=== PATIENT | male | born 1960 | race Caucasian/White ===

== ENCOUNTER 2019-11-07 07:50 | Outpatient (RCR) | payer OTHER, MEDICARE, SELFPAY ==
--- NOTE | 2019-10-17 09:56 | P.PNWOUND_ITS ---
Wound Care Note Date/Time: 10/17/19 09:56 2 weeks, 5 days POST OP Assessment and Plan Assessment and plan (1) Diabetic ulcer of foot associated with diabetes mellitus due to underlying condition, with necrosis of bone: Code(s): E08.621 - Diabetes mellitus due to underlying condition with foot ulcer; L97.504 - Non-pressure chronic ulcer of other part of unspecified foot with necrosis of bone Status: Acute Assessment and Plan: 2 weeks, 5 days POST OP. Sutures removed. Incision well-approximated. No signs of infection. No open ulcers. Transition to custom orthotics/depth shoes. Monitor feet daily. Report new ulcers immediately. Follow up in 2 weeks. Review of Systems Const Reports no additional constitutional complaints Eyes Reports no additional eye complaints ENT Reports system reviewed and no additional complaints, except as documented Card Reports no additional cardiovascular complaints Resp Reports no additional respiratory complaints GI Reports no additional gastrointestinal complaints Reports no additional male genitourinary complaints Musc Reports no additional musculoskeletal complaints Skin/Breast Reports system reviewed and no additional complaints, except as docu Neuro Reports system reviewed and no additional complaints, except as documented Psych Reports no additional psychiatric complaints Endo Reports no additional endocrine complaints Moreno/Lymph Reports no additional hematologic/lymphatic complaints Aller/Immun Reports no additional allergic/immunologic complaints Exam Extrem Left lower extremity: foot Details: Negative for vascular exam Details: dorsalis pedis pulse present (diminshed ) and normal capillary refill (sluggish at baseline ) and motor-sensory exam two-point discrimination abnormal and light- touch abnormal (chronic neuropathy ) Other: Incision on the hallux well-approximated. Sutures removed from hallux and plantar 2-4th toes. No signs of infection. No open wounds.
--- NOTE | 2019-11-07 08:43 | WPDWOUNDNOTE ---
Wound Care Note Date/Time: 11/07/19 08:43 5 weeks, 5 days s/p hammertoe correction/ I&D by Dr. Mccord Assessment and Plan Assessment and plan (1) Diabetic ulcer of foot associated with diabetes mellitus due to underlying condition, with necrosis of bone: Code(s): E08.621 - Diabetes mellitus due to underlying condition with foot ulcer; L97.504 - Non-pressure chronic ulcer of other part of unspecified foot with necrosis of bone Status: Acute Assessment and Plan: 5 weeks, 5 days POST OP. Incision remains well-approximated, well-healed. No signs of infection. No open ulcers. Continue use of custom orthotics/depth shoes. Discussed importance of daily foot checks and routine follow up with PCP. Follow up as needed. Exam Extrem Left lower extremity: foot Other: Incision on the hallux well-approximated. No signs of infection. No open wounds. Review of Systems Const Reports no additional constitutional complaints Eyes Reports no additional eye complaints ENT Reports system reviewed and no additional complaints, except as documented Card Reports no additional cardiovascular complaints Resp Reports no additional respiratory complaints GI Reports no additional gastrointestinal complaints Reports no additional male genitourinary complaints Musc Reports no additional musculoskeletal complaints Skin/Breast Reports system reviewed and no additional complaints, except as docu Neuro Reports system reviewed and no additional complaints, except as documented Psych Reports no additional psychiatric complaints Endo Reports no additional endocrine complaints Moreno/Lymph Reports no additional hematologic/lymphatic complaints Aller/Immun Reports no additional allergic/immunologic complaints
== END 2019-12-29 12:29 | disposition home or self-care (01) ==
LOC: ANHWOC 07:50
PROVIDERS: Referring Provider Nurse Practitioner Family; Visit Provider Nurse Practitioner Family
DX: E11.622 Type 2 diabetes mellitus with other skin ulcer (principal); L97.529 Non-pressure chronic ulcer of other part of left foot with unspecified severity
CPT/HCPCS: 92593; 99211; 99212; G0463

== ENCOUNTER 2020-05-21 08:34 | Outpatient (CLI) | payer OTHER, MEDICARE, SELFPAY ==
[2020-05-21 09:21] LABS: Hemoglobin A1C 7.5 % (<5.7)
[2020-05-21 09:23] LABS: Alanine Aminotransferase 13 U/L (4-50); Albumin Level 3.9 g/dL (3.5-5.1); Alkaline Phosphatase 73 U/L (38-126); Aspartate Amino Transferase 18 U/L (17-59); Bilirubin,Total 0.2 mg/dL (0.2-1.3); Blood Urea Nitrogen 26 mg/dL (9-20); Calcium 9.2 mg/dL (8.4-10.2); Carbon Dioxide 25 mmol/L (22-30); Chloride 105 mmol/L (98-107); Cholesterol 130 mg/dL (0-200); Estimated Glomerular Filt Rate > 60; Glucose 117 mg/dL (75-110); HDL Direct 39 mg/dL; Potassium 4.9 mmol/L (3.4-5.0); Sodium 139 mmol/L (137-145); Triglycerides 151 mg/dL (<150)
[2020-05-21 09:34] LABS: LDL Cholesterol Direct 55 mg/dL
[2020-05-21 09:53] LABS: Prostate Specific Antigen 0.3 ng/mL (< OR = 4.0)
== END 2020-05-21 08:35 | disposition home or self-care (01) ==
DX: Z12.5 Encounter for screening for malignant neoplasm of prostate (principal); E11.40 Type 2 diabetes mellitus with diabetic neuropathy, unspecified; E78.5 Hyperlipidemia, unspecified
CPT/HCPCS: 36415; 80053; 80061; 83036; 84153; G0103

== ENCOUNTER 2020-10-09 09:29 | Outpatient (CLI) | payer OTHER, MEDICARE, SELFPAY ==
[2020-10-09 10:42] LABS: Basophils Percent Auto 0.5 % (0.2-1.2); Eosinophils Absolute Auto 0.2 K/mm3 (0-0.3); Eosinophils Percent Auto 2.9 % (0-4.4); Hematocrit 36.3 % (42.0-52.0); Hemoglobin 10.8 g/dL (14.0-18.0); Immature Granulocyte Absolute 0.02 K/mm3 (0.00-0.031); Immature Granulocyte Percent A 0.3 % (0-0.5); Lymphocytes Absolute Auto 2.17 K/mm3 (0.9-3.2); Lymphocytes Percent Auto 28.7 % (18.3-44.2); Mean Corpuscular HGB Conc 29.8 g/dl (32-36); Mean Corpuscular Hemoglobin 27.3 pg (26-34); Mean Corpuscular Volume 91.9 fl (80-100); Mean Platelet Volume 9.8 fl (7.4-10.4); Monocytes Absolute Auto 0.6 K/mm3 (0.1-0.6); Monocytes Percent Auto 8.1 % (2.6-8.5); Neutrophils Absolute Auto 4.5 K/mm3 (1.3-6.7); Neutrophils Percent Auto 59.5 % (45.5-73.1); Platelet Count Result 232 k/mm3 (150-375); Red Blood Count 3.95 M/mm3 (4.6-6.20); Red Cell Distribution Width 14.7 % (11.5-14.5); White Blood Count 7.6 K/mm3 (4.5-10.0)
[2020-10-09 11:00] LABS: Anion Gap 9 mmol/L (8-16); Blood Urea Nitrogen 31 mg/dL (9-20); Calcium 9.3 mg/dL (8.4-10.2); Carbon Dioxide 26 mmol/L (22-30); Chloride 106 mmol/L (98-107); Estimated Glomerular Filt Rate 44; Glucose 111 mg/dL (75-110); Potassium 4.8 mmol/L (3.4-5.0); Sodium 141 mmol/L (137-145)
[2020-10-09 11:07] LABS: NT Pro B Type Natriuretic Pept 2260 PG/ML (5-100)
== END 2020-10-09 09:30 | disposition home or self-care (01) ==
PROVIDERS: PCP Family Medicine
DX: R06.00 Dyspnea, unspecified (principal); K92.1 Melena; I10 Essential (primary) hypertension
CPT/HCPCS: 36415; 80048; 83880; 85025

== ENCOUNTER 2020-10-23 08:27 | Outpatient (CLI) | payer OTHER, MEDICARE, SELFPAY ==
--- NOTE | 2020-10-23 | ECHO_ITS ---
Patient Info Name: Emilio Sultana Age: 59 years : 1960 Gender: Male Ht: 71 in Wt: 325 lbs BSA: 2.79 m2 HR: 66 bpm BP: 139 / 77 mmHg Heart Rhythm: Sinus Rhythm Technical Quality: Fair Exam Date: 10/23/2020 8:56 AM Exam Location: [facility] Patient Status: Outpatient Admit Date: 10/23/2020 Staff Ordering Physician: PHYSICIAN NOT ON STAFF, NONSTAFF Email Marketing Manager: Laurita Murphy RDCS Attending Provider: PHYSICIAN NOT ON STAFF, NONSTAFF Exam Type: CA echo doppler color flow Study Info Indications - chf afib Complete two-dimensional, color flow and Doppler transthoracic echocardiogram is performed. Summary 1. Complete two-dimensional, color flow and Doppler transthoracic echocardiogram is performed. 2. Left ventricular chamber dimension is normal. 3. Left ventricular systolic function is normal, estimated at 65-70%. 4. There is mildly increased left ventricular wall thickness. 5. The left ventricular diastolic function is grade II diastolic dysfunction. 6. Left atrial chamber dimension is moderately enlarged. 7. Right atrial chamber dimension is mildly enlarged. 8. There is mild mitral valve regurgitation. 9. There is mild tricuspid valve regurgitation. 10. Severe pulmonary hypertension, estimated pulmonary arterial systolic pressure is 77 mmHg. 11. There is mild pulmonic regurgitation. Left Ventricle Left ventricular chamber dimension is normal. Left ventricular systolic function is normal, estimated at 65-70%. There is mildly increased left ventricular wall thickness. The left ventricular diastolic function is grade II diastolic dysfunction. Right Ventricle Right ventricular chamber dimension is normal. Right ventricular systolic function is normal. Left Atria Left atrial chamber dimension is moderately enlarged. Right Atria Right atrial chamber dimension is mildly enlarged. Atrial Septum Intact interatrial septum visualized by color flow imaging. Aortic Valve The aortic valve is trileaflet. There is mild aortic valve sclerosis. There is no aortic valve stenosis. There is trace aortic valve regurgitation. Pulmonic Valve The pulmonic valve is normal. There is no pulmonic valve stenosis. There is mild pulmonic regurgitation. Mitral Valve The mitral valve has normal leaflets. There is no mitral valve stenosis. There is mild mitral valve regurgitation. Tricuspid Valve The tricuspid valve leaflets are normal. There is no significant tricuspid valve stenosis. There is mild tricuspid valve regurgitation. Severe pulmonary hypertension, estimated pulmonary arterial systolic pressure is 77 mmHg. Pericardium/Pleural The pericardium appears normal. There is no pericardial effusion. Inferior Vena Cava Dilated inferior vena cava with >50% collapse upon inspiration consistent with elevated right atrial pressure, 10 mmHg. Aorta The aortic root size at the sinus of Valsalva is normal. The prox ascending aorta size is normal. Left Ventricular Outflow Tract Name Value Normal LVOT 2D LVOT Diameter 2.1 cm LVOT Doppler LVOT Peak Gradient
== END 2020-10-23 08:28 | disposition home or self-care (01) ==
PROVIDERS: PCP Family Medicine
DX: I48.91 Unspecified atrial fibrillation (principal); I50.9 Heart failure, unspecified; I34.0 Nonrheumatic mitral (valve) insufficiency; I36.1 Nonrheumatic tricuspid (valve) insufficiency; I27.20 Pulmonary hypertension, unspecified; I37.1 Nonrheumatic pulmonary valve insufficiency
CPT/HCPCS: 93306

== ENCOUNTER 2020-12-10 10:22 | Outpatient (CLI) | payer OTHER, MEDICARE, SELFPAY ==
[2020-12-10 11:16] LABS: Anion Gap 6 mmol/L (8-16); Blood Urea Nitrogen 26 mg/dL (9-20); Calcium 8.5 mg/dL (8.4-10.2); Carbon Dioxide 25 mmol/L (22-30); Chloride 108 mmol/L (98-107); Estimated Glomerular Filt Rate > 60; Glucose 101 mg/dL (75-110); Potassium 4.6 mmol/L (3.4-5.0); Sodium 139 mmol/L (137-145)
== END 2020-12-10 10:23 | disposition home or self-care (01) ==
PROVIDERS: PCP Family Medicine
DX: I48.0 Paroxysmal atrial fibrillation (principal)
CPT/HCPCS: 36415; 80048

== ENCOUNTER 2021-09-09 09:28 | Outpatient (CLI) | payer OTHER, MEDICARE, SELFPAY ==
[2021-09-09 10:31] LABS: Hemoglobin A1C 7.3 % (<5.7)
[2021-09-09 10:35] LABS: Alanine Aminotransferase 18 U/L (4-50); Albumin Level 4.1 g/dL (3.5-5.1); Alkaline Phosphatase 58 U/L (38-126); Anion Gap 10 mmol/L (8-16); Aspartate Amino Transferase 21 U/L (17-59); Bilirubin,Total 0.3 mg/dL (0.2-1.3); Blood Urea Nitrogen 24 mg/dL (9-20); Calcium 9.4 mg/dL (8.4-10.2); Carbon Dioxide 25 mmol/L (22-30); Chloride 107 mmol/L (98-107); Cholesterol 137 mg/dL (0-200); Estimated Glomerular Filt Rate > 60; Glucose 110 mg/dL (65-110); HDL Direct 41 mg/dL; Potassium 4.6 mmol/L (3.4-5.0); Sodium 142 mmol/L (137-145); Triglycerides 151 mg/dL (<150)
[2021-09-09 10:46] LABS: LDL Cholesterol Direct 68 mg/dL
[2021-09-09 11:46] LABS: Prostate Specific Antigen 0.3 ng/mL (< OR = 4.0)
== END 2021-09-09 09:29 | disposition home or self-care (01) ==
PROVIDERS: PCP Family Medicine; Visit Provider Family Medicine
DX: Z12.5 Encounter for screening for malignant neoplasm of prostate (principal); E78.5 Hyperlipidemia, unspecified; E11.40 Type 2 diabetes mellitus with diabetic neuropathy, unspecified; I10 Essential (primary) hypertension
CPT/HCPCS: 36415; 80053; 80061; 83036; 84153; G0103

== ENCOUNTER 2022-06-05 08:53 | Outpatient (CLI) | payer OTHER, MEDICARE, SELFPAY ==
[2022-06-05 10:04] LABS: Basophils Percent Auto 0.5 % (0.2-1.2); Eosinophils Absolute Auto 0.3 K/mm3 (0-0.3); Eosinophils Percent Auto 4.5 % (0-4.4); Hematocrit 40.1 % (42.0-52.0); Hemoglobin 11.7 g/dL (14.0-18.0); Immature Granulocyte Absolute 0.02 K/mm3 (0.00-0.031); Immature Granulocyte Percent A 0.3 % (0-0.5); Lymphocytes Absolute Auto 1.74 K/mm3 (0.9-3.2); Lymphocytes Percent Auto 22.8 % (18.3-44.2); Mean Corpuscular HGB Conc 29.2 g/dl (32-36); Mean Corpuscular Hemoglobin 27.5 pg (26-34); Mean Corpuscular Volume 94.1 fl (80-100); Mean Platelet Volume 9.8 fl (7.4-10.4); Monocytes Absolute Auto 0.8 K/mm3 (0.1-0.6); Monocytes Percent Auto 10.9 % (2.6-8.5); Neutrophils Absolute Auto 4.7 K/mm3 (1.3-6.7); Platelet Count Result 196 k/mm3 (150-375); Red Blood Count 4.26 M/mm3 (4.6-6.20); Red Cell Distribution Width 15.2 % (11.5-14.5); White Blood Count 7.6 K/mm3 (4.5-10.0)
[2022-06-05 10:16] LABS: Anion Gap 7 mmol/L (8-16); Blood Urea Nitrogen 22 mg/dL (9-20); Carbon Dioxide 27 mmol/L (22-30); Chloride 105 mmol/L (98-107); Estimated Glomerular Filt Rate 56; Glucose 86 mg/dL (65-110); Potassium 4.7 mmol/L (3.4-5.0); Sodium 139 mmol/L (137-145)
== END 2022-06-05 08:54 | disposition home or self-care (01) ==
PROVIDERS: PCP Family Medicine
DX: I27.21 Secondary pulmonary arterial hypertension (principal); I10 Essential (primary) hypertension
CPT/HCPCS: 36415; 80048; 85025

== ENCOUNTER 2022-08-07 10:43 | Outpatient (CLI) | payer OTHER, MEDICARE, SELFPAY ==
[2022-08-07 12:42] LABS: HIV 1/2 Ab P24 Ag Result Negative (Negative)
[2022-08-07 12:57] LABS: Hepatitis B Surface Anti Res Negative; Hepatitis C Virus Antibody Negative (Negative)
[2022-08-07 13:01] LABS: Hepatitis B Core IgM Result Negative (Negative); Hepatitis B Surface Antigen Negative (Negative)
[2022-08-12 12:45] LABS: Scleroderma 70 Antibody <1.0
[2022-08-14 05:26] LABS: Anti Nuclear Antibody Pattern Nuclear, Speckled
== END 2022-08-07 10:44 | disposition home or self-care (01) ==
PROVIDERS: PCP Family Medicine
DX: I27.21 Secondary pulmonary arterial hypertension (principal)
CPT/HCPCS: 36415; 86038; 86039; 86235; 86703; 86705; 86706; 86803; 87340; G0432

== ENCOUNTER 2022-09-09 09:43 | Outpatient (CLI) | payer OTHER, MEDICARE, SELFPAY ==
[2022-09-09 10:16] LABS: Anion Gap 17 mmol/L (8-16); Blood Urea Nitrogen 53 mg/dL (9-20); Calcium 8.8 mg/dL (8.4-10.2); Carbon Dioxide 27 mmol/L (22-30); Chloride 102 mmol/L (98-107); Estimated Glomerular Filt Rate 34; Glucose 146 mg/dL (65-110); Potassium 4.2 mmol/L (3.4-5.0); Sodium 146 mmol/L (137-145)
[2022-09-09 10:26] LABS: NT Pro B Type Natriuretic Pept 208 pg/mL (5-100)
== END 2022-09-09 09:44 | disposition home or self-care (01) ==
PROVIDERS: PCP Family Medicine
DX: I50.32 Chronic diastolic (congestive) heart failure (principal); I27.21 Secondary pulmonary arterial hypertension; R06.09 Other forms of dyspnea; I25.10 Atherosclerotic heart disease of native coronary artery without angina pectoris
CPT/HCPCS: 36415; 80048; 83880

== ENCOUNTER 2022-12-09 12:36 | Inpatient (IN) | payer OTHER, MEDICARE, SELFPAY ==
[2022-12-09] VITALS (7 sets, daily range): BP systolic 117–130; BP diastolic 54–66; PULSE 83–110; RESP 13–19; TEMP 36.3–37.2; O2SAT 93–99
--- NOTE | ~2022-12-09 | XR_ITS ---
EXAMINATION: XR abdomen/kub 1V DATE: 12/12/2022 15:23 INDICATION: Abdominal pain. Prior testicular removal. TECHNIQUE: A supine view of the abdomen on 4 radiographs was obtained. COMPARISON: CT dated 01/21/2018 FINDINGS: Moderate amount of gas and stool scattered throughout the colon. Additional gas within a few nondilat ed loops of small bowel in a nonspecific nonobstructive bowel gas pattern. Multiple surgical clips at the right groin which could be related to either prior hernia repair or reported orchiectomy. Visual ized lung bases are clear. IMPRESSION: 1. Nonspecific bowel gas pattern with moderate amount of scattered colonic gas and stool but no dilat ed loops of bowel to suggest obstruction. Reviewed, dictated and finalized at location A. CCO SHAKER IMPRESSION: 1. Nonspecific bowel gas pattern with moderate amount of scattered colonic gas and stool but no dilated loops of bowel to suggest obstruction.
--- NOTE | ~2022-12-09 | US_ITS ---
EXAMINATION: US venous doppler LE RT DATE: 12/09/2022 14:20 INDICATION: Right lower limb redness TECHNIQUE: Sneed scale images without and with compression and Doppler images of the right lower extre mity veins were obtained. COMPARISON: None FINDINGS: The right common femoral vein, profunda femoral vein, femoral vein, popliteal vein, peronea l trunk, posterior tibial veins, and greater saphenous vein are patent. IMPRESSION: 1. Patent right lower extremity veins. No evidence of deep venous thrombosis. Reviewed, dictated and finalized at location B. L FOLDER
--- NOTE | ~2022-12-09 | XR_ITS ---
EXAMINATION: XR tibia fibula RT 2V DATE: 12/09/2022 13:48 INDICATION: Erythema, swelling and wounds at the mid right calf TECHNIQUE: AP and lateral views of the right tibia and fibula were obtained on overlapping proximal a nd distal images COMPARISON: None. FINDINGS: Bone alignment is normal. No fracture. Chondrocalcinosis and mild tricompartmental osteoarthritis at the right knee. Mild osteoarthritis at the naviculocuneiform articulation. No periosteal reaction or cortical erosions. Small Achilles and plantar calcaneal spurs. No right knee or ankle joint effusions . Mild subcutaneous edema throughout the right calf. IMPRESSION: 1. No acute osseous abnormality. 2. Chondrocalcinosis and mild tricompartmental osteoarthritis at the right knee. 3. Mild osteoarthritis at the naviculocuneiform articulation. Reviewed, dictated and finalized at location A. O TIME BUYER IMPRESSION: 1. No acute osseous abnormality. 2. Chondrocalcinosis and mild tricompartmental osteoarthritis at the right knee . 3. Mild osteoarthritis at the naviculocuneiform articulation.
--- NOTE | 2022-12-09 12:53 | ED.GENADULT ---
HPI - General Adult General Chief complaint: Skin/Abscess/Foreign Body Stated complaint: possible leg cellulits Time Seen by Provider: 12/09/22 12:42 Source: RN notes reviewed History of Present Illness HPI narrative: Patient presents emergency department from home for right leg redness. Patient states that he has had some redness in his right leg for approximately 1 week that is progressively worsened. He states he had had a Band-Aid over small and on that side and when needing Band-Aid off he had had 2 larger wounds states that with the redness worsening he was seen by his home health nurse today and recommended come to the ER for further evaluation he denies any fevers or chills states the leg does hurt he denies any itching of the leg states that he was recently in the hospital at [facility] where he had gone for a cardioversion when he arrived they found he is back in sinus rhythm but he was found to be in renal failure at that time he was subsequently admitted and is now on dialysis with a dialysis catheter in his right chest. He states he is on Eliquis he denies any antibiotic Related Data Home Medications Medication Instructions Recorded Confirmed atorvastatin 80 mg tablet 80 mg PO DAILY 09/22/19 09/28/19 lisinopril 10 mg tablet 10 mg PO DAILY 09/22/19 09/28/19 metformin 1,000 mg tablet 1,000 mg PO BID 09/22/19 09/28/19 rivaroxaban 20 mg tablet (Xarelto) 20 mg PO QPM 09/22/19 09/28/19 sotalol 80 mg tablet 80 mg PO BID 09/22/19 09/28/19 tizanidine 4 mg capsule (Zanaflex) 8 mg PO HS 09/22/19 09/28/19 topiramate 200 mg tablet (Topamax) 400 mg PO HS 09/22/19 09/28/19 albuterol sulfate 90 mcg/actuation 2 puff inhalation Q4H PRN 09/28/19 09/28/19 aerosol inhaler (ProAir HFA) Shortness Of Breath glipizide 10 mg tablet, extended 10 mg PO BID 09/28/19 09/28/19 release 24 hr morphine 60 mg tablet,extended 60 mg PO Q12H 09/28/19 09/28/19 release (MS Contin) oxycodone-acetaminophen 10 mg-325 1 tablet PO Q4H PRN Pain 09/28/19 09/28/19 mg tablet torsemide 20 mg tablet 20 mg PO QAM 09/28/19 09/28/19 Allergies Allergy/AdvReac Type Severity Reaction Status Date / Time coconut Allergy Mild Rash Verified 02/14/20 13:34 tamsulosin AdvReac Intermediate NAUSEA, Verified 02/14/20 13:34 DIARRHEA sucralfate AdvReac Mild NAUSEA Verified 02/14/20 13:34 Review of Systems Review of Systems: Gen.: Denies fevers or chills ENT: Denies congestion Respiratory: Denies shortness of breath or cough CV: Denies chest pain or palpitations GI: Denies abdominal pain nausea, emesis or diarrhea reports chronic renal failure dialysis Musculoskeletal: See HPI Neuro: Denies numbness, tingling, weakness or focal weakness Skin: See HPI Except as documented, all other systems reviewed and negative PMFSH Past Medical History Medical History (Updated 12/09/22 @ 15:39 by Minor Valenzuela DO) Chronic atrial fibrillation, unspecified Chronic heart failure with preserved ejection fraction (HFpEF) Chronic narcotic use Chronic pain syndrome COPD (chronic obstructive pulmonary disease) Hyperlipidemia Hypertension, essential DARRYL (obstructive sleep apnea) Osteoarthritis of multiple joints Type 2 diabetes mellitus with hyperglycemia, without long-term current use of insulin Surgical History Surgical History (System 02/14/20 @ 13:34 by Emili Weaver) History of arthroplasty of right knee History of partial colectomy Hx of appendectomy Family History Family History (System 02/14/20 @ 13:34 by Emili Weaver) Father Pancreas cancer Alzheimer disease Hypertension, essential Mother Diabetes mellitus COPD (chronic obstructive pulmonary disease) Hypertension Sibling Acute myocardial infarction COPD (chronic obstructive pulmonary disease) Other Cerebrovascular accident Family history of cardiovascular disease Social History Social History Smoking status: F
[2022-12-09 13:11] LABS: Basophils Percent Auto 0.5 % (0.2-1.2); Eosinophils Absolute Auto 0.2 K/mm3 (0-0.3); Eosinophils Percent Auto 2.7 % (0-4.4); Hematocrit 36.4 % (42.0-52.0); Hemoglobin 10.9 g/dL (14.0-18.0); Immature Granulocyte Absolute 0.04 K/mm3 (0.00-0.031); Immature Granulocyte Percent A 0.5 % (0-0.5); Lymphocytes Absolute Auto 1.94 K/mm3 (0.9-3.2); Lymphocytes Percent Auto 22.2 % (18.3-44.2); Mean Corpuscular HGB Conc 29.9 g/dl (32-36); Mean Corpuscular Hemoglobin 27.5 pg (26-34); Mean Corpuscular Volume 91.9 fl (80-100); Mean Platelet Volume 11.2 fl (7.4-10.4); Monocytes Absolute Auto 0.9 K/mm3 (0.1-0.6); Monocytes Percent Auto 10.4 % (2.6-8.5); Neutrophils Absolute Auto 5.6 K/mm3 (1.3-6.7); Neutrophils Percent Auto 63.7 % (45.5-73.1); Platelet Count Result 251 k/mm3 (150-375); Red Blood Count 3.96 M/mm3 (4.6-6.20); White Blood Count 8.7 K/mm3 (4.5-10.0)
[2022-12-09 13:22] LABS: Lactic Acid Reflex 1.4 mmol/L (0.7-2.0)
--- NOTE | 2022-12-09 14:07 | PC.NURSE ---
Patient has significant redness and swelling to bilateral lower legs. Patient has some open wounds draining clear drainage. Patient states he was recently discharged from another facility and states his legs looked like this upon discharge, but was not given any antibiotic. Patient's home health nurse came in today and advised patient to come to the ED.
[2022-12-09 14:08] LABS: Partial Thromboplastin Time 34.3 SECONDS (22.3-36.8)
[2022-12-09 14:09] LABS: INR 1.7; Prothrombin Time 19.4 Seconds (11.1-14.7)
[2022-12-09 15:15] LABS: Influenza A QL RT-PCR Negative (Negative); Influenza B QL RT-PCR Negative (Negative); SARS-CoV-2 RNA PCR Negative
[2022-12-09 15:25] LABS: Alanine Aminotransferase 16 U/L (6-50); Albumin Level 3.7 g/dL (3.5-5.1); Alkaline Phosphatase 60 U/L (38-126); Anion Gap 7 mmol/L (8-16); Aspartate Amino Transferase 18 U/L (17-59); Bilirubin,Total 0.7 mg/dL (0.2-1.3); Blood Urea Nitrogen 26 mg/dL (9-20); Calcium 8.4 mg/dL (8.4-10.2); Carbon Dioxide 29 mmol/L (22-30); Chloride 97 mmol/L (98-107); Estimated CRCL calculation 34 ml/min; Estimated Glomerular Filt Rate 21; Glucose 204 mg/dL (65-110); Potassium 3.6 mmol/L (3.4-5.0); Sodium 133 mmol/L (137-145)
--- NOTE | 2022-12-09 15:30 | PM.IMHP ---
H&P: HPI History of Present Illness Date/Time: 12/09/22 15:30 Chief Complaint: Redness and swelling to the right leg. Narrative: This is a 61-year-old male with paroxysmal atrial fibrillation on anticoagulation, hypertension, hyperlipidemia, heart failure with preserved ejection fraction, end-stage renal disease on hemodialysis, chronic obstructive pulmonary disease, obstructive sleep apnea intolerant to PAP therapy, type 2 diabetes mellitus, and chronic pain syndrome who presented to the emergency department from home for evaluation of redness and swelling of the right leg. He was discharged from [facility] within the last several days after a nearly month long stay in which he was admitted for acute on chronic renal failure, ultimately having been started on dialysis. Home health came today and they noted that 2 blistered areas on his right leg had opened up and they were concerned for infection. He has noticed increasing swelling and redness in the leg but he does not have any significant pain. He has not noticed any drainage coming from the wound but is concerned as he has a history of MRSA skin and soft tissue infections. He denies fever, chills, sweats, nausea, and vomiting. No history of venous thromboembolism; he states compliance with Eliquis. Review of Systems Review of Systems: Twelve systems are reviewed. No cold or flu symptoms. No chest pain or shortness of breath. Appetite has been okay. No nausea, vomiting, or diarrhea. He still urinates. No urinary symptoms. Except as documented, all other systems were reviewed and are negative. [facility] Past Medical History Medical History (Updated 12/09/22 @ 22:21 by Josefina Santana PA-C) Atrial fibrillation Chronic anticoagulation Chronic heart failure with preserved ejection fraction (HFpEF) Chronic narcotic use Chronic pain syndrome COPD (chronic obstructive pulmonary disease) End-stage renal disease on hemodialysis History of MRSA infection Hyperlipidemia Hypertension, essential Insulin dependent type 2 diabetes mellitus DARRYL (obstructive sleep apnea) Intolerant to CPAP Osteoarthritis of multiple joints Type 2 diabetes mellitus with hyperglycemia, without long-term current use of insulin Surgical History Surgical History History of arthroplasty of right knee History of partial colectomy Hx of appendectomy Family History Family History Father Pancreas cancer Alzheimer disease Hypertension, essential Mother Diabetes mellitus COPD (chronic obstructive pulmonary disease) Hypertension Sibling Acute myocardial infarction COPD (chronic obstructive pulmonary disease) Other Cerebrovascular accident Family history of cardiovascular disease Social History Social History (Updated 12/09/22 @ 22:22 by Josefina Santana PA-C) Social History: Surrogate medical decision maker: Graciela Sultana, spouse. Code status: Full code. Smoking status: Former smoker Additional smoking assessment comments: Smoked as a teenager for couple of years. Alcohol intake: never Substance use: never Substance use type: does not use Lack of Transportation: No Lack of Food: Never True Current Housing: I Have Housing Concerned About Future Housing: No Difficulty Paying Gas/Electric Bills: No Difficulty Paying for Meds: YES Currently Unemployed: No Education: High School Diploma/GED Difficulty w/ Childcare or Family Care: No Additional living arrangements comments: Lives with and cat in [place]. They have 3 grown children. Additional occupation/education comments: Disabled. Spiritual care concerns: No Meds Home Medications and Allergies Home Medications Medication Instructions Recorded Confirmed Type atorvastatin 80 mg tablet 80 mg PO DAILY 09/22/19 12/09/22 History lisinopril 10 mg tablet 10 mg PO DAILY
--- NOTE | 2022-12-09 15:40 | PC.NURSE ---
Unable to obtain blood cultures. Patient was stuck 5 times in the ED and unable to get cultures.
--- NOTE | 2022-12-09 16:04 | PC.NURSE ---
Per verbal order from Dr Valenzuela, he states to start antibiotic even though we have not gotten blood cultures.
--- NOTE | 2022-12-09 17:05 | ADMGEN ---
This patient, Emilio Sultana, was admitted to [facility] Surg Room 303-01. Patient/family oriented to hospital policies and general routines including ID bracelet, bed and alarms, visiting hours, pain management, procedures, bathroom and other care routines, personal items, smoking policy, room service/diet, and visiting hours. Information on how to activate the Rapid Response Team has been discussed. Patient/Family are encouraged to report perceived risks to care and to ask questions if they do not understand what they are told or what they should do.
[2022-12-09] MEDS: metroNIDAZOLE 500 MG/ISO 100ML 500 MG/100 ML BAG 100 MG IVPB (17:43)
[2022-12-09 17:49] LABS: Glucose Point of Care 145 mg/dl (65-105)
[2022-12-09 21:56] LABS: Glucose Point of Care 251 mg/dl (65-105)
[2022-12-09] MEDS: oxyCODONE/ACETAMINOPHEN (*CRX) 10-325 MG TABLET 1 TAB PO (22:46)
[2022-12-09] MEDS: TOPIRAMATE 100 MG TABLET 400 MG PO (23:00)
[2022-12-09] MEDS: TIZANIDINE HCL 4 MG TABLET PO (23:00)
[2022-12-09] MEDS: APIXABAN 5 MG TABLET PO (23:00)
[2022-12-10] VITALS (12 sets, daily range): BP systolic 99–137; BP diastolic 44–82; PULSE 67–123; RESP 16–18; TEMP 36–37.1; O2SAT 97–99
[2022-12-10] MEDS: metroNIDAZOLE 500 MG/ISO 100ML 500 MG/100 ML BAG 100 MG IVPB ×3 (00:40→17:24)
[2022-12-10] MEDS: oxyCODONE/ACETAMINOPHEN (*CRX) 10-325 MG TABLET 1 TAB PO ×3 (05:36→16:52)
[2022-12-10 06:15] LABS: Basophils Percent Auto 0.4 % (0.2-1.2); Eosinophils Absolute Auto 0.3 K/mm3 (0-0.3); Eosinophils Percent Auto 3.6 % (0-4.4); Hemoglobin 10.4 g/dL (14.0-18.0); Immature Granulocyte Absolute 0.02 K/mm3 (0.00-0.031); Immature Granulocyte Percent A 0.3 % (0-0.5); Lymphocytes Percent Auto 28.7 % (18.3-44.2); Mean Corpuscular HGB Conc 29.7 g/dl (32-36); Mean Corpuscular Hemoglobin 27.3 pg (26-34); Mean Corpuscular Volume 91.9 fl (80-100); Mean Platelet Volume 10.2 fl (7.4-10.4); Monocytes Percent Auto 13.3 % (2.6-8.5); Neutrophils Absolute Auto 3.9 K/mm3 (1.3-6.7); Neutrophils Percent Auto 53.7 % (45.5-73.1); Platelet Count Result 192 k/mm3 (150-375); Red Blood Count 3.81 M/mm3 (4.6-6.20); Red Cell Distribution Width 16.2 % (11.5-14.5); White Blood Count 7.3 K/mm3 (4.5-10.0)
[2022-12-10 06:32] LABS: Alanine Aminotransferase 16 U/L (6-50); Albumin Level 3.8 g/dL (3.5-5.1); Alkaline Phosphatase 62 U/L (38-126); Anion Gap 10 mmol/L (8-16); Aspartate Amino Transferase 21 U/L (17-59); Bilirubin,Total 0.6 mg/dL (0.2-1.3); Blood Urea Nitrogen 28 mg/dL (9-20); Calcium 8.2 mg/dL (8.4-10.2); Carbon Dioxide 27 mmol/L (22-30); Chloride 97 mmol/L (98-107); Estimated CRCL calculation 31 ml/min; Estimated Glomerular Filt Rate 19; Glucose 175 mg/dL (65-110); Magnesium 1.5 mg/dL (1.6-2.3); Potassium 3.8 mmol/L (3.4-5.0); Sodium 134 mmol/L (137-145)
[2022-12-10 07:16] LABS: Hepatitis B Surface Antigen Negative (Negative)
[2022-12-10 07:33] LABS: Hepatitis B Surface Anti Res Negative
[2022-12-10 08:27] LABS: Glucose Point of Care 176 mg/dl (65-105)
--- NOTE | 2022-12-10 09:30 | PM.IMPN ---
Progress Note: A&P Assessment and Plan (1) Cellulitis of right leg: Code(s): L03.115 - Cellulitis of right lower limb Status: Acute Assessment and Plan: Presented with 2 shallow ulcers on his right lower leg erythema, edema, and warmth around site of the wound Venous doppler no DVT Continue cefepime, vanco, and Flagyl Wound care consulted Trend symptoms (2) End-stage renal disease on hemodialysis: Code(s): N18.6 - End stage renal disease; Z99.2 - Dependence on renal dialysis Status: Acute Assessment and Plan: Current BUN/Cr stable at 28/3.30 Nephrology consulted Dialysis days are , , sat Nephrology to manage dialysis Trend labs Avoid nephrotoxic medication Adjust therapy as indicated (3) Insulin dependent type 2 diabetes mellitus: Code(s): E11.9 - Type 2 diabetes mellitus without complications; Z79.4 - senior living (current) use of insulin Status: Acute Assessment and Plan: Current glucose is 175 A1c Continue basal insulin Initiate sliding scale insulin Accu-Cheks AC/HD hypoglycemic protocol Trend glucose Adjust therapy as indicated (4) Atrial fibrillation: Code(s): I48.91 - Unspecified atrial fibrillation Status: Acute Assessment and Plan: Rate controlled, and currently Sinus dane continue amiodarone and sotalol Continue apixaban for stroke prophylaxis. 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.01 - long term care phlebotomist (current) use of anticoagulants Status: Acute Assessment and Plan: Continue Xarelto as above (6) Hypertension, essential: Code(s): I10 - Essential (primary) hypertension Status: Acute Assessment and Plan: Current BP is 104/51 Continue home lisinopril Trend BP Adjust therapy as indicated (7) Chronic heart failure with preserved ejection fraction (HFpEF): Code(s): I50.32 - Chronic diastolic (congestive) heart failure Status: Acute Assessment and Plan: Last echo on file indicated EF of 65-70% with grade 2 diastolic dysfunction Chronic diastolic heart failure not in acute exacerbation Trend fluid status On dialysis Daily weights Strict I/Os Plan Mg 1.5 today-replace with 2gm once Time Spent With Patient Time with patient: Greater than 35 minutes Subjective Date/time seen: 12/10/22929 Interval history: 12/10/22929 Patient seems to be doing well. He denies any chest pain, shortness a breath, weakness or fatigue. Patient stated he is a little nauseous however he did state that he feels okay. Right leg is still swollen he rates his pain a 2-3/10. redness is still present. He does have some ulcers that are weeping at this time. Magnesium was 1.5 and replaced. Patient should be having dialysis today. 12/09/22? 15:30 This is a 61-year-old male with paroxysmal atrial fibrillation on anticoagulation, hypertension, hyperlipidemia, heart failure with preserved ejection fraction, end-stage renal disease on hemodialysis, chronic obstructive pulmonary disease, obstructive sleep apnea intolerant to PAP therapy, type 2 diabetes mellitus, and chronic pain syndrome who presented to the emergency department from home for evaluation of redness and swelling of the right leg. He was discharged from [facility] within the last several days after a nearly month long stay in which he was admitted for acute on chronic renal failure, ultimately having been started on dialysis. Home health came today and they noted that 2 blistered areas on his right leg had opened up and they were concerned for infection. He has noticed increasing swelling and redness in the leg but he does not have any significant pain. He has not noticed any drainage coming from the wound but is concerned as he has a history of MRSA skin and soft tissue
--- NOTE | 2022-12-10 09:30 | P.PNIM_ITS ---
Progress Note: A&P Assessment and Plan (1) Cellulitis of right leg: Code(s): L03.115 - Cellulitis of right lower limb Status: Acute Assessment and Plan: * Presented with 2 shallow ulcers on his right lower leg * erythema, edema, and warmth around site of the wound * Venous doppler no DVT * Continue cefepime, vanco, and Flagyl * Wound care consulted * Trend symptoms (2) End-stage renal disease on hemodialysis: Code(s): N18.6 - End stage renal disease; Z99.2 - Dependence on renal dialysis Status: Acute Assessment and Plan: * Current BUN/Cr stable at 28/3.30 * Nephrology consulted * Dialysis days are , , wed * Nephrology to manage dialysis * Trend labs * Avoid nephrotoxic medication * Adjust therapy as indicated (3) Insulin dependent type 2 diabetes mellitus: Code(s): E11.9 - Type 2 diabetes mellitus without complications; Z79.4 - detention (current) use of insulin Status: Acute Assessment and Plan: * Current glucose is 175 * A1c * Continue basal insulin * Initiate sliding scale insulin * Accu-Cheks AC/HD * hypoglycemic protocol * Trend glucose * Adjust therapy as indicated (4) Atrial fibrillation: Code(s): I48.91 - Unspecified atrial fibrillation Status: Acute Assessment and Plan: * Rate controlled, and currently Sinus dane * continue amiodarone and sotalol * Continue apixaban for stroke prophylaxis. 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 - detention (current) use of anticoagulants Status: Acute Assessment and Plan: * Continue Xarelto as above (6) Hypertension, essential: Code(s): I10 - Essential (primary) hypertension Status: Acute Assessment and Plan: * Current BP is 104/51 * Continue home lisinopril * Trend BP * Adjust therapy as indicated (7) Chronic heart failure with preserved ejection fraction (HFpEF): Code(s): I50.32 - Chronic diastolic (congestive) heart failure Status: Acute Assessment and Plan: * Last echo on file indicated EF of 65-70% with grade 2 diastolic dysfunction * Chronic diastolic heart failure not in acute exacerbation * Trend fluid status * On dialysis * Daily weights * Strict I/Os Plan Mg 1.5 today-replace with 2gm once Time Spent With Patient Time with patient: Greater than 35 minutes Subjective Date/time seen: 12/10/22929 Interval history: 12/10/22929 Patient seems to be doing well. He denies any chest pain, shortness a breath, weakness or fatigue. Patient stated he is a little nauseous however he did state that he feels okay. Right leg is still swollen he rates his pain a 2- 3/10. redness is still present. He does have some ulcers that are weeping at this time. Magnesium was 1.5 and replaced. Patient should be having dialysis today. 12/09/22? 15:30 This is a 61-year-old male with paroxysmal atrial fibrillation on anticoagulation, hypertension, hyperlipidemia, heart failure with preserved ejection fraction, end-stage renal disease on hemodialysis, chronic obstructive pulmonary disease, obstructive sleep apnea intolerant to PAP therapy, type 2 diabetes mellitus, and chronic pain syndrome who presented t
[2022-12-10] MEDS: SPIRONOLACTONE 12.5 MG TABLET PO (09:52)
[2022-12-10] MEDS: ATORVASTATIN 40 MG TABLET 80 MG PO (09:52)
[2022-12-10] MEDS: INSULIN GLARGINE (*BKC) 100 UNITS/ML 15 UNITS SUB-Q (09:52)
[2022-12-10] MEDS: guaiFENesin 12 HR 600 MG TABCR PO ×2 (09:53→21:27)
[2022-12-10] MEDS: APIXABAN 5 MG TABLET PO ×2 (09:53→21:27)
[2022-12-10] MEDS: lisinopriL 10 MG TABLET PO (09:53)
[2022-12-10 12:05] LABS: Glucose Point of Care 284 mg/dl (65-105)
[2022-12-10] MEDS: AMIODARONE HCL 200 MG TABLET PO ×2 (12:45→18:31)
[2022-12-10] MEDS: MAGNESIUM SULF 2 GM/WATER 50ML 2 GM/50 ML BAG IVPB (12:46)
--- NOTE | 2022-12-10 15:51 | PM.CNNEP ---
Assessment and Plan Assessment and plan (1) Dependence on renal dialysis: Code(s): Z99.2 - Dependence on renal dialysis Status: Acute Assessment and Plan: unclear if this is acute or chronic reports being initiated on dialysis about 3 weeks ago at [facility] he is unclear on the specifics of his kidney disease he appears somewhat frustrated by the lack of communication he received regarding his renal dysfunction and dialysis by nephrologists at [facility] HD today and contiue T/T/S schedule for now attempt to review records at [facility] follow electrolytes, volume status, and clearance (2) Cellulitis of right leg: Code(s): L03.115 - Cellulitis of right lower limb Status: Acute Assessment and Plan: suspected based on clinical exam wound care following follow culture data on antibiotics (3) Atrial fibrillation: Code(s): I48.91 - Unspecified atrial fibrillation Status: Chronic Assessment and Plan: rate control strategy on anticoagulation (4) Insulin dependent type 2 diabetes mellitus: Code(s): E11.9 - Type 2 diabetes mellitus without complications; Z79.4 - correction (current) use of insulin Status: Chronic Assessment and Plan: follow accuchecks glycemic control Long extensive discussion (greater than 20 minutes) with the patient regarding his renal failure and apparent dialysis dependence. As mentioned above, he has not entirely clear if he is end-stage renal disease or if this is acute insult and just requires temporary dialysis. Unfortunately, from what he tells me, nephrology at [facility] did not really explain things to him very well in terms of his renal dysfunction. I will attempt to review records from [facility] the hopefully get a better picture/clear understanding of the nature of his renal dysfunction and need for dialysis. Will continue to follow. History of Present Illness Reason for Consult Consult date: 12/10/22 Reason for consult: Other (Dialysis dependent renal failure) Chief Complaint Chief complaint: right leg cellulitis,chronic renal failure History of Present Illness Narrative: The patient is a 61-year-old male with a past medical history as outlined below who presented to [facility] Emergency room for further evaluation of redness/swelling of his right leg. The patient was just recently discharged from [facility] after a long stay for apparently renal failure that required initiation of renal replacement therapy/dialysis. Apparently, his home health nurse came out on the day of admission and noted to ulcerations/ blistered areas on his right leg that were concerning for possible infection. The patient self had noted the aforementioned erythema but did not have any acute pain so did not think much of it. He had no other acute symptoms but at the behest of his home health nurse, he came to the ER for further assessment. Workup and evaluation in the emergency room demonstrated the patient to be hemodynamically stable (his BP was a little bit soft but he states is a chronic issue for him). Routine blood test demonstrated labs consistent with a patient who is on dialysis but his exam was significant for what appeared to be a right lower extremity cellulitis. Given this finding, appropriate cultures were obtained and he was started on broad-spectrum IV antibiotic therapy with subsequent admission to hospital for further therapy. Renal consultation was requested due to his dialysis dependent renal failure. Both the patient and myself for not entirely clear on the specifics of his renal dysfunction but suffice to say that his renal failure was quite severe during his hospitalization at [facility] that required initiation of renal replacement therapy. He tells me that he has been on dialysis since about [place] of last year and is supposed to start outpatient dialysis at [facility]
[2022-12-10] MEDS: EPOETIN ALFA-EPBX 10,000 UNITS/ML VIAL 10000 UNITS IV PUSH (16:06)
[2022-12-10] MEDS: SODIUM CHLORIDE 0.9% IV 1,000 ML 999 ML IV CONT (16:06)
[2022-12-10] MEDS: FUROSEMIDE 80 MG TABLET PO (16:47)
[2022-12-10 17:18] LABS: Glucose Point of Care 193 mg/dl (65-105)
[2022-12-10] MEDS: TOPIRAMATE 100 MG TABLET 400 MG PO (21:27)
[2022-12-10] MEDS: TIZANIDINE HCL 4 MG TABLET PO (21:27)
[2022-12-10 21:33] LABS: Glucose Point of Care 287 mg/dl (65-105)
[2022-12-11] MEDS: metroNIDAZOLE 500 MG/ISO 100ML 500 MG/100 ML BAG 100 MG IVPB ×4 (01:09→23:49)
[2022-12-11] MEDS: INSULIN ASPART (*BKC) 100 UNITS/ML SUB-Q ×2 (01:15→17:06)
[2022-12-11 01:30] LABS: Glucose Point of Care 245 mg/dl (65-105)
[2022-12-11 05:24] VITALS: BP 108/67; PULSE 72; RESP 14; TEMP 36.8; O2SAT 99
[2022-12-11 05:55] LABS: Basophils Percent Auto 0.6 % (0.2-1.2); Eosinophils Absolute Auto 0.3 K/mm3 (0-0.3); Eosinophils Percent Auto 4.2 % (0-4.4); Hematocrit 33.8 % (42.0-52.0); Hemoglobin 9.6 g/dL (14.0-18.0); Immature Granulocyte Absolute 0.02 K/mm3 (0.00-0.031); Immature Granulocyte Percent A 0.3 % (0-0.5); Lymphocytes Absolute Auto 1.42 K/mm3 (0.9-3.2); Lymphocytes Percent Auto 22.9 % (18.3-44.2); Mean Corpuscular HGB Conc 28.4 g/dl (32-36); Mean Corpuscular Volume 95.2 fl (80-100); Mean Platelet Volume 10.2 fl (7.4-10.4); Monocytes Percent Auto 15.5 % (2.6-8.5); Neutrophils Absolute Auto 3.5 K/mm3 (1.3-6.7); Neutrophils Percent Auto 56.5 % (45.5-73.1); Platelet Count Result 136 k/mm3 (150-375); Red Blood Count 3.55 M/mm3 (4.6-6.20); White Blood Count 6.2 K/mm3 (4.5-10.0)
[2022-12-11] MEDS: oxyCODONE/ACETAMINOPHEN (*CRX) 10-325 MG TABLET 1 TAB PO ×2 (06:01→15:19)
[2022-12-11 06:13] LABS: Alanine Aminotransferase 13 U/L (6-50); Albumin Level 3.4 g/dL (3.5-5.1); Alkaline Phosphatase 51 U/L (38-126); Anion Gap 7 mmol/L (8-16); Aspartate Amino Transferase 18 U/L (17-59); Bilirubin,Total 0.7 mg/dL (0.2-1.3); Blood Urea Nitrogen 19 mg/dL (9-20); Calcium 7.4 mg/dL (8.4-10.2); Carbon Dioxide 27 mmol/L (22-30); Chloride 100 mmol/L (98-107); Estimated CRCL calculation 38 ml/min; Estimated Glomerular Filt Rate 24; Glucose 148 mg/dL (65-110); Magnesium 1.6 mg/dL (1.6-2.3); Potassium 3.7 mmol/L (3.4-5.0); Sodium 134 mmol/L (137-145)
[2022-12-11 06:36] LABS: Anisocytosis 1+ (NORMAL); Ovalocytes 1+ (NORMAL)
--- NOTE | 2022-12-11 06:36 | PC.NURSE ---
Pt has been resting off and on all evening. Pt has only reported pain once during shift. Pt has participated and contributed in plan of care. Pt expresses no other needs at this time. Will continue to monitor pt.
[2022-12-11 07:39] LABS: Glucose Point of Care 150 mg/dl (65-105)
[2022-12-11 08:26] VITALS: PULSE 80
[2022-12-11] MEDS: AMIODARONE HCL 200 MG TABLET PO ×2 (08:26→17:07)
[2022-12-11] MEDS: FUROSEMIDE 80 MG TABLET PO (08:27)
[2022-12-11] MEDS: lisinopriL 10 MG TABLET PO (08:27)
[2022-12-11] MEDS: ATORVASTATIN 40 MG TABLET 80 MG PO (08:27)
[2022-12-11] MEDS: SPIRONOLACTONE 12.5 MG TABLET PO (08:27)
[2022-12-11] MEDS: APIXABAN 5 MG TABLET PO ×2 (08:27→20:58)
[2022-12-11] MEDS: guaiFENesin 12 HR 600 MG TABCR PO ×2 (08:28→20:58)
[2022-12-11] MEDS: INSULIN GLARGINE (*BKC) 100 UNITS/ML 15 UNITS SUB-Q (08:31)
[2022-12-11 08:45] LABS: Schistocytes None Seen (NORMAL)
[2022-12-11] MEDS: MAGNESIUM SULF 2 GM/WATER 50ML 2 GM/50 ML BAG IVPB (10:03)
[2022-12-11] MEDS: SILVERGEL (ELTA) 45 ML 1 APPLIC TOPICAL (11:07)
--- NOTE | 2022-12-11 11:15 | PM.IMPN ---
Progress Note: A&P Assessment and Plan (1) Cellulitis of right leg: Code(s): L03.115 - Cellulitis of right lower limb Status: Acute Assessment and Plan: Presented with 2 shallow ulcers on his right lower leg erythema, edema, and warmth around site of the wound Redness is getting better, pain is still present along with swelling, and weeping. 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 Status: Acute Assessment and Plan: Continue Xarelto as above (6) Hypertension, essential: Code(s): I10 - Essential (primary) hypertension Status: Acute Assessment and Plan: Current BP is 108/67 Continue home lisinopril Trend BP Adjust therapy as indicated (7) Chronic heart failure with preserved ejection fraction (HFpEF): Code(s): I50.32 - Chronic diastolic (congestive) heart failure Status: Acute Assessment and Plan: Last echo on file indicated EF of 65-70% with grade 2 diastolic dysfunction Chronic diastolic heart failure not in acute exacerbation Trend fluid status On dialysis Daily weights Strict I/Os Plan Mg 1.5 today-replace with 2gm once Time Spent With Patient Time with patient: Greater than 35 minutes Subjective Date/time seen: 12/11/22 1115 Interval history: 12/11/22 111 Patient stated that he is doing ok. He stated that he was having a lot of pain and nausea this morning. He denied any chest pain, shortness of breath, vomiting, constipation, weakness or fatigue. Wounds seem to be doing ok. Redness is better. He did state that the pain medications are working, and currently his pain is a 1-2/10. He is also stating that he is feeling really tired, it was explained that he was getting magnesium which he also had questions about. Current plan of care was updated, and patient agreed with plan. 12/10/22 0930 Patient seems to be doing well. He denies any chest pain, shortness a breath, weakness or fatigue. Patient stated he is a little nauseous however he did state that he feels okay. Right leg is still swollen he rates his pain a 2-3/10. redness is still present. He does have some ulcers that are weeping at this time. Magnesium was 1.5 and replaced. Patient should be having dialysis today. 12/09/22? 15:30 This is a 61-year-old male with paroxysmal atrial fibrillation on anticoagulation, hypertension, hyperlipidemia, heart failure with preserved ejection fraction, end-stage renal disease on hemodialysis, chronic obstructive pulmonary disease, obstructive sleep apnea intolerant to PAP therapy, type 2 diabetes mellitus, and chronic pain syndrome who presented to
--- NOTE | 2022-12-11 11:15 | P.PNIM_ITS ---
Progress Note: A&P Assessment and Plan (1) Cellulitis of right leg: Code(s): L03.115 - Cellulitis of right lower limb Status: Acute Assessment and Plan: * Presented with 2 shallow ulcers on his right lower leg * erythema, edema, and warmth around site of the wound * Redness is getting better, pain is still present along with swelling, and weeping. * Venous doppler no DVT * Continue cefepime, vanco, and Flagyl * Wound care consulted * Trend symptoms (2) End-stage renal disease on hemodialysis: Code(s): N18.6 - End stage renal disease; Z99.2 - Dependence on renal dialysis Status: Acute Assessment and Plan: * Current BUN/Cr stable at 19/2.70 * Nephrology consulted * Dialysis days are , , wed * Nephrology to manage dialysis * Trend labs * Avoid nephrotoxic medication * Adjust therapy as indicated (3) Insulin dependent type 2 diabetes mellitus: Code(s): E11.9 - Type 2 diabetes mellitus without complications; Z79.4 - longterm (current) use of insulin Status: Acute Assessment and Plan: * Current glucose is 148 * A1c 8.0 * Continue basal insulin * Initiate sliding scale insulin * Accu-Cheks AC/HD * hypoglycemic protocol * Trend glucose * Adjust therapy as indicated (4) Atrial fibrillation: Code(s): I48.91 - Unspecified atrial fibrillation Status: Acute Assessment and Plan: * Rate controlled, and currently Sinus dane * continue amiodarone and sotalol * Continue apixaban for stroke prophylaxis. 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 - longterm (current) use of anticoagulants Status: Acute Assessment and Plan: * Continue Xarelto as above (6) Hypertension, essential: Code(s): I10 - Essential (primary) hypertension Status: Acute Assessment and Plan: * Current BP is 108/67 * Continue home lisinopril * Trend BP * Adjust therapy as indicated (7) Chronic heart failure with preserved ejection fraction (HFpEF): Code(s): I50.32 - Chronic diastolic (congestive) heart failure Status: Acute Assessment and Plan: * Last echo on file indicated EF of 65-70% with grade 2 diastolic dysfunction * Chronic diastolic heart failure not in acute exacerbation * Trend fluid status * On dialysis * Daily weights * Strict I/Os Plan Mg 1.5 today-replace with 2gm once Time Spent With Patient Time with patient: Greater than 35 minutes Subjective Date/time seen: 12/11/22 111 Interval history: 12/11/221114 Patient stated that he is doing ok. He stated that he was having a lot of pain and nausea this morning. He denied any chest pain, shortness of breath, vomiting, constipation, weakness or fatigue. Wounds seem to be doing ok. Redness is better. He did state that the pain medications are working, and currently his pain is a 1-2/10. He is also stating that he is feeling really tired, it was explained that he was getting magnesium which he also had questions about. Current plan of care was updated, and patient agreed with plan. 12/10/22 0930 Patient seems to be doing well. He denies any chest pain, shortness a breath, weakness or fatigue. Patient stated he is a
[2022-12-11 11:40] LABS: Glucose Point of Care 288 mg/dl (65-105)
[2022-12-11] MEDS: ONDANSETRON INJ 4 MG/2 ML VIAL IV PUSH (11:57)
[2022-12-11 14:00] VITALS: BP 91/49; PULSE 121; RESP 20; TEMP 36.4; O2SAT 95
--- NOTE | 2022-12-11 14:03 | P.PNNP_ITS ---
Progress Note: A&P Assessment and Plan (1) Dependence on renal dialysis: Code(s): Z99.2 - Dependence on renal dialysis Status: Acute Assessment and Plan: * records reviewed from [facility] * presented with a creatinine of 5.37mg/dl * complicated by hypotension * creatinine raz to as high as 7.45mg/dl * initiated on TEST DEVELOPER/hemodialysis on 11/21/22 * has remained dialysis dependent since * baseline creatinine ~ 1.5 - 2.0mg/dl * history would suggest acute on chronic renal failure * possibility of renal recovery(?) * [facility] HD tomorrow and continue T/T/S schedule for now * follow electrolytes, volume status, and clearance (2) Cellulitis of right leg: Code(s): L03.115 - Cellulitis of right lower limb Status: Acute Assessment and Plan: * suspected based on clinical exam * wound care following * follow culture data * on antibiotics (3) Atrial fibrillation: Code(s): I48.91 - Unspecified atrial fibrillation Status: Chronic Assessment and Plan: * rate control strategy * on anticoagulation (4) Insulin dependent type 2 diabetes mellitus: Code(s): E11.9 - Type 2 diabetes mellitus without complications; 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 It is difficult to say with certainty what caused his renal dysfunction but given his significant decline in kidney function from August of 2022 (creatinine at that time was 2.0 mg/dL) to an admission creatinine of 5.37 mg/dL in late October 2022, it would seem that a significant acute decline had occurred. This may have been due to his relative hypotension or perhaps maybe some other issue but I suppose the possibility of recovery does exist. Depending on his length of stay, we consider a 24 hr urine collection for better assessment of his renal function and perhaps outpatient discussion with his cotton tier about pursuing a kidney biopsy depending on how long he remains dialysis dependent. Will continue to follow. Subjective Date/time seen: 12/11/22 14:03 Tolerated hemodialysis treatment yesterday without any issues or problems; no other acute issues/complaints voiced at the time of my visit; no issues/events overnight; at bedside and we discussed the situation. Exam Narrative: General: WD/WN male/female in NAD Heart: normal S1 and S2; no rub Lungs: clear to auscultation Abdomen: soft, nontender, nondistended, positive bowel sounds Extremities: no cyanosis or clubbing; bilateral edema Skin: RLE with 2 ulcers and erythema Objective Data Vital Signs Vital Signs: Vital Signs Temp Pulse Resp BP Pulse Ox O2 Del Method 12/11/22 14:00 97.5 F L 121 H 20 91/49 L 95 12/11/22 08:25 Room Air 12/11/22 08:26 80 12/11/22 05:24 98.3 F 72 14 108/67 99 12/10/22 21:27 Room Air 12/10/22 21:23 98.6 F 81 16 110/72 99 Intake/Output Intake/Output: Intake & Output 12/08/22 12/09/22 12/10/22 12/11/22 23:59 23:59 23:59 23:59 Intake Total 133 605 7852 Output Total 3200 1200 Balance 770 -2583 584
--- NOTE | 2022-12-11 14:03 | PM.PNNEP ---
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 on 11/21/22 has remained dialysis dependent since baseline creatinine ~ 1.5 - 2.0mg/dl history would suggest acute on chronic renal failure possibility of renal recovery(?) [facility] HD tomorrow and continue T/T/S schedule for now follow electrolytes, volume status, and clearance (2) Cellulitis of right leg: Code(s): L03.115 - Cellulitis of right lower limb Status: Acute Assessment and Plan: suspected based on clinical exam wound care following follow culture data on antibiotics (3) Atrial fibrillation: Code(s): I48.91 - Unspecified atrial fibrillation Status: Chronic Assessment and Plan: rate control strategy on anticoagulation (4) Insulin dependent type 2 diabetes mellitus: Code(s): E11.9 - Type 2 diabetes mellitus without complications; Z79.4 - prison (current) use of insulin Status: Chronic Assessment and Plan: follow accuchecks glycemic control Long and extensive discussion (greater than 20 minutes) with the patient and his regarding his renal failure and apparent dialysis dependence. It is difficult to say with certainty what caused his renal dysfunction but given his significant decline in kidney function from August of 2022 (creatinine at that time was 2.0 mg/dL) to an admission creatinine of 5.37 mg/dL in late October 2022, it would seem that a significant acute decline had occurred. This may have been due to his relative hypotension or perhaps maybe some other issue but I suppose the possibility of recovery does exist. Depending on his length of stay, we consider a 24 hr urine collection for better assessment of his renal function and perhaps outpatient discussion with his insecticide expert about pursuing a kidney biopsy depending on how long he remains dialysis dependent. Will continue to follow. Subjective Date/time seen: 12/11/22 14:03 Tolerated hemodialysis treatment yesterday without any issues or problems; no other acute issues/complaints voiced at the time of my visit; no issues/events overnight; at bedside and we discussed the situation. Exam Narrative: General: WD/WN male/female in NAD Heart: normal S1 and S2; no rub Lungs: clear to auscultation Abdomen: soft, nontender, nondistended, positive bowel sounds Extremities: no cyanosis or clubbing; bilateral edema Skin: RLE with 2 ulcers and erythema Objective Data Vital Signs Vital Signs: Vital Signs Temp Pulse Resp BP Pulse Ox O2 Del Method 12/11/22 14:00 97.5 F L 121 H 20 91/49 L 95 12/11/22 08:25 Room Air 12/11/22 08:26 80 12/11/22 05:24 98.3 F 72 14 108/67 99 12/10/22 21:27 Room Air 12/10/22 21:23 98.6 F 81 16 110/72 99 Intake/Output Intake/Output: Intake & Output 12/08/22 12/09/22 12/10/22 12/11/22 23:59 23:59 23:59 23:59 Intake Total 423 698 4151 Output Total 3200 1200 Balance 770 -2440 660 Meds/Results Medications: Active Medications Generic Name Dose Route Start Last Admin Trade Name Freq PRN Reason Stop Dose Admin Acetaminophen 650 mg 12/09/22 22:28 Acetaminophen 325 Mg Tablet PO Q6H PRN Mild Pain (1-3) or Fever Albuterol 2 puff 12/09/22 22:28 Albuterol Sulfate (*Sp) Aerosol 1 Puff INHALATION Q4H PRN Shortness Of Breath Amiodarone HCl 200 mg 12/10/22 08:00 12/11/22 08:26 Amiodarone Hcl 200 Mg Tablet PO 200 mg BIDWM LETTY Administration Apixaban 5 mg 12/09/22 22:40 12/11/22 08:27 Apixaban 5 Mg Tablet PO 5 mg Q12HR LETTY Administration Atorvastatin Calcium 80 mg 12/10/22 09
[2022-12-11 16:48] LABS: Glucose Point of Care 253 mg/dl (65-105)
[2022-12-11 17:07] VITALS: PULSE 80
[2022-12-11 20:00] VITALS: PULSE 72; RESP 16; O2SAT 99
[2022-12-11] MEDS: TOPIRAMATE 100 MG TABLET 400 MG PO (20:58)
[2022-12-11] MEDS: TIZANIDINE HCL 4 MG TABLET PO (20:58)
[2022-12-11 21:54] VITALS: BP 102/46; PULSE 72; RESP 16; TEMP 36.7; O2SAT 99
[2022-12-12] VITALS (15 sets, daily range): BP systolic 65–125; BP diastolic 37–78; PULSE 64–84; RESP 14–19; TEMP 36–36.8; O2SAT 97–99
[2022-12-12] MEDS: MIDODRINE HCL 2.5 MG TABLET 5 MG PO (04:16)
[2022-12-12] MEDS: MIDODRINE HCL 10 MG TABLET PO (04:16)
[2022-12-12] MEDS: oxyCODONE/ACETAMINOPHEN (*CRX) 10-325 MG TABLET 1 TAB PO ×4 (04:29→23:55)
[2022-12-12 07:09] LABS: Basophils Absolute Auto 0.1 K/mm3 (0.0-0.1); Basophils Percent Auto 0.7 % (0.2-1.2); Eosinophils Absolute Auto 0.2 K/mm3 (0-0.3); Eosinophils Percent Auto 3.1 % (0-4.4); Hematocrit 29.8 % (42.0-52.0); Hemoglobin 8.6 g/dL (14.0-18.0); Immature Granulocyte Absolute 0.02 K/mm3 (0.00-0.031); Immature Granulocyte Percent A 0.3 % (0-0.5); Lymphocytes Absolute Auto 2.08 K/mm3 (0.9-3.2); Lymphocytes Percent Auto 27.2 % (18.3-44.2); Mean Corpuscular HGB Conc 28.9 g/dl (32-36); Mean Corpuscular Hemoglobin 27.6 pg (26-34); Mean Corpuscular Volume 95.5 fl (80-100); Mean Platelet Volume 10.1 fl (7.4-10.4); Monocytes Percent Auto 13.6 % (2.6-8.5); Neutrophils Absolute Auto 4.2 K/mm3 (1.3-6.7); Neutrophils Percent Auto 55.1 % (45.5-73.1); Platelet Count Result 147 k/mm3 (150-375); Red Blood Count 3.12 M/mm3 (4.6-6.20); White Blood Count 7.6 K/mm3 (4.5-10.0)
[2022-12-12 07:23] LABS: Alanine Aminotransferase 12 U/L (6-50); Alkaline Phosphatase 45 U/L (38-126); Anion Gap 6 mmol/L (8-16); Aspartate Amino Transferase 14 U/L (17-59); Bilirubin,Total 0.4 mg/dL (0.2-1.3); Blood Urea Nitrogen 23 mg/dL (9-20); Calcium 7.4 mg/dL (8.4-10.2); Carbon Dioxide 24 mmol/L (22-30); Chloride 97 mmol/L (98-107); Estimated CRCL calculation 28 ml/min; Estimated Glomerular Filt Rate 17; Glucose 179 mg/dL (65-110); Potassium 3.5 mmol/L (3.4-5.0); Sodium 127 mmol/L (137-145)
[2022-12-12 08:19] LABS: Hypochromasia 1+ (NORMAL); Ovalocytes 1+ (NORMAL); Schistocytes None Seen (NORMAL)
[2022-12-12 08:23] LABS: Glucose Point of Care 161 mg/dl (65-105)
[2022-12-12] MEDS: ONDANSETRON INJ 4 MG/2 ML VIAL IV PUSH (09:16)
[2022-12-12] MEDS: AMIODARONE HCL 200 MG TABLET PO ×2 (09:19→17:53)
[2022-12-12] MEDS: ATORVASTATIN 40 MG TABLET 80 MG PO (09:19)
[2022-12-12] MEDS: guaiFENesin 12 HR 600 MG TABCR PO ×2 (09:19→20:46)
[2022-12-12] MEDS: metroNIDAZOLE 500 MG/ISO 100ML 500 MG/100 ML BAG 100 MG IVPB ×3 (09:21→23:56)
[2022-12-12] MEDS: APIXABAN 5 MG TABLET PO ×2 (09:23→20:46)
--- NOTE | 2022-12-12 11:15 | P.PNIM_ITS ---
Progress Note: A&P Assessment and Plan (1) Cellulitis of right leg: Code(s): L03.115 - Cellulitis of right lower limb Status: Acute Assessment and Plan: * Presented with 2 shallow ulcers on his right lower leg * erythema, edema, and warmth around site of the wound * Redness is getting better, pain is still present along with swelling, and weeping. * Venous doppler no DVT * Continue cefepime, vanco, and Flagyl * Wound care consulted * Trend symptoms (2) End-stage renal disease on hemodialysis: Code(s): N18.6 - End stage renal disease; Z99.2 - Dependence on renal dialysis Status: Acute Assessment and Plan: * Current BUN/Cr stable at 23/3.70 * Nephrology consulted * Dialysis days are , , wed * Nephrology to manage dialysis * Trend labs * Avoid nephrotoxic medication * Adjust therapy as indicated (3) Insulin dependent type 2 diabetes mellitus: Code(s): E11.9 - Type 2 diabetes mellitus without complications; Z79.4 - intermediate (current) use of insulin Status: Chronic Assessment and Plan: * Current glucose is 179 * A1c 8.0 * Continue basal insulin * Initiate sliding scale insulin * Accu-Cheks AC/HD * hypoglycemic protocol * Trend glucose * Adjust therapy as indicated (4) Atrial fibrillation: Code(s): I48.91 - Unspecified atrial fibrillation Status: Chronic Assessment and Plan: * Rate controlled, and currently Sinus dane * continue amiodarone and sotalol * Continue apixaban for stroke prophylaxis. 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 - intermediate (current) use of anticoagulants Status: Acute Assessment and Plan: * Continue Xarelto as above (6) Hypertension, essential: Code(s): I10 - Essential (primary) hypertension Status: Acute Assessment and Plan: * Current BP is 90/50 * Albumin given in dialysis * Lisinopril and tadalafil on hold for now * Continue home lisinopril * Trend BP * Adjust therapy as indicated (7) Chronic heart failure with preserved ejection fraction (HFpEF): Code(s): I50.32 - Chronic diastolic (congestive) heart failure Status: Acute Assessment and Plan: * Last echo on file indicated EF of 65-70% with grade 2 diastolic dysfunction * Chronic diastolic heart failure not in acute exacerbation * Trend fluid status * On dialysis * Daily weights * Strict I/Os (8) Nausea: Code(s): R11.0 - Nausea Status: Acute Assessment and Plan: * One dose of Reglan given * KUB ordered Time Spent With Patient Time with patient: Greater than 35 minutes Subjective Date/time seen: 12/12/221114 Interval history: 12/12/221114 Patient was in dialysis when I saw him. Patient's blood pressure has been running a little bit low. He is complaining of some nausea today. He denies any chest pain, shortness a breath, weakness or fatigue. He is able to eat. BP medications are on hold at this time. 12/11/221114 Patient stated that he is doing ok. He stated that he was having a lot of pain and nausea this morning. He denied any chest pain, shortness of breath, vomiting, co
--- NOTE | 2022-12-12 11:15 | PM.IMPN ---
Progress Note: A&P Assessment and Plan (1) Cellulitis of right leg: Code(s): L03.115 - Cellulitis of right lower limb Status: Acute Assessment and Plan: Presented with 2 shallow ulcers on his right lower leg erythema, edema, and warmth around site of the wound Redness is getting better, pain is still present along with swelling, and weeping. 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.01 - [facility] (current) use of anticoagulants Status: Acute Assessment and Plan: Continue Xarelto as above (6) Hypertension, essential: Code(s): I10 - Essential (primary) hypertension Status: Acute Assessment and Plan: Current BP is 90/50 Albumin given in dialysis Lisinopril and tadalafil on hold for now Continue home lisinopril Trend BP Adjust therapy as indicated (7) Chronic heart failure with preserved ejection fraction (HFpEF): Code(s): I50.32 - Chronic diastolic (congestive) heart failure Status: Acute Assessment and Plan: Last echo on file indicated EF of 65-70% with grade 2 diastolic dysfunction Chronic diastolic heart failure not in acute exacerbation Trend fluid status On dialysis Daily weights Strict I/Os (8) Nausea: Code(s): R11.0 - Nausea Status: Acute Assessment and Plan: One dose of Reglan given KUB ordered Time Spent With Patient Time with patient: Greater than 35 minutes Subjective Date/time seen: 12/12/221114 Interval history: 12/12/221114 Patient was in dialysis when I saw him. Patient's blood pressure has been running a little bit low. He is complaining of some nausea today. He denies any chest pain, shortness a breath, weakness or fatigue. He is able to eat. BP medications are on hold at this time. 12/11/221114 Patient stated that he is doing ok. He stated that he was having a lot of pain and nausea this morning. He denied any chest pain, shortness of breath, vomiting, constipation, weakness or fatigue. Wounds seem to be doing ok. Redness is better. He did state that the pain medications are working, and currently his pain is a 1-2/10. He is also stating that he is feeling really tired, it was explained that he was getting magnesium which he also had questions about. Current plan of care was updated, and patient agreed with plan. 12/10/22 0930 Patient seems to be doing well. He denies any chest pain, shortness a breath, weakness or fatigue. Patient stated he is a little nauseous however he did state that he feels okay. Right leg is still swollen he rates his pain a 2-3/10. redness is still present. He does have some ulcers that are we
[2022-12-12] MEDS: METOCLOPRAMIDE HCL INJ 10 MG/2 ML VIAL IV PUSH (11:18)
--- NOTE | 2022-12-12 11:58 | PM.PNNEP ---
Progress Note: A&P Assessment and Plan (1) Dependence on renal dialysis: Code(s): Z99.2 - Dependence on renal dialysis Status: Acute Assessment and Plan: records reviewed from [facility] presented with a creatinine of 5.37mg/dl complicated by hypotension creatinine raz to as high as 7.45mg/dl initiated on [facility]/hemodialysis on 11/21/22 has remained dialysis dependent since baseline creatinine ~ 1.5 - 2.0mg/dl history would suggest acute on chronic renal failure possibility of renal recovery(?) He still makes some urine he says. on dialysis now. Difficult to get fluid off with his blood pressure. (2) Cellulitis of right leg: Code(s): L03.115 - Cellulitis of right lower limb Status: Acute Assessment and Plan: suspected based on clinical exam wound care following Blood cultures no growth to date so far on Flagyl, cefepime, vancomycin. (3) Atrial fibrillation: Code(s): I48.91 - Unspecified atrial fibrillation Status: Chronic Assessment and Plan: rate control strategy on anticoagulation (4) Insulin dependent type 2 diabetes mellitus: Code(s): E11.9 - Type 2 diabetes mellitus without complications; Z79.4 - half-way (current) use of insulin Status: Chronic Assessment and Plan: On Accu-Cheks and sliding-scale insulin. (5) Hypertension, essential: Code(s): I10 - Essential (primary) hypertension Status: Acute Assessment and Plan: this was formerly a problem. Now his blood pressure is low off all blood pressure meds (6) Obstructive sleep apnea: Code(s): G47.33 - Obstructive sleep apnea (adult) (pediatric) Status: Acute Assessment and Plan: the patient has sleep apnea. He does not use the CPAP machine because he could not tolerate it. We discussed that the sleep apnea can cause right-sided heart failure which can lead to low blood pressure and swelling. The swelling of course contributes to the risk of him having recurrent cellulitis. Subjective Date/time seen: 12/12/22 11:58 Interval history: 12/12/2022 Emilio had low blood pressure overnight. It was 60/40 and the repeat was in the 80s. He is not having any chest pain or shortness of breath. He is on dialysis now. His blood pressure is in the 90s. He has dialed in for 1L of fluid. He received midodrine this morning. I asked them to give him some albumin to see if we can get any more fluid off. Exam Narrative: General: WD/WN male/female in NAD Heart: normal S1 and S2; no rub Lungs: clear to auscultation Abdomen: soft, nontender, nondistended, positive bowel sounds Extremities: no cyanosis or clubbing; 1+ bilateral edema Skin: RLE with 2 ulcers and erythema Objective Data Vital Signs Vital Signs: Vital Signs - 24 hr 12/11/22 14:00 12/11/22 17:07 12/11/22 21:54 Temperature 97.5 F L 98.1 F Pulse Rate 121 H 80 72 Respiratory Rate 20 16 Blood Pressure 91/49 L 102/46 L Pulse Oximetry 95 99 Oxygen Delivery 12/11/22 20:00 12/12/22 06:00 12/12/22 06:55 Temperature 97.4 F L Pulse Rate 72 70 Respiratory Rate 16 14 Blood Pressure 65/37 L 90/50 L Pulse Oximetry 99 99 Oxygen Delivery Room Air 12/12/22 09:19 12/12/22 10:35 12/12/22 10:38 Temperature 98.2 F Pulse Rate 70 79 64 Respiratory Rate 18 Blood Pressure 97/57 L 101/61 Pulse Oximetry Oxygen Delivery 12/12/22 11:00 12/12/22 11:30 Temperature Pulse Rate 66 69 Respiratory Rate Blood Pressure 95/46 L 100/59 L Pulse Oximetry Oxygen Delivery Intake/Output Intake/Output: Intake & Output 12/09/22 12/10/22 12/11/22 12/12/22 23:59 23:59 23:59 23:59 Intake Total 770 1260 2940 1070 Output Total 3200 1600 200 Balance 770 -1940 1340 870 Meds/Results Medications: Active Medications Generic Name Dose Route Start Last Admin Trade Name Freq PRN Reason Stop Dose Admin Acetami
[2022-12-12 12:00] LABS: Glucose Point of Care 198 mg/dl (65-105)
--- NOTE | 2022-12-12 12:16 | P.PNCROSS_ITS ---
Event Note Event Note Event Note: patient is on dialysis and tolerating it well. He was seen at 11:00 a.m. benja smith to use midodrine and albumin to keep the blood pressure up..
[2022-12-12] MEDS: EPOETIN ALFA-EPBX 10,000 UNITS/ML VIAL 10000 UNITS IV PUSH (15:52)
[2022-12-12 16:28] LABS: Vancomycin Trough 29.6 ug/mL (10.0-20.0)
[2022-12-12 17:14] LABS: Glucose Point of Care 205 mg/dl (65-105)
[2022-12-12] MEDS: SILVERGEL (ELTA) 45 ML 1 APPLIC TOPICAL (17:54)
[2022-12-12] MEDS: INSULIN ASPART (*BKC) 100 UNITS/ML SUB-Q (17:55)
[2022-12-12] MEDS: DOCUSATE SODIUM 100 MG CAPSULE PO (18:59)
[2022-12-12] MEDS: polyethylene glycoL 3350 17 GM POWD.PACK PO (19:00)
[2022-12-12] MEDS: TOPIRAMATE 100 MG TABLET 400 MG PO (20:46)
[2022-12-12] MEDS: TIZANIDINE HCL 4 MG TABLET PO (20:46)
[2022-12-12 21:39] LABS: Glucose Point of Care 221 mg/dl (65-105)
[2022-12-13] MEDS: ONDANSETRON INJ 4 MG/2 ML VIAL IV PUSH ×2 (01:11→06:04)
[2022-12-13] MEDS: oxyCODONE/ACETAMINOPHEN (*CRX) 10-325 MG TABLET 1 TAB PO ×2 (05:06→12:23)
[2022-12-13 06:00] VITALS: BP 92/48; PULSE 83; RESP 18; TEMP 36.3; O2SAT 98
[2022-12-13 06:57] LABS: Estimated CRCL calculation 29 ml/min; Estimated Glomerular Filt Rate 18
[2022-12-13 08:20] VITALS: PULSE 62; RESP 18; O2SAT 98
[2022-12-13] MEDS: metroNIDAZOLE 500 MG/ISO 100ML 500 MG/100 ML BAG 100 MG IVPB ×3 (08:20→23:21)
[2022-12-13 08:21] VITALS: PULSE 62
[2022-12-13] MEDS: AMIODARONE HCL 200 MG TABLET PO ×2 (08:21→16:50)
[2022-12-13] MEDS: SPIRONOLACTONE 12.5 MG TABLET PO (08:21)
[2022-12-13] MEDS: APIXABAN 5 MG TABLET PO ×2 (08:22→21:40)
[2022-12-13] MEDS: FUROSEMIDE 80 MG TABLET PO (08:22)
[2022-12-13] MEDS: DOCUSATE SODIUM 100 MG CAPSULE PO ×2 (08:22→21:40)
[2022-12-13] MEDS: ATORVASTATIN 40 MG TABLET 80 MG PO (08:23)
[2022-12-13] MEDS: guaiFENesin 12 HR 600 MG TABCR PO ×2 (08:24→21:40)
[2022-12-13 08:28] LABS: Glucose Point of Care 195 mg/dl (65-105)
[2022-12-13] MEDS: polyethylene glycoL 3350 17 GM POWD.PACK PO (08:35)
[2022-12-13] MEDS: SILVERGEL (ELTA) 45 ML 1 APPLIC TOPICAL (08:37)
[2022-12-13] MEDS: INSULIN GLARGINE (*BKC) 100 UNITS/ML 15 UNITS SUB-Q (08:42)
[2022-12-13 09:15] LABS: Alanine Aminotransferase 13 U/L (6-50); Albumin Level 3.2 g/dL (3.5-5.1); Alkaline Phosphatase 49 U/L (38-126); Anion Gap 8 mmol/L (8-16); Aspartate Amino Transferase 17 U/L (17-59); Bilirubin,Total 0.5 mg/dL (0.2-1.3); Blood Urea Nitrogen 20 mg/dL (9-20); Calcium 7.6 mg/dL (8.4-10.2); Carbon Dioxide 24 mmol/L (22-30); Chloride 95 mmol/L (98-107); Estimated CRCL calculation 30 ml/min; Estimated Glomerular Filt Rate 18; Glucose 209 mg/dL (65-110); Magnesium 1.9 mg/dL (1.6-2.3); Potassium 3.8 mmol/L (3.4-5.0); Sodium 127 mmol/L (137-145)
--- NOTE | 2022-12-13 09:45 | PM.IMPN ---
Progress Note: A&P Assessment and Plan (1) Cellulitis of right leg: Code(s): L03.115 - Cellulitis of right lower limb Status: Acute Assessment and Plan: Presented with 2 shallow ulcers on his right lower leg erythema, edema, and warmth around site of the wound Leg is wrapped, however, he stated that he felt it is getting better. 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.01 - [facility] (current) use of anticoagulants Status: Acute Assessment and Plan: Continue Xarelto as above (6) Hypertension, essential: Code(s): I10 - Essential (primary) hypertension Status: Acute Assessment and Plan: Current BP is 92/48 Albumin given in dialysis Lisinopril and tadalafil on hold for now Continue home lisinopril Trend BP Adjust therapy as indicated (7) Chronic heart failure with preserved ejection fraction (HFpEF): Code(s): I50.32 - Chronic diastolic (congestive) heart failure Status: Acute Assessment and Plan: Last echo on file indicated EF of 65-70% with grade 2 diastolic dysfunction Chronic diastolic heart failure not in acute exacerbation Trend fluid status On dialysis Daily weights Strict I/Os (8) Nausea: Code(s): R11.0 - Nausea Status: Acute Assessment and Plan: One dose of Reglan given KUB shows moderate amounts of gas and stool Colace and miralax and a suppository Time Spent With Patient Time with patient: Greater than 35 minutes Subjective Date/time seen: 12/13/22944 Interval history: 12/13/22944 patient seems to be doing okay. Patient stated that he does still has the nausea. blood pressure still remains soft. KUB did not show any obstruction however did show some moderate amount of gas and stool. Patient denies any chest pain, shortness a breath, weakness or fatigue. Patient is just really anxious about wanting to be discharged. 12/12/221114 Patient was in dialysis when I saw him. Patient's blood pressure has been running a little bit low. He is complaining of some nausea today. He denies any chest pain, shortness a breath, weakness or fatigue. He is able to eat. BP medications are on hold at this time. 12/11/221114 Patient stated that he is doing ok. He stated that he was having a lot of pain and nausea this morning. He denied any chest pain, shortness of breath, vomiting, constipation, weakness or fatigue. Wounds seem to be doing ok. Redness is better. He did state that the pain medications are working, and currently his pain is a 1-2/10. He is also stating that he is feeling really tired, it was explained that he was getting magnesium
--- NOTE | 2022-12-13 09:45 | P.PNIM_ITS ---
Progress Note: A&P Assessment and Plan (1) Cellulitis of right leg: Code(s): L03.115 - Cellulitis of right lower limb Status: Acute Assessment and Plan: * Presented with 2 shallow ulcers on his right lower leg * erythema, edema, and warmth around site of the wound * Leg is wrapped, however, he stated that he felt it is getting better. 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 - nursing home (current) use of anticoagulants Status: Acute Assessment and Plan: * Continue Xarelto as above (6) Hypertension, essential: Code(s): I10 - Essential (primary) hypertension Status: Acute Assessment and Plan: * Current BP is 92/48 * Albumin given in dialysis * Lisinopril and tadalafil on hold for now * Continue home lisinopril * Trend BP * Adjust therapy as indicated (7) Chronic heart failure with preserved ejection fraction (HFpEF): Code(s): I50.32 - Chronic diastolic (congestive) heart failure Status: Acute Assessment and Plan: * Last echo on file indicated EF of 65-70% with grade 2 diastolic dysfunction * Chronic diastolic heart failure not in acute exacerbation * Trend fluid status * On dialysis * Daily weights * Strict I/Os (8) Nausea: Code(s): R11.0 - Nausea Status: Acute Assessment and Plan: * One dose of Reglan given * KUB shows moderate amounts of gas and stool * Colace and miralax and a suppository Time Spent With Patient Time with patient: Greater than 35 minutes Subjective Date/time seen: 12/13/22944 Interval history: 12/13/22944 patient seems to be doing okay. Patient stated that he does still has the nausea. blood pressure still remains soft. KUB did not show any obstruction however did show some moderate amount of gas and stool. Patient denies any chest pain, shortness a breath, weakness or fatigue. Patient is just really anxious about wanting to be discharged. 12/12/22 1115 Patient was in dialysis when I saw him
[2022-12-13] MEDS: BISACODYL 10 MG SUPPOSITORY RECTAL (09:52)
[2022-12-13] MEDS: BISACODYL 5 MG TABLET EC PO (09:52)
--- NOTE | 2022-12-13 10:04 | P.PNNP_ITS ---
Progress Note: A&P Assessment and Plan (1) Dependence on renal dialysis: Code(s): Z99.2 - Dependence on renal dialysis Status: Acute Assessment and Plan: * records reviewed from [facility] * presented with a creatinine of 5.37mg/dl * complicated by hypotension * creatinine raz to as high as 7.45mg/dl * initiated on [facility]/hemodialysis on 11/21/22 * has remained dialysis dependent since * baseline creatinine ~ 1.5 - 2.0mg/dl * history would suggest acute on chronic renal failure * possibility of renal recovery(?) * He still makes some urine he says. * finished his dialysis yesterday without incident. * Due for dialysis on Wednesday (2) Cellulitis of right leg: Code(s): L03.115 - Cellulitis of right lower limb Status: Acute Assessment and Plan: * suspected based on clinical exam * wound care following * Blood cultures no growth to date so far * on Flagyl, cefepime, vancomycin. (3) Atrial fibrillation: Code(s): I48.91 - Unspecified atrial fibrillation Status: Chronic Assessment and Plan: * pulse is 62 * on anticoagulation (4) Insulin dependent type 2 diabetes mellitus: Code(s): E11.9 - Type 2 diabetes mellitus without complications; Z79.4 - [facility] (current) use of insulin Status: Chronic Assessment and Plan: * On Accu-Cheks and sliding-scale insulin. (5) Hypertension, essential: Code(s): I10 - Essential (primary) hypertension Status: Acute Assessment and Plan: this was formerly a problem. Now his blood pressure is low off all blood pressure meds. Night before last his blood pressure dropped as he started his Viagra. Now Viagra and lisinopril are on hold (6) Obstructive sleep apnea: Code(s): G47.33 - Obstructive sleep apnea (adult) (pediatric) Status: Acute Assessment and Plan: the patient has sleep apnea. He does not use the CPAP machine. Subjective Date/time seen: 12/13/22 10:04 Interval history: 12/12/2022 Emilio had low blood pressure overnight. It was 60/40 and the repeat was in the 80s. He is not having any chest pain or shortness of breath. He is on dialysis now. His blood pressure is in the 90s. He has dialed in for 1L of fluid. He received midodrine this morning. I asked them to give him some albumin to see if we can get any more fluid off. 12/13/2022 patient feels about the same today. Eager for discharge. Eating okay. No chest pain or shortness of breath. Still makes a little urine. Exam Narrative: General: WD/WN male/female in NAD Heart: normal S1 and S2; no rub or gallop Lungs: clear Abdomen: soft, nontender, nondistended, positive bowel sounds Extremities: no cyanosis or clubbing; 1+ bilateral edema Skin: RLE with 2 ulcers and erythema Objective Data Vital Signs Vital Signs: Vital Signs - 24 hr 12/12/22 10:35 12/12/22 10:38 12/12/22 11:00 Temperature 98.2 F Pulse Rate 79 64 66 Respiratory Rate 18 Blood Pressure 97/57 L 101/61 95/46 L Pulse Oximetry 12/12/22 11:30 12/12/22 12:00 12/12/22 12:30 Temperature Pulse Rate 69 68 73 Respiratory Rate Blood Pressure 100/59 L 110/66 125/71 Pulse Oximetry 12/12/22 13:00 12/12/22 13:30 12/12/22 13:38
--- NOTE | 2022-12-13 10:04 | PM.PNNEP ---
Progress Note: A&P Assessment and Plan (1) Dependence on renal dialysis: Code(s): Z99.2 - Dependence on renal dialysis Status: Acute Assessment and Plan: records reviewed [facility] presented with a creatinine of 5.37mg/dl complicated by hypotension creatinine raz to as high as 7.45mg/dl initiated on [facility]/hemodialysis on 11/21/22 has remained dialysis dependent since baseline creatinine ~ 1.5 - 2.0mg/dl history would suggest acute on chronic renal failure possibility of renal recovery(?) He still makes some urine he says. finished his dialysis yesterday without incident. Due for dialysis on Wednesday (2) Cellulitis of right leg: Code(s): L03.115 - Cellulitis of right lower limb Status: Acute Assessment and Plan: suspected based on clinical exam wound care following Blood cultures no growth to date so far on Flagyl, cefepime, vancomycin. (3) Atrial fibrillation: Code(s): I48.91 - Unspecified atrial fibrillation Status: Chronic Assessment and Plan: pulse is 62 on anticoagulation (4) Insulin dependent type 2 diabetes mellitus: Code(s): E11.9 - Type 2 diabetes mellitus without complications; Z79.4 - [facility] (current) use of insulin Status: Chronic Assessment and Plan: On Accu-Cheks and sliding-scale insulin. (5) Hypertension, essential: Code(s): I10 - Essential (primary) hypertension Status: Acute Assessment and Plan: this was formerly a problem. Now his blood pressure is low off all blood pressure meds. Night before last his blood pressure dropped as he started his Viagra. Now Viagra and lisinopril are on hold (6) Obstructive sleep apnea: Code(s): G47.33 - Obstructive sleep apnea (adult) (pediatric) Status: Acute Assessment and Plan: the patient has sleep apnea. He does not use the CPAP machine. Subjective Date/time seen: 12/13/22 10:04 Interval history: 12/12/2022 Emilio had low blood pressure overnight. It was 60/40 and the repeat was in the 80s. He is not having any chest pain or shortness of breath. He is on dialysis now. His blood pressure is in the 90s. He has dialed in for 1L of fluid. He received midodrine this morning. I asked them to give him some albumin to see if we can get any more fluid off. 12/13/2022 patient feels about the same today. Eager for discharge. Eating okay. No chest pain or shortness of breath. Still makes a little urine. Exam Narrative: General: WD/WN male/female in NAD Heart: normal S1 and S2; no rub or gallop Lungs: clear Abdomen: soft, nontender, nondistended, positive bowel sounds Extremities: no cyanosis or clubbing; 1+ bilateral edema Skin: RLE with 2 ulcers and erythema Objective Data Vital Signs Vital Signs: Vital Signs - 24 hr 12/12/22 10:35 12/12/22 10:38 12/12/22 11:00 Temperature 98.2 F Pulse Rate 79 64 66 Respiratory Rate 18 Blood Pressure 97/57 L 101/61 95/46 L Pulse Oximetry 12/12/22 11:30 12/12/22 12:00 12/12/22 12:30 Temperature Pulse Rate 69 68 73 Respiratory Rate Blood Pressure 100/59 L 110/66 125/71 Pulse Oximetry 12/12/22 13:00 12/12/22 13:30 12/12/22 13:38 Temperature 98.2 F Pulse Rate 69 69 72 Respiratory Rate 18 Blood Pressure 92/62 L 92/69 L 92/78 L Pulse Oximetry 12/12/22 14:00 12/12/22 17:53 12/12/22 22:00 Temperature 96.8 F L 97.6 F Pulse Rate 82 84 70 Respiratory Rate 18 19 Blood Pressure 92/58 L 105/50 L Pulse Oximetry 99 97 12/13/22 06:00 12/13/22 08:21 Temperature 97.4 F L Pulse Rate 83 62 Respiratory Rate 18 Blood Pressure 92/48 L Pulse Oximetry 98 Intake/Output Intake/Output: Intake & Output 12/10/22 12/11/22 12/12/22 12/13/22 23:59 23:59 23:59 23:59 Intake Total 1260 2940 2110 340 Output Total 3200 1600 1700 Balance -1940 1340 410 340 Meds/Results Medications
[2022-12-13 10:35] LABS: Basophils Absolute Auto 0.1 K/mm3 (0.0-0.1); Basophils Percent Auto 1.3 % (0.2-1.2); Eosinophils Absolute Auto 0.2 K/mm3 (0-0.3); Eosinophils Percent Auto 3.4 % (0-4.4); Hematocrit 29.9 % (42.0-52.0); Hemoglobin 8.6 g/dL (14.0-18.0); Immature Granulocyte Absolute 0.01 K/mm3 (0.00-0.031); Immature Granulocyte Percent A 0.2 % (0-0.5); Lymphocytes Absolute Auto 1.58 K/mm3 (0.9-3.2); Lymphocytes Percent Auto 28.6 % (18.3-44.2); Mean Corpuscular HGB Conc 28.8 g/dl (32-36); Mean Corpuscular Hemoglobin 27.7 pg (26-34); Mean Corpuscular Volume 96.1 fl (80-100); Mean Platelet Volume 11.1 fl (7.4-10.4); Monocytes Absolute Auto 0.8 K/mm3 (0.1-0.6); Monocytes Percent Auto 14.5 % (2.6-8.5); Neutrophils Absolute Auto 2.9 K/mm3 (1.3-6.7); Platelet Count Result 123 k/mm3 (150-375); Red Blood Count 3.11 M/mm3 (4.6-6.20); Red Cell Distribution Width 15.9 % (11.5-14.5); White Blood Count 5.5 K/mm3 (4.5-10.0)
[2022-12-13 10:58] LABS: Platelet Estimate Decreased (Adequate)
[2022-12-13 10:59] LABS: Burr Cells 1+ (NORMAL); Hypochromasia 1+ (NORMAL); Ovalocytes 1+ (NORMAL); Schistocytes None Seen (NORMAL)
[2022-12-13 11:37] LABS: Glucose Point of Care 262 mg/dl (65-105)
[2022-12-13] MEDS: INSULIN ASPART (*BKC) 100 UNITS/ML SUB-Q (12:20)
[2022-12-13 13:58] VITALS: BP 100/54; PULSE 81; RESP 16; TEMP 36.4; O2SAT 98
[2022-12-13 16:15] LABS: Glucose Point of Care 193 mg/dl (65-105)
[2022-12-13 16:50] VITALS: PULSE 81
[2022-12-13] MEDS: TOPIRAMATE 100 MG TABLET 400 MG PO (21:41)
[2022-12-13] MEDS: TIZANIDINE HCL 4 MG TABLET PO (21:41)
[2022-12-13 22:00] VITALS: BP 102/50; PULSE 83; RESP 16; TEMP 36.2; O2SAT 99
[2022-12-13 22:13] LABS: Glucose Point of Care 241 mg/dl (65-105)
[2022-12-14 02:48] LABS: Hepatitis B Core Ab Total Nonreactive (Nonreactive)
[2022-12-14] MEDS: oxyCODONE/ACETAMINOPHEN (*CRX) 10-325 MG TABLET 1 TAB PO ×3 (02:48→21:48)
[2022-12-14 06:00] VITALS: BP 98/52; PULSE 67; RESP 16; TEMP 36.3; O2SAT 99
[2022-12-14 06:55] LABS: Basophils Percent Auto 0.6 % (0.2-1.2); Eosinophils Absolute Auto 0.2 K/mm3 (0-0.3); Eosinophils Percent Auto 2.9 % (0-4.4); Hematocrit 29.3 % (42.0-52.0); Hemoglobin 8.5 g/dL (14.0-18.0); Immature Granulocyte Absolute 0.01 K/mm3 (0.00-0.031); Immature Granulocyte Percent A 0.2 % (0-0.5); Lymphocytes Absolute Auto 1.86 K/mm3 (0.9-3.2); Mean Corpuscular Hemoglobin 27.6 pg (26-34); Mean Corpuscular Volume 95.1 fl (80-100); Mean Platelet Volume 10.8 fl (7.4-10.4); Monocytes Absolute Auto 0.7 K/mm3 (0.1-0.6); Monocytes Percent Auto 13.3 % (2.6-8.5); Neutrophils Absolute Auto 2.4 K/mm3 (1.3-6.7); Platelet Count Result 115 k/mm3 (150-375); Red Blood Count 3.08 M/mm3 (4.6-6.20); Red Cell Distribution Width 15.8 % (11.5-14.5); White Blood Count 5.2 K/mm3 (4.5-10.0)
[2022-12-14 07:05] LABS: Alanine Aminotransferase 13 U/L (6-50); Albumin Level 3.3 g/dL (3.5-5.1); Alkaline Phosphatase 50 U/L (38-126); Anion Gap 9 mmol/L (8-16); Aspartate Amino Transferase 18 U/L (17-59); Bilirubin,Total 0.4 mg/dL (0.2-1.3); Blood Urea Nitrogen 24 mg/dL (9-20); Calcium 7.5 mg/dL (8.4-10.2); Carbon Dioxide 24 mmol/L (22-30); Chloride 97 mmol/L (98-107); Estimated CRCL calculation 28 ml/min; Estimated Glomerular Filt Rate 17; Glucose 208 mg/dL (65-110); Magnesium 1.9 mg/dL (1.6-2.3); Phosphorus 4.3 mg/dL (2.5-4.5); Potassium 3.9 mmol/L (3.4-5.0); Sodium 130 mmol/L (137-145)
[2022-12-14] MEDS: ONDANSETRON INJ 4 MG/2 ML VIAL IV PUSH ×2 (07:45→18:20)
[2022-12-14 08:11] LABS: Glucose Point of Care 111 mg/dl (65-105)
[2022-12-14] MEDS: SILVERGEL (ELTA) 45 ML 1 APPLIC TOPICAL (09:00)
--- NOTE | 2022-12-14 09:30 | PM.IMPN ---
Progress Note: A&P Assessment and Plan (1) Cellulitis of right leg: Code(s): L03.115 - Cellulitis of right lower limb Status: Acute Assessment and Plan: Presented with 2 shallow ulcers on his right lower leg erythema, edema, and warmth around site of the wound Redness is a lot less and better, no warmth noted, wounds are closed without drainage, swelling is minimal Venous doppler no DVT Change cefepime, vanco, and Flagyl to PO doxycycline Wound care consulted Trend symptoms (2) End-stage renal disease on hemodialysis: Code(s): N18.6 - End stage renal disease; Z99.2 - Dependence on renal dialysis Status: Acute Assessment and Plan: Current BUN/Cr stable at 24/3.70 Nephrology consulted Dialysis days are , , wed Nephrology to manage dialysis Trend labs Avoid nephrotoxic medication Adjust therapy as indicated (3) Insulin dependent type 2 diabetes mellitus: Code(s): E11.9 - Type 2 diabetes mellitus without complications; Z79.4 - USP (current) use of insulin Status: Chronic Assessment and Plan: Current glucose is 208 A1c 8.0 Continue basal insulin Initiate sliding scale insulin Accu-Cheks AC/HD hypoglycemic protocol Trend glucose Adjust therapy as indicated (4) Atrial fibrillation: Code(s): I48.91 - Unspecified atrial fibrillation Status: Chronic Assessment and Plan: Rate controlled, and currently Sinus dane continue amiodarone and sotalol Continue apixaban for stroke prophylaxis. 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.01 - intermission coordinator (current) use of anticoagulants Status: Acute Assessment and Plan: Continue Xarelto as above (6) Hypertension, essential: Code(s): I10 - Essential (primary) hypertension Status: Acute Assessment and Plan: Current BP is 98/52 Albumin given in dialysis Lisinopril and tadalafil on hold for now Continue home lisinopril Trend BP Adjust therapy as indicated (7) Chronic heart failure with preserved ejection fraction (HFpEF): Code(s): I50.32 - Chronic diastolic (congestive) heart failure Status: Acute Assessment and Plan: Last echo on file indicated EF of 65-70% with grade 2 diastolic dysfunction Chronic diastolic heart failure not in acute exacerbation Trend fluid status On dialysis Daily weights Strict I/Os (8) Nausea: Code(s): R11.0 - Nausea Status: Acute Assessment and Plan: One dose of Reglan given KUB shows moderate amounts of gas and stool Colace and miralax and a suppository Seems to have resolved Time Spent With Patient Time with patient: Greater than 35 minutes Subjective Date/time seen: 12/14/22929 Interval history: 12/14/22929 Patient was lying in bed comfortable. His was present. Patient was denying any chest pain, shortness a breath however he did state that he felt constipated and that he has had bowel movements however he feels like they are not good enough. Did unwrap his leg which does look a whole lot better and is not weeping. was also present stated that she feels and looks better as well. Patient is anxious about going home however blood pressure seems to be a little bit lower. Patient is able to get up to move around and does well in his feet. Switched antibiotics over to oral antibiotics at this time. Hopeful the patient can discharge tomorrow if labs and vital signs remain stable, and ok with nephrology. 12/13/22944 patient seems to be doing okay. Patient stated that he does still has the nausea. blood pressure still remains soft. KUB did not show any obstruction however did show some moderate amount of gas and stool. Patient denies any chest pain, shortness a breath, weakness or fati
--- NOTE | 2022-12-14 09:30 | P.PNIM_ITS ---
Progress Note: A&P Assessment and Plan (1) Cellulitis of right leg: Code(s): L03.115 - Cellulitis of right lower limb Status: Acute Assessment and Plan: * Presented with 2 shallow ulcers on his right lower leg * erythema, edema, and warmth around site of the wound * Redness is a lot less and better, no warmth noted, wounds are closed without drainage, swelling is minimal * Venous doppler no DVT * Change cefepime, vanco, and Flagyl to PO doxycycline * Wound care consulted * Trend symptoms (2) End-stage renal disease on hemodialysis: Code(s): N18.6 - End stage renal disease; Z99.2 - Dependence on renal dialysis Status: Acute Assessment and Plan: * Current BUN/Cr stable at 24/3.70 * Nephrology consulted * Dialysis days are , , wed * Nephrology to manage dialysis * Trend labs * Avoid nephrotoxic medication * Adjust therapy as indicated (3) Insulin dependent type 2 diabetes mellitus: Code(s): E11.9 - Type 2 diabetes mellitus without complications; Z79.4 - shelter (current) use of insulin Status: Chronic Assessment and Plan: * Current glucose is 208 * A1c 8.0 * Continue basal insulin * Initiate sliding scale insulin * Accu-Cheks AC/HD * hypoglycemic protocol * Trend glucose * Adjust therapy as indicated (4) Atrial fibrillation: Code(s): I48.91 - Unspecified atrial fibrillation Status: Chronic Assessment and Plan: * Rate controlled, and currently Sinus dane * continue amiodarone and sotalol * Continue apixaban for stroke prophylaxis. 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 Status: Acute Assessment and Plan: * Continue Xarelto as above (6) Hypertension, essential: Code(s): I10 - Essential (primary) hypertension Status: Acute Assessment and Plan: * Current BP is 98/52 * Albumin given in dialysis * Lisinopril and tadalafil on hold for now * Continue home lisinopril * Trend BP * Adjust therapy as indicated (7) Chronic heart failure with preserved ejection fraction (HFpEF): Code(s): I50.32 - Chronic diastolic (congestive) heart failure Status: Acute Assessment and Plan: * Last echo on file indicated EF of 65-70% with grade 2 diastolic dysfunction * Chronic diastolic heart failure not in acute exacerbation * Trend fluid status * On dialysis * Daily weights * Strict I/Os (8) Nausea: Code(s): R11.0 - Nausea Status: Acute Assessment and Plan: * One dose of Reglan given * KUB shows moderate amounts of gas and stool * Colace and miralax and a suppository * Seems to have resolved Time Spent With Patient Time with patient: Greater than 35 minutes Subjective Date/time seen: 12/14/22929 Interval history: 12/14/22929 Patient was lying in bed comfortable. His was present. Patient was denying any chest pain, shortness a breath however he did state that he felt constipated and that he has had bowel movements however he feels like they are not good enough. Did unwrap his leg which does look a whole lot better and is not weeping. was
[2022-12-14] MEDS: APIXABAN 5 MG TABLET PO ×2 (09:37→21:43)
[2022-12-14] MEDS: polyethylene glycoL 3350 17 GM POWD.PACK PO (09:37)
[2022-12-14] MEDS: ATORVASTATIN 40 MG TABLET 80 MG PO (09:37)
[2022-12-14 09:38] VITALS: PULSE 80
[2022-12-14] MEDS: AMIODARONE HCL 200 MG TABLET PO ×2 (09:38→18:15)
[2022-12-14] MEDS: DOCUSATE SODIUM 100 MG CAPSULE PO (09:38)
[2022-12-14] MEDS: guaiFENesin 12 HR 600 MG TABCR PO ×2 (09:38→21:44)
[2022-12-14] MEDS: INSULIN GLARGINE (*BKC) 100 UNITS/ML 15 UNITS SUB-Q (10:41)
[2022-12-14 11:44] VITALS: O2SAT 95
--- NOTE | 2022-12-14 11:59 | P.PNNP_ITS ---
Progress Note: A&P Assessment and Plan (1) Dependence on renal dialysis: Code(s): Z99.2 - Dependence on renal dialysis Status: Acute Assessment and Plan: * records reviewed from [facility] * presented with a creatinine of 5.37mg/dl * complicated by significant hypotension * creatinine raz to as high as 7.45mg/dl * initiated on CORPORATE DIRECTOR OF HUMAN RESOURCES/hemodialysis on 11/21/22 * has remained dialysis dependent since * baseline creatinine ~ 1.5 - 2.0mg/dl * history would suggest acute on chronic renal failure * possibility of renal recovery(?) * still makes some urine he says. * follow trend of labs and UOP * outpatient telecommunications analyst will hopefully follow trend of labs/UOP for potential renal recovery... * plan HD tomorrow (2) Cellulitis of right leg: Code(s): L03.115 - Cellulitis of right lower limb Status: Acute Assessment and Plan: * suspected based on clinical exam * wound care following * blood cultures no growth to date so far * on antibiotics (3) Atrial fibrillation: Code(s): I48.91 - Unspecified atrial fibrillation Status: Chronic Assessment and Plan: * rate controlled * on anticoagulation (4) Hypertension, essential: Code(s): I10 - Essential (primary) hypertension Status: Acute Assessment and Plan: * has this by history * however, has been relatively hypotensive since admission * all BP medications are on old * follow trend of hemodynanmics (5) Anemia: Code(s): D64.9 - Anemia, unspecified Status: Chronic Assessment and Plan: * likely secondary to dialysis dependence * Epogen with HD * follow trend of H/H (6) Insulin dependent type 2 diabetes mellitus: Code(s): E11.9 - Type 2 diabetes mellitus without complications; Z79.4 - 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 Subjective Date/time seen: 12/14/22 11:59 Chart reviewed -- assuming care from Dr. Zepeda; appears to be doing reasonably well; still with issues related to relative hypotension; no other acute issues or complaints voiced at this time; no events overnight or earlier this morning. Exam Narrative: General: WD/WN male/female in NAD Heart: normal S1 and S2; no rub or gallop Lungs: clear anteriorly Abdomen: soft, nontender, nondistended, positive bowel sounds Extremities: no cyanosis or clubbing; 1+ bilateral edema Skin: RLE with 2 ulcers and erythema Objective Data Vital Signs Vital Signs: Vital Signs Temp Pulse Resp BP Pulse Ox O2 Del Method 12/14/22 11:44 95 Room Air 12/14/22 09:38 80 12/14/22 06:00 97.4 F L 67 16 98/52 L 99 12/13/22 22:00 97.1 F L 83 16 102/50 L 99 12/13/22 16:50 81 12/13/22 13:58 97.6 F 81 16 100/54 L 98 Intake/Output Intake/Output: Intake & Output 12/11/22 12/12/22 12/13/22 12/14/22 23:59 23:59 23:59 23:59 Intake Total 2940 2160 1225 550 Output Total 1600 1700 500 Balance 9746 271 3222 50 Meds/Results Medications: Active Medications Generic Name Dose Route Start L
--- NOTE | 2022-12-14 11:59 | PM.PNNEP ---
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 follow trend of labs and UOP outpatient plumbing mechanic will hopefully follow trend of labs/UOP for potential renal recovery... plan HD tomorrow (2) Cellulitis of right leg: Code(s): L03.115 - Cellulitis of right lower limb Status: Acute Assessment and Plan: suspected based on clinical exam wound care following blood cultures no growth to date so far on antibiotics (3) Atrial fibrillation: Code(s): I48.91 - Unspecified atrial fibrillation Status: Chronic Assessment and Plan: rate controlled on anticoagulation (4) Hypertension, essential: Code(s): I10 - Essential (primary) hypertension Status: Acute Assessment and Plan: has this by history however, has been relatively hypotensive since admission all BP medications are on old follow trend of hemodynanmics (5) Anemia: Code(s): D64.9 - Anemia, unspecified Status: Chronic Assessment and Plan: likely secondary to dialysis dependence Epogen with HD follow trend of H/H (6) Insulin dependent type 2 diabetes mellitus: Code(s): E11.9 - Type 2 diabetes mellitus without complications; Z79.4 - 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 Subjective Date/time seen: 12/14/22 11:59 Chart reviewed -- assuming care from Dr. Zepeda; appears to be doing reasonably well; still with issues related to relative hypotension; no other acute issues or complaints voiced at this time; no events overnight or earlier this morning. Exam Narrative: General: WD/WN male/female in NAD Heart: normal S1 and S2; no rub or gallop Lungs: clear anteriorly Abdomen: soft, nontender, nondistended, positive bowel sounds Extremities: no cyanosis or clubbing; 1+ bilateral edema Skin: RLE with 2 ulcers and erythema Objective Data Vital Signs Vital Signs: Vital Signs Temp Pulse Resp BP Pulse Ox O2 Del Method 12/14/22 11:44 95 Room Air 12/14/22 09:38 80 12/14/22 06:00 97.4 F L 67 16 98/52 L 99 12/13/22 22:00 97.1 F L 83 16 102/50 L 99 12/13/22 16:50 81 12/13/22 13:58 97.6 F 81 16 100/54 L 98 Intake/Output Intake/Output: Intake & Output 12/11/22 12/12/22 12/13/22 12/14/22 23:59 23:59 23:59 23:59 Intake Total 2940 2160 1225 550 Output Total 1600 1700 500 Balance 0568 688 5427 50 Meds/Results Medications: Active Medications Generic Name Dose Route Start Last Admin Trade Name Freq PRN Reason Stop Dose Admin Acetaminophen 650 mg 12/09/22 22:28 Acetaminophen 325 Mg Tablet PO Q6H PRN Mild Pain (1-3) or Fever Albuterol 2 puff 12/09/22 22:28 Albuterol Sulfate (*Sp) Aerosol 1 Puff INHALATION Q4H PRN Shortness Of Breath Amiodarone HCl 200 mg 12/10/22 08:00 12/14/22 09:38 Amiodarone Hcl 200 Mg Tablet PO 200 mg BIDWM LETTY Administration Apixaban 5 mg 12/09/22 22:40 12/14/22 09:37 Apixaban 5 Mg Tablet PO 5 mg Q12HR LETTY Administration Atorvastatin Calcium 80 mg 12/10/22 09:00 12/14/22 09:37 Atorvastatin 40 Mg Tablet PO 80 mg DAILY LETTY Administration Dextrose 12.5 gm 12/11/22 12:55 Dextrose 50% 25 Gm/50 Ml Syringe IV PUSH PRN PRN Hypoglycemia
[2022-12-14 12:07] LABS: Glucose Point of Care 282 mg/dl (65-105)
[2022-12-14] MEDS: LACTULOSE 20 GM/30 ML UDC PO (12:27)
[2022-12-14] MEDS: INSULIN ASPART (*BKC) 100 UNITS/ML SUB-Q ×2 (12:28→18:16)
[2022-12-14 14:00] VITALS: BP 102/68; PULSE 66; RESP 16; TEMP 35.9; O2SAT 98
[2022-12-14 16:57] LABS: Glucose Point of Care 203 mg/dl (65-105)
[2022-12-14 18:15] VITALS: PULSE 66
[2022-12-14] MEDS: TOPIRAMATE 100 MG TABLET 400 MG PO (21:43)
[2022-12-14] MEDS: TIZANIDINE HCL 4 MG TABLET PO (21:44)
[2022-12-14] MEDS: DOXYCYCLINE HYCLATE 100 MG TABLET PO (21:44)
[2022-12-14 22:00] VITALS: BP 127/74; PULSE 71; RESP 16; TEMP 36.2; O2SAT 99
[2022-12-14 22:27] LABS: Glucose Point of Care 195 mg/dl (65-105)
[2022-12-15] VITALS (17 sets, daily range): BP systolic 103–157; BP diastolic 53–96; PULSE 65–89; RESP 16–18; TEMP 35.9–36.7; O2SAT 100
[2022-12-15] MEDS: oxyCODONE/ACETAMINOPHEN (*CRX) 10-325 MG TABLET 1 TAB PO (06:11)
[2022-12-15 06:30] LABS: Basophils Absolute Auto 0.1 K/mm3 (0.0-0.1); Eosinophils Absolute Auto 0.2 K/mm3 (0-0.3); Eosinophils Percent Auto 3.1 % (0-4.4); Hemoglobin 9.1 g/dL (14.0-18.0); Immature Granulocyte Absolute 0.02 K/mm3 (0.00-0.031); Immature Granulocyte Percent A 0.3 % (0-0.5); Lymphocytes Absolute Auto 2.03 K/mm3 (0.9-3.2); Lymphocytes Percent Auto 33.2 % (18.3-44.2); Mean Corpuscular HGB Conc 28.4 g/dl (32-36); Mean Corpuscular Hemoglobin 27.4 pg (26-34); Mean Corpuscular Volume 96.4 fl (80-100); Mean Platelet Volume 10.7 fl (7.4-10.4); Monocytes Absolute Auto 0.8 K/mm3 (0.1-0.6); Monocytes Percent Auto 13.2 % (2.6-8.5); Neutrophils Percent Auto 49.2 % (45.5-73.1); Platelet Count Result 133 k/mm3 (150-375); Red Blood Count 3.32 M/mm3 (4.6-6.20); Red Cell Distribution Width 15.6 % (11.5-14.5); White Blood Count 6.1 K/mm3 (4.5-10.0)
[2022-12-15 06:41] LABS: Alanine Aminotransferase 16 U/L (6-50); Albumin Level 3.6 g/dL (3.5-5.1); Alkaline Phosphatase 53 U/L (38-126); Anion Gap 10 mmol/L (8-16); Aspartate Amino Transferase 22 U/L (17-59); Bilirubin,Total 0.5 mg/dL (0.2-1.3); Blood Urea Nitrogen 27 mg/dL (9-20); Carbon Dioxide 21 mmol/L (22-30); Chloride 94 mmol/L (98-107); Estimated CRCL calculation 29 ml/min; Estimated Glomerular Filt Rate 18; Glucose 181 mg/dL (65-110); Magnesium 1.9 mg/dL (1.6-2.3); Potassium 3.9 mmol/L (3.4-5.0); Sodium 125 mmol/L (137-145)
--- NOTE | 2022-12-15 06:50 | P.PNIM_ITS ---
Progress Note: A&P Assessment and Plan (1) Cellulitis of right leg: Code(s): L03.115 - Cellulitis of right lower limb Status: Acute Assessment and Plan: * Presented with 2 shallow ulcers on his right lower leg * erythema, edema, and warmth around site of the wound * Redness is a lot less and better, no warmth noted, wounds are closed without drainage, swelling is minimal * Venous doppler no DVT * Change cefepime, vanco, and Flagyl to PO doxycycline, continue * Wound care consulted * Trend symptoms (2) End-stage renal disease on hemodialysis: Code(s): N18.6 - End stage renal disease; Z99.2 - Dependence on renal dialysis Status: Acute Assessment and Plan: * Current BUN/Cr stable at 27/3.50 * Nephrology consulted * Dialysis days are , , wed * Nephrology to manage dialysis * Trend labs * Avoid nephrotoxic medication * Adjust therapy as indicated (3) Insulin dependent type 2 diabetes mellitus: Code(s): E11.9 - Type 2 diabetes mellitus without complications; Z79.4 - retirement (cu rrent) use of insulin Status: Chronic Assessment and Plan: * Current glucose is 181 * A1c 8.0 * Continue basal insulin * Initiate sliding scale insulin * Accu-Cheks AC/HD * hypoglycemic protocol * Trend glucose * Adjust therapy as indicated (4) Atrial fibrillation: Code(s): I48.91 - Unspecified atrial fibrillation Status: Chronic Assessment and Plan: * Rate controlled, and currently Sinus dane * continue amiodarone and sotalol * Continue apixaban for stroke prophylaxis. 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 Status: Acute Assessment and Plan: * Continue Xarelto as above (6) Hypertension, essential: Code(s): I10 - Essential (primary) hypertension Status: Acute Assessment and Plan: * Current BP is 124/74 * Albumin given in dialysis * Lisinopril and tadalafil on hold for now * Continue home lisinopril * Trend BP * Adjust therapy as indicated (7) Chronic heart failure with preserved ejection fraction (HFpEF): Code(s): I50.32 - Chronic diastolic (congestive) heart failure Status: Acute Assessment and Plan: * Last echo on file indicated EF of 65-70% with grade 2 diastolic dysfunction * Chronic diastolic heart failure not in acute exacerbation * Trend fluid status * On dialysis * Daily weights * Strict I/Os (8) Nausea: Code(s): R11.0 - Nausea Status: Acute Assessment and Plan: * One dose of Reglan given * KUB shows moderate amounts of gas and stool * Colace and miralax and a suppository * Seems to have resolved (9) Hypotension: Code(s): I95.9 - Hypotension, unspecified Status: Acute Assessment and Plan: * Noted hypotension * Anti-hypertensives on hold * Will most likely need to be held at discharge * Nephrology consulted * Continue to trend (10) Hyponatremia: Code(s): E87.1 - Hypo-osmolality and hyponatremia Status: Acute Assessment and Plan: * Na is 125 * Most likely r
--- NOTE | 2022-12-15 06:50 | PM.IMPN ---
Progress Note: A&P Assessment and Plan (1) Cellulitis of right leg: Code(s): L03.115 - Cellulitis of right lower limb Status: Acute Assessment and Plan: Presented with 2 shallow ulcers on his right lower leg erythema, edema, and warmth around site of the wound Redness is a lot less and better, no warmth noted, wounds are closed without drainage, swelling is minimal Venous doppler no DVT Change cefepime, vanco, and Flagyl to PO doxycycline, continue Wound care consulted Trend symptoms (2) End-stage renal disease on hemodialysis: Code(s): N18.6 - End stage renal disease; Z99.2 - Dependence on renal dialysis Status: Acute Assessment and Plan: Current BUN/Cr stable at 27/3.50 Nephrology consulted Dialysis days are , , sat Nephrology to manage dialysis Trend labs Avoid nephrotoxic medication Adjust therapy as indicated (3) Insulin dependent type 2 diabetes mellitus: Code(s): E11.9 - Type 2 diabetes mellitus without complications; Z79.4 - 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.01 - half-way (current) use of anticoagulants Status: Acute Assessment and Plan: Continue Xarelto as above (6) Hypertension, essential: Code(s): I10 - Essential (primary) hypertension Status: Acute Assessment and Plan: Current BP is 124/74 Albumin given in dialysis Lisinopril and tadalafil on hold for now Continue home lisinopril Trend BP Adjust therapy as indicated (7) Chronic heart failure with preserved ejection fraction (HFpEF): Code(s): I50.32 - Chronic diastolic (congestive) heart failure Status: Acute Assessment and Plan: Last echo on file indicated EF of 65-70% with grade 2 diastolic dysfunction Chronic diastolic heart failure not in acute exacerbation Trend fluid status On dialysis Daily weights Strict I/Os (8) Nausea: Code(s): R11.0 - Nausea Status: Acute Assessment and Plan: One dose of Reglan given KUB shows moderate amounts of gas and stool Colace and miralax and a suppository Seems to have resolved (9) Hypotension: Code(s): I95.9 - Hypotension, unspecified Status: Acute Assessment and Plan: Noted hypotension Anti-hypertensives on hold Will most likely need to be held at discharge Nephrology consulted Continue to trend (10) Hyponatremia: Code(s): E87.1 - Hypo-osmolality and hyponatremia Status: Acute Assessment and Plan: Na is 125 Most likely related to fluid overload Dialysis today Continue to trend Recheck labs post dialysis Adjust therapy as indicated Time Spent With Patient Time with patient: Greater than 35 minutes Subjective Date/time seen: 12/15/22 1200 Interval history: 12/15/22 1200 Patient is doing ok. He had a large BM and stated that his abdomen is feeling better. He is also ready to go home. Sodium is low,thinking could be related to fluid overload. Continue to trend labs. Denies any chest pain, nausea, vomiting, diarrhea, or constipation. 12/14/22 0930 Patient was lying in bed comfortable. His was present. Patient was denying any chest pain, shortness a breath however he did state that he felt c
[2022-12-15 07:25] LABS: Burr Cells 1+ (NORMAL); Ovalocytes 1+ (NORMAL); Schistocytes None Seen (NORMAL)
[2022-12-15 08:09] LABS: Glucose Point of Care 177 mg/dl (65-105)
[2022-12-15] MEDS: INSULIN GLARGINE (*BKC) 100 UNITS/ML 15 UNITS SUB-Q (08:32)
[2022-12-15] MEDS: SILVERGEL (ELTA) 45 ML 1 APPLIC TOPICAL (08:33)
[2022-12-15] MEDS: ATORVASTATIN 40 MG TABLET 80 MG PO (08:34)
[2022-12-15] MEDS: SPIRONOLACTONE 12.5 MG TABLET PO (08:34)
[2022-12-15] MEDS: guaiFENesin 12 HR 600 MG TABCR PO (08:34)
[2022-12-15] MEDS: APIXABAN 5 MG TABLET PO (08:34)
[2022-12-15] MEDS: DOCUSATE SODIUM 100 MG CAPSULE PO (08:34)
[2022-12-15] MEDS: FUROSEMIDE 80 MG TABLET PO (08:34)
[2022-12-15] MEDS: AMIODARONE HCL 200 MG TABLET PO (08:35)
[2022-12-15] MEDS: DOXYCYCLINE HYCLATE 100 MG TABLET PO (08:35)
[2022-12-15 11:51] LABS: Glucose Point of Care 349 mg/dl (65-105)
--- NOTE | 2022-12-15 12:00 | P.DS_ITS ---
DS: Admitting Diagnosis Discharge Date 12/15/2022 1200 Admitting Diagnosis Cellulitis of the right lower limb DS: Discharge Diagnosis Discharge Diagnosis (1) Cellulitis of right leg: Code(s): L03.115 - Cellulitis of right lower limb Status: Acute Assessment and Plan: * Presented with 2 shallow ulcers on his right lower leg * erythema, edema, and warmth around site of the wound * Redness is a lot less and better, no warmth noted, wounds are closed without drainage, swelling is minimal * Venous doppler no DVT * Change cefepime, vanco, and Flagyl to PO doxycycline, continue * Wound care consulted * Trend symptoms (2) End-stage renal disease on hemodialysis: Code(s): N18.6 - End stage renal disease; Z99.2 - Dependence on renal dialysis Status: Acute Assessment and Plan: * Current BUN/Cr stable at 27/3.50 * Nephrology consulted * Dialysis days are , , wed * Nephrology to manage dialysis * Trend labs * Avoid nephrotoxic medication * Adjust therapy as indicated (3) Insulin dependent type 2 diabetes mellitus: Code(s): E11.9 - Type 2 diabetes mellitus without complications; Z79.4 - group home (current) use of insulin Status: Chronic Assessment and Plan: * Current glucose is 181 * A1c 8.0 * Continue basal insulin * Initiate sliding scale insulin * Accu-Cheks AC/HD * hypoglycemic protocol * Trend glucose * Adjust therapy as indicated (4) Atrial fibrillation: Code(s): I48.91 - Unspecified atrial fibrillation Status: Chronic Assessment and Plan: * Rate controlled, and currently Sinus dane * continue amiodarone and sotalol * Continue apixaban for stroke prophylaxis. 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 Status: Acute Assessment and Plan: * Continue Xarelto as above (6) Hypertension, essential: Code(s): I10 - Essential (primary) hypertension Status: Acute Assessment and Plan: * Current BP is 124/74 * Albumin given in dialysis * Lisinopril and tadalafil on hold for now * Continue home lisinopril * Trend BP * Adjust therapy as indicated (7) Chronic heart failure with preserved ejection fraction (HFpEF): Code(s): I50.32 - Chronic diastolic (congestive) heart failure Status: Acute Assessment and Plan: * Last echo on file indicated EF of 65-70% with grade 2 diastolic dysfunction * Chronic diastolic heart failure not in acute exacerbation * Trend fluid status * On dialysis * Daily weights * Strict I/Os (8) Nausea: Code(s): R11.0 - Nausea Status: Acute Assessment and Plan: * One dose of Reglan given * KUB shows moderate amounts of gas and stool * Colace and miralax and a suppository * Seems to have resolved (9) Hypotension: Code(s): I95.9 - Hypotension, unspecified Status: Acute Assessment and Plan: * Noted hypotension * Anti-hypertensives on hold * Will most likely need to be held at discharge * Nephrology consulted * Continue to trend (10) Hyponatremia: Code
--- NOTE | 2022-12-15 12:00 | PM.DS ---
DS: Admitting Diagnosis Discharge Date 12/15/2022 1200 Admitting Diagnosis Cellulitis of the right lower limb DS: Discharge Diagnosis Discharge Diagnosis (1) Cellulitis of right leg: Code(s): L03.115 - Cellulitis of right lower limb Status: Acute Assessment and Plan: Presented with 2 shallow ulcers on his right lower leg erythema, edema, and warmth around site of the wound Redness is a lot less and better, no warmth noted, wounds are closed without drainage, swelling is minimal Venous doppler no DVT Change cefepime, vanco, and Flagyl to PO doxycycline, continue Wound care consulted Trend symptoms (2) End-stage renal disease on hemodialysis: Code(s): N18.6 - End stage renal disease; Z99.2 - Dependence on renal dialysis Status: Acute Assessment and Plan: Current BUN/Cr stable at 27/3.50 Nephrology consulted Dialysis days are , , sat Nephrology to manage dialysis Trend labs Avoid nephrotoxic medication Adjust therapy as indicated (3) Insulin dependent type 2 diabetes mellitus: Code(s): E11.9 - Type 2 diabetes mellitus without complications; Z79.4 - search specialist (current) use of insulin Status: Chronic Assessment and Plan: Current glucose is 181 A1c 8.0 Continue basal insulin Initiate sliding scale insulin Accu-Cheks AC/HD hypoglycemic protocol Trend glucose Adjust therapy as indicated (4) Atrial fibrillation: Code(s): I48.91 - Unspecified atrial fibrillation Status: Chronic Assessment and Plan: Rate controlled, and currently Sinus dane continue amiodarone and sotalol Continue apixaban for stroke prophylaxis. 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.01 - nursing home (current) use of anticoagulants Status: Acute Assessment and Plan: Continue Xarelto as above (6) Hypertension, essential: Code(s): I10 - Essential (primary) hypertension Status: Acute Assessment and Plan: Current BP is 124/74 Albumin given in dialysis Lisinopril and tadalafil on hold for now Continue home lisinopril Trend BP Adjust therapy as indicated (7) Chronic heart failure with preserved ejection fraction (HFpEF): Code(s): I50.32 - Chronic diastolic (congestive) heart failure Status: Acute Assessment and Plan: Last echo on file indicated EF of 65-70% with grade 2 diastolic dysfunction Chronic diastolic heart failure not in acute exacerbation Trend fluid status On dialysis Daily weights Strict I/Os (8) Nausea: Code(s): R11.0 - Nausea Status: Acute Assessment and Plan: One dose of Reglan given KUB shows moderate amounts of gas and stool Colace and miralax and a suppository Seems to have resolved (9) Hypotension: Code(s): I95.9 - Hypotension, unspecified Status: Acute Assessment and Plan: Noted hypotension Anti-hypertensives on hold Will most likely need to be held at discharge Nephrology consulted Continue to trend (10) Hyponatremia: Code(s): E87.1 - Hypo-osmolality and hyponatremia Status: Acute Assessment and Plan: Na is 125 Most likely related to fluid overload Dialysis today Continue to trend Recheck labs post dialysis Adjust therapy as indicated DS: Summary Hospital Course Hospital Course: patient is 59-year-old male with a past medical history of AFib, hypertension, hyperlipidemia, heart failure, end-stage renal disease on dialysis, COPD who presented to the ED with complaints of redness and swelling of the right leg. Patient did have notable skin wounds upon admission. And leg legs were weeping. Patient was started on cefepime, Flagyl, vancomycin per antibiotic stewardship. Patient did have significant
--- NOTE | 2022-12-15 13:41 | P.PNNP_ITS ---
Progress Note: A&P Assessment and Plan (1) Dependence on renal dialysis: Code(s): Z99.2 - Dependence on renal dialysis Status: Acute Assessment and Plan: * records reviewed from [facility] * presented with a creatinine of 5.37mg/dl * complicated by significant hypotension * creatinine raz to as high as 7.45mg/dl * initiated on THINNER SPRAYER/hemodialysis on 11/21/22 * has remained dialysis dependent since * baseline creatinine ~ 1.5 - 2.0mg/dl * history would suggest acute on chronic renal failure * possibility of renal recovery(?) * still makes some urine he says. * follow trend of labs and UOP * outpatient electronic assembler group leader will hopefully follow trend of labs/UOP for potential renal recovery... * HD today (2) Cellulitis of right leg: Code(s): L03.115 - Cellulitis of right lower limb Status: Acute Assessment and Plan: * suspected based on clinical exam - improvement noted * wound care following * blood cultures no growth to date so far * on antibiotics (3) Atrial fibrillation: Code(s): I48.91 - Unspecified atrial fibrillation Status: Chronic Assessment and Plan: * rate controlled * on anticoagulation (4) Hypertension, essential: Code(s): I10 - Essential (primary) hypertension Status: Acute Assessment and Plan: * has this by history * however, has been relatively hypotensive since admission * all BP medications are on old * follow trend of hemodynanmics (5) Anemia: Code(s): D64.9 - Anemia, unspecified Status: Chronic Assessment and Plan: * likely secondary to dialysis dependence * Epogen with HD * follow trend of H/H (6) Insulin dependent type 2 diabetes mellitus: Code(s): E11.9 - Type 2 diabetes mellitus without complications; Z79.4 - jail (current) use of insulin Status: Chronic Assessment and Plan: * on Accu-Cheks and sliding-scale insulin * continue glycemic control Will continue to follow. Subjective Date/time seen: 12/15/22 13:41 Tolerating dialysis treatment at the time of my visit (seen on HD at ~ 1:20PM); no apparent distress voiced at the time of my visit; no issues overnight; right leg appears to be doing better; no events overnight or earlier this morning. Exam Narrative: General: WD/WN male/female in NAD Heart: normal S1 and S2; no rub or gallop Lungs: clear anteriorly Abdomen: soft, nontender, nondistended, positive bowel sounds Extremities: no cyanosis or clubbing; 1+ bilateral edema Skin: RLE with reduced erythema Objective Data Vital Signs Vital Signs: Vital Signs Temp Pulse Resp BP Pulse Ox 12/15/22 13:20 70 124/58 L 12/15/22 13:00 75 112/96 H 12/15/22 12:44 75 128/65 12/15/22 12:38 97.8 F 76 16 137/63 12/15/22 08:35 72 12/15/22 06:00 96.6 F L 65 16 103/53 L 100 12/14/22 22:00 97.2 F L 71 16 127/74 99 Intake/Output Intake/Output: Intake & Output 12/12/22 12/13/22 12/14/22 12/15/22 23:59 23:59 23:59 23:59 Intake Total 2160 1225 1390 1100 Output Total 1700 850 300 Balance 460 1225 540 800 Meds/Results Medications: Active Medications
--- NOTE | 2022-12-15 13:41 | PM.PNNEP ---
Progress Note: A&P Assessment and Plan (1) Dependence on renal dialysis: Code(s): Z99.2 - Dependence on renal dialysis Status: Acute Assessment and Plan: records reviewed from [facility] presented with a creatinine of 5.37mg/dl complicated by significant hypotension creatinine raz to as high as 7.45mg/dl initiated on SURGICAL SERVICES MANAGER/hemodialysis on 11/21/22 has remained dialysis dependent since baseline creatinine ~ 1.5 - 2.0mg/dl history would suggest acute on chronic renal failure possibility of renal recovery(?) still makes some urine he says. follow trend of labs and UOP outpatient lining cleaner will hopefully follow trend of labs/UOP for potential renal recovery... HD today (2) Cellulitis of right leg: Code(s): L03.115 - Cellulitis of right lower limb Status: Acute Assessment and Plan: suspected based on clinical exam - improvement noted wound care following blood cultures no growth to date so far on antibiotics (3) Atrial fibrillation: Code(s): I48.91 - Unspecified atrial fibrillation Status: Chronic Assessment and Plan: rate controlled on anticoagulation (4) Hypertension, essential: Code(s): I10 - Essential (primary) hypertension Status: Acute Assessment and Plan: has this by history however, has been relatively hypotensive since admission all BP medications are on old follow trend of hemodynanmics (5) Anemia: Code(s): D64.9 - Anemia, unspecified Status: Chronic Assessment and Plan: likely secondary to dialysis dependence Epogen with HD follow trend of H/H (6) Insulin dependent type 2 diabetes mellitus: Code(s): E11.9 - Type 2 diabetes mellitus without complications; Z79.4 - longterm (current) use of insulin Status: Chronic Assessment and Plan: on Accu-Cheks and sliding-scale insulin continue glycemic control Will continue to follow. Subjective Date/time seen: 12/15/22 13:41 Tolerating dialysis treatment at the time of my visit (seen on HD at ~ 1:20PM); no apparent distress voiced at the time of my visit; no issues overnight; right leg appears to be doing better; no events overnight or earlier this morning. Exam Narrative: General: WD/WN male/female in NAD Heart: normal S1 and S2; no rub or gallop Lungs: clear anteriorly Abdomen: soft, nontender, nondistended, positive bowel sounds Extremities: no cyanosis or clubbing; 1+ bilateral edema Skin: RLE with reduced erythema Objective Data Vital Signs Vital Signs: Vital Signs Temp Pulse Resp BP Pulse Ox 12/15/22 13:20 70 124/58 L 12/15/22 13:00 75 112/96 H 12/15/22 12:44 75 128/65 12/15/22 12:38 97.8 F 76 16 137/63 12/15/22 08:35 72 12/15/22 06:00 96.6 F L 65 16 103/53 L 100 12/14/22 22:00 97.2 F L 71 16 127/74 99 Intake/Output Intake/Output: Intake & Output 12/12/22 12/13/22 12/14/22 12/15/22 23:59 23:59 23:59 23:59 Intake Total 2160 1225 1390 1100 Output Total 1700 850 300 Balance 460 1225 540 800 Meds/Results Medications: Active Medications Generic Name Dose Route Start Last Admin Trade Name Freq PRN Reason Stop Dose Admin Acetaminophen 650 mg 12/09/22 22:28 Acetaminophen 325 Mg Tablet PO Q6H PRN Mild Pain (1-3) or Fever Albuterol 2 puff 12/09/22 22:28 Albuterol Sulfate (*Sp) Aerosol 1 Puff INHALATION Q4H PRN Shortness Of Breath Amiodarone HCl 200 mg 12/10/22 08:00 12/15/22 08:35 Amiodarone Hcl 200 Mg Tablet PO 200 mg BIDWM LETTY Administration Apixaban 5 mg 12/09/22 22:40 12/15/22 08:34 Apixaban 5 Mg Tablet PO 5 mg Q12HR LETTY Administration Atorvastatin Calcium 80 mg 12/10/22 09:00 12/15/22 08:34 Atorvastatin 40 Mg Tablet PO 80 mg DAILY LETTY Administration Dextrose 12.5 gm 12/11/22 12:55 Dextrose 50% 25 Gm/50 Ml Syringe IV PUSH PRN PRN
[2022-12-15 16:41] LABS: Glucose Point of Care 239 mg/dl (65-105)
[2022-12-15 16:43] LABS: Alanine Aminotransferase 15 U/L (6-50); Albumin Level 3.5 g/dL (3.5-5.1); Alkaline Phosphatase 62 U/L (38-126); Anion Gap 4 mmol/L (8-16); Aspartate Amino Transferase 22 U/L (17-59); Bilirubin,Total 0.4 mg/dL (0.2-1.3); Blood Urea Nitrogen 14 mg/dL (9-20); Carbon Dioxide 31 mmol/L (22-30); Chloride 100 mmol/L (98-107); Estimated CRCL calculation 51 ml/min; Estimated Glomerular Filt Rate 34; Glucose 235 mg/dL (65-110); Potassium 3.6 mmol/L (3.4-5.0); Sodium 135 mmol/L (137-145)
== END 2022-12-15 18:05 | disposition home health service (06) | DRG 602 ==
LOC: ANHED 15:39 → ANH3MEDSUR 16:21
PROVIDERS: Internal Medicine Nephrology; Physician Assistant; Admitting Provider Student in an Organized Health Care Education/Training Program; Emergency Provider Emergency Medicine; PCP Family Medicine; Visit Provider Nurse Practitioner
DX: L03.115 Cellulitis of right lower limb (principal); N18.6 End stage renal disease; I48.20 Chronic atrial fibrillation, unspecified; I13.2 Hypertensive heart and chronic kidney disease with heart failure and with stage 5 chronic kidney disease, or end stage renal disease; I50.32 Chronic diastolic (congestive) heart failure; E11.22 Type 2 diabetes mellitus with diabetic chronic kidney disease; G47.33 Obstructive sleep apnea (adult) (pediatric); J44.9 Chronic obstructive pulmonary disease, unspecified; G89.4 Chronic pain syndrome; Z20.822 Contact with and (suspected) exposure to COVID-19; Z87.891 Personal history of nicotine dependence; Z99.2 Dependence on renal dialysis; Z79.4 Long term (current) use of insulin; Z79.01 Long term (current) use of anticoagulants; Z79.899 Other long term (current) drug therapy; Z91.018 Allergy to other foods; Z83.3 Family history of diabetes mellitus; Z82.49 Family history of ischemic heart disease and other diseases of the circulatory system
CPT/HCPCS: 36415; 73590; 74018; 80053; 80202; 82565; 82948; 83036; 83605; 83735; 84100; 85025; 85610; 85730; 86704; 86706; 87040; 87340; 87636; 93971; 96365; 96366; 96367; 96375; 99285; A9270; G0257; G0378; J0692; J1644; J1815; J2405; J2765; J3370; J3475; J7030; P9047; Q5105

== ENCOUNTER 2023-02-10 10:01 | Outpatient (CLI) | payer OTHER, MEDICARE, SELFPAY ==
[2023-02-10 11:05] LABS: Alanine Aminotransferase 17 U/L (6-50); Albumin Level 4.3 g/dL (3.5-5.1); Alkaline Phosphatase 72 U/L (38-126); Anion Gap 8 mmol/L (8-16); Aspartate Amino Transferase 21 U/L (17-59); Bilirubin,Total 0.6 mg/dL (0.2-1.3); Blood Urea Nitrogen 36 mg/dL (9-20); Calcium 9.1 mg/dL (8.4-10.2); Carbon Dioxide 29 mmol/L (22-30); Chloride 97 mmol/L (98-107); Estimated Glomerular Filt Rate 29; Glucose 128 mg/dL (65-110); Potassium 3.5 mmol/L (3.4-5.0); Sodium 134 mmol/L (137-145)
[2023-02-10 11:42] LABS: Basophils Percent Auto 0.5 % (0.2-1.2); Eosinophils Absolute Auto 0.1 K/mm3 (0-0.3); Eosinophils Percent Auto 1.3 % (0-4.4); Hematocrit 34.6 % (42.0-52.0); Hemoglobin 10.7 g/dL (14.0-18.0); Immature Granulocyte Absolute 0.04 K/mm3 (0.00-0.031); Immature Granulocyte Percent A 0.5 % (0-0.5); Lymphocytes Absolute Auto 1.54 K/mm3 (0.9-3.2); Lymphocytes Percent Auto 19.5 % (18.3-44.2); Mean Corpuscular HGB Conc 30.9 g/dl (32-36); Mean Corpuscular Hemoglobin 29.2 pg (26-34); Mean Corpuscular Volume 94.5 fl (80-100); Monocytes Absolute Auto 0.8 K/mm3 (0.1-0.6); Monocytes Percent Auto 9.8 % (2.6-8.5); Neutrophils Absolute Auto 5.4 K/mm3 (1.3-6.7); Neutrophils Percent Auto 68.4 % (45.5-73.1); Platelet Count Result 211 k/mm3 (150-375); Red Blood Count 3.66 M/mm3 (4.6-6.20); Red Cell Distribution Width 15.6 % (11.5-14.5); White Blood Count 7.9 K/mm3 (4.5-10.0)
== END 2023-02-10 10:02 | disposition home or self-care (01) ==
PROVIDERS: PCP Family Medicine; Visit Provider Internal Medicine Nephrology
DX: N18.9 Chronic kidney disease, unspecified (principal); N17.9 Acute kidney failure, unspecified
CPT/HCPCS: 36415; 80053; 85025

== ENCOUNTER 2023-02-16 13:22 | Outpatient (CLI) | payer OTHER, MEDICARE, SELFPAY ==
[2023-02-16 14:01] LABS: Hematocrit 33.1 % (42.0-52.0); Hemoglobin 10.4 g/dL (14.0-18.0); Mean Corpuscular HGB Conc 31.4 g/dl (32-36); Mean Corpuscular Hemoglobin 28.6 pg (26-34); Mean Corpuscular Volume 90.9 fl (80-100); Mean Platelet Volume 9.4 fl (7.4-10.4); Platelet Count Result 199 k/mm3 (150-375); Red Blood Count 3.64 M/mm3 (4.6-6.20); White Blood Count 6.4 K/mm3 (4.5-10.0)
[2023-02-16 14:29] LABS: Iron 45 ug/dL (49-181)
== END 2023-02-16 13:23 | disposition home or self-care (01) ==
PROVIDERS: PCP Family Medicine; Visit Provider Family Medicine
DX: D50.9 Iron deficiency anemia, unspecified (principal)
CPT/HCPCS: 36415; 83540; 85027

== ENCOUNTER 2023-04-01 09:17 | Outpatient (CLI) | payer OTHER, MEDICARE, SELFPAY ==
[2023-04-01 10:05] LABS: Hematocrit 34.3 % (42.0-52.0); Hemoglobin 10.4 g/dL (14.0-18.0); Mean Corpuscular HGB Conc 30.3 g/dl (32-36); Mean Corpuscular Hemoglobin 29.1 pg (26-34); Mean Corpuscular Volume 95.8 fl (80-100); Mean Platelet Volume 9.5 fl (7.4-10.4); Platelet Count Result 184 k/mm3 (150-375); Red Blood Count 3.58 M/mm3 (4.6-6.20); Red Cell Distribution Width 14.7 % (11.5-14.5)
[2023-04-01 10:20] LABS: Appearance Urine Clear (Clear); Bacteria Urine None Seen /hpf; Bilirubin Urine Negative (Negative); Blood Urine Negative (Negative); Color Urine Yellow (Yellow); Glucose Urine UA Negative (Negative); Ketones Urine Negative (Negative); Leukocyte Esterase Ur 1+ LEU/UL (Negative); Need Manual Microscopic Reviewed; Nitrate Urine Negative (Negative); Non Pathogenic Casts 0-2; Protein Urine Negative (Negative); RBC Urine 0-2 /hpf (0-2); Specific Grav Ur 1.006 (1.001-1.035); Squamous Epithelial Cell Urine None seen /hpf (Few); Urobilinogen Urine 0.2 mg/dL (<2.0); WBC Urine 0-5 /hpf
[2023-04-01 10:24] LABS: Albumin Level 4.4 g/dL (3.5-5.1); Anion Gap 10 mmol/L (8-16); Blood Urea Nitrogen 29 mg/dL (9-20); Carbon Dioxide 33 mmol/L (22-30); Chloride 97 mmol/L (98-107); Estimated Glomerular Filt Rate 32; Glucose 151 mg/dL (65-110); Phosphorus 3.6 mg/dL (2.5-4.5); Potassium 3.2 mmol/L (3.4-5.0); Sodium 140 mmol/L (137-145); Uric Acid 7.1 mg/dL (3.5-8.5)
[2023-04-01 10:31] LABS: Creatinine Urine 15.2 mg/dL
[2023-04-01 10:35] LABS: Parathyroid Intact 142.3 pg/mL (7.5-53.5)
[2023-04-01 10:47] LABS: Add Urine Microscopic? YES
[2023-04-01 11:00] LABS: MALB Creatinine Ratio < 39.5 mg/g (0-30); Microalbumin Urine Random < 6.0 mg/L (0-16.7)
== END 2023-04-01 09:18 | disposition home or self-care (01) ==
PROVIDERS: PCP Family Medicine; Visit Provider Internal Medicine Nephrology
DX: N18.4 Chronic kidney disease, stage 4 (severe) (principal)
CPT/HCPCS: 36415; 80069; 81001; 82043; 83970; 84550; 85027

== ENCOUNTER 2023-05-14 08:45 | Outpatient (CLI) | payer OTHER, MEDICARE, SELFPAY ==
[2023-05-14 09:56] LABS: Hemoglobin 10.2 g/dL (14.0-18.0); Mean Corpuscular Hemoglobin 28.5 pg (26-34); Mean Platelet Volume 10.2 fl (7.4-10.4); Platelet Count Result 188 k/mm3 (150-375); Red Blood Count 3.58 M/mm3 (4.6-6.20); Red Cell Distribution Width 14.7 % (11.5-14.5); White Blood Count 6.9 K/mm3 (4.5-10.0)
[2023-05-14 10:22] LABS: Iron 44 ug/dL (49-181)
[2023-05-14 10:27] LABS: Alanine Aminotransferase 16 U/L (6-50); Albumin Level 4.2 g/dL (3.5-5.1); Alkaline Phosphatase 72 U/L (38-126); Anion Gap 8 mmol/L (8-16); Aspartate Amino Transferase 18 U/L (17-59); Bilirubin,Total 0.4 mg/dL (0.2-1.3); Blood Urea Nitrogen 34 mg/dL (9-20); Calcium 8.8 mg/dL (8.4-10.2); Carbon Dioxide 29 mmol/L (22-30); Chloride 102 mmol/L (98-107); Cholesterol 129 mg/dL (0-200); Estimated Glomerular Filt Rate 34; Glucose 148 mg/dL (65-110); HDL Direct 49 mg/dL; Potassium 3.5 mmol/L (3.4-5.0); Sodium 139 mmol/L (137-145); Triglycerides 113 mg/dL (<150)
[2023-05-14 10:38] LABS: LDL Cholesterol Direct 59 mg/dL
[2023-05-14 11:22] LABS: Hemoglobin A1C 8.6 % (<5.7)
== END 2023-05-14 08:46 | disposition home or self-care (01) ==
PROVIDERS: PCP Family Medicine; Visit Provider Family Medicine
DX: E78.5 Hyperlipidemia, unspecified (principal); E11.22 Type 2 diabetes mellitus with diabetic chronic kidney disease; N18.6 End stage renal disease; Z79.4 Long term (current) use of insulin; Z99.2 Dependence on renal dialysis
CPT/HCPCS: 36415; 80053; 80061; 83036; 83540; 85027

== ENCOUNTER 2023-05-24 11:21 | Outpatient (CLI) | payer OTHER, MEDICARE, SELFPAY ==
[2023-05-24 12:11] LABS: Alanine Aminotransferase 17 U/L (6-50); Aspartate Amino Transferase 27 U/L (17-59)
[2023-05-24 12:42] LABS: Thyroid Stimulating Hormone 0.992 uIU/mL (0.465-4.680)
[2023-05-24 13:01] LABS: Free T4 Free Thyroxine 1.66 ng/mL (0.78-2.19)
== END 2023-05-24 11:22 | disposition home or self-care (01) ==
PROVIDERS: PCP Family Medicine
DX: I48.0 Paroxysmal atrial fibrillation (principal); Z79.899 Other long term (current) drug therapy
CPT/HCPCS: 36415; 84439; 84443; 84450; 84460

== ENCOUNTER 2023-08-05 07:44 | Outpatient (CLI) | payer OTHER, MEDICARE, SELFPAY ==
[2023-08-05 08:42] LABS: Basophils Percent Auto 0.2 % (0.2-1.2); Eosinophils Percent Auto 0.2 % (0-4.4); Hematocrit 34.9 % (42.0-52.0); Hemoglobin 10.2 g/dL (14.0-18.0); Immature Granulocyte Absolute 0.02 K/mm3 (0.00-0.031); Immature Granulocyte Percent A 0.3 % (0-0.5); Lymphocytes Absolute Auto 1.28 K/mm3 (0.9-3.2); Lymphocytes Percent Auto 19.5 % (18.3-44.2); Mean Corpuscular HGB Conc 29.2 g/dl (32-36); Mean Corpuscular Hemoglobin 26.9 pg (26-34); Mean Corpuscular Volume 92.1 fl (80-100); Mean Platelet Volume 10.3 fl (7.4-10.4); Monocytes Absolute Auto 0.7 K/mm3 (0.1-0.6); Neutrophils Absolute Auto 4.6 K/mm3 (1.3-6.7); Neutrophils Percent Auto 69.8 % (45.5-73.1); Platelet Count Result 177 k/mm3 (150-375); Red Blood Count 3.79 M/mm3 (4.6-6.20); Red Cell Distribution Width 15.6 % (11.5-14.5); White Blood Count 6.6 K/mm3 (4.5-10.0)
[2023-08-05 08:51] LABS: Albumin Level 4.3 g/dL (3.5-5.1); Anion Gap 10 mmol/L (8-16); Blood Urea Nitrogen 38 mg/dL (9-20); Calcium 8.9 mg/dL (8.4-10.2); Carbon Dioxide 27 mmol/L (22-30); Chloride 103 mmol/L (98-107); Estimated Glomerular Filt Rate 23; Glucose 235 mg/dL (65-110); Potassium 4.1 mmol/L (3.4-5.0); Sodium 140 mmol/L (137-145)
[2023-08-05 08:55] LABS: Appearance Urine Clear (Clear); Bacteria Urine None Seen /hpf; Bilirubin Urine Negative (Negative); Blood Urine Negative (Negative); Color Urine Yellow (Yellow); Glucose Urine UA Negative (Negative); Ketones Urine Negative (Negative); Leukocyte Esterase Ur Trace LEU/UL (NEGATIVE); Nitrate Urine Negative (Negative); Non Pathogenic Casts 0-2; Protein Urine Negative (Negative); RBC Urine 0-2 /hpf (0-2); Specific Grav Ur 1.012 (1.001-1.035); Squamous Epithelial Cell Urine None seen /hpf (Few); Urobilinogen Urine 0.2 mg/dL (<2.0); WBC Urine 0-5 /hpf (0-3)
[2023-08-05 08:56] LABS: Add Urine Microscopic? YES
[2023-08-05 08:58] LABS: Total Protein Urine Random 7 mg/dL; Ur Ttl Prot Creatinine Ratio 0.12 mg/mg (0-0.20)
[2023-08-05 09:00] LABS: Transferrin 256 mg/dL (206-381)
[2023-08-05 09:10] LABS: Hemoglobin A1C 7.6 % (<5.7); Hypochromasia 1+ (NORMAL); Microcytosis 1+ (NORMAL); Ovalocytes 1+ (NORMAL); Platelet Estimate Adequate (Adequate); Schistocytes None Seen (NORMAL)
[2023-08-05 09:25] LABS: Iron 50 ug/dL (49-181)
[2023-08-05 09:37] LABS: Percent Iron Saturation 13 % (20-50); Vitamin D 25 Hydroxy 29.5 ng/mL
[2023-08-05 10:02] LABS: Ferritin 7.95 ng/mL (11.1-264)
== END 2023-08-05 07:45 | disposition home or self-care (01) ==
PROVIDERS: PCP Family Medicine; Visit Provider Hospitalist
DX: I12.9 Hypertensive chronic kidney disease with stage 1 through stage 4 chronic kidney disease, or unspecified chronic kidney disease (principal); N18.32 Chronic kidney disease, stage 3b; E11.22 Type 2 diabetes mellitus with diabetic chronic kidney disease
CPT/HCPCS: 36415; 80069; 81001; 82306; 82570; 82728; 83036; 83540; 83550; 84156; 84466; 85025

== ENCOUNTER 2023-12-02 08:22 | Outpatient (CLI) | payer OTHER, MEDICARE, SELFPAY ==
[2023-12-02 09:17] LABS: Basophils Percent Auto 0.4 % (0.2-1.2); Eosinophils Absolute Auto 0.1 K/mm3 (0-0.3); Eosinophils Percent Auto 1.8 % (0-4.4); Hemoglobin 10.8 g/dL (14.0-18.0); Immature Granulocyte Absolute 0.01 K/mm3 (0.00-0.031); Immature Granulocyte Percent A 0.2 % (0-0.5); Lymphocytes Percent Auto 31.7 % (18.3-44.2); Mean Corpuscular HGB Conc 29.2 g/dl (32-36); Mean Corpuscular Hemoglobin 27.3 pg (26-34); Mean Corpuscular Volume 93.4 fl (80-100); Mean Platelet Volume 9.3 fl (7.4-10.4); Monocytes Absolute Auto 0.4 K/mm3 (0.1-0.6); Monocytes Percent Auto 8.7 % (2.6-8.5); Neutrophils Absolute Auto 2.9 K/mm3 (1.3-6.7); Neutrophils Percent Auto 57.2 % (45.5-73.1); Platelet Count Result 145 k/mm3 (150-375); Red Blood Count 3.96 M/mm3 (4.6-6.20); Red Cell Distribution Width 16.1 % (11.5-14.5)
[2023-12-02 09:25] LABS: Appearance Urine Clear (Clear); Bacteria Urine None Seen /hpf; Bilirubin Urine Negative (Negative); Blood Urine Negative (Negative); Color Urine Yellow (Yellow); Glucose Urine UA 3+ mg/dL (Negative); Ketones Urine Negative (Negative); Leukocyte Esterase Ur 2+ LEU/UL (NEGATIVE); Nitrate Urine Negative (Negative); Non Pathogenic Casts 0-2; Protein Urine Negative (Negative); RBC Urine 0-2 /hpf (0-2); Specific Grav Ur 1.018 (1.001-1.035); Squamous Epithelial Cell Urine None seen /hpf (Few); Urobilinogen Urine 0.2 mg/dL (<2.0); WBC Urine 21-50 /hpf (0-3); pH Urine 5.5 (5.0-9.0)
[2023-12-02 09:32] LABS: Add Urine Microscopic? YES
[2023-12-02 09:43] LABS: Anisocytosis 1+ (NORMAL); Hypochromasia 1+ (NORMAL); Ovalocytes 1+ (NORMAL); Schistocytes None Seen (NORMAL)
[2023-12-02 10:02] LABS: Hemoglobin A1C 8.1 % (<5.7)
[2023-12-02 10:44] LABS: Vitamin D 25 Hydroxy 22.6 ng/mL
[2023-12-02 13:03] LABS: Albumin Level 4.2 g/dL (3.5-5.1); Anion Gap 11 mmol/L (8-16); Blood Urea Nitrogen 38 mg/dL (9-20); Carbon Dioxide 23 mmol/L (22-30); Chloride 106 mmol/L (98-107); Estimated Glomerular Filt Rate 32; Glucose 174 mg/dL (65-110); Phosphorus 4.1 mg/dL (2.5-4.5); Potassium 3.6 mmol/L (3.4-5.0); Sodium 140 mmol/L (137-145)
[2023-12-02 13:33] LABS: Thyroid Stimulating Hormone 0.989 uIU/mL (0.465-4.680)
[2023-12-02 13:39] LABS: Creatinine Urine 46.5 mg/dL; Total Protein Urine Random 11 mg/dL; Ur Ttl Prot Creatinine Ratio 0.24 mg/mg (0-0.20)
[2023-12-06 08:21] LABS: Reference Lab Test Result <0.10
[2023-12-07 04:08] LABS: Immunoglobulin E 10 kU/L (<=114)
== END 2023-12-02 08:23 | disposition home or self-care (01) ==
PROVIDERS: Hospitalist; PCP Family Medicine
DX: J30.89 Other allergic rhinitis (principal); I12.9 Hypertensive chronic kidney disease with stage 1 through stage 4 chronic kidney disease, or unspecified chronic kidney disease; N18.4 Chronic kidney disease, stage 4 (severe); I48.0 Paroxysmal atrial fibrillation; Z79.899 Other long term (current) drug therapy
CPT/HCPCS: 36415; 80069; 81001; 82306; 82570; 82785; 83036; 84156; 84439; 84443; 85025; 86003

== ENCOUNTER 2024-04-04 07:56 | Outpatient (CLI) | payer OTHER, MEDICARE, SELFPAY ==
[2024-04-04 08:31] LABS: Basophils Percent Auto 0.3 % (0.2-1.2); Eosinophils Absolute Auto 0.1 K/mm3 (0-0.3); Eosinophils Percent Auto 1.1 % (0-4.4); Hematocrit 36.8 % (42.0-52.0); Hemoglobin 11.3 g/dL (14.0-18.0); Immature Granulocyte Absolute 0.02 K/mm3 (0.00-0.031); Immature Granulocyte Percent A 0.3 % (0-0.5); Lymphocytes Absolute Auto 0.96 K/mm3 (0.9-3.2); Mean Corpuscular HGB Conc 30.7 g/dl (32-36); Mean Corpuscular Hemoglobin 28.5 pg (26-34); Mean Corpuscular Volume 92.7 fl (80-100); Mean Platelet Volume 9.5 fl (7.4-10.4); Monocytes Absolute Auto 0.8 K/mm3 (0.1-0.6); Monocytes Percent Auto 12.5 % (2.6-8.5); Neutrophils Absolute Auto 4.5 K/mm3 (1.3-6.7); Neutrophils Percent Auto 70.8 % (45.5-73.1); Platelet Count Result 129 k/mm3 (150-375); Red Blood Count 3.97 M/mm3 (4.6-6.20); Red Cell Distribution Width 14.8 % (11.5-14.5); White Blood Count 6.4 K/mm3 (4.5-10.0)
[2024-04-04 08:41] LABS: Albumin Level 4.4 g/dL (3.5-5.1); Anion Gap 9 mmol/L (4-12); Blood Urea Nitrogen 33 mg/dL (9-20); Calcium 9.3 mg/dL (8.4-10.2); Carbon Dioxide 26 mmol/L (22-30); Chloride 106 mmol/L (98-107); Estimated Glomerular Filt Rate 32; Glucose 119 mg/dL (65-110); Phosphorus 3.5 mg/dL (2.5-4.5); Potassium 3.5 mmol/L (3.4-5.0); Sodium 141 mmol/L (137-145)
[2024-04-04 08:52] LABS: Appearance Urine Clear (Clear); Bacteria Urine None Seen /hpf; Bilirubin Urine Negative (Negative); Blood Urine Negative (Negative); Color Urine Yellow (Yellow); Glucose Urine UA 3+ mg/dL (Negative); Ketones Urine Negative (Negative); Leukocyte Esterase Ur 2+ LEU/UL (Negative); Nitrate Urine Negative (Negative); Non Pathogenic Casts 0-2; Protein Urine Trace mg/dL (Negative); RBC Urine 0-2 /hpf (0-2); Specific Grav Ur 1.024 (1.001-1.035); Squamous Epithelial Cell Urine None Seen /hpf (Few); Urobilinogen Urine 0.2 mg/dL (<2.0); WBC Urine >100 /hpf (0-3)
[2024-04-04 08:56] LABS: Creatinine Urine 79.2 mg/dL; Total Protein Urine Random 25 mg/dL; Ur Ttl Prot Creatinine Ratio 0.32 mg/mg (0-0.20)
[2024-04-04 08:59] LABS: Hemoglobin A1C 7.8 % (<5.7)
[2024-04-04 09:14] LABS: Add Urine Microscopic? YES
[2024-04-04 09:30] LABS: Vitamin D 25 Hydroxy 32.9 ng/mL
== END 2024-04-04 07:57 | disposition home or self-care (01) ==
LOC: ANHLAB 08:00
PROVIDERS: PCP Family Medicine; Visit Provider Hospitalist
DX: I12.9 Hypertensive chronic kidney disease with stage 1 through stage 4 chronic kidney disease, or unspecified chronic kidney disease (principal); N18.32 Chronic kidney disease, stage 3b
CPT/HCPCS: 36415; 80069; 81001; 82306; 82570; 83036; 84156; 85025

== ENCOUNTER 2024-05-13 08:54 | Outpatient (CLI) | payer OTHER, MEDICARE, SELFPAY ==
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
[2024-05-13 09:55] LABS: Alanine Aminotransferase 12 U/L (6-50); Aspartate Amino Transferase 25 U/L (17-59)
== END 2024-05-13 08:55 | disposition home or self-care (01) ==
PROVIDERS: PCP Family Medicine; Visit Provider Family Medicine
DX: G44.309 Post-traumatic headache, unspecified, not intractable (principal); S09.90XA Unspecified injury of head, initial encounter; I67.2 Cerebral atherosclerosis; I48.0 Paroxysmal atrial fibrillation; Z79.899 Other long term (current) drug therapy
CPT/HCPCS: 36415; 70450; 84450; 84460

== ENCOUNTER 2024-06-14 07:25 | Outpatient (CLI) | payer OTHER, MEDICARE, SELFPAY ==
[2024-06-14 08:29] LABS: Thyroid Stimulating Hormone 0.921 uIU/mL (0.465-4.680)
[2024-06-14 08:35] LABS: Free T4 Free Thyroxine 1.63 ng/mL (0.78-2.19)
== END 2024-06-14 07:26 | disposition home or self-care (01) ==
PROVIDERS: PCP Family Medicine
DX: I48.0 Paroxysmal atrial fibrillation (principal); Z79.899 Other long term (current) drug therapy
CPT/HCPCS: 36415; 84439; 84443

== ENCOUNTER 2024-09-04 12:39 | Outpatient (CLI) | payer OTHER, MEDICARE, SELFPAY ==
[2024-09-04 13:21] LABS: Basophils Percent Auto 0.4 % (0.2-1.2); Eosinophils Absolute Auto 0.1 K/mm3 (0-0.3); Eosinophils Percent Auto 1.3 % (0-4.4); Hemoglobin 12.1 g/dL (14.0-18.0); Immature Granulocyte Absolute 0.02 K/mm3 (0.00-0.031); Immature Granulocyte Percent A 0.3 % (0-0.5); Lymphocytes Absolute Auto 1.63 K/mm3 (0.9-3.2); Lymphocytes Percent Auto 24.3 % (18.3-44.2); Mean Corpuscular Hemoglobin 28.4 pg (26-34); Mean Corpuscular Volume 91.5 fl (80-100); Monocytes Absolute Auto 0.5 K/mm3 (0.1-0.6); Neutrophils Absolute Auto 4.5 K/mm3 (1.3-6.7); Neutrophils Percent Auto 66.7 % (45.5-73.1); Platelet Count Result 173 k/mm3 (150-375); Red Blood Count 4.26 M/mm3 (4.6-6.20); Red Cell Distribution Width 15.1 % (11.5-14.5); White Blood Count 6.7 K/mm3 (4.5-10.0)
[2024-09-04 13:27] LABS: Add Urine Microscopic? YES; Appearance Urine Clear (Clear); Bacteria Urine None Seen /hpf; Bilirubin Urine Negative (Negative); Blood Urine Negative (Negative); Color Urine Yellow (Yellow); Glucose Urine UA 3+ mg/dL (Negative); Ketones Urine Negative (Negative); Leukocyte Esterase Ur Trace LEU/UL (Negative); Nitrate Urine Negative (Negative); Non Pathogenic Casts 0-2; Protein Urine Negative (Negative); RBC Urine 0-2 /hpf (0-2); Specific Grav Ur 1.028 (1.001-1.035); Squamous Epithelial Cell Urine None Seen /hpf (Few); WBC Urine 21-50 /hpf (0-3)
[2024-09-04 13:41] LABS: Albumin Level 4.2 g/dL (3.5-5.1); Anion Gap 9 mmol/L (4-12); Blood Urea Nitrogen 34 mg/dL (9-20); Calcium 9.1 mg/dL (8.4-10.2); Carbon Dioxide 29 mmol/L (22-30); Chloride 101 mmol/L (98-107); Estimated Glomerular Filt Rate 36; Glucose 195 mg/dL (65-110); Phosphorus 3.5 mg/dL (2.5-4.5); Potassium 3.8 mmol/L (3.4-5.0); Sodium 139 mmol/L (137-145)
[2024-09-04 13:58] LABS: Iron 62 ug/dL (49-181)
[2024-09-04 14:02] LABS: Transferrin 244 mg/dL (206-381)
[2024-09-04 14:06] LABS: Creatinine Urine 69.6 mg/dL; Total Protein Urine Random 16 mg/dL; Ur Ttl Prot Creatinine Ratio 0.23 mg/mg (0-0.20)
[2024-09-04 14:08] LABS: Percent Iron Saturation 19 % (20-50)
[2024-09-04 14:20] LABS: Hemoglobin A1C 7.8 % (<5.7)
[2024-09-04 16:54] LABS: Vitamin D 25 Hydroxy 32.2 ng/mL
== END 2024-09-04 12:40 | disposition home or self-care (01) ==
PROVIDERS: PCP Family Medicine; Visit Provider Hospitalist
DX: I12.9 Hypertensive chronic kidney disease with stage 1 through stage 4 chronic kidney disease, or unspecified chronic kidney disease (principal); E11.22 Type 2 diabetes mellitus with diabetic chronic kidney disease; N18.32 Chronic kidney disease, stage 3b; D63.1 Anemia in chronic kidney disease; R80.9 Proteinuria, unspecified; E55.9 Vitamin D deficiency, unspecified
CPT/HCPCS: 36415; 80069; 81001; 82306; 82570; 82728; 83036; 83540; 83550; 84156; 84466; 85025

== ENCOUNTER 2024-11-09 10:39 | Outpatient (CLI) | payer OTHER, MEDICARE, SELFPAY ==
--- NOTE | ~2024-11-09 | XR_ITS ---
EXAMINATION: XR chest 2V 11/09/2024 11:13 INDICATION: Atrial fibrillation PROCEDURE: 2 view chest COMPARISON: Comparison to multiple prior studies sequentially, with oldest reviewed study dated 04/25. FINDINGS: The lungs are clear. The cardiomediastinal silhouette is within normal limits. There are no pleural effusions. There is no pneumothorax suspected. IMPRESSION: 1: NO ACUTE CARDIOPULMONARY DISEASE. Reviewed, dictated and finalized at [facility]. 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
[2024-11-09 11:24] LABS: Alanine Aminotransferase 19 U/L (6-50); Aspartate Amino Transferase 32 U/L (17-59)
[2024-11-09 12:16] LABS: Free T4 Free Thyroxine 1.77 ng/dL (0.78-2.19)
== END 2024-11-09 10:40 | disposition home or self-care (01) ==
PROVIDERS: PCP Family Medicine
DX: I48.0 Paroxysmal atrial fibrillation (principal); Z79.899 Other long term (current) drug therapy
CPT/HCPCS: 36415; 71046; 84439; 84443; 84450; 84460

== ENCOUNTER 2025-01-06 07:57 | Outpatient (CLI) | payer OTHER, MEDICARE, SELFPAY ==
--- OUTSIDE RECORDS SUMMARY | 2025-01-06 08:00 | XMS_ITS ---
Author Organization [facility] Address [address] [place] [address] [address] [place] [id number] Care Team Providers Care Crimper Assembler Name Role Phone Emilio Frey DO Primary Care Provider Audi Riley Unavailable [phone] REASON FOR VISIT [id number] auth req Encounters Encounter Location Date Provider Diagnosis [facility] [address] [id number] 11/08/2024 Audi Silverio PLAN OF TREATMENT Next Appt Details Provider Name:Audi barrios, 01/10/2025 08:00:00 AM, [address] [place] [address], [address] [place] [address], [phone], Provider Name:Audi barrios, 02/07/2025 08:00:00 AM, [address] [place] [address], [address], [phone], Provider Name:Audi barrios, 03/14/2025 08:00:00 AM, [address] [place] [address], [address] [place] [address], [phone], Provider Name:Audi barrios, 04/11/2025 08:00:00 AM, [address] [place] [address], [address], [phone], Provider Name:Audi barrios, 05/09/2025 08:00:00 AM, [address] [place] [address], [address], [phone], Provider Name:Audi barrios, 06/06/2025 08:00:00 AM, [address] [place] [address], [address] [place] [address], [phone], Provider Name:Audi barrios, 07/11/2025 08:00:00 AM, [address] [place] [address], Suite [facility], [place], [phone], Provider Name:Audi barrios, 08/08/2025 08:00:00 AM, [address] [place] [address], [address], [address], Provider Name:Audi barrios, 09/05/2025 08:00:00 AM, [address] [place] [address], [address] [place] [address], [phone], Provider Name:Audi barrios, 10/10/2025 08:00:00 AM, [address] [place] [address], [address] [place] [address], [phone], Provider Name:Audi barrios, 11/07/2025 08:00:00 AM, [address] [place] [address], [address] [place] [address], [phone], Progress Notes * Emilio SULTANA EDOB:[birth year] (63 yo M)Acc No.[id number]*DOS:11/08/2024 Patient: Emilio SULTANA * :1960 Age:63 Y Sex:Male Address:[address] [place] [id number] * true * Date:
--- OUTSIDE RECORDS SUMMARY | 2025-01-06 08:00 | XMS_ITS | Clinical Summary ---
Author Organization [facility] Address [facility] [place] [address] Care Team Providers Care Professional Application Designer Name Role Phone Milady Edmond MD Unavailable [phone] Soren Holcomb MD Unavailable Vivian Dawkins REELING MACHINE SETUP OPERATOR-BC Unavailable Emilio Frey DO Primary Care Provider Adui Silverio MD Unavailable Milady Edmond MD Unavailable Allergies Active Allergy Reactions Criticality Noted Date Comments Coconut (Cocos Nucifera) Hives,Itching,Rash High 03/11/2012 ANYTHING coconut! Coconut Fatty Acid Hives High 08/18/2021 Coconut Oil Unknown 08/13/2023 Sucralfate GI Upset,Dizziness,Nause a Only 04/19/2014 Tamsulosin Unknown 02/22/2018 Medications oxyCODONE-aceta minophen (PERCOCET) 10-325 MG tablet Take 1 tablet by mouth 4 (four) times daily as needed. Active topiramate (TOPAMAX) 200 MG tablet Take 2 tablets by mouth daily. Active Glucose Blood (ONE TOUCH ULTRA TEST STRIPS) test stripIndication s:Type 2 diabetes mellitus with foot ulcer, without long-term current use of insulin ([facility]) 1 strip by Other route 2 (two) times daily. 100 strip 03/11/20 20 Active tiZANidine 4 MG tablet TAKE 2 TABLETS BY MOUTH EVERY DAY AT BEDTIME 05/18/20 21 Active albuterol sulfate HFA 108 (90 Base) MCG/ACT inhalerIndicati ons:Mild persistent asthma without complication ([facility]) Inhale 2 puffs into the lungs every 4 (four) hours as needed. 18 g 3 08/21/20 22 Active amiodarone (PACERONE) 200 MG tablet Take 200 mg by mouth daily. 12/07/19 Active ELIQUIS 5 MG tablet Take 5 mg by mouth 2 (two) times daily. 12/07/19 Active furosemide (LASIX) 80 MG tablet Take 80 mg by mouth daily. 12/08/19 Active spironolactone (ALDACTONE) 25 MG tablet Take 12.5 mg by mouth daily. 12/07/19 Active guaiFENesin ER (MUCINEX) 600 MG 12 hr tablet Take 1,200 mg by mouth 2 (two) times daily. Active Glucose Blood (CONTOUR NEXT TEST) test stripIndication s:Type 2 diabetes mellitus with foot ulcer, without long-term current use of insulin ([facility]) Use to check blood sugars 4x daily 400 strip 5 12/28/19 Active Continuous Glucose Monitor Sup KitIndications: Type 2 diabetes mellitus with diabetic neuropathy, with long-term current use of insulin ([facility]) 1 Device by Does not apply route daily. 1 kit 02/12/20 Active Continuous Blood Gluc Sleeve [place] (FREESTYLE RADHA 2 READER) DeviceIndicatio ns:Type 2 diabetes mellitus with chronic kidney disease on chronic dialysis, with long-term current use of insulin ([facility]) 1 Units by Does not apply route every 14 (fourteen) days. 6 each 02/17/20 23 Active Continuous Blood Gluc Sensor (FREESTYLE RADHA 2 SENSOR) MiscIndications :Type 2 diabetes mellitus with chronic kidney disease on chronic dialysis, with long-term current use of insulin ([facility]) 1 Units by Does not apply route every 14 (fourteen) days. 6 each 02/17/20 23 Active Ferrous Sulfate (IRON) 325 (65 Fe) MG tabletIndicatio ns:Iron deficiency anemia, unspecified iron deficiency anemia type Take 325 mg by mouth daily with breakfast. 30 tablet 02/20/20 Active tadalafil (CIALIS) 20 MG tablet Take 40 mg by mouth. Active LANTUS SOLOSTAR 100 UNIT/ML injection (PEN)Indication s:Type 2 diabetes mellitus with chronic kidney disease on chronic dialysis, with long-term current use of insulin ([facility]) Inject 20 Units into the skin daily. 5 pen 5 05/03/20 Active Additional Information Patient taking differently: 23 UnitsSubcutaneous Daily, Reported on 08/13/2023 HUMALOG KWIKPEN 100 UNIT/ML injection (PEN)Indication s:Type 2 diabetes mellitus with chronic kidney disease on chronic dialysis, with long-term current use of insulin ([facility]) INJECT 0-15 UNITS UNDER THE SKIN 3 TIMES DAILY WITH MEALS 5 pen 5 05/03/20 Active FARXIGA 10 MG tablet Take 10 mg by mouth. 0 23 Active potassium chloride (KLOR-CON) 20 MEQ packet Take 20 mEq by mouth. Three times a week 08/13/20 Active atorvastatin (LIPITOR) 80 MG tablet Take 1 tablet by mouth daily. 07/17/20 Active UNIFINE PENTIPS 32G X 4 MM MiscIndications :Type 2 diabetes mellitus with diabetic neuropathy, with long-term current use of insulin ([facility]) USE ONE PEN NEEDLE FOUR TIMES DAILY 400 each 1 09/24/20 Active Active Problems Problem Noted Date Diagnosed Date Cellulitis, unspecified cellulitis site 05/24/20 Skin ulcer, limited to breakdown of skin ([facility]) 05/24/2023 Stage 5 chronic kidney disea se on chronic dialysis ([facility]) 12/21/2022 Type 2 diabetes mellitus wit h stage 4 chronic kidney disease, with long-term current use of insulin ([facility]) 12/21/2022 Pulmonary artery hypertension ([facility]) 06/22/2022 Overview (06/22/2022): Moderate to Severe - Noted on May 2022 Chronic diastolic heart failure ([facility] ) 08/25/2019 Dyslipidemia 08/25/2019 Lymphedema 05/31/2019 Overview (04/12/2020): Last Assessment & Plan: Impression: Patient with chronic bilateral lower extremity edema, which has progressed likely within the past couple months associated with his pain while walking. Denies utilizing compression therapy, however is minimally compliant with his compression pump. Plan: Educated patient on the importance of utilizing compression therapy, leg elevation, compression pump for management of symptoms, prevention of further ulcerations or lesions to bilateral lower extremities. No surgical or procedural intervention indicated this time. Plan for follow-up on as-needed basis. Skin ulcer of left great toe , limited to breakdown of skin ([facility]) 05/31/2019 Overview (04/12/2020): Last Assessment & Plan: Ulceration present since January left 1st toe, currently being managed by the [facility]. Plan: Continue dressing daily dressing changes utilizing silver wound gel. Further management as per wound clinic. Type 2 diabetes mellitus wit h foot ulcer, without long-term current use of insulin ([facility]) 03/29/2019 Hypertensive CHF ([facility]) 03/03/2018 Coronary atherosclerosis 11/18/2017 Candidal intertrigo 06/07/2017 Benign essential hypertension 03/20/2015 Morbid obesity ([facility]) 12/07/2014 Asthma ([facility]) 04/19/2014 Chronic atrial fibrillation ([facility]) Chronic obstructive pulmonary disease [facility]) 04/19/2014 Lumbar degenerative disc disease 04/19/2014 Diabetes mellitus with neuropathy ([facility]) 04/19/2014 Overview (03/28/2019): Description: PN due to DM GERD (gastroesophageal reflux disease) 4 Migraine headache 04/19/2014 Right knee sprain 01/16/2014 Left leg cellulitis 01/16/2014 Hypokalemia 01/16/2014 Acute on chronic renal insufficiency 12/19/2013 Abdominal pain 11/10/2013 Biliary colic 09/08/2013 Dyspnea 05/19/2012 Resolved Problems Problem Noted Date Diagnosed Date Resolved Date Prostate cancer screening 05/26/2021 Encounter for preventive health examination 03/30/2014 08/09/2020 Immunizations Name Administration Dates Next Due Influenza (Generic) 12/14/2016,12/19/2013 Pneumococcal (Pneumovax 23) 12/19/2013 Tdap (Generic) 01/16/2014 Family History Medical History Relation Comments Cancer Father liver and pancre atic Coronary artery disease Mother Diabetes Mother Coronary artery disease Sister Diabetes Sister Relation Status Comments Father Mother Sister Social History Tobacco Use Types Packs/Day Years Used Date Smoking Tobacco: Former Smokeless Tobacco: Never Alcohol Use Standard Drinks/Week Comments Yes 0 (1 standard drink = 0.6 oz pur e alcohol) 2 per year PHQ-2 Answer Date Recorded PHQ-2 Score - If the patient scores above 3, please move on to questions 3-9 0 08/21/2022 Sex and Gender Information Value Date Recorded Sex Assigned at Not on file Legal Sex Male 4:23 PM CDT Gender Identity Not on file Sexual Orientation Not on file Last Filed Vital Signs Vital Sign Reading Time Taken Comments Blood Pressure 138/72 08/13/2023 11:26 AM CDT Pulse 64 08/21/2022 8:43 AM CDT Temperature 36.7 C (98.1 F) 05/24/2023 1:50 PM CDT Respiratory Rate 16 11/03/2019 12:05 PM RN TRAVEL Oxygen Saturation 99% 11/03/2019 12:05 PM RN TRAVEL Inhaled Oxygen Concentration - - Weight 133.4 kg (294 lb) 08/13/2023 11:26 AM CDT Height 180.3 cm (5' 11 ) 08/21/2022 8:43 AM CDT pt stated ht Body Mass Index 41 08/21/2022 8:43 AM CDT Plan of Treatment Health Maintenance Due Date Last Done Comments ASCVD LDL 1959 Lipid Panel 1959 Zoster Vaccines (1 of 2) 2009 Pneumococcal Vaccine: 65+ Years (2 of 2 - PCV) 12/19/2014 12/19/2013 Pneumococcal Vaccine: Pediatrics (0 to 5 Years) and At-Risk Patients (6 to 64 Years) (2 of 2 - PCV) 12/19/2014 12/19/2013 RSV Immunization or 60+ Years (1 - Risk 60-74 years 1-dose series) 2019 Hemoglobin A1C 05/25/2023 11/24/2022 DTaP, Tdap and Td Vaccines ( 2 - Td or Tdap) 01/16/2024 01/16/2014 COVID-19 Vaccine ( - 2023-2 5 season) 2024 Influenza Adult (#1) 2024 12/14/2016, 12/19/2013 Diabetes: Retinopathy Eye Exam 05/19/2025 05/19/2023 Colorectal Cancer Screening Colonoscopy (10 Years) 11/03/2029 11/03/2019, 11/03/2019, Hepatitis C Completed 11/26/2022, 11/26/2022, 11/21/2022 Meningococcal B Vaccine Aged Out No l onger eligible based on patient's age to complete this topic Meningococcal Vaccine Aged Out No kathrine raymond eligible based on patient's age to complete this topic RSV Immunizations Under 20 Months Aged Out No longer eligible b ased on patient's age to complete this topic Procedures Procedure Name Priority Date/Time Associated Diagnosis Comments DIABETIC RETINOPATHY EXAM (NEGATIVE)(SCAN ORDER) Routine 05/19/2023 COLONOSCOPY Routine 11/03/2019 10:06 AM RN TRAVEL from Last 3 Months or Most Recently Relevant to Health Maintenance Results * DIABETIC RETINOPATHY EXAM (NEGATIVE)(SCAN) (05/19/2023) us Emilio Frey DO SCANNING Final Resul t [facility] ON[facility] * Colonoscopy ( RN TRAVEL) Narrative [facility] TO EPIC CONVERSION - RN TRAVEL Documented hx of procedure Procedure Note Vadim Leo MD - 10/02/2018 Documented hx of procedure us Generic Romy Leo MD GI PROCEDURE ORDERABLES Final Result Performing Organization Address City/[facility]/ZIP Co de Phone Number [facility] TO EPIC CONVERSION from Last 3 Months or Most Recently Relevant to Health Maintenance Insurance [employer] MEDICARE Member Subscriber Plan / Payer (Ef fective 2004-Present) Name:Emilio Sultana Relation to Subscriber:Self Name:Emilio Sultana Payer ID:Not on file Group ID:Not on file Type:Indemnity Address: ATTN CLAIMS [address] [facility] MEDICARE Member Subscriber Plan / Payer (Ef fective 2004-Present) Name:Emilio Sultana Relation to Subscriber:Self Name:Emilio Sultana Payer ID:Not on file Group ID:Not on file Type:Indemnity Address: ATTN CLAIMS [address] [place] [phone] Care Teams Professional Application Designer Relationship Specialty [place] [address] [place] [address] PCP - General FAMILY PRACTICE 04/29/23 Milady Edmond MD CARDIOVASCULAR DISEASE 11/30/22 Soren Holcomb MD [address] [facility] , [address] [place] [address] HOSPITALIST 04/13/23 Vivian Dawkins, [facility]- [address] [place] [address] NURSE PRACTITIONER 04/19/23 [place] [address] [place] [address] ANESTHESIOLOGY 04/30/23 Milady Edmond MD CARDIOVASCULAR DISEASE 06/11/23
--- OUTSIDE RECORDS SUMMARY | 2025-01-06 08:01 | XMS_ITS | Encounter Summary ---
Author Organization [facility] Address [address] [place] [phone] Phone Care Team Providers Care Transit Vehicle Inspector Name Role Phone Unavailable Primary Care Provider Unavailabl e Reason for Visit * Reason Comments Med Change Request Encounter Details Date Type Department Care Team (Late st Contact Info) Description 12/30/2023 Refill [facility] [address] [facility] [address] [place], [place] [phone] Soren Holcomb MD [address] [phone] Social History Tobacco Use Types Packs/Day Years Used Date Smoking Tobacco: Former Cigarettes Smokeless Tobacco: Never Sex and Gender Information Value Date Recorded Sex Assigned at Not on file Gender Identity Not on file Sexual Orientation Not on file documented as of this encounter Plan of Treatment Upcoming Encounters Date Type Department Care Team (Late st Contact Info) Description 01/11/2025 2:40 PM POLYSOMNOGRAPHIC TECHNICIAN Office Visit [facility] [address] [facility] [address] [place] [address] Soren Holcomb MD [address] [phone] documented as of this encounter Visit Diagnoses Not on filedocumented in this encounter
--- OUTSIDE RECORDS SUMMARY | 2025-01-06 08:01 | XMS_ITS | Clinical Summary ---
Author Organization [facility] Address [address] [place] [phone] Phone Care Team Providers Care Water Pollution Control Technician Name Role Phone Unavailable Primary Care Provider Unavailabl e Allergies Active Allergy Reactions Criticality Noted Date Comments Coconut Fatty Acid 02/11/2023 Tamsulosin 02/11/2023 Sucralfate 02/11/2023 Medications Medication Sig Dispensed Refills Start Date End Date Status apixaban (ELIQUIS) 5 MG tablet Take 5 mg by mouth in the morning and 5 mg in the evening. Active atorvastatin (LIPITOR) 80 MG tablet Take 80 mg by mouth 1 (one) time each day Active furosemide (LASIX) 80 MG tablet Take 80 mg by mouth 1 (one) time each day Active insulin glargine (LANTUS) 100 UNIT/ML injection Inject 25 Units under the skin 1 (one) time each day Active insulin lispro (HumaLOG) 100 UNIT/ML injection Inject under the skin 3 (three) times a day with meals Active albuterol HFA (PROVENTIL HFA) 108 (90 Base) MCG/ACT inhaler Inhale 2 puffs every 4 (four) hours if needed for wheezing Active spironolactone (ALDACTONE) 12.5 MG tablet 12.5 mg 1 (one) time each day Active topiramate (TOPAMAX) 200 MG tablet Take 400 mg by mouth at bed time Active oxyCODONE-acetami nophen (PERCOCET) 10-325 MG per tablet Take 1 tablet by mouth every 4 (four) hours if needed for moderate pain Active tadalafil (CIALIS) 20 MG tablet Take 40 mg by mouth 1 (one) time each day Active tiZANidine (ZANAFLEX) 4 MG capsule Take 8 mg by mouth at bed time Active Dapagliflozin Propanediol 10 MG tablet Take 1 tablet by mouth 1 (one) time each day Use Farxiga. Brand name 30 tablet 11 03/20/2024 03/20/2025 Active amLODIPine (NORVASC) 10 MG tablet Take 20 mg by mouth 1 (one) time each day Active Tirzepatide (Mounjaro) 5 MG/0.5ML solution pen-injector Inject 5 mg under the skin per week Active potassium chloride (K-TAB) 20 MEQ CR tablet TAKE 1 TABLET BY MOUTH THREE TIMES A WEEK 15 tablet 3 10/09/2024 Active potassium chloride (KLOR-CON M20) 20 MEQ CR tablet Take 1 tab 3 times weekly 12 tablet 2 11/24/2024 Active ergocalciferol (VITAMIN D2) 1.25 MG (10374 UT) capsule Take 1 capsule by mouth once a week 5 capsule 12/18/2024 Active ergocalciferol (VITAMIN D2) 1.25 MG (94730 UT) capsule Take 1 capsule by mouth once a week 5 capsule 2 09/28/2024 12/18/2024 Discontinued Active Problems Problem Noted Date Diagnosed Date Fluid retention 05/08/2024 Anemia in chronic kidney disease 12/07/2023 Proteinuric nephropathy due to diabetes mellitus 12/07/2023 Vitamin D deficiency 12/07/2023 Essential (primary) hypertension 02/11/2023 Type 2 diabetes mellitus 02/11/2023 Stage 3b chronic kidney disease 02/11/2023 Resolved Problems Problem Noted Date Diagnosed Date Resolved Date Paroxysmal atrial fibrillation 12/07/2023 05/08/2024 Obstructive sleep apnea 12/07/202304/29 Anemia 04/07/2023 07/01/2023 Congestive heart failure 04/07/202301/2023 Dependence on hemodialysis 02/11/2023 0 04/07/2023 Acute renal failure syndrome 02/11/2023 07/01/2023 Hyperlipidemia 02/11/2023 04/07/2023 Encounters Date Type Department Care Team Description 12/18/2024 Refill [facility] [address] [facility] [address] [place] [address] Soren Holcomb MD 11/24/2024 Refill [facility] [address] [facility] [address] [place] [address] Soren Holcomb MD 10/09/2024 Refill [facility] [address] [place] [address] Soren Holcomb MD from Last 3 Months Social History Tobacco Use Types Packs/Day Years Used Date Smoking Tobacco: Former Cigarettes Smokeless Tobacco: Never Tobacco Cessation:Counseling Given: Not Answered Sex and Gender Information Value Date Recorded Sex Assigned at Not on file Gender Identity Not on file Sexual Orientation Not on file Last Filed Vital Signs Vital Sign Reading Time Taken Comments Blood Pressure 120/66 09/12/2024 11:56 AM CDT Pulse 65 09/12/2024 11:56 AM CDT Temperature - - Respiratory Rate - - Oxygen Saturation 97% 08/12/2023 3:28 PM CDT Inhaled Oxygen Concentration - - Weight 118 kg (261 lb) 09/12/2024 11:56 AM CDT Height 180.3 cm (5' 11 ) 09/12/2024 11:56 AM CDT Body Mass Index 36.4 09/12/2024 11:56 AM CDT Plan of Treatment Upcoming Encounters Date Type Department Care Team (Late st Contact Info) Description 01/11/2025 2:[address] Office Visit [facility] [address] [facility] [address] [place] [address] Soren Holcomb MD [address] [facility] [address] [place], [place] [phone] Health Maintenance Due Date Last Done Comments Pneumococcal PPSV23/PCV13 65 + Years / High and Highest Risk (1 of 4 - PCV) 1965 Diabetic Foot Exam 1969 Ophthalmology Exam 1969 Influenza Vaccine (#1) 2024 7, 12/14/2016, 12/19/2013, Additional history exists
--- OUTSIDE RECORDS SUMMARY | 2025-01-06 08:01 | XMS_ITS ---
Author Organization [facility] Address [address] [place], [place] [id number] Care Team Providers Care Chief Business Development Officer Name Role Phone Emilio Frey Unavailable Unavailable MICHELLE HODGE Unavailable [phone] REASON FOR VISIT *Wound check Encounters Encounter Location Date Provider Diagnosis [facility] [address] [place], [place] [id number] 11/13/2024 MICHELLE HODGE Onychomycosis B35.1 ; 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 ; Atherosclerosis of holy cross arteries of extremities with intermittent claudication, bilateral legs I70.213 ; Type 2 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 E11.49 and Pain in right foot M79.671 Assessments Encounter Date Diagnosis (ICD Code) Assessment Notes Treatment Notes Treatment Clinical Notes Section Notes 11/13/2024 Onychomycosis (ICD-10 - B35.1) 11/13/2024 Non-pressure chronic ulcer of other part of right foot limited to breakdown of skin (ICD-10 - L97.511) Reeducated the pt on the need to keep pressure off of the wound and recommended that he wear the boot. 11/13/2024 Atherosclerosis of holy cross arteries of extremities with intermittent claudication, bilateral legs (ICD-10 - I70.213) 11/13/2024 Type 2 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 (ICD-10 - E11.49) 11/13/2024 Pain in right foot (ICD-10 - M79.671) 11/13/2024 Other The ulcer was debrided down to bleeding tissue. A dry sterile dressing was applied. The patient was given instruction on home dressing and told to use antibiotic ointment on the wound. The patient was instructed to minimize pressure on the wound and to call the office immediately if the wound should start to worsen. Plan Of Treatment Treatment Notes Assessment Notes Non-pressure chronic ulcer o f other part of right foot limited to breakdown of skin Reeducated the pt on the need to keep pressure off of the wound and recommended that he wear the boot. Other The ulcer was debrid ed down to bleeding tissue. A dry sterile dressing was applied. The patient was given instruction on home dressing and told to use antibiotic ointment on the wound. The patient was instructed to minimize pressure on the wound and to call the office immediately if the wound should start to worsen. Next Appt Details Follow Up: 9 weeks, Reason: Progress Notes * Emilio SULTANADOB:1960 (63 yo M)Acc No.[id number]:11/13/2024 Patient: Jennifer Emilio CHAPA Provider: Carly Hodge DPM :1960 A ge:63 Y S ex:Male Date:11/13/2024 Address:[address] [place], [place] [id number] Subjective: * Chief Complaints: * * Wound check * HPI: H PI: Follow Up Visit P atmorenita presents for follow up visit for a wound on his right foot. He states the boot hurts his foot so he hasn't been wearing it all the time. Patient states their problem is improving. MA: sea. * Medical History: * Surgical History: * Hospitalization/Major Diagno stic Procedure: * Medications: Objective: * Vitals: * Examination: C onstitutional: Constitutional T he patient is awake, alert, well developed, well groomed and well nourished. . D ermatologic: Skin findings: S kin is thin, atrophic and lacking pedal hair. . Nail pathology: N ails 1-5 bilateral are elongated, thick, discolored, and dystrophic with subungual debris. They are painful to palpation . Ulcer: T here is an ulceration present on right sub 3rd MTH. The ulceration measures 8 mm x 10 mm. The ulcer has no signs of infection The wound base is fibrotic The borders are hyperkeratotic The wound has no foul odor. . Hyperkeratotic Skin Lesion T here is no evidence of hyperkeratosis . M usculoskeletal: Muscle Strength M uscle strength is 5/5 in regards to dorsiflexion, plantarflexion, inversion, and eversion in bilateral lower extremities. . Foot Structure T he foot structure is noted to be normal bilaterally . Pain on palpation T here is no pain on palpation . Gait T here is normal gait noted . N eurologic: Muscle power: 5 /5 bilaterally . Gross sensation G ross sensation is absent to light touch and SWMF. V ascular: Dorsalis pedis pulse: 0 /4 bilateral . Posterior tibial pulse: 0 /4 bilaterally . Capillary refill: g reater than 3 seconds bilaterally .? Temperature gradient: w arm to cool bilaterally . ? Assessment: * Assessment: 1. N on-pressure chronic ulcer of other part of right foot limited to breakdown of skin - L97.511 (Primary) 2 . O nychomycosis - B35.1 3 . A therosclerosis of holy cross arteries of extremities with intermittent claudication, bilateral legs - I70.213 & #160; 4 . T ype 2 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 - E11.49? 5. P ain in right foot - M79.671 Plan: * Treatment: 2. O thers Notes: The ulcer was debrided down to bleeding tissue. A dry sterile dressing was applied. The patient was given instruction on home dressing and told to use antibiotic ointment on the wound. The patient was instructed to minimize pressure on the wound and to call the office immediately if the wound should start to worsen. * Procedure Codes: * Follow Up: 9 weeks * Billing Information: * Visit Code: 81381 Office Visit, Est Pt., Level 3. * Procedure Codes: * INTERN Sign off status: Completed true * Provider: Carly Hodge DPM Date: 01/14/2024 Generated for Jack smith/Gianna/Tobin on: 0 01/06/2025 08:01 AM SEO INTERN History and Physical Notes * HPI (History of Present Illness) Category Sub-Category Detail Notes Category Not es HPI Follow Up Visit Patient presents for follow up visit for a wound on his right foot. He states the boot hurts his foot so he hasn't been wearing it all the time. Patient states their problem is improving. MA: sea Examination Category Sub-Category Detail Notes Category Not es Constitutional Constitutional The patient is a wake, alert, well developed, well groomed and well nourished. Dermatologic Skin findings: Skin is thin, at rophic and lacking pedal hair. Nail pathology: Nails 1-5 bilateral are elongated, thick, discolored, and dystrophic with subungual debris. They are painful to palpation Ulcer: There is an ulcerati on present on right sub 3rd MTH. The ulceration measures 8 mm x 10 mm. The ulcer has no signs of infection The wound base is fibrotic The borders are hyperkeratotic The wound has no foul odor. Hyperkeratotic Skin Lesion There is no e vidence of hyperkeratosis Musculoskeletal Muscle Strength Muscle strength is 5/5 in regards to dorsiflexion, plantarflexion, inversion, and eversion in bilateral lower extremities. Pain on palpation There is no pain on palpation Foot Structure The foot structure i s noted to be normal bilaterally Gait There is normal gait noted Neurologic Muscle power: 5/5 bilaterally Gross sensation Gross sensation is a bsent to light touch and SWMF Vascular Dorsalis pedis pulse: 0/4 bilateral Posterior tibial pulse: 0/4 bilaterally Capillary refill: greater than 3 secon ds bilaterally Temperature gradient: warm to cool juan finch
--- OUTSIDE RECORDS SUMMARY | 2025-01-06 08:01 | XMS_ITS ---
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 11/27/2024 Atherosclerosis of [place] arteries of extremities with intermittent claudication, bilateral legs (ICD-10 - I70.213) 11/27/2024 Type 2 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 (ICD-10 - E11.49) 11/27/2024 Pain in right foot (ICD-10 - M79.671) 11/27/2024 Other The ulcer was debrided down to [...] Notes * Emilio SULTANADOB:1960 (63 yo M)Acc No.[id number]:11/27/2024 Patient: Emilio ZURITA Provider: Carly Hogde DPM :1960 A ge:63 Y S ex:Male Date:11/27/2024 Address:[address] [place], [place] [id number] Subjective: * Chief Complaints: * * Wound check * HPI: H PI: Follow Up Visit P atient presents for follow-up visit for wound check on the bottom of his right foot. Patient states he has had no change and has nothing to report to the doctor. MA: FELIPA. * Medical History: * Surgical History: B ack in 1983 appendectomy in 1971 knee 2001 Left shoulder in 2016 several foot surgeries * Hospitalization/Major Diagno stic Procedure: * Family History: F ather: alive, cancer, arthritis. M other: alive, arthritis, Diabetic. S ister: alive, cancer. * Medications: * Allergies: N .K.D.A.no[Allergies Verified] Objective: * Vitals: * Examination: C onstitutional: [...] right sub 3rd MTH. The ulceration measures 5 mm x 10 mm. The ulcer has [...] - B35.1 3 . A therosclerosis of [place]ween[place] arteries of extremities with intermittent claudication, bilateral [...] weeks * Billing Information: * Visit Code: 46011 Office Visit, Est Pt., Level 3. * Procedure Codes: * IALIST PHYSICIANS Sign off status: Completed true * Provider: Carly Hodge DPM Date: Generated for Jack smith/Gianna/Tobin on: 0 01/06/2025 08:01 AM SPECIALIST PHYSICIANS History and Physical Notes * HPI (History of Present Illness) Category Sub-Category Detail Notes Category Not es HPI Follow Up Visit Patient presents for follow-up visit for wound check on the bottom of his right foot. Patient states he has had no change and has nothing to report to the doctor. MA: LB Examination Category Sub-Category Detail Notes Category Not [...] right sub 3rd MTH. The ulceration measures 5 mm x 10 mm. The ulcer has [...]
--- OUTSIDE RECORDS SUMMARY | 2025-01-06 08:01 | XMS_ITS | Encounter Summary ---
Author Organization [facility] Address [address] [place] [address] Care Team Providers Care Co Founder And Director Name Role Phone Emilio Frey Primary Care Provider Encounter Details Date Type Department Care Team (Latest Contact Info) Description 01/24/2001 Outpatient Historical HIS OBSERVATION BED Yadira Schmitt Chest pain, unspecified (Primary Dx) Social History Tobacco Use Types Packs/Day Years Used Date Smoking Tobacco: Never Assessed Sex and Gender Information Value Date Recorded Sex Assigned at Not on file Legal Sex Male 2:39 AM SHOPFITTER Gender Identity Not on file Sexual Orientation Not on file documented as of this encounter Plan of Treatment Upcoming Encounters Date Type Department Care Team (Late st Contact Info) Description 04/10/2025 10:45 AM CDT Office Visit [facility] Heart and Vascular - [address] [facility] [address] [address] [facility] [address] [place] [address] [place] [address] [facility] [address] [place] [address] 05/18/2025 1:15 PM CDT Office Visit [facility] Heart and Vascular - [address] [facility] [address] [address] [facility] [address] [place] [address] [place] [address] [facility] [address] [place] [address] 05/21/2025 10:00 AM CDT Office Visit [facility] Pulmonology - [facility] [address] [facility] [address] [place] [address] [place] [address] [facility] [address] [place] [address] documented as of this encounter Visit Diagnoses Diagnosis Chest pain, unspecified- Primary documented in this encounter Additional Health Concerns Infection Onset Date Last Indicated Resolved Time MRSA Comment:10/2017 nares Lt great toe 12/2013, nares 10/2014, 06/201601/21/2014 01/21/2014 02/29/20 12:00 AM CDT R/O Respiratory 11/27/2022 11/27/2022 11/27/2022 6 :44 PM SHOPFITTER documented as of this encounter Care Teams Co Founder And Director Relationship Specialty Start Date End Date Emilio Frey DO PCP - General Family Practice 10/05/18 documented as of this encounter
--- OUTSIDE RECORDS SUMMARY | 2025-01-06 08:01 | XMS_ITS | Encounter Summary ---
Author Organization [facility] Address [address] [place] [address] Care Team Providers Care Surgical Coordinator Name Role Phone Emilio Frey Primary Care Provider Encounter Details Date Type Department Care Team (Late st Contact Info) Description 08/18/2001 Outpatient [facility] [address] [place] [address] [address]. [place], [place] [phone] Francia Russo MD NO ADDRESS ON FILE Social History Tobacco Use Types Packs/Day Years Used Date Smoking Tobacco: Never Assessed Sex and Gender Information Value Date Recorded Sex Assigned at Not on file Legal Sex Male 2:39 AM SOLUTIONS DEVELOPMENT ANALYST Gender Identity Not on file Sexual Orientation Not on file documented as of this encounter Plan of Treatment Upcoming Encounters Date Type Department Care Team (Late st Contact Info) Description 04/10/2025 10:45 AM CDT Office Visit [facility] Heart and [facility]ascular - [address] [facility] [address] [address] [facility] [address] [place] [address] [place] [address] [facility] [address] [place] [address] 05/18/2025 1:15 PM CDT Office Visit [facility] Heart and Vascular - [address] [facility] [address] [address] [facility] [address] [place] [address] [place] [address] [facility] [address] [place] [address] 05/21/2025 10:00 AM CDT Office Visit [facility] Pulmonology - [facility] [address] [facility] [address] [facility] [address] [place] [phone] [place] [address] [facility] [address] [place] [address] documented as of this encounter Visit Diagnoses Not on filedocumented in this encounter Additional Health Concerns Infection Onset Date Last Indicated Resolved Time MRSA Comment:10/2017 nares Lt great toe 12/2013, nares 10/2014, 06/201601/21/2014 01/21/2014 02/29/20 12:00 AM CDT R/O Respiratory 11/27/2022 11/27/2022 11/27/2022 6 :44 PM SOLUTIONS DEVELOPMENT ANALYST documented as of this encounter Care Teams Surgical Coordinator Relationship Specialty Start Date End Date Emilio Frey DO PCP - General Family Practice 10/05/18 documented as of this encounter
--- OUTSIDE RECORDS SUMMARY | 2025-01-06 08:01 | XMS_ITS | Encounter Summary ---
Author Organization [facility] Address [address] [place] [address] Care Team Providers Care Contract Runner Name Role Phone Emilio Frey Primary Care Provider Encounter Details Date Type Department Care Team (Late st Contact Info) Description 08/31/[address] [facility] [address] [place] [address] [address]. [place], [place] [phone] Francia Russo MD NO ADDRESS ON FILE Social History Tobacco Use Types Packs/Day Years Used Date Smoking Tobacco: Never Assessed Sex and Gender Information Value Date Recorded Sex Assigned at Not on file Legal Sex Male 2:39 AM CENTRIFUGAL SCREEN TENDER Gender Identity Not on file Sexual Orientation Not on file documented as of this encounter Plan of Treatment Upcoming Encounters Date Type Department Care Team (Late st Contact Info) Description 04/10/2025 10:45 AM CDT Office Visit [facility] Heart and Vascular - [address] [facility] [address] [address] [facility] [address] [place] [address] [place] [address] [facility] [address] [place] [address] 05/18/2025 1:15 PM CDT Office Visit [facility] Heart [facility]ascular - [address] [facility] [address] [address] [facility] [address] [place] [address] [place] [address] [facility] [address] [place] [address] 05/21/2025 10:00 AM CDT Office Visit [facility] Pulmonology - [facility] [address] [facility] [address] [facility] [address] [place] [phone] [place] [address] [facility] [address] [place] [address] documented as of this encounter Visit Diagnoses Not on filedocumented in this encounter Additional Health Concerns Infection Onset Date Last Indicated Resolved Time MRSA Comment:10/2017 nares Lt great toe 12/2013, nares 10/2014, 06/201601/21/2014 01/21/2014 02/29/20 12:00 AM CDT R/O Respiratory 11/27/2022 11/27/2022 11/27/2022 6 :44 PM CENTRIFUGAL SCREEN TENDER documented as of this encounter Care Teams Contract Runner Relationship Specialty Start Date End Date Emilio Frey DO PCP - General Family Practice 10/05/18 documented as of this encounter
--- OUTSIDE RECORDS SUMMARY | 2025-01-06 08:01 | XMS_ITS | Encounter Summary ---
Author Organization [facility] Address [address] [place] [address] Care Team Providers Care Supervisor Ski Production Name Role Phone Emilio Frey Primary Care Provider Encounter Details Date Type Department Care Team (Late st Contact Info) Description 06/16/2001 Outpatient [facility] [address] [place] [address] [address]. [place], [place] [phone] Francia Russo MD NO ADDRESS ON FILE Social History Tobacco Use Types Packs/Day Years Used Date Smoking Tobacco: Never Assessed Sex and Gender Information Value Date Recorded Sex Assigned at Not on file Legal Sex Male 2:39 AM PSYCHIC READER Gender Identity Not on file Sexual Orientation Not on file documented as of this encounter Plan of Treatment Upcoming Encounters Date Type Department Care Team (Late st Contact Info) Description 04/10/2025 10:45 AM CDT Office Visit [facility] Heart and Vascular - [address] [facility] [address] [address] [facility] [address] [place] [address] [place] [address] [facility] [address] [place] [address] 05/18/2025 1:15 PM CDT Office Visit [facility] Heart and Vascular - [address] [facility] [address] [address] [facility] [address] [place] [address] [place] [address] [facility] [address] [place] [address] 05/21/2025 10:00 AM CDT Office Visit [facility] Pulmonology - [facility] [address] [facility] [address] [facility] [address] [place] [phone] [place] [address] [facility] [address] [place] [address] documented as of this encounter Visit Diagnoses Not on filedocumented in this encounter Additional Health Concerns Infection Onset Date Last Indicated Resolved Time MRSA Comment:10/2017 nares Lt great toe 12/2013, nares 10/2014, 06/201601/21/2014 01/21/2014 02/29/20 12:00 AM CDT R/O Respiratory 11/27/2022 11/27/2022 11/27/2022 6 :44 PM PSYCHIC READER documented as of this encounter Care Teams Supervisor Ski Production Relationship Specialty Start Date End Date Emilio Frey DO PCP - General Family Practice 10/05/18 documented as of this encounter
--- OUTSIDE RECORDS SUMMARY | 2025-01-06 08:01 | XMS_ITS | Clinical Summary ---
Author Organization [facility] [address] [facility] Address [address] [place] [address] Care Team Providers Care Resource Analyst Name Role Phone ShanteAmy Primary Care Provider Allergies Active Allergy Reactions Criticality Noted Date Comments Coconut Hives High 08/18/2021 Sucralfate Nausea and Vomiting Low Tamsulosin Other (See Comments) 07/22/2022 Tamsulosin Hcl Nausea and Vomiting Low Medications albuterol HFA 90 mcg inhaler Take 2 Puffs by inhalation every 6 hours as needed for Shortness of Breath. Active oxyCODONE-acetam inophen (PERCOCET) 10-325 mg Tablet Take 1 Tablet by mouth every 4 hours as needed for Pain, Severe. Active topiramate (TOPAMAX) 200 mg tablet Take 400 mg by mouth daily at bedtime. Active sennosides-docus ate sodium (SENNA-S) 8.6-50 mg tablet Take 1 Tablet by mouth daily. 3 Active guaiFENesin (MUCINEX) 600 mg Extended Release Biphasic tablet Take 1 Tablet (600 mg) by mouth every 12 hours. 3 Active Additional Information Patient taking differently:600 mg OralDAILY, Reported on 04/20/2024 insulin glargine-yfgn 100 unit/mL pen syringe Inject 15 Units by subcutaneous injection daily with breakfast. 30 mL 2 Active Additional Information Patient taking differently: 23 UnitssubCUT DAILY WITH BREAKFAST, Reported on 08/10/2023 insulin lispro (HumaLOG) 100 unit/mL pen syringe Inject 0-15 Units by subcutaneous injection 4 times daily with meals and at bedtime. 15 mL 2 3 Active tiZANidine (ZANAFLEX) 4 mg Tablet Take 1 Tablet (4 mg) by mouth nightly as needed for Spasm or Pain. 1 Tablet 3 Active Additional Information Patient taking differently: 8 mgOral NIGHTLY PRN, Spasm, Pain, Reported on 02/19/2023 potassium chloride (KLOR-CON) 20 mEq Extended Release tablet Take 20 mEq by mouth every Wednesday, Wednesday, and Wednesday. 3 Active dapagliflozin propanediol (Farxiga) 10 mg Tablet Take 10 mg by mouth daily. Active furosemide (LASIX) 80 mg tablet Take 1 Tablet (80 mg) by mouth daily. 90 Tablet 3 4 Active spironolactone (ALDACTONE) 25 mg tablet Take 0.5 Tablets (12.5 mg) by mouth daily. 45 Tablet 3 4 Active Blood Glucose Test Strip Use 4 times a day as needed 4 025 Active ergocalciferol (VITAMIN D2) 50,000 unit capsule Take 50,000 Units by mouth every 7 days. Active tirzepatide (Mounjaro) 5 mg/0.5 mL Pen Injector Inject by subcutaneous injection. Active apixaban (Eliquis) 5 mg tablet Take 1 Tablet (5 mg) by mouth 2 times daily. 60 Tablet 3 4 Active amiodarone (CORDARONE) 200 mg tabletIndication s:Paroxysmal atrial fibrillation (CMS/HCC) Take 0.5 Tablets (100 mg) by mouth daily. 45 Tablet 1 4 Active tadalafil (ADCIRCA) 20 mg Tablet tablet TAKE 2 TABLETS BY MOUTH DAILY 180 Tablet 1 4 Active atorvastatin (LIPITOR) 80 mg tablet Take 1 tablet by mouth once daily 90 Tablet 4 Active Active Problems Patient Care Coordination No te Formatting of this note migh t be different from the original. Dr Amy Frey [phone] Practice moved this is updated phone number Problem Noted Date Diagnosed Date Perennial allergic rhinitis 11/16/2023 Stage 3b chronic kidney disease 11/16/2023 Acute hypoxemic respiratory failure 12/02/2022 Acute pulmonary edema 12/02/2022 Restrictive lung disease 12/02/2022 COPD with acute exacerbation 11/29/2022 Myoclonic jerking 11/28/2022 ESRD (end stage renal disease) on dialysis 11/23 Hemodialysis patient 11/23/2022 Chronic heart failure with preserved ejection fr action 11/23/2022 Morbid obesity with BMI of 50.0-59.9, adult 10/30 Hypotension 11/21/2022 Severe sepsis with septic shock 11/21/2022 Acute cystitis with hematuria 11/21/2022 Acute cholecystitis 11/21/2022 Hyperkalemia 11/21/2022 Hyponatremia 11/21/2022 Hypochloremia 11/21/2022 Hyperphosphatemia 11/21/2022 Demand ischemia 11/21/2022 Hypoalbuminemia 11/21/2022 Sinus bradycardia 11/21/2022 Tachypnea 11/21/2022 AMMY (acute kidney injury) 11/21/2022 Persistent atrial fibrillation 11/19/2022 Acute kidney injury superimposed on CKD 11/19/20 Anemia 11/19/2022 High anion gap metabolic acidosis 11/19/2022 Elevated brain natriuretic peptide (BNP) level 1 01/20/2022 Asthma 11/19/2022 Depression with anxiety 11/19/2022 Morbid obesity 11/19/2022 Anticoagulated 11/19/2022 Chronic diastolic congestive heart failure 11/19 Atrial fibrillation 11/19/2022 Pulmonary hypertension 05/29/2022 Overview (05/29/2022): Added automatically from request for surgery [id number] Other hyperlipidemia 10/07/2020 Diastolic CHF, chronic 08/25/2019 Dyslipidemia 08/25/2019 T2DM (type 2 diabetes mellitus) 05/05/2019 Overview (05/05/2019): Overview: BS 196 this a.m. Coronary atherosclerosis 11/18/2017 HTN (hypertension) 03/20/2015 DARRYL (obstructive sleep apnea) 09/20/2014 Acute on chronic renal insufficiency 12/19/2013 Paroxysmal atrial fibrillation 12/30/2011 Encounters Date Type Department Care Team Description 12/20/2024 External Device Data [facility] ABSTRACTION Provider, Abstract 12/20/2024 External Device Data [facility] Provider, Abstract 11/23/2024 Refill [facility] Heart and Vascular - [address] [place] [address] Maurice Deluca MD 11/20/2024 9:30 AM ROLLS BAKER Office Visit [facility] Pulmonology - [facility] [address] [place] [address] Jeannie Whelan NP Mild intermittent asthma without complication (Primary Dx); Pulmonary hypertension ([facility]/HCC); DARRYL (obstructive sleep apnea); Chronic heart failure with preserved ejection fraction ([facility]/HCC); Paroxysmal atrial fibrillation ([facility]/HCC); BMI 37.0-37.9, adult 11/16/2024 Abstract [facility] Heart and Vascular - [address] [place] [address] Provider, Abstract 11/10/2024 Orders Only [facility] Heart and Vascular - [address] [place] [address] Provider, Abstract 11/03/2024 Refill [facility] Heart and Vascular - [address] [place] [address] Maurice Deluca MD 10/10/2024 10:00 AM ROLLS BAKER Office Visit [facility] Heart and Vascular - [address] [place] [address] Mary Lou Dang NP Paroxysmal atrial fibrillation ([facility]/HCC) (Primary Dx); Encounter for long-term (current) use of medications; retirement (current) use of anticoagulants 10/10/2024 Refill [facility] Heart and Vascular - [address] [place] [address] Mary Lou Dang NP Paroxysmal atrial fibrillation (CMS/HCC) 10/10/2024 Refill [facility] Heart and Vascular - [address] [facility] [place] [place] [address] Mary Lou Dang NP Paroxysmal atrial fibrillation (CMS/HCC) from Last 3 Months Family History Medical History Relation Name Comments Cardiomyopathy Father Cardiomyopathy Mother Coronary Artery Disease Sister Relation Name Status Comments Father Mother Sister Social History Tobacco Use Types Packs/Day Years Used Date Smoking Tobacco: Former Cigarettes 0.3 1 1 978 - 1978 Passive Smoke Exposure: Never Smokeless Tobacco: Never Tobacco Cessation:Counseling Given: Not Answered Alcohol Use Standard Drinks/Week Comments Yes 0 (1 standard drink = 0.6 oz pur e alcohol) rare Feeling Safe Answer Date Recorded Are you in a relationship wi th someone who hurts you emotionally and/or physically? No 02/18/2023 Food Insecurity Answer Date Recorded Social/Environmental Concerns No concerns Transportation Needs Answer Date Record ed Social/Environmental Concerns No concerns Housing Stability Answer Date Recorded Social/Environmental Concerns No concerns Utility Needs Answer Date Recorded Social/Environmental Concerns No concerns Sex and Gender Information Value Date Recorded Sex Assigned at Not on file Legal Sex Male 2:39 AM ROLLS BAKER Gender Identity Not on file Sexual Orientation Not on file Last Filed Vital Signs Vital Sign Reading Time Taken Comments Blood Pressure 132/80 11/20/2024 9:11 AM ROLLS BAKER Pulse 79 11/20/2024 9:11 AM ROLLS BAKER Temperature 36.1 C (96.9 F) 11/20/2024 9:11 AM ROLLS BAKER Respiratory Rate 16 11/16/2023 9:06 AM ROLLS BAKER Oxygen Saturation 96% 11/20/2024 9:11 AM ROLLS BAKER Inhaled Oxygen Concentration - - Weight 119.7 kg (264 lb) 11/20/2024 9:11 AM ROLLS BAKER Height 177.8 cm (5' 10 ) 11/20/2024 9:11 AM ROLLS BAKER Body Mass Index 37.88 11/20/2024 9:11 AM ROLLS BAKER Plan of Treatment Upcoming Encounters Date Type Department Care Team (Late st Contact Info) Description 04/10/2025 10:45 AM CDT Office Visit [facility] Heart and Vascular - [facility] [address] [facility] [place] [address] [place] [address] [place] [address] 05/18/2025 1:15 PM CDT Office Visit [facility] Heart and Vascular - [address] [facility] [address] [facility] [address] [place] [address] [place] [address] [facility] [address] [place], [place] [id number] 05/21/2025 10:00 AM CDT Office Visit [facility] Pulmonology - [facility] [address] [place] [address] [place] [address] [facility] [address] [place] [address] Health Maintenance Due Date Last Done Comments DIABETES ANNUAL FOOT EXAM 1977 DIABETES ANNUAL RETINAL EXAM 1977 DIABETES MICROALBUMIN ANNUAL SCREEN 1977 FIT-DNA Q 3 years 2004 FIT/FOBT Q 1 year 2004 Flex Sig/CT Colonography Q 5 years 2004 ZOSTER VACCINE (1 of 2) 2009 PNEUMOCOCCAL VACCINE 65+ YEA RS (2 of 2 - PCV) 12/19/2014 12/19/2013 RSV VACCINE (60+ or ) (1 - Risk 60-74 years 1-dose series) 2019 LDL CHOLESTEROL ANNUAL 09/01/2020 09/01/2019 DTAP/TDAP/TD VACCINES (2 - T d or Tdap) 01/16/2024 01/16/2014 INFLUENZA VACCINE (#1) 2024 DIABETES HBA1C Q 6 MONTHS 10/28/20242023, 11/24/2022, 11/24/2022 Preventative Visit- Commercial 11/29/2024 0 08/21/2022, 05/26/2021, 04/12/2020, Additional history exists COLORECTAL SCREENING 09/22/2034 09/22/2024, 09/22/2024, 11/03/2019, Additional history exists Colorectal Cancer Screening 09/22/2034 Abdominal Aortic Aneurysm (A AA) Screening Completed 11/27/2013 Procedures Procedure Name Priority Date/Time Associated Diagnosis Comments T4 FREE Routine 11/09/2024 1:27 PM ROLLS BAKER TX ECG ROUTINE ECG W/LEAST 12 LDS W/I&R Routine 10/10/2024 10:00 AM ROLLS BAKER Paroxysmal atrial fibrillation (CMS/HCC) Encounter for long-term (current) use of medications continuous churn buttermaker (current) use of anticoagulants HEMOGLOBIN A1C Routine 11/24/2022 2:14 AM ROLLS BAKER LIPID PANEL Routine 09/01/2019 Dyslipidemia Type 2 diabetes mellitus without complication, without long-term current use of insulin (CMS/HCC) from Last 3 Months or Most Recently Relevant to Health Maintenance Results * T4 FREE (11/09/2024 1:27 PM ROLLS BAKER) Blood us Abstract Provider CHEMISTRY ORDERABLES Final Res ult * TX ECG ROUTINE ECG W/LEAST 12 LDS W/I&R (10/10/2024 10:00 AM ROLLS BAKER) Narrative Brynn Finch Dominick - 10/10/2024 10:00 AM ROLLS BAKER Mary Lou Dang NP 10/10/2024 10:19 AM EKG Date/Time: 10/10/2024 10:00 AM Performed by: Ronny Wong MD Authorized by: Ronny Wong MD Procedure Note Mary Lou Dang NP - 10/10/2024 10:11 AM CST EKG Date/Time: 10/10/2024 10:00 AM Performed by: Ronny Wong MD Authorized by: Ronny Wong MD Annotated Image us Ronny Wong MD ECG ORDERABLES Final Resu lt * (ABNORMAL) HEMOGLOBIN A1C (11/24/2022 2:14 AM ROLLS BAKER) HEMOGLOBIN A1C 7.2(H) <=5.6 % 11/24/2022 3:34 AM ROLLS BAKER [facility] [employer] [facility] EST. AVG GLUCOSE, A1C 160 mg/dL 11/24/2022 3:34 AM ROLLS BAKER [facility] [employer] [facility] Blood Venipuncture / Unknown 11/24/2022 2:14 AM ROLLS BAKER 11/24/2022 3:02 AM ROLLS BAKER Narrative [facility] - 11/24/2022 3:34 AM ROLLS BAKER HGB A1C INTERPRETATION NORMAL: <5.7% PRE-DIABETES: 5.7 - 6.4% DIABETES: 6.5% OR GREATER [facility] Mikhail Tatum MD CHEMISTRY ORDERABLES Fin al Result [facility] CLIA# [id number] [address] [place] [address] * LIPID PANEL (09/01/2019) Blood Maurice Deluca MD CHEMISTRY ORDERABLES Final Re sult [facility] from Last 3 Months or Most Recently Relevant to Health Maintenance Insurance MEDICARE PART A AND B [facility] CHOICE [id number] RX [employer] RX Member Subscriber Plan / Payer (Ef fective 2022-Present) Name:Amy Sultana Relation to Subscriber:Not on file Name:Amy Sultana Subscriber ID:Not on file Date of :1960 Payer ID:Not on file Type:RX Commercial Address: [address] Advance Directives For more information, please contact: [phone] * Full Code (Latest Code Status on File) Date Activated Date Inactivated Comments 11/19/2022 12:36 PM 12/07/2022 7:23 PM Care Teams Resource Analyst Relationship Specialty Start Date End Date Amy Frey DO PCP - General Family Practice 10/05/18
--- OUTSIDE RECORDS SUMMARY | 2025-01-06 08:01 | XMS_ITS ---
Author Organization [facility] Address [address] [place] [address] Care Team Providers Care Staffing Clerk Name Role Phone Emilio Frey DO Primary Care Provider Audi Riley Unavailable [phone] ALLERGIES Allergen (clinical drug ingredient) Drug/Non Drug Allergy documented on EMR Reaction Allergy Type Onset Date Status sucralfate Carafate Unknown Drug Allergy Active tamsulosin Flomax Unknown Drug Allergy Active Coconut Oil Unknown Drug Allergy Activ e REASON FOR VISIT Back pain MEDICATIONS Medication SIG (Take, Route, Fr equency, Duration) Notes Start Date End Date Status MS Contin 60 MG 1 tablet Orally BID for 30 days Active Flomax Active Topamax 200 MG two pills Orally at bedtime for 30 days Active Zanaflex 4 MG 2 tablets at bedtime Orally for 30 days 08/05/2022 01/16/2025 Active Percocet 10-325 MG 1 tab po q 4-6 hr pr n pain for 30 days 11/08/2024 06/09/2024 Active Lipitor Active Farxiga Active Zanaflex Active Xarelto Active Potassium Active Mounjaro Active VITAL SIGNS Height 72 in 11/08/2024 Weight 255 lbs 11/08/2024 Blood pressure systolic 121 mm Hg 11/08/20 24 Blood pressure diastolic 62 mm Hg 024 Temperature 97.2 degrees Fahrenheit 11/08/20 24 Heart Rate 73 /min 11/08/2024 Respiratory Rate 20 /min 11/08/2024 BMI 34.58 kg/m2 11/08/2024 Encounters Encounter Location Date Provider Diagnosis [facility] [address] [place] [address] 11/08/2024 Audi Silverio Sacroiliitis, not elsewhere classified M46.1 ; Other intervertebral disc degeneration, lumbar region M51.36 and Spondylosis without myelopathy or radiculopathy, cervical region M47.812 ASSESSMENTS Encounter Date Diagnosis Assessment Notes Treatment Notes Treatment Clinical Notes Section Notes 11/08/2024 Sacroiliitis, not elsewhere classified (ICD-10 - M46.1) For above procedure after insurance authorization and medication management. 1. Schedule patient for bilateral two-level cervical facet blocks at the C2-C3 and C3-C4 levels via medial branch nerve blocks.2. Continue medication regimen. Patient is due for his Percocet as needed at this time.3. Return 11/08/2024 Other intervertebral disc degeneration, lumbar region (ICD-10 - M51.36) 11/08/2024 Spondylosis without myelopathy or radiculopathy, cervical region (ICD-10 - M47.812) PLAN OF TREATMENT Medication Medication Name Sig Start Date Stop Date Notes Percocet 10-325 MG 1 tab po q 4-6 hr prn pain for 30 days 11/08/2024 06/09/2024 Treatment Notes Assessment Notes Sacroiliitis, not elsewhere classified F or above procedure after insurance authorization and medication management. 1. Schedule patient for bilateral two-level cervical facet blocks at the C2-C3 and C3-C4 levels via medial branch nerve blocks.2. Continue medication regimen. Patient is due for his Percocet as needed at this time.3. Return Next Appt Details Provider Name:Audi barrios, 01/10/2025 08:00:00 AM, [address] [place] [address], [address], [address], Provider Name:Audi barrios, 02/07/2025 08:00:00 AM, [address] [place] [address], [address], [address], Provider Name:Audi barrios, 03/14/2025 08:00:00 AM, [address] [place] [address], [address], [address], Provider Name:Audi barrios, 04/11/2025 08:00:00 AM, [address] [place] [address], [address] [place] [address], [address], Provider Name:Audi barrios, 05/09/2025 08:00:00 AM, [address] [place] [address], [address] [place] [address], [address], Provider Name:Audi barrios, 06/06/2025 08:00:00 AM, [address] [place] [address], [address] [place] [address], [address], Provider Name:Audi barrios, 07/11/2025 08:00:00 AM, [address] [place] [address], [address] [place] [address], [phone], Provider Name:Audi barrios, 08/08/2025 08:00:00 AM, [address] [place] [address], [address], [address], Provider Name:Audi barrios, 09/05/2025 08:00:00 AM, [address] [place] [address], [address] [place] [address], [address], Provider Name:Audi barrios, 10/10/2025 08:00:00 AM, [address] [place] [address], [address] [place] [address], [address], Provider Name:Audi barrios, 11/07/2025 08:00:00 AM, [address] [place] [address], [address], [address], Progress Notes * Emilio SULTANA EDOB:[birth year] (63 yo M)Acc No.[id number]*DOS:11/08/2024 Patient: Emilio SULTANA * Provider: Audi Silverio MD :1960 Age:63 Y Sex:Male Date:11/08/2024 Address:[address] [place], [place] [address] Pcp:Emilio Frey DO Subjective: * Chief Complaints: * Back pain * HPI: * Pain Evaluation: Patient presents to the office today with complaints of neck pain . They state the pain has been present for several years and began gradually and has gotten worse over time . The pain is more bilateral and radiation of the pain occurs up back of head . Associated symptoms include weakness and headaches . The quality of pain is moderate to severe and constant . The patient rates their pain a 8/10 using the numerical rating scale. The patient describes their pain as shooting, throbbing, aching and stabbing and worsens with sitting, physical activity, standing, bright lights and walking . Improvement in pain occurs with massage, relaxation and medications . They have tried the following conservative treatments with minimal improvements; interventional procedures, after school caregiver, ice, acupuncture and massage therapy . Medications include but not limited to oxycodone and zanaflex (tizanidine) . Imaging studies performed include MRI of the cervical spine . The patient comes in today upon referral from Dr Frey . The patient does take a blood thinner, which is Eliquis / Apixaban (3 day hold) . On 10/13/2023 the patient underwent a B C2, 3, 4 MBNB. They reported 70-80% relief that lasted for 7-12 months . Improvement in ADLs during this time include bathing and showering, getting dressed, getting in and out of bed and daily chores around the house . With recurrence of his axial cervical spine pain not responding conservative measures we discussed this intervention and he wished to proceed. * Medical History: * Surgical History: left knee 07/09/2016left shoulder 10/2017 * Hospitalization/Major Diagno stic Procedure: Kidney Infection 12/2017Infection in left foot 01/2019cardio version/kidneys 11/19/22-12/07/22leg infection/kidneys 11/2022 * Family History: Father: unknown. Mother: unknown. * Medications: TakingMounjaro Farxiga Potassium Zanaflex Xarelto Lipitor Flomax MS Contin 60 MG Tablet Extended Release 1 tablet Orally BID Percocet 10-325 MG tablet 1 tab po q 4-6 hr prn pain , stop date 11/17/2024Topamax 200 MG Tablet two pills Orally at bedtime Zanaflex 4 MG Tablet 2 tablets at bedtime Orally , stop date 01/16/2025Medication List reviewed and reconciled with the patientTaking Mounjaro Taking Farxiga Taking Potassium Taking Zanaflex Taking Xarelto Taking Lipitor Taking Flomax Taking MS Contin 60 MG Tablet Extended Release 1 tablet Orally BID Taking Percocet 10-325 MG tablet 1 tab po q 4-6 hr prn pain , stop date 11/17/2024Taking Topamax 200 MG Tablet two pills Orally at bedtime Taking Zanaflex 4 MG Tablet 2 tablets at bedtime Orally , stop date 01/16/2025Medication List reviewed and reconciled with the patient * Allergies: Coconut OilCoconut OilCarafateCarafateFlomaxFlomaxno[Allergies Verified] Objective: * Vitals: Ht: 72 in, Wt:255lbs, Pain scale:81-10, BP:121/62mm Hg, Temp:97.2F, HR:73/min, RR:20/min, BMI:34.58Index. * Examination: General Examination: He is awake and alert. He does have decreased range of motion cervical spine secondary to pain. Tenderness in bilateral cervical axial spine. Motor and sensory exam grossly intact throughout. Assessment: * Assessment: 1. Sacroiliitis, not elsewhere classified - M46.1 (Primary) 2. Other intervertebral disc degeneration, lumbar region - M51.36 3. Spondylosis without myelopathy or radiculopathy, cervical region - M47.812 Plan: * Treatment: * Procedure Codes: * * TRUCTION ELECTRICIAN Sign off status: Completed true * Provider: Audi Silverio MD Date: 11/08/2024 History and Physical Notes * Examination Category Sub-Category Detail Notes Category Not es General Examination He is aw kathleen and alert. He does have decreased range of motion cervical spine secondary to pain. Tenderness in bilateral cervical axial spine. Motor and sensory exam grossly intact throughout.
--- OUTSIDE RECORDS SUMMARY | 2025-01-06 08:01 | XMS_ITS | Encounter Summary ---
Author Organization [facility] Address [address] [place] [address] Care Team Providers Care Visual Presentation Manager Name Role Phone Emilio Frey Primary Care Provider Encounter Details Date Type Department Care Team (Late st Contact Info) Description 03/18/2001 Outpatient [facility] [address] [place] [address] RD. 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 Gender Identity Not on file Sexual Orientation Not on file documented as of this encounter Plan of Treatment Upcoming Encounters Date Type Department Care Team (Late st Contact Info) Description 04/10/2025 10:45 AM CDT Office Visit [facility] - [address] [facility] [address] [address] [facility] [address] [place] [address] [place] [address] [facility] [address] [place] [address] 05/18/2025 1:15 PM CDT Office Visit [facility] - [address] [facility] [address] [address] [facility] [address] [place] [address] [place] [address] [facility] [address] [place] [address] 05/21/2025 10:00 AM CDT Office Visit [facility] Pulmonology - [facility] [address] 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
--- OUTSIDE RECORDS SUMMARY | 2025-01-06 08:01 | XMS_ITS | Encounter Summary ---
Author Organization [facility] Address [address] [place] [address] Care Team Providers Care Keno Clerk Name Role Phone Emilio Frey Primary Care Provider Encounter Details Date Type Department Care Team (Late st Contact Info) Description 09/29/2001 Outpatient [facility] [address] [place] [address] [address]. 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 Gender Identity Not on file Sexual Orientation Not on file documented as of this encounter Plan of Treatment Upcoming Encounters Date Type Department Care Team (Late st Contact Info) Description 04/10/2025 10:45 AM CDT Office Visit [facility] - [address] [facility] [address] [address] [facility] [address] [place] [address] [place] [address] [facility] [address] [place] [address] 05/18/2025 1:15 PM CDT Office Visit [facility] - [address] [facility] [address] [address] [facility] [address] [place] [address] [place] [address] [facility] [address] [place] [address] 05/21/2025 10:00 AM CDT Office Visit [facility] Pulmonology - [facility] [address] [facility] [address] [address] [facility] [address] [place] [address] [place] [address] [facility] [address] [place] [address] documented as of this encounter Visit Diagnoses Not on filedocumented in this encounter Additional Health Concerns Infection Onset Date Last Indicated Resolved Time MRSA Comment:10/2017 nares Lt great toe 12/2013, nares 10/2014, 06/201601/21/2014 01/21/2014 02/29/20 12:00 AM CDT R/O Respiratory 11/27/2022 11/27/2022 11/27/2022 6 :44 PM TWENTY ONE DEALER documented as of this encounter Care Teams Keno Clerk Relationship Specialty Start Date End Date Emilio Frey DO PCP - General Family Practice 10/05/18 documented as of this encounter
--- OUTSIDE RECORDS SUMMARY | 2025-01-06 08:01 | XMS_ITS | Patient Health Record ---
Author Organization [facility] Address [address] [id number] Care Team Providers Care E Learning Designer Name Role Phone Emilio Frey Unavailable Unavailable MICHELLE STALLINGS Unavailable [phone] Allergies No Known Allergies Reason For Referral No Information Vital Signs Height-cm 177.8 cm 10/03/2024 Weight-kg 117.93 kg 10/03/2024 Height 70 in 10/03/2024 Weight 260 lbs 10/03/2024 BMI 37.3 kg/m2 10/03/2024 Encounters Encounter Location Date Provider Diagnosis [facility] [address] [id number] 08/22/2024 MICHELLE STALLINGS Onychomycosis B35.1 ; 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 ; Atherosclerosis of [place] arteries of extremities with intermittent claudication, bilateral legs I70.213 ; Type 2 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 E11.49 and Pain in right foot M79.671 [facility] [address] [id number] 09/05/2024 MICHELLE STALLINGS Onychomycosis B35.1 ; 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 ; Atherosclerosis of [place] arteries of extremities with intermittent claudication, bilateral legs I70.213 ; Type 2 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 E11.49 and Pain in right foot M79.671 [facility] [place] [address] [place] [id number] 09/19/2024 MICHELLE [place] Onychomycosis B35.1 ; 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 ; Atherosclerosis of [place] arteries of extremities with intermittent claudication, bilateral legs I70.213 ; Type 2 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 E11.49 and Pain in right foot M79.671 [facility] [place] [address] [id number] 10/03/2024 MICHELLE [place] Onychomycosis B35.1 ; 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 ; Atherosclerosis of [place] arteries of extremities with intermittent claudication, bilateral legs I70.213 ; Type 2 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 E11.49 and Pain in right foot M79.671 [facility] [place] [address] [id number] 10/23/2024 MICHELLE [place] Onychomycosis B35.1 ; 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 ; Atherosclerosis of [place] arteries of extremities with intermittent claudication, bilateral legs I70.213 ; Type 2 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 E11.49 and Pain in right foot M79.671 [facility] [place] [address] [id number] 11/13/2024 MICHELLE [place] Onychomycosis B35.1 ; 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 ; Atherosclerosis of [place] arteries of extremities with intermittent claudication, bilateral legs I70.213 ; Type 2 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 E11.49 and Pain in right foot M79.671 [facility] [place] [address] [id number] 11/27/2024 MICHELLE [place] Onychomycosis B35.1 ; 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 ; Atherosclerosis of [place] arteries of extremities with intermittent claudication, bilateral legs I70.213 ; Type 2 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 E11.49 and Pain in right foot M79.671 [facility] [address] [place], [place] [id number] 11/14/2024 MICHELLE STALLINGS Assessments Encounter Date Diagnosis (ICD Code) Assessment Notes Treatment Notes Treatment Clinical Notes Section Notes 08/22/2024 Non-pressure chronic ulcer of other part of right foot limited to breakdown of skin (ICD-10 - L97.511) 08/22/2024 Onychomycosis (ICD-10 - B35.1) Nails 1-5 Bilateral were debrided extensively with nail nippers and emery board, reducing length and girth to pink healthy tissue with any subungual debris and necrotic tissue removed 09/05/2024 Onychomycosis (ICD-10 - B35.1) Nails 1-5 Bilateral were debrided extensively with nail nippers and emery board, reducing length and girth to pink healthy tissue with any subungual debris and necrotic tissue removed 09/19/2024 Onychomycosis (ICD-10 - B35.1) Nails 1-5 Bilateral were debrided extensively with nail nippers and emery board, reducing length and girth to pink healthy tissue with any subungual debris and necrotic tissue removed 10/03/2024 Onychomycosis (ICD-10 - B35.1) 10/23/2024 Onychomycosis (ICD-10 - B35.1) 11/13/2024 Onychomycosis (ICD-10 - B35.1) 11/27/2024 Onychomycosis (ICD-10 - B35.1) 11/27/2024 Non-pressure chronic ulcer of other part of right foot limited to breakdown of skin (ICD-10 - L97.511) Reeducated the pt on the need to keep pressure off of the wound and recommended that he wear the boot. 11/13/2024 Non-pressure chronic ulcer of other part of right foot limited to breakdown of skin (ICD-10 - L97.511) Reeducated the pt on the need to keep pressure off of the wound and recommended that he wear the boot. 10/03/2024 Non-pressure chronic ulcer of other part of right foot limited to breakdown of skin (ICD-10 - L97.511) Reeducated the pt on the need to keep pressure off of the wound 10/23/2024 Non-pressure chronic ulcer of other part of right foot limited to breakdown of skin (ICD-10 - L97.511) Reeducated the pt on the need to keep pressure off of the wound Dispense: A cam walker was fitted and dispensed. The patient was instructed in its use. 09/19/2024 Non-pressure chronic ulcer of other part of right foot limited to breakdown of skin (ICD-10 - L97.511) 09/05/2024 Non-pressure chronic ulcer of other part of right foot limited to breakdown of skin (ICD-10 - L97.511) 08/22/2024 Atherosclerosis of [place] arteries of extremities with intermittent claudication, bilateral legs (ICD-10 - I70.213) 08/22/2024 Type 2 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 (ICD-10 - E11.49) 09/05/2024 Atherosclerosis of [place] arteries of extremities with intermittent claudication, bilateral legs (ICD-10 - I70.213) 09/19/2024 Atherosclerosis of [place] arteries of extremities with intermittent claudication, bilateral legs (ICD-10 - I70.213) 10/03/2024 Atherosclerosis of [place] arteries of extremities with intermittent claudication, bilateral legs (ICD-10 - I70.213) 10/23/2024 Atherosclerosis of [place] arteries of extremities with intermittent claudication, bilateral legs (ICD-10 - I70.213) 11/13/2024 Atherosclerosis of [place] arteries of extremities with intermittent claudication, bilateral legs (ICD-10 - I70.213) 11/27/2024 Atherosclerosis of [place] arteries of extremities with intermittent claudication, bilateral legs (ICD-10 - I70.213) 11/27/2024 Type 2 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 (ICD-10 - E11.49) 11/13/2024 Type 2 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 (ICD-10 - E11.49) 10/23/2024 Type 2 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 (ICD-10 - E11.49) 09/19/2024 Type 2 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 (ICD-10 - E11.49) 10/03/2024 Type 2 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 A dry sterile dressing was applied. The patient was given instruction on home dressing and told to use antibiotic ointment on the wound. The patient was instructed to minimize pressure on the wound and to call the office immediately if the wound should start to worsen. 09/05/2024 Other The ulcer was debrided down to bleeding tissue. A dry sterile dressing was applied. The patient was given instruction on home dressing and told to use antibiotic ointment on the wound. The patient was instructed to minimize pressure on the wound and to call the office immediately if the wound should start to worsen. 09/19/2024 Other The ulcer was debrided down to bleeding tissue. A dry sterile dressing was applied. The patient was given instruction on home dressing and told to use antibiotic ointment on the wound. The patient was instructed to minimize pressure on the wound and to call the office immediately if the wound should start to worsen. 10/03/2024 Other The ulcer was debrided down to bleeding tissue. A dry sterile dressing was applied. The patient was given instruction on home dressing and told to use antibiotic ointment on the wound. The patient was instructed to minimize pressure on the wound and to call the office immediately if the wound should start to worsen. 10/23/2024 Other The ulcer was debrided down to bleeding tissue. A dry sterile dressing was applied. The patient was given instruction on home dressing and told to use antibiotic ointment on the wound. The patient was instructed to minimize pressure on the wound and to call the office immediately if the wound should start to worsen. 11/13/2024 Other The ulcer was debrided down to bleeding tissue. A dry sterile dressing was applied. The patient was given instruction on home dressing and told to use antibiotic ointment on the wound. The patient was instructed to minimize pressure on the wound and to call the office immediately if the wound should start to worsen. 11/27/2024 Other The ulcer was debrided down to bleeding tissue. A dry sterile dressing was applied. The patient was given instruction on home dressing and told to use antibiotic ointment on the wound. The patient was instructed to minimize pressure on the wound and to call the office immediately if the wound should start to worsen. Plan Of Treatment No Information Insurance Providers Payer Name Payer Address Payer Phone Subscriber Number Group Number Insured Name Patient Relationship to Insured Coverage Start Date Coverage End Date [employer] [facility] [address] [address] [place], [place] [id number] Emilio Sultana Self - patient is the insured Medicare Part B [place] [address] [place] [address] [id number] Emilio Sultana Self - patient is the insured Medical (General) History Medical History History ICD Code Asthma/Bronchitis Leg/Feet cramps Respiratory disease Arthritis Sleep apnea Back Trouble Diabetic high blood pressure restless leg syndrome Surgical History Surgery Date(Month/Year) Back in 1983 appendectomy in 1971 knee 2001 Left shoulder in 2016 several foot surgeries
--- OUTSIDE RECORDS SUMMARY | 2025-01-06 08:01 | XMS_ITS | Continuity of Care Document ---
Author Organization [facility] Address [address] [facility] [address] [facility] [address] [place] [address] Phone Care Team Providers Care Dynamiter Name Role Phone Ranjan Rendon MD Unavailable [...] Providers Copied on Encounter [facility], [address], [address], [place] tel:[phone] [facility] No Information [address]. [address] [place], [place], [id number] . tel: [phone] OFFICE/OUTPA TIENT VISIT EST [facility], [address], [address], [place] tel:[phone] [facility] Left wrist painRSD (reflex sympathetic dystrophy) [address]. [address] [facility], [place], [place], [id number] . tel: [phone] Referring Provider: Puma Reynolds, [address], [place], [address]. tel:[phone] OFFICE/OUTPA TIENT VISIT EST [facility], [address], [place], [address], [place] tel:[phone] [facility] Left wrist painBody mass index (BMI) 40.0-44.9, adult Aug-0 201 8 Mao [address]. [address], [place], [place], [address] . tel: [phone] OFFICE/OUTPA TIENT VISIT EST [facility], [address], [place], [address], [place] tel:[phone] [facility] Status post rotator cuff repairLeft wrist pain 8 Daylin Lyn[address]. [address], [place], [place], [address] . tel: [phone] OFFICE/OUTPA TIENT VISIT EST [facility], [address], [place], [address], [place] tel:[phone] [facility] Status post rotator cuff repair 8 Mao [address]. [address], [place], [place], [address] . tel: [phone] OFFICE/OUTPA TIENT VISIT EST [facility], [address], [place], [address], [place] tel:[phone] [facility] Status post rotator cuff repairPain in left shoulder 8 Mao Lyndon. [address], [place], [place], [address] . tel: [phone] [facility], [address], [place], [address], [place] tel:[phone] [facility] Body mass index (BMI) 40.0-44.9, adultStatus post rotator cuff repair 8 Rodolfo Bartholomew. [address], [place], [place], [address] . tel: [phone] [facility], [address], [place], [address], [place] tel:[phone] [facility] Status post rotator cuff repairAdhesive capsulitis of left shoulder 8 Daylin Haney. [address], [place], [place], [address] . tel: [phone] [facility], [address] [facility] [address], [place], [address], [place] tel:[phone] [facility] No Information 7 Rod[address]. [address], [place], [place], [address] . tel: [phone] [facility], [address] [address] [facility] [address], [place], [address], [place] tel:[phone] [facility] Complete tear of left rotator cuff 7 Rod[address]w. [address], [place], [place], [address] . tel: [phone] OFFICE/OUTPA TIENT VISIT EST [facility], [address] [facility] [address], [place], [address], [place] tel:[phone] [facility] Complete tear of left rotator cuff 7 Rod[address]th[address]omew. [address], [place], [place], [id number] . tel: [phone] Referring Provider: Emilio Tan, [address] [place] [address] [address], [place], [address]. tel:[phone] OFFICE/OUTPA TIENT VISIT EST [facility], [address], [place], [address], [place] tel:[phone] [facility] Adhesive capsulitis of left shoulder 7 Ian Reynolds. [address], [place], [place], [address] . tel: [phone] OFFICE/OUTPA TIENT VISIT EST [facility], [address] [facility], [place], [address], [place] tel:[phone] [facility] Pain in left shoulderComplete tear of left rotator cuffAdhesive capsulitis of left shoulderBody mass index (BMI) 40.0-44.9, adultEssential (primary) hypertension 7 L'Hommedi merary [place]. [address] , [place], [place], [address] . tel: [phone] OFFICE/OUTPA TIENT VISIT EST [facility], [address] [address], [place], [address], [place] tel:[phone] [facility] Degenerative tear of posterior horn of lateral meniscus of left knee 6 Bagwe Jose E. [address] , [place], [place], [address] . tel: [phone] [facility], [address] [facility] [address], [address], [place] tel:[phone] [facility] Degenerative tear of posterior horn of lateral meniscus of left knee 6 Bagwe Jose E. [address] , [place], [place], [address] . tel: [phone] [facility], [address] [address], [place], [address], [place] tel:[phone] [facility] knee arthroscopy 6 Bagwe Jose E. [address] , [place], [place], [address] . tel: [phone] [facility], [address], [address], [place] tel:[phone] [facility] Degenerative tear of posterior horn of lateral meniscus of left knee 6 Bagwe Jose E. [address] , [place], [place], [address] . tel: [phone] [facility], [address], [address], [place] tel:[phone] [facility] S/P left knee arthroscopy 6 Christ[address]. [address], [place], [place], [address] . tel: [phone] OFFICE/OUTPA TIENT VISIT NEW [facility], [address], [place], [address], [place] tel:[phone] [facility] Pain in left kneePrimary osteoarthritis of left knee 6 Christoph [address]antes. [address], [place], [place], [address] . tel: [phone] Referring Provider: Emilio Tan, [address] [place] [address] [address], [address]. tel:[phone] Family History Family Member Type Diagnosis Age At Onset Father Problem (finding) Heart disease Mother Problem (finding) diabetes mellitus type 2 Mother Problem (finding) Heart disease Payers Payer name Insurance type Covered alliance party ID Authoriza tion(s) No Information Social [...]
--- OUTSIDE RECORDS SUMMARY | 2025-01-06 08:01 | XMS_ITS | Encounter Summary ---
Author Organization [facility] Address [address] [place] [address] Care Team Providers Care Educational Coordinator Name Role Phone Emilio Frey Primary Care Provider Encounter Details Date Type Department Care Team (Late st Contact Info) Description 03/30/2001 Outpatient [facility] [address] [place] [address] [address]. [place], [place] [id number] Francia Russo MD NO ADDRESS ON FILE Social History Tobacco Use Types Packs/Day Years Used Date Smoking Tobacco: Never Assessed Sex and Gender Information Value Date Recorded Sex Assigned at Not on file Legal Sex Male 2:39 AM MANAGER COMMODITIES Gender Identity Not on file Sexual Orientation Not on file documented as of this encounter Plan of Treatment Upcoming Encounters Date Type Department Care Team (Late st Contact Info) Description 04/10/2025 10:45 AM CDT Office Visit [facility] - [address] [facility] [address] [address] [facility] [address] [place] [address] [place] [address] [facility] [address] [place] [address] 05/18/2025 1:15 PM CDT Office Visit [facility] - [address] [facility] [address] [address] [facility] [address] [place] [address] [place] [address] [facility] [address] [place] [address] 05/21/2025 10:00 AM CDT Office Visit [facility] Pulmon[facility] - [facility] [address] [facility] [address] 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
--- OUTSIDE RECORDS SUMMARY | 2025-01-06 08:02 | XMS_ITS | Encounter Summary ---
Author Organization [facility] Address [address] [place] [address] Care Team Providers Care Building Maintenance Technician Name Role Phone Emilio Frey Primary Care Provider Reason for Visit * Reason Onset Date Comments Irregular Heart Beat 11/19/2022 Spoke w/Nathaly n at office Encounter Details Date Type Department Care Team (Late st Contact Info) Description 11/19/2022 Telephone [facility] [address] [place] [address] Milady Edmond MD [address] [place] [address] Irregular Heart Beat (Spoke w/Angeline at office) Social History Tobacco Use Types Packs/Day Years Used Date Smoking Tobacco: Former Cigarettes Smokeless Tobacco: Former Alcohol Use Standard Drinks/Week Comments Yes 0 (1 standard drink = 0.6 oz pur e alcohol) rare Sex and Gender Information Value Date Recorded Sex Assigned at Not on file Legal Sex Male 2:39 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 No / Unsure 11/19/2022 7:29 AM PHARMACY BILLING ADJUDICATOR documented as of this encounter Plan of Treatment Upcoming Encounters Date Type Department Care Team (Late Contact Info) Description 04/10/2025 10:45 AM CDT Office Visit [facility] - [address] [facility] [address] [facility] [address] [place] [phone] [place] [address] [facility] [place] [phone] 05/18/2025 1:15 PM CDT Office Visit [facility] - [address] [facility] [address] [place] [phone] [place] [address] [facility] [place], [place] [phone] 05/21/2025 10:00 AM CDT Office Visit [facility] Pulmonology - [place] [address] [place] [phone] [place] [address] [place] [address] documented as of this encounter Visit Diagnoses Not on filedocumented in this encounter Additional Health Concerns Infection Onset Date Last Indicated Resolved Time R/O Respiratory 11/27/2022 11/27/2022 11/27/2022 6 :44 PM PHARMACY BILLING ADJUDICATOR documented as of this encounter Care Teams Building Maintenance Technician Relationship Specialty Start Date End Date Emilio Frey DO PCP - General Family Practice 10/05/18 documented as of this encounter
--- OUTSIDE RECORDS SUMMARY | 2025-01-06 08:02 | XMS_ITS | Continuity of Care Document ---
Author Organization [facility] Address [address] [place] [address] Phone Care Team Providers Care Pipe Machine Operator Name Role Phone Patrick King Unavailable Unavailable Procedures Procedure Date Office/outpatient Visit, Est Office/outpatient Visit, New Advance Directives Directive Yes / No Effective Date File Name No Information Encounters Encounter Description Practice Location Reason(s) For Visit Diagnoses Date Provider Providers Copied on Encounter Office/outpat ient Visit, Est [facility], [address] [place] [address] [address], [place], [place], [id number], tel:[phone] [facility] No Information March-1 2-201 0 Osvaldonasgaby Patrick. [facility] [address], [facility], [place]. tel:[phone] Office/outpat ient Visit, [facility], [address] [place] [address] [address], [place], [place], [address], tel:[phone] [facility] No Information March-0 5-201 0 Krishnasamy Patrick. [address] [address], [place], [place], [facility], [place]. tel:[phone] Family History Family Member Type Diagnosis Age At Onset No Information Payers Payer name Insurance type Covered republican ID Authoriza tion(s) [place] [id number] Social History Type Description Quantity Date Captured [...]
--- OUTSIDE RECORDS SUMMARY | 2025-01-06 08:02 | XMS_ITS | Continuity of Care Document ---
Author Organization [facility] Address [address] [place] [address] Phone Care Team Providers Care Rustic Terrazzo Setter Name Role Phone Ruth Evans MD Unavailable Unavailable Advance Directives Directive Yes / No Effective Date File Name No Information Encounters Encounter Description Practice Location Reason(s) For Visit Diagnoses Date Provider Providers Copied on Encounter [facility], [address], [place], [place], [address], tel:[phone] [facility] No Information 8 Nathan Miranda . [address] , [address], [place], [place], [address] , [place]. tel: [phone] [facility], [address], [place], [place], [address], [place] tel:[phone] [facility] OTH ADV EFF MED/BIO SUBCERVICAL DISC DISPLACMNT [address] [place], [place], [id number] , [place]. tel: [phone] Family History Family Member Type Diagnosis Age At Onset No Information Payers Payer name Insurance type Covered alliance [...]
--- OUTSIDE RECORDS SUMMARY | 2025-01-06 08:02 | XMS_ITS | Encounter Summary ---
Author Organization [facility] Address [address] [place] [address] Care Team Providers Care Interactive Media Director Name Role Phone Emilio Frey Drake SUN Primary Care Provider Reason for Visit * Reason Onset Date Comments Loose tooth evaluation, toot h extraction 11/24/2022 Spoke W/ Rhina at Dr. Jacobs' s office Encounter Details Date Type Department Care Team (Late Contact Info) Description 11/24/2022 Telephone [facility] [address] [place] [address] Cm Tatum MD NO ADDRESS ON FILE Loose tooth evaluation, tooth extraction (Spoke W/ Rhina at Dr. 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 No / Unsure 11/19/2022 7:29 AM DRYWALL CONTRACTOR documented as of this encounter Plan of Treatment Upcoming Encounters Date Type Department Care Team (Late Contact Info) Description 04/10/2025 10:45 AM CDT Office Visit [facility] Heart [facility] - [address] [place] [phone] [place] [address] [place] [phone] 05/18/2025 1:15 PM CDT Office Visit [facility] - [address] [facility] [address] [address] [facility] [address] [place] [address] [place] [address] [place] [address] 05/21/2025 10:00 AM CDT Office Visit [facility] - [facility] [address] [place] [address] [place] [address] [place] [address] documented as of this encounter Visit Diagnoses Not on filedocumented in this encounter Additional Health Concerns Infection Onset Date Last Indicated Resolved Time R/O Respiratory 11/27/2022 11/27/2022 11/27/2022 6 :44 PM DRYWALL CONTRACTOR documented as of this encounter Care Teams Interactive Media Director Relationship Specialty Start Date End Date Emilio Frey DO PCP - General Family Practice 10/05/18 documented as of this encounter
--- OUTSIDE RECORDS SUMMARY | 2025-01-06 08:02 | XMS_ITS ---
Author Organization [facility] Address [address] [place] [address] Care Team Providers Care Sexual Abuse Counsellor Name Role Phone Emilio Frey DO Primary Care Provider Audi Riley Unavailable [phone] ALLERGIES Allergen (clinical drug ingredient) Drug/Non Drug Allergy documented on EMR Reaction Allergy Type Onset Date Status sucralfate Carafate Unknown Drug Allergy Active tamsulosin Flomax Unknown Drug Allergy Active Coconut Oil Unknown Drug Allergy Activ e REASON FOR REFERRAL Reason Finding of elevated blood pressure Diagnosis 1 Elevated blood-press ure reading, without diagnosis of hypertension (R03.0) Referral Organization [facility] Referring Provider First Name Audi Referring Provider Last Name Jean Claude Referring Provider Speciality Pain Medic ine Referred Provider Specialty Internal Med icine Referral Priority Routine REASON FOR VISIT Neck Pain MEDICATIONS Medication SIG (Take, Route, Fr equency, Duration) Notes Start Date End Date Status Topamax 200 MG two pills Orally at bedtime for 30 days Active Zanaflex 4 MG 2 tablets at bedtime Orally for 30 days 08/05/2022 01/16/2025 Active MS Contin 60 MG 1 tablet Orally BID for 30 days Active Lipitor Active Flomax Active Zanaflex Active Xarelto Active Mounjaro Active Farxiga Active Potassium Active SOCIAL HISTORY Tobacco Use: Social History Observation Description Date Details (start date - stop date) Never Smoker NA - NA Sex Assigned At : Social History Observation Description Sex Assigned At Unknown Tobacco Use/Smoking Question Answer Notes Are you a nonsmoker Alcohol Screen (Audit-C) Question Answer Notes Did you have a drink containing alcohol in the p ast year? No Points 0 Interpretation Negative Tobacco use other than smoking: Question Answer Notes Are you an other tobacco user? No VITAL SIGNS Height 72 in 12/13/2024 Weight 255 lbs 12/13/2024 Blood pressure systolic 151 mm Hg 12/13/19 25 Blood pressure diastolic 65 mm Hg 025 Temperature 97.5 degrees Fahrenheit 12/13/19 25 Heart Rate 68 /min 12/13/2024 Respiratory Rate 20 /min 12/13/2024 BMI 34.58 kg/m2 12/13/2024 Encounters Encounter Location Date Provider Diagnosis [facility] [address] [address] [place] [address] 12/13/2024 Audi Silverio Spondylosis without myelopathy or radiculopathy, cervical region M47.812 ASSESSMENTS Encounter Date Diagnosis Assessment Notes Treatment Notes Treatment Clinical Notes Section Notes 12/13/2024 Spondylosis without myelopathy or radiculopathy, cervical region (ICD-10 - M47.812) 1. Proceed with bilateral two-level cervical facet joint blocks at the C2-C3 and C3-C4 levels.2. Continue medication regimen.3. Return to clinic in 1 month. 12/13/2024 Other The risk of thi s procedure were discussed with the patient in which they verbalized understanding and wished to proceed. The patient will continue to be part of a comprehensive pain management program. Continuation of these procedures are due to pain being severe enough to cause a significant degree of functional disability or vocational disability. and the procedure providing at least 50% sustained improvement of pain and/or 50% objective improvement in function (using same scale as baseline) . Patients primary care provider has been notified regarding continuation of procedures and prolonged repeat steroid use. PLAN OF TREATMENT Treatment Notes Assessment Notes Spondylosis without myelopat hy or radiculopathy, cervical region 1. Proceed with bilateral two-level cervical facet joint blocks at the C2-C3 and C3-C4 levels.2. Continue medication regimen.3. Return to clinic in 1 month. Other The risk of this pro cedure were discussed with the patient in which they verbalized understanding and wished to proceed. The patient will continue to be part of a comprehensive pain management program. Continuation of these procedures are due to pain being severe enough to cause a significant degree of functional disability or vocational disability. and the procedure providing at least 50% sustained improvement of pain and/or 50% objective improvement in function (using same scale as baseline) . Patients primary care provider has been notified regarding continuation of procedures and prolonged repeat steroid use. Referrals Referral Date Details Finding of elevated blood pressure Next Appt Details Provider Name:Audi barrios, 01/10/2025 08:00:00 AM, [address] [place] [address], [address] [place] [address], [phone], Provider Name:Audi barrios, 02/07/2025 08:00:00 AM, [address] [place] [address], [address], [phone], Provider Name:Audi barrios, 03/14/2025 08:00:00 AM, [address] [place] [address], [address] [place] [address], [phone], Provider Name:Audi barrios, 04/11/2025 08:00:00 AM, [address] [place] [address], [address], [phone], Provider Name:Audi barrios, 05/09/2025 08:00:00 AM, [address] [place] [address], [address] [place] [address], [phone], Provider Name:Audi barrios, 06/06/2025 08:00:00 AM, [address] [place] [address], [address] [place] [address], [phone], Provider Name:Audi barrios, 07/11/2025 08:00:00 AM, [address] [place] [address], [address], [phone], Provider Name:Audi barrios, 08/08/2025 08:00:00 AM, [address] [place] [address], [address], [phone], Provider Name:Audi barrios, 09/05/2025 08:00:00 AM, [address] [place] [address], [address], [phone], Provider Name:Audi barrios, 10/10/2025 08:00:00 AM, [address] [address], [address], [place], [address], Provider Name:Audi barrios, 11/07/2025 08:00:00 AM, [address] [address], [address], [place], [address], Procedure Notes * Category Sub-Category Detail Notes Cervical Median Branch Blocks Bilateral 2 Level Cervical Facet Joint Block The patient was identified in the holding area and the operative permit was explained and signed. I have discussed with the patient the risks, benefits, side effects and complications of a fluoroscopically guided cervical median branch nerve injection. I have answered the patient's questions regarding the procedure and have given the patient the opportunity to refuse the procedure. I also have discussed alternative methods of treatment. The patient stated understanding of the procedure and wished to proceed with a fluoroscopically guided cervical median branch nerve injection. The patient was taken to the fluoroscopic suite and placed on a C-arm table in the prone position. Noninvasive blood pressure, pulse oximetry, and an EKG tracing were used to monitor the patient continuously throughout the procedure. A nurse was in attendance for the duration of the procedure to carefully monitor the patient. Please refer to the nursing record for vital sign documentation and for any doses of sedatives and medications. I was present and gave the order for any medications given to the patient. The procedure was performed on the bilateral C2, C3, and C4 cervical medial branches in order to block the bilateral C2-C3 and C3-C4 facet joints. A sterile Betadine preparation and then a sterile drape were applied to the posterior and lateral areas of the neck. The fluoroscopic unit was manipulated in a caudad/cephalad position until the articular pillars of the joints were in clear focus. Then a 25 gauge, 3.5 inch spinal needle was advanced toward the target midway between the superior and inferior articular processes. Once seated in the tissues, lateral fluoroscopy was utilized in order to advance the needle to the middle of the facet pillar at the chosen level. Once satisfactory placement of the first needle was obtained, the procedure was repeated at the other chosen levels. Appropriate lateral positioning was confirmed with AP fluoroscopy. After negative aspiration for blood or CSF, 0.5 cc of 1% lidocaine and 0.5 cc of dexamethasone (10 mg/cc) was injected at each level. All needles were removed intact. The patient tolerated the procedure without any complications. Meaningful vertebral contact was maintained throughout the procedure. The patient tolerated the procedure well and there were no complications. The patient was taken to the recovery area. The patient remained in stable condition with no apparent complications. Post procedure instructions were given to the patient and a follow up appointment was confirmed. The patient was also discharged with information on how to reach the clinic or rn on site physician at any time for questions or complaints. Conscious Sedation Moderate Sedation Services We discussed the risks / benefits and technical aspects of having the procedure done under local anesthesia versus moderate sedation while remaining responsive. I asked the patient as to whether they can remain calm and relatively still throughout the procedure, to which the patient stated: []. Based on my experience with other patients undergoing this procedure, I am concerned about the ability of the patient to remain sufficiently still during the procedure, either due to pain or anxiety or both, so as not to compromise the safety of the procedure, as well as to avoid unnecessary distress to the patient. Therefore, based on the nature of this specific procedure, and the responses from the patient, I determined that moderate sedation was medically necessary. A registered nurse who is trained to observe and monitor the patient during moderate sedation was with the patient the entire time of the sedation period. Moderate sedation was provided by the nurse via physician orders, who assisted in the monitoring of the patient's level of consciousness and physiological status. This nurse monitored and recorded vital signs including blood pressure, pulse, oxygen saturation and continuous electrocardiogram (ECG) during this period. In addition, estimates of sedation depth as well as the amounts and timing of the intravenous sedative were also recorded and can be found in the nurse documentation. Progress Notes * Emilio SULTANA EDOB:[birth year] (63 yo M)Acc No.[id number]*DOS:12/13/2024 Progress Note Patient: Emilio SULTANA * Provider: Audi Silverio MD :1960 Age:63 Y Sex:Male Date:12/13/2024 Address:[address] [place], [place] [id number] Pcp:Emilio Frey DO Subjective: * Chief Complaints: * Neck Pain * HPI: * Pain Evaluation: Patient presents [...] conservative treatments with minimal improvements; interventional procedures, career portals teacher, ice, acupuncture and massage therapy . Medications [...] this intervention and he wished to proceed. Because of good long-term relief with cervical facet blocks we have avoided radiofrequency denervation. * Medical History: * Surgical History: left knee 07/09/2016left shoulder 10/2017 * Hospitalization/Major Diagno stic Procedure: Kidney Infection 12/2017Infection in left foot 01/2019cardio version/kidneys 11/19/22-12/07/22leg infection/kidneys 11/2022 * Family History: Father: unknown. Mother: unknown. Non-Contributory. * Social History: Tobacco Use: Tobacco Use/Smoking Are you a nonsmoker Tobacco use other than smoking Are you an other tobacco user? No Drugs/Alcohol: Alcohol Screen (Audit-C) Did you have a drink containing alcohol in the past year? No Points 0 Interpretation Negative Caffeine Intake: 3-4 cups per day * Medications: TakingMounjaro Farxiga Potassium Zanaflex Xarelto Lipitor Flomax MS Contin 60 MG Tablet Extended Release 1 tablet Orally BID Topamax 200 MG Tablet two pills Orally at bedtime Zanaflex 4 MG Tablet 2 tablets at bedtime Orally , stop date 01/16/2025Medication List reviewed and reconciled with the patientElliott Pham Taking Farxiga Taking Potassium Taking Zanaflex Taking Xarelto Taking Lipitor Taking Flomax Taking MS Contin 60 MG Tablet Extended Release 1 tablet Orally BID Taking Topamax 200 MG Tablet two pills Orally at bedtime Taking Zanaflex 4 MG Tablet 2 tablets at bedtime Orally , stop date 01/16/2025Medication List reviewed and reconciled with the patient * Allergies: Coconut OilCoconut OilCarafateCarafateFlomaxFlomaxno[Allergies Verified] Objective: * Vitals: Ht: 72 in, Wt:255lbs, Pain scale:81-10, BP:151/65mm Hg, Temp:97.5F, HR:68/min, RR:20/min, BMI:34.58Index. * Examination: General Examination: General: T he patient appears well-groomed and nourished. There are no visible deformities on general examination. The patient has a normal body habitus for their stated age. P sychiatric: T he patient was alert and oriented to person, place, and time. The patient's affect was appropriate. The patient is in no acute distress. Recent and past memory seemed appropriate as tested by the patient's ability to recall past and present particulars of the history. Reasoning and judgment seemed normal. The patient did not express any suicidal ideations or gestures. The patient's mood was appropriate. The patient did not exhibit any signs of undue depression, anxiety, or agitatation. S kin: S kin is of normal color, moistness, and turgor. No abnormal lesions, rashes, or masses were noted. H EENT: H ead is normocephalic and atraumatic. Pupils are equal and react to light and accommodation. Conjunctiva are nonerythematous and sclerae anicteric. The ears appear normal in configuration without lesions or deformities. The nose is free of obvious discharge. The lips, tongue, oropharynx appear moist and pink without obvious lesions. R espiratory: L ungs are clear of rales or rhonchi to auscultation. The patient is breathing easily with no intercostal retractions are any signs of distress. C ardiovascular: A uscultation reveals a regular rate and rhythm without appreciable murmurs. No extra sounds were noted. No peripheral edema was noted. M usculoskeletal/Neurologic: T he patient's gait is antalgic. There are no focal motor or sensory deficits. There is tenderness in bilateral upper cervical paraspinous regions. Facet joint loading reproduces pain. Assessment: * Assessment: 1. Spondylosis without myelopathy or radiculopathy, cervical region - M47.812 (Primary) Plan: * Treatment: 2. Others Notes: The risk of this procedure were discussed with the patient in which they verbalized understanding and wished to proceed. The patient will continue to be part of a comprehensive pain management program. Continuation of these procedures are due to pain being severe enough to cause a significant degree of functional disability or vocational disability. and the procedure providing at least 50% sustained improvement of pain and/or 50% objective improvement in function (using same scale as baseline) . Patients primary care provider has been notified regarding continuation of procedures and prolonged repeat steroid use. Referral To:Internal Medicine Reason:Finding of elevated blood pressure * Procedures: Cervical Median Branch Blocks: Bilateral 2 Level Cervical Facet Joint Block The patient was identified in the holding area and the operative permit was explained and signed. I have discussed with the patient the risks, benefits, side effects and complications of a fluoroscopically guided cervical median branch nerve injection. I have answered the patient's questions regarding the procedure and have given the patient the opportunity to refuse the procedure. I also have discussed alternative methods of treatment. The patient stated understanding of the procedure and wished to proceed with a fluoroscopically guided cervical median branch nerve injection. The patient was taken to the fluoroscopic suite and placed on a C-arm table in the prone position. Noninvasive blood pressure, pulse oximetry, and an EKG tracing were used to monitor the patient continuously throughout the procedure. A nurse was in attendance for the duration of the procedure to carefully monitor the patient. Please refer to the nursing record for vital sign documentation and for any doses of sedatives and medications. I was present and gave the order for any medications given to the patient. The procedure was performed on the bilateral C2, C3, and C4 cervical medial branches in order to block the bilateral C2-C3 and C3-C4 facet joints. A sterile Betadine preparation and then a sterile drape were applied to the posterior and lateral areas of the neck. The fluoroscopic unit was manipulated in a caudad/cephalad position until the articular pillars of the joints were in clear focus. Then a 25 gauge, 3.5 inch spinal needle was advanced toward the target midway between the superior and inferior articular processes. Once seated in the tissues, lateral fluoroscopy was utilized in order to advance the needle to the middle of the facet pillar at the chosen level. Once satisfactory placement of the first needle was obtained, the procedure was repeated at the other chosen levels. Appropriate lateral positioning was confirmed with AP fluoroscopy. After negative aspiration for blood or CSF, 0.5 cc of 1% lidocaine and 0.5 cc of dexamethasone (10 mg/cc) was injected at each level. All needles were removed intact. The patient tolerated the procedure without any complications. Meaningful vertebral contact was maintained throughout the procedure. The patient tolerated the procedure well and there were no complications. The patient was taken to the recovery area. The patient remained in stable condition with no apparent complications. Post procedure instructions were given to the patient and a follow up appointment was confirmed. The patient was also discharged with information on how to reach the clinic or rn on site physician at any time for questions or complaints.. Conscious Sedation: Moderate Sedation Services We discussed the risks / benefits and technical aspects of having the procedure done under local anesthesia versus moderate sedation while remaining responsive. I asked the patient as to whether they can remain calm and relatively still throughout the procedure, to which the patient stated: []. Based on my experience with other patients undergoing this procedure, I am concerned about the ability of the patient to remain sufficiently still during the procedure, either due to pain or anxiety or both, so as not to compromise the safety of the procedure, as well as to avoid unnecessary distress to the patient. Therefore, based on the nature of this specific procedure, and the responses from the patient, I determined that moderate sedation was medically necessary. A registered nurse who is trained to observe and monitor the patient during moderate sedation was with the patient the entire time of the sedation period. Moderate sedation was provided by the nurse via physician orders, who assisted in the monitoring of the patient's level of consciousness and physiological status. This nurse monitored and recorded vital signs including blood pressure, pulse, oxygen saturation and continuous electrocardiogram (ECG) during this period. In addition, estimates of sedation depth as well as the amounts and timing of the intravenous sedative were also recorded and can be found in the nurse documentation. . * Procedure Codes: A4550 TRAY FEESUPPLY [id number] FACET CERV/THOR, Modifiers: 50 [id number] FACET CERVICAL/THORACIC, Modifiers: 50 * Preventive Medicine: Counseling: BP Management: PRE-HYPERTENSIVE FOLLOW-UP PLAN: Follow-up 1 month LIFESTYLE RECOMMENDATION: Lifestyle education REFERRAL TO ALTERNATIVE / PRIMARY CARE PROVIDER: Referral to general practitioner Screenings: FALL RISK SCREENING Fall Risk Assessment: Two or more falls with injury in the past year * * TION CONSULTANT Sign off status: Completed true * Provider: Audi Silverio MD Date: 12/13/2024 History and Physical Notes * Examination Category Sub-Category Detail Notes Category Not es General Examination General: The patient appears well-groomed and nourished. There are no visible deformities on general examination. The patient has a normal body habitus for their stated age. Psychiatric: The patient was alert and oriented to person, place, and time. The patient's affect was appropriate. The patient is in no acute distress. Recent and past memory seemed appropriate as tested by the patient's ability to recall past and present particulars of the history. Reasoning and judgment seemed normal. The patient did not express any suicidal ideations or gestures. The patient's mood was appropriate. The patient did not exhibit any signs of undue depression, anxiety, or agitatation. Skin: Skin is of normal color, moistness, and turgor. No abnormal lesions, rashes, or masses were noted. HEENT: Head is normocephalic and atraumatic. Pupils are equal and react to light and accommodation. Conjunctiva are nonerythematous and sclerae anicteric. The ears appear normal in configuration without lesions or deformities. The nose is free of obvious discharge. The lips, tongue, oropharynx appear moist and pink without obvious lesions. Respiratory: Lungs are clear of rales or rhonchi to auscultation. The patient is breathing easily with no intercostal retractions are any signs of distress. Cardiovascular: Auscultation reveals a regular rate and rhythm without appreciable murmurs. No extra sounds were noted. No peripheral edema was noted. Musculoskeletal/Neurologic: The patient's gait is antalgic. There are no focal motor or sensory deficits. There is tenderness in bilateral upper cervical paraspinous regions. Facet joint loading reproduces pain Consultation Request Notes Referral Date Referring Provider Referred Provider Not es 12/13/2024 Audi Silverio , Finding of elevated blood pressure
--- OUTSIDE RECORDS SUMMARY | 2025-01-06 08:02 | XMS_ITS | Encounter Summary ---
Author Organization [facility] Address [address] [place] [address] Care Team Providers Care Atomizer Assembler Name Role Phone StarrEmilio patricio Primary Care Provider Reason for Visit * Reason Onset Date Comments Pt. Diffused shaking at bedt kanuaaliyah Dr. Doesnt see 11/26/2022 Spoke W/ Charo at Dr. Angela sandra's exchange Encounter Details Date Type Department Care Team (Late Contact Info) Description 11/26/2022 Telephone [facility] Admitting [address] [place] [address] Cm Tatum MD NO ADDRESS ON FILE Pt. Diffused shaking at bedtimeaaliyah Dr. Doesnt see (Spoke W/ Charo at Dr. 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 No / Unsure 11/19/2022 7:29 AM CHIN STRAP CUTTER documented as of this encounter Plan of Treatment Upcoming Encounters Date Type Department Care Team (Late Contact Info) Description 04/10/2025 10:45 AM CDT Office Visit [facility] - [address] [facility] [address] [place] [address] [place] [address] [place] [address] 05/18/2025 1:15 PM CDT Office Visit [facility] - [address] [facility] [address] [place] [address] [place] [address] [place], [place] [phone] 05/21/2025 10:00 AM CDT Office Visit [facility] [place] [address] [place] [address] [place] [address] [place] [address] documented as of this encounter Visit Diagnoses Not on filedocumented in this encounter Additional Health Concerns Infection Onset Date Last Indicated Resolved Time R/O Respiratory 11/27/2022 11/27/2022 11/27/2022 6 :44 PM CHIN STRAP CUTTER documented as of this encounter Care Teams Atomizer Assembler Relationship Specialty Start Date End Date Emilio Frey DO PCP - General Family Practice 10/05/18 documented as of this encounter
--- OUTSIDE RECORDS SUMMARY | 2025-01-06 08:02 | XMS_ITS ---
Author Organization [facility] Address [address] [place], [place] [phone] Care Team Providers Care Manpower Development Manager Name Role Phone Emilio Frey Unavailable Unavailable MICHELLE STALLINGS [phone] REASON FOR VISIT VASCULAR / ARTERIAL DOPPLER / NEELIMA Encounters Encounter Location Date Provider Diagnosis [facility] [address] [place], [place] [phone] 11/14/2024 MICHELLE STALLINGS Plan Of Treatment No Information Progress Notes * Emilio SULTANADOB:1960 (63 yo M)Acc No.[id number]:11/14/2024 Patient: Emilio ZURITA :1960 A ge:63 Y S ex:Male Address:[address] [place] [address] * true * Date: Generated for Printi ng/Faxing/eTransmitting on: 0 01/06/2025 08:02 AM PACKAGE HANDLER
[2025-01-06 09:00] LABS: Creatinine Urine 80.2 mg/dL; Total Protein Urine Random 12 mg/dL; Ur Ttl Prot Creatinine Ratio 0.15 mg/mg (0-0.20)
[2025-01-06 09:03] LABS: Albumin Level 4.1 g/dL (3.5-5.1); Anion Gap 11 mmol/L (4-12); Blood Urea Nitrogen 39 mg/dL (9-20); Calcium 8.9 mg/dL (8.4-10.2); Carbon Dioxide 32 mmol/L (22-30); Chloride 96 mmol/L (98-107); Estimated Glomerular Filt Rate 38; Glucose 139 mg/dL (65-110); Phosphorus 4.5 mg/dL (2.5-4.5); Sodium 139 mmol/L (137-145)
[2025-01-06 09:21] LABS: Basophils Percent Auto 0.4 % (0.2-1.2); Eosinophils Absolute Auto 0.1 K/mm3 (0-0.3); Eosinophils Percent Auto 2.2 % (0-4.4); Hematocrit 38.8 % (42.0-52.0); Hemoglobin 11.7 g/dL (14.0-18.0); Immature Granulocyte Absolute 0.01 K/mm3 (0.00-0.031); Immature Granulocyte Percent A 0.2 % (0-0.5); Lymphocytes Absolute Auto 1.99 K/mm3 (0.9-3.2); Lymphocytes Percent Auto 37.1 % (18.3-44.2); Mean Corpuscular HGB Conc 30.2 g/dl (32-36); Mean Corpuscular Hemoglobin 27.1 pg (26-34); Mean Platelet Volume 9.4 fl (7.4-10.4); Monocytes Absolute Auto 0.6 K/mm3 (0.1-0.6); Monocytes Percent Auto 11.2 % (2.6-8.5); Neutrophils Absolute Auto 2.6 K/mm3 (1.3-6.7); Neutrophils Percent Auto 48.9 % (45.5-73.1); Platelet Count Result 188 k/mm3 (150-375); Red Blood Count 4.31 M/mm3 (4.6-6.20); Red Cell Distribution Width 14.8 % (11.5-14.5); White Blood Count 5.4 K/mm3 (4.5-10.0)
[2025-01-06 09:37] LABS: Add Urine Microscopic? YES; Appearance Urine Clear (Clear); Bacteria Urine None Seen /hpf; Bilirubin Urine Negative (Negative); Blood Urine Negative (Negative); Color Urine Yellow (Yellow); Glucose Urine UA 3+ mg/dL (Negative); Ketones Urine Negative (Negative); Leukocyte Esterase Ur 1+ LEU/UL (Negative); Nitrate Urine Negative (Negative); Non Pathogenic Casts 0-2; Protein Urine Negative (Negative); RBC Urine 0-2 /hpf (0-2); Specific Grav Ur 1.023 (1.001-1.035); Squamous Epithelial Cell Urine None Seen /hpf (Few); Urobilinogen Urine 0.2 mg/dL (<2.0); WBC Urine 21-50 /hpf (0-3)
[2025-01-06 09:48] LABS: Hemoglobin A1C 8.3 % (<5.7)
[2025-01-06 09:56] LABS: Vitamin D 25 Hydroxy 31.5 ng/mL
== END 2025-01-06 07:58 | disposition home or self-care (01) ==
PROVIDERS: PCP Family Medicine; Visit Provider Hospitalist
DX: I12.9 Hypertensive chronic kidney disease with stage 1 through stage 4 chronic kidney disease, or unspecified chronic kidney disease (principal); N18.32 Chronic kidney disease, stage 3b
CPT/HCPCS: 36415; 80069; 81001; 82306; 82570; 83036; 84156; 85025

== ENCOUNTER 2025-06-08 09:08 | Outpatient (CLI) | payer OTHER, MEDICARE, SELFPAY ==
--- OUTSIDE RECORDS SUMMARY | 2025-06-08 09:19 | XMS_ITS | Patient Health Record ---
Author Organization [facility] Address [address] [id number] Care Team Providers Care Padder Cushion Name Role Phone Emilio Frey Unavailable Unavailable MICHELLE STALLINGS Unavailable [phone] Allergies No Known Allergies Reason For Referral No Information Vital Signs Height-cm 177.8 cm 10/03/2024 Weight-kg 117.93 kg 10/03/2024 Height 70 in 10/03/2024 Weight 260 lbs 10/03/2024 BMI 37.3 kg/m2 10/03/2024 Encounters Encounter Location Date Provider Diagnosis [facility] [address] [id number] 08/22/2024 MICHELLE STALLINGS Onychomycosis B35.1 ; 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 ; Atherosclerosis of tanacross arteries of extremities with intermittent claudication, bilateral legs I70.213 ; Type 2 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 E11.49 and Pain in right foot M79.671 [facility] [address] [id number] 09/05/2024 MICHELLE STALLINGS Onychomycosis B35.1 ; 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 ; Atherosclerosis of tanacross arteries of extremities with intermittent claudication, bilateral legs I70.213 ; Type 2 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 E11.49 and Pain in right foot M79.671 [facility] [address] [place] [id number] 09/19/2024 MICHELLE [place] Onychomycosis B35.1 ; 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 ; Atherosclerosis of tanacross arteries of extremities with intermittent claudication, bilateral legs I70.213 ; Type 2 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 E11.49 and Pain in right foot M79.671 [facility] [address] [id number] 10/03/2024 MICHELLE [place] Onychomycosis B35.1 ; 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 ; Atherosclerosis of tan[place]ross arteries of extremities with intermittent claudication, bilateral legs I70.213 ; Type 2 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 E11.49 and Pain in right foot M79.671 [facility] [address] [id number] 10/23/2024 MICHELLE [place] Onychomycosis B35.1 ; 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 ; Atherosclerosis of tanacross arteries of extremities with intermittent claudication, bilateral legs I70.213 ; Type 2 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 E11.49 and Pain in right foot M79.671 [facility] [address] [id number] 11/13/2024 MICHELLE [place] Onychomycosis B35.1 ; 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 ; Atherosclerosis of [place] arteries of extremities with intermittent claudication, bilateral legs I70.213 ; Type 2 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 E11.49 and Pain in right foot M79.671 [facility] [address] [id number] 11/27/2024 MICHELLE [place] Onychomycosis B35.1 ; 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 ; Atherosclerosis of tanacross arteries of extremities with intermittent claudication, bilateral legs I70.213 ; Type 2 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 E11.49 and Pain in right foot M79.671 [facility] [address] [place], [place] [id number] 11/14/2024 MICHELLE STALLINGS Assessments Encounter Date Diagnosis [...] skin (ICD-10 - L97.511) 08/22/2024 Atherosclerosis of tanacross arteries of extremities with intermittent claudication, bilateral legs (ICD-10 - I70.213) 08/22/2024 Type 2 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 (ICD-10 - E11.49) 09/05/2024 Atherosclerosis of tanacross arteries of extremities with intermittent claudication, bilateral legs (ICD-10 - I70.213) 09/19/2024 Atherosclerosis of tanacross arteries of extremities with intermittent claudication, bilateral legs (ICD-10 - I70.213) 10/03/2024 Atherosclerosis of tanacross arteries of extremities with intermittent claudication, bilateral legs (ICD-10 - I70.213) 10/23/2024 Atherosclerosis of tanacross arteries of extremities with intermittent claudication, bilateral legs (ICD-10 - I70.213) 11/13/2024 Atherosclerosis of tanacross arteries of extremities with intermittent claudication, bilateral legs (ICD-10 - I70.213) 11/27/2024 Atherosclerosis of tanacross arteries of extremities with intermittent claudication, bilateral [...] Insured Coverage Start Date Coverage End Date [facility] [address] [address] [place], [place] [id number] Emilio Sultana Self - patient is the insured Medicare Part B [place] [address] [place] [address] [id number] Emilio Sultana Self - patient is the insured Medical (General) History Medical History History ICD Code Asthma/Bronchitis Leg/Feet cramps Respiratory disease Arthritis Sleep apnea Back Trouble Diabetic high blood pressure restless leg syndrome Surgical History Surgery Date(Month/Year) Back in 1983 appendectomy in 1971 knee 2001 Left shoulder in 2016 several foot surgeries
--- OUTSIDE RECORDS SUMMARY | 2025-06-08 09:19 | XMS_ITS | Encounter Summary ---
Author Organization [facility] Address [address] [place] [address] Phone Care Team Providers Care Heavy Coil Winder Name Role Phone Unavailable Primary Care Provider Unavailabl e Reason for Visit * Reason Comments Med Refill Encounter Details Date Type Department Care Team (Late st Contact Info) Description 06/07/2025 Refill [facility] [address] [facility] [address] [place] [address] Soren Holcomb MD [address] [phone] Social History Tobacco Use Types Packs/Day Years Used Date Smoking Tobacco: Former Cigarettes Smokeless Tobacco: Never Sex and Gender Information Value Date Recorded Sex Assigned at Not on file Legal Sex Male 12:00 PM MST Gender Identity Not on file Sexual Orientation Not on file documented as of this encounter Plan of Treatment Upcoming Encounters Date Type Department Care Team (Late st Contact Info) Description 06/19/2025 4:20 PM CDT Office Visit [facility] [address] [facility] 1 [place] [address] Soren Holcomb MD [address] [address] documented as of this encounter Visit Diagnoses Not on filedocumented in this encounter
--- OUTSIDE RECORDS SUMMARY | 2025-06-08 09:19 | XMS_ITS | Encounter Summary ---
Author Organization [facility] Address [address] [place] [address] Care Team Providers Care Linux Programmer Name Role Phone Emilio Frey Primary Care Provider Reason for Visit * Reason Onset Date Comments Acute Hypoxic failure 12/01/2022 Spoke w/ R reid at Dr. Ruffin's Ex Encounter Details Date Type Department Care Team (Late st Contact Info) Description 12/01/2022 Telephone [facility] Admitting [address] [place] [address] [place] [address] [facility] 3 [place] [address] Acute Hypoxic failure (Spoke w/ Simran at Dr. Ruffin's Ex) Social History Tobacco Use Types Packs/Day Years Used Date Smoking Tobacco: Former Cigarettes Smokeless Tobacco: Former Alcohol Use Standard Drinks/Week Comments Yes 0 (1 standard drink = 0.6 oz pur e alcohol) rare Sex and Gender Information Value Date Recorded Sex Assigned at Not on file Legal Sex Male 2:39 AM ENDBAND SIZER Gender Identity Not on file Sexual Orientation Not on file COVID-19 Exposure Response Date Recorded In the last 10 days, have yo u been in contact with someone who was confirmed or suspected to have Coronavirus/COVID-19? No / Unsure 11/19/2022 7:29 AM ENDBAND SIZER documented as of this encounter Plan of Treatment Upcoming Encounters Date Type Department Care Team (Late st Contact Info) Description 06/22/2025 10:15 AM CDT Appointment [facility] Vascular Testing [facility] [address] [place] [address] [place] [address] [place], [place] [phone] 10/16/2025 10:00 AM ENDBAND SIZER Office Visit [facility] - [address] [place] [address] [place] [address] [place] [address] 05/21/2026 10:40 AM CDT Office Visit [facility] - [place] [address] [place] [address] [place] [address] [place] [address] 05/24/2026 10:00 AM CDT Office Visit [facility] - [address] [facility] [address] [place] [address] Vivian Dawkins FNP [address] [facility] [address] [place] [address] documented as of this encounter Visit Diagnoses Not on filedocumented in this encounter Care Teams Linux Programmer Relationship Specialty Start Date End Date Emilio Frey DO PCP - General Family Practice 10/05/18 documented as of this encounter
--- OUTSIDE RECORDS SUMMARY | 2025-06-08 09:20 | XMS_ITS | Encounter Summary ---
Author Organization [facility] Address [address] [place] [address] Care Team Providers Care Scrum Project Manager Name Role Phone Emilio Frey Primary Care Provider Encounter Details Date Type Department Care Team (Late st Contact Info) Description 03/18/2001 Outpatient [facility] [address] [place] [address] RD. [place], [place] [phone] Francia Russo MD NO ADDRESS ON FILE Social History Tobacco Use Types Packs/Day Years Used Date Smoking Tobacco: Never Assessed Sex and Gender Information Value Date Recorded Sex Assigned at Not on file Legal Sex Male 2:39 AM EXTENSION SPECIALIST Gender Identity Not on file Sexual Orientation Not on file documented as of this encounter Plan of Treatment Upcoming Encounters Date Type Department Care Team (Late st Contact Info) Description 06/22/2025 10:15 AM CDT Appointment [facility] Vascular Testing [facility] [address] [facility] [place] [address] [place] [address] [address] [place] [address] 10/16/2025 10:00 AM EXTENSION SPECIALIST Office Visit [facility] Heart and Vascular - [address] [facility] [address] [address] [facility] 202 [place] [address] [place] [address] [facility] [address] [place] [address] 05/21/2026 10:40 AM CDT Office Visit [facility] Pul[facility] - [facility] [address] [place] [phone] Ephraim Ruffin, [address] [place] [address] 05/24/2026 10:00 AM CDT Office Visit [facility]ascular - [address] [facility] [address] [address] [facility] [address] [place] [address] Vivian Dawkins, KNOCKUP WORKER [address] [facility] [address] [place] [address] documented as of this encounter Visit Diagnoses Not on filedocumented in this encounter Additional Health Concerns Infection Onset Date Last Indicated Resolved Time 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
--- OUTSIDE RECORDS SUMMARY | 2025-06-08 09:20 | XMS_ITS | Encounter Summary ---
Author Organization [facility] Address [address] [place] [address] Care Team Providers Care Allergist/Pediatric Pulmonologist Name Role Phone Emilio Frey Primary Care Provider Encounter Details Date Type Department Care Team (Late st Contact Info) Description 08/31/2001 Outpatient [facility] [address] [place] [address] RD. [place], [place] [phone] Francia Russo MD NO ADDRESS ON FILE Social History Tobacco Use Types Packs/Day Years Used Date Smoking Tobacco: Never Assessed Sex and Gender Information Value Date Recorded Sex Assigned at Not on file Legal Sex Male 2:39 AM NEONATAL NURSE PRACTITIONER Gender Identity Not on file Sexual Orientation Not on file documented as of this encounter Plan of Treatment Upcoming Encounters Date Type Department Care Team (Late st Contact Info) Description 06/22/2025 10:[address] [facility] Heart and Vascular Testing [facility] [address] [facility] [address] [place] [address] [place] [address] [facility] [address] [place] [address] 10/16/2025 10:00 AM NEONATAL NURSE PRACTITIONER Office Visit [facility] Heart [facility] Vascular - [address] [facility] [address] [address] [facility] 202 [place] [address] [place] [address] [facility] [address] [place] [address] 05/21/2026 10:40 AM CDT Office Visit [facility] - [facility] [address] [place] [address] Ephraim Ruffin, [address] [place] [address] 05/24/2026 10:00 AM CDT Office Visit [facility] Heart [facility] Vascular - [address] [facility] [address] [facility] [address] [place] [address] Vivian Dawkins, HEAT TREATER HELPER [address] [facility] [address] [place] [address] documented as of this encounter Visit Diagnoses Not on filedocumented in this encounter Additional Health Concerns Infection Onset Date Last Indicated Resolved Time 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
--- OUTSIDE RECORDS SUMMARY | 2025-06-08 09:20 | XMS_ITS ---
Author Organization [facility] Address [address] [place] [address] [address] [place] [address] Care Team Providers Care Enrollment Management Vice President Name Role Phone Emilio Frey DO Primary Care Provider Audi Riley Unavailable [phone] REASON FOR VISIT Back Encounters Encounter Location Date Provider Diagnosis [facility] [address] [place] [address] 06/07/2025 Audi Silverio Plan Of Treatment Next Appt Details Provider Name:Audi barrios, 07/12/2025 08:00:00 AM, [address] [place] [address], [address] [place] [address], [address], Provider Name:Audi barrios, 08/09/2025 08:00:00 AM, [address] [place] [address], [address], [address], Provider Name:Audi barrios, 09/06/2025 08:00:00 AM, [address] [place] [address], [address], [address], Provider Name:Audi barrios, 10/11/2025 08:00:00 AM, [address] [place] [address], [address], [address], Provider Name:Audi barrios, 11/07/2025 08:00:00 AM, [address] [place] [address], [address], [address], Progress Notes * Emilio SULTANA EDOB:[birth year] (64 yo M)Acc No.[id number]*DOS:06/07/2025 Patient: Emilio ZURITA * Provider: Shailesh Silverio MD :1960 A ge:64 Y S ex:Male Date:06/07/2025 Address:[address] [place], [place] [address] Pcp:Emilio Frey DO Subjective: * Chief Complaints: * 1 . Back. * Medical History: Objective: * Vitals: Assessment: Plan: * Treatment: * * Electronic signature of León Silverio MD on 06/08/2025 at 09:19 AM CDT Sign off status: Pending * Provider: Shailesh Silverio MD Date: 06/07/2025 Generated for Jack smith/Gianna/Tobin on: 06/08/2025 09:19 AM CDT
--- OUTSIDE RECORDS SUMMARY | 2025-06-08 09:20 | XMS_ITS | Encounter Summary ---
Author Organization [facility] Address [address] [place] [address] Phone Care Team Providers Care Electric Cell Tender Name Role Phone Unavailable Primary Care Provider Unavailabl e Reason for Visit * Reason Comments Med Change Request Encounter Details Date Type Department Care Team (Late st Contact Info) Description 12/30/2023 Refill [facility] [address] [facility] [address] [place] [address] Soren Holcomb MD [address] [phone] Social History Tobacco Use Types Packs/Day Years [...] Description 06/19/2025 4:20 PM CDT Office Visit [facility] [address] [facility] 1 [place] [address] Soren Holcomb MD [address] [address] documented as of this encounter Visit Diagnoses Not on filedocumented in this encounter
--- OUTSIDE RECORDS SUMMARY | 2025-06-08 09:20 | XMS_ITS | Clinical Summary ---
Author Organization [facility] Address [address] [place] [phone] Phone Care Team Providers Care Primary Special Education Teacher Name Role Phone Unavailable Primary Care Provider Unavailabl e Allergies Active Allergy Reactions Criticality Noted Date Comments Coconut Fatty Acid 02/11/2023 Tamsulosin 02/11/2023 Sucralfate 02/11/2023 Medications apixaban (ELIQUIS) 5 MG tablet Take 5 [...] mg by mouth at bed time Active oxyCODONE-acet aminophen (PERCOCET) 10-325 MG per tablet Take 1 tablet by mouth every 4 (four) hours if needed for moderate pain Active tadalafil (CIALIS) 20 MG tablet Take 40 mg by mouth 1 (one) time each day Active tiZANidine (ZANAFLEX) 4 MG capsule Take 8 mg by mouth at bed time Active Tirzepatide (Mounjaro) 5 MG/0.5ML solution pen-injector Inject 5 mg under the skin per week Active amiodarone (PACERONE) 100 MG tablet Take 100 mg by mouth 1 (one) time each day Active ergocalciferol (VITAMIN D2) 1.25 MG (16800 UT) capsule Take 1 capsule by mouth once a week 5 capsule 3 5 Active Farxiga 10 MG tablet TAKE 1 TABLET BY MOUTH ONCE DAILY USE FARXIGA 30 tablet Active potassium chloride (K-TAB) 20 MEQ CR tablet TAKE 1 TABLET BY MOUTH THREE TIMES A WEEK 15 tablet 5 Active potassium chloride (K-TAB) 20 MEQ CR tablet TAKE 1 TABLET BY MOUTH THREE TIMES A WEEK 15 tablet 5 025 Discontinued Active Problems Problem Noted Date Diagnosed [...] Encounters Date Type Department Care Team Description 06/07/2025 Refill [facility] [address] [place] [address] Soren Holcomb MD 05/07/2025 Refill [facility] [address] [place] [address] Soren Holcomb MD 04/09/2025 Refill [facility] [address] [facility] [place] [address] Soren Holcomb MD from Last 3 Months Social History Tobacco Use Types Packs/Day Years Used Date Smoking Tobacco: Former Cigarettes Smokeless Tobacco: Never Tobacco Cessation:Counseling Given: Not Answered Sex and Gender Information Value Date Recorded Sex Assigned at Not on file Legal Sex Male 12:00 PM [facility] Gender Identity Not on file Sexual Orientation Not on file Last Filed Vital Signs Vital Sign Reading Time Taken Comments Blood Pressure 103/64 01/11/2025 3:14 PM TRIMMER AND REINFORCER Pulse 64 01/11/2025 3:14 PM TRIMMER AND REINFORCER Temperature - - Respiratory Rate - - Oxygen Saturation 97% 08/12/2023 3:28 PM CDT Inhaled Oxygen Concentration - - Weight 117 kg (258 lb) 01/11/2025 3:14 PM TRIMMER AND REINFORCER Height 180.3 cm (5' 11) 01/11/2025 3:14 PM TRIMMER AND REINFORCER Body Mass Index 35.98 01/11/2025 3:14 PM TRIMMER AND REINFORCER Plan of Treatment Upcoming Encounters Date Type Department Care Team ([facility] st Contact Info) Description 06/19/2025 4:20 PM CDT Office Visit [facility] [address] [facility] [address] [place], [place] [id number] Soren Holcomb MD [address] [phone] Health Maintenance Due Date Last Done Comments Diabetic Foot Exam 1969 Ophthalmology Exam 1969 Pneumococcal PPSV23/PCV13 65 + Years / High and Highest Risk (1 of 5 - PCV) 1978 Influenza Vaccine (#1) 2025 7, 12/14/2016, 12/19/2013, Additional history exists Insurance MEDICARE PM INTERFACED INSURANCE PM INTERFACED INSURANCE
--- OUTSIDE RECORDS SUMMARY | 2025-06-08 09:20 | XMS_ITS | Encounter Summary ---
Author Organization [facility] Address [address] [place] [address] Care Team Providers Care Services Tech Name Role Phone Emilio Frey Primary Care Provider Encounter Details Date Type Department Care Team (Latest Contact Info) Description 01/24/2001 Outpatient Historical HIS OBSERVATION BED Yadira Schmitt Chest pain, unspecified (Primary Dx) Social History Tobacco Use Types Packs/Day Years Used Date Smoking Tobacco: Never Assessed Sex and Gender Information Value Date Recorded Sex Assigned at Not on file Legal Sex Male 2:39 AM WEB EDITOR Gender Identity Not on file Sexual Orientation Not on file documented as of this encounter Plan of Treatment Upcoming Encounters Date Type Department Care Team (Late st Contact Info) Description 06/22/2025 10:15 AM CDT Appointment [facility] Heart and Vascular Testing [facility] [address] [facility] [address] [place] [address] [place] [address] [facility] [address] [place], [place] [phone] 10/16/2025 10:00 AM WEB EDITOR Office Visit [facility] - [address] [facility] 202 [address] [facility] 202 [place] [address] [place] [address] [facility] 202 [place] [address] 05/21/2026 10:40 AM CDT Office Visit [facility] - [place] [address] [place] [address] [place] [address] [place] [address] 05/24/2026 10:00 AM CDT Office Visit [facility] - [address] [facility] [address] [facility] [address] [place] [address] Vivian Dawkins, [facility] [address] 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
--- OUTSIDE RECORDS SUMMARY | 2025-06-08 09:20 | XMS_ITS | Encounter Summary ---
Author Organization [facility] Address [address] [place] [address] Care Team Providers Care Online Producer Name Role Phone Emilio Frey Primary Care Provider Encounter Details Date Type Department Care Team (Late st Contact Info) Description 03/30/2001 Outpatient [facility] [address] [place] [address] [address]. [place], [place] [phone] Francia Russo MD NO ADDRESS ON FILE Social History Tobacco Use Types Packs/Day Years Used Date Smoking Tobacco: Never Assessed Sex and Gender Information Value Date Recorded Sex Assigned at Not on file Legal Sex Male 2:39 AM STATISTICS TUTOR Gender Identity Not on file Sexual Orientation Not on file documented as of this encounter Plan of Treatment Upcoming Encounters Date Type Department Care Team (Late st Contact Info) Description 06/22/2025 10:15 AM CDT Appointment [facility] Heart and Vascular Testing [facility] [address] [facility] [address] [place] [address] [place] [address] [facility] [address] [place] [address] 10/16/2025 10:00 AM STATISTICS TUTOR Office Visit [facility] Heart and Vascular - [address] [facility] 202 [address] [facility] 202 [place] [address] [place] [address] [facility] 202 [place] [address] 05/21/2026 10:40 AM CDT Office Visit [facility] Pulmonology - [facility] [address] [place] [phone] Ephraim Ruffin, [address] [place] [address] 05/24/2026 10:00 AM CDT Office Visit [facility] Heart and Vascular - [address] [facility] [address] [address] [facility] [address] [place] [address] Vivian Dawkins, SAMPLE MOUNTER [address] [facility] [address] [place] [address] documented as of this encounter Visit Diagnoses Not on filedocumented in this encounter Additional Health Concerns Infection Onset Date Last Indicated Resolved Time 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
--- OUTSIDE RECORDS SUMMARY | 2025-06-08 09:20 | XMS_ITS | Encounter Summary ---
Author Organization [facility] Healthcare Address [address] [place] [address] Care Team Providers Care Brim Stiffener Name Role Phone Emilio Frey DO Primary Care Provider Encounter Details Date Type Department Care Team (Late st Contact Info) Description 11/09/2024 Orders Only [facility] Health Information Management [address] [place] [address] Emilio Frey DO [facility] [address] Social History Tobacco Use Types Packs/Day Years Used Date Smoking Tobacco: Never Smokeless Tobacco: Never Alcohol Use Standard Drinks/Week Comments Yes 0 (1 standard drink = 0.6 oz pur e alcohol) AUDIT-C Answer Date Recorded Q1: How often do you have a drink containing alc ohol? Monthly or less 09/18/2024 Q2: How many drinks containi ng alcohol do you have on a typical day when you are drinking? 1 or 2 09/18/2024 Q3: How often do you have si x or more drinks on one occasion? Never 09/18/2024 PHQ-2 Answer Date Recorded PHQ-2 Total Score (If total score is 3 or more points, staff should administer the PHQ-9) 1 04/27/2024 Personal Safety Answer Date Recorded Have you ever been in or are you currently in a harmful physical or emotional relationship or is someone making you feel afraid or unsafe? Denies 09/22/2024 Sex and Gender Information Value Date Recorded Sex Assigned at Not on file Legal Sex Male 12:50 AM JIG FITTER Gender Identity Not on file Sexual Orientation Not on file documented as of this encounter Plan of Treatment Not on file documented as of this encounter Procedures Procedure Name Priority Date/Time Associated Diagnosis Comments SCAN - RADIOLOGY/IMAGING 11/09/2024 documented in this encounter Results * SCAN - RADIOLOGY/IMAGING (11/09/2024) Anatomical Region Laterality Modality Other Emilio Frey DO Final Result documented in this encounter Visit Diagnoses Not on filedocumented in this encounter Care Teams Brim Stiffener Relationship Specialty Start Date End Date Emilio Frey DO PCP - General Family Practice 05/25/19 documented as of this encounter
--- OUTSIDE RECORDS SUMMARY | 2025-06-08 09:20 | XMS_ITS | Encounter Summary ---
Author Organization [facility] Address [address] [place] [address] Care Team Providers Care Client Services Specialist Name Role Phone Emilio Frey Drake SUN Primary Care Provider Reason for Visit * Reason Onset Date Comments Irregular Heart Beat 11/19/2022 Spoke w/Nathaly n at office Encounter Details Date Type Department Care Team (Late st Contact Info) Description 11/19/[address] [facility] Emergency [address] [place] [address] Milady Edmond MD [address] [place] [address] Irregular Heart Beat (Spoke w/Angeline at office) Social History Tobacco Use Types Packs/Day Years Used Date Smoking Tobacco: Former Cigarettes Smokeless Tobacco: Former Alcohol Use Standard Drinks/Week Comments Yes 0 (1 standard drink = 0.6 oz pur e alcohol) rare Sex and Gender Information Value Date Recorded Sex Assigned at Not on file Legal Sex Male 2:39 AM DENTURES LAB TECHNICIAN Gender Identity Not on file Sexual Orientation Not on file COVID-19 Exposure Response Date Recorded In the last 10 days, have yo u been in contact with someone who was confirmed or suspected to have Coronavirus/COVID-19? No / Unsure 11/19/2022 7:29 AM DENTURES LAB TECHNICIAN documented as of this encounter Plan of Treatment Upcoming Encounters Date Type Department Care Team (Late Contact Info) Description 06/22/2025 10:15 AM CDT Appointment [facility] [address] [place] [address] [place] [address] [place], [place] [phone] 10/16/2025 10:00 AM DENTURES LAB TECHNICIAN Office Visit [facility] Heart and Vascular - [address] [facility] [address] [place] [phone] Mary Lou Dang, RAISA [address] [facility] [address] [place] [address] 05/21/2026 10:40 AM CDT Office Visit [facility] Pul[facility] - [place] [address] [place] [address] Ephraim Ruffin, [address] [place] [address] 05/24/2026 10:00 AM CDT Office Visit [facility] Heart and Vascular - [address] [facility] [address] [place] [address] Vivian Dawkins FNP [address] [facility] [address] [address] [place] [phone] documented as of this encounter Visit Diagnoses Not on filedocumented in this encounter Additional Health Concerns Infection Onset Date Last Indicated Resolved Time R/O Respiratory 11/27/2022 11/27/2022 11/27/2022 6 :44 PM DENTURES LAB TECHNICIAN documented as of this encounter Care Teams Client Services Specialist Relationship Specialty Start Date End Date Emilio Frey DO PCP - General Family Practice 10/05/18 documented as of this encounter
--- OUTSIDE RECORDS SUMMARY | 2025-06-08 09:20 | XMS_ITS | Referral Summary ---
Author Organization [facility] Address [address] [place] [address] Care Team Providers Care Box Sealing Machine Operator Name Role Phone Emilio Frey DO Primary Care Provider Encounters Date Type Department Care Team Description 06/07/2025 9:30 AM CDT Office Visit [facility] Primary Care [facility] [address] [address] Emilio Frey DO Routine physical examination (Primary Dx); Type 2 diabetes mellitus with diabetic polyneuropathy, with long-term current use of insulin (HCC); Stage 3b chronic kidney disease (HCC); Gastroesophageal reflux disease without esophagitis; Dyslipidemia; Atherosclerosis of [place] coronary artery of [place] heart without angina pectoris; Panlobular emphysema (HCC); Chronic heart failure with preserved ejection fraction (HCC); Benign essential hypertension; Hypertensive heart and kidney disease with chronic diastolic congestive heart failure and stage 3b chronic kidney disease (HCC); Degeneration of intervertebral disc of lumbar region with discogenic back pain; DARRYL (obstructive sleep apnea); Paroxysmal atrial fibrillation (HCC); Pulmonary hypertension (HCC); Restrictive lung disease; Vitamin D deficiency; Diabetic nephropathy with proteinuria (HCC); Chronic diastolic congestive heart failure (HCC); Need for hepatitis C screening test; Need for hepatitis B screening test; Prostate cancer screening; Morbid obesity (HCC); Umbilical hernia without obstruction and without gangrene; Scalp cyst from Last 3 Months Allergies Active Allergy Reactions Criticality Noted Date Comments Coconut Rash Medium 05/29/2019 Tamsulosin Nausea & Vomiting,Nausea only Medium 2017 Sucralfate Stomach upset,Nausea & Vomiting Low 07/11/2018 Medications oxyCODONE-aceta minophen (PERCOCET) 10-325 mg per tablet 10-325 mg every 6 (six) hours Active topiramate (TOPAMAX) 200 mg tablet Take 2 tablets (400 mg total) by mouth nightly Active atorvastatin (LIPITOR) 80 mg tablet 05/13/20 19 Active albuterol HFA (PROVENTIL HFA,VENTOLIN HFA,PROAIR HFA) 90 mcg/actuation inhaler Inhale 2 puffs as needed Active HumaLOG 100 unit/mL pen for injectionIndica tions:Type 2 diabetes mellitus with diabetic chronic kidney disease (HCC) INJECT 0-15 UNITS UNDER THE SKIN 3 TIMES DAILY WITH MEALS 15 mL 5 12/29/19 24 Active senna-docusate (PERICOLACE) 8.6-50 mg Take 3 tablets by mouth daily as needed Active guaiFENesin ER (MUCINEX) 600 mg 12 hr tablet Take 2 tablets (1,200 mg total) by mouth 2 (two) times a day Active furosemide (LASIX) 80 mg tablet Take 1 tablet (80 mg total) by mouth daily Active TiZANidine (ZANAFLEX) 4 mg capsule Take 1 capsule (4 mg total) by mouth 2 (two) times a day Active amiodarone (PACERONE) 200 mg tablet Take 1 tablet (200 mg total) by mouth daily Active apixaban (ELIQUIS) 5 mg tablet Take 1 tablet (5 mg total) by mouth 2 (two) times a day Active potassium chloride ER 20 mEq CR tablet Take 1 tablet (20 mEq total) by mouth Three times a week Active ergocalciferol, vitamin D2, 50 mcg (2,000 unit) tablet Take by mouth once a week Active dapagliflozin propanediol (FARXIGA) 10 mg tablet 1 tablet (10 mg total) daily Active spironolactone (ALDACTONE) 25 mg tablet Take 0.5 tablets (12.5 mg total) by mouth daily Active tadalafiL (CIALIS) 20 mg tablet Take 1 tablet (20 mg total) by mouth 2 (two) times a day as needed for erectile dysfunction Active blood glucose diagnostic (glucose blood) strip Use 4 times a day as needed 200 each 5 04/27/20 24 Active tirzepatide (Mounjaro) 5 mg/0.5 mL pen injector INJECT 5 MG SUBCUTANEOUSLY EVERY 7 DAYS 2 mL 1 11/13/20 24 Active LANTUS 100 unit/mL (3 mL) pen for injectionIndica tions:Type 2 diabetes mellitus with diabetic chronic kidney disease (HCC) Inject 25 Units under the skin daily 15 mL 5 12/18/19 25 Active blood-glucose meter,continuou s (Dexcom G7 Data Management Engineer) miscIndications :Type 2 diabetes mellitus with diabetic polyneuropathy, with long-term current use of insulin (HCC) Dexcom G7 microfilm equipment inspector use daily to monitor blood sugar. 1 each 1 01/23/20 25 Active pen needle, diabetic (BD Johanna 2nd Gen Pen Needle) 32 gauge x 5/32 needle USE TO INJECT INSULIN UP TO FOUR TIMES DAILY 100 each 2 02/13/20 25 Active tirzepatide (Mounjaro) 7.5 mg/0.5 mL pen injector injectionIndica tions:Type 2 diabetes mellitus with diabetic polyneuropathy, with long-term current use of insulin ([facility]) INJECT 7.5 MG SUBCUTANEOUSLY WEEKLY 2 mL 1 04/09/20 25 Active tirzepatide (Mounjaro) 10 mg/0.5 mL pen injector injectionIndica tions:Type 2 diabetes mellitus with diabetic polyneuropathy, with long-term current use of insulin ([facility]) Inject 0.5 mL (10 mg total) under the skin once a week 2 mL 1 06/07/20 25 Active Active Problems Problem Noted Date Diagnosed Date Dyslipidemia 04/27/2024 Overview (04/27/2024): Chronic, stable condition on statin Continue Lipitor Hypertensive heart and kidne y disease with chronic diastolic congestive heart failure and stage 3b chronic kidney disease 04/27/2024 Overview (04/27/2024): All conditions are stable Euvolemic Following with cardiology and nephrology Continue same medications Routine physical examination 04/27/2024 Overview (06/07/2025): August 18, 2022 February 26, 2024 June 07, 2025 Anemia in chronic kidney disease 12/07/2023 Overview (04/27/2024): Anemia and CKD is stable Continue with Nephrology Vitamin D deficiency 12/07/2023 Overview (06/07/2025): Chronic, stable condition on daily replacement Continue same medications Diabetic nephropathy with proteinuria 12/07/2023 Overview (12/07/2024): DM with CKD stable and following with Nephrology Stage 3b chronic kidney disease 12/21/2022 Overview (04/27/2024): CKD is stable Continue with Nephrology GFR 31 in August 2023 GFR 37 in December 2022 Restrictive lung disease 12/02/2022 Overview (12/07/2024): Obstructive and restrictive lung disease is overall stable and following with Pulmonology Chronic heart failure with preserved ejection fr action 11/23/2022 Overview (06/07/2025): Chronic heart failure is stable Euvolemic Continue same medications and routine follow up with Cardiology Hyponatremia 11/21/2022 Hypochloremia 11/21/2022 Hypoalbuminemia 11/21/2022 Hyperphosphatemia 11/21/2022 Depression with anxiety 11/19/2022 Pulmonary hypertension 05/29/2022 Overview (12/07/2024): Moderate to severe pulmonary hypertension noted on catheterization June 17, 2022 Continue same medications and continue routine cardiology follow-up Lymphedema 05/31/2019 Assessment & Plan (05/31/2019 10:43 AM CDT): Impression: Patient with chronic bilateral lower extremity [...] time. Plan for follow-up on as-needed basis. Morbid obesity 05/31/2019 Overview (06/07/2025): BMI 37 with DM, HTN Weight management would help medical conditions Assessment & Plan (05/31/2019 10:45 AM CDT): Obesity with BMI of 44.6 in the presence of diabetes, CHF. Educated the patient on the importance of healthy active diet and lifestyle for prevention and overall improvement in health status. Further management as per primary care provider Type 2 diabetes mellitus wit h diabetic polyneuropathy, with long-term current use of insulin 05/05/2019 Overview (04/27/2024): Diabetes with neuropathy and CKD with prior foot ulcerations requiring insulin He was previously on dialysis but now is doing well without and continues to follow with Nephrology He is on a statin (Lipitor) A1c 8.3 today (March 2024) Assessment & Plan (05/31/2019 10:45 AM CDT): Stable glucose control with use of medication. Plan: Further management as per primary care provider Coronary atherosclerosis 11/18/2017 Overview (04/27/2024): Coronary artery disease without symptoms He is on a statin Continue with routine cardiology follow up Benign essential hypertension 03/20/2015 Overview (04/27/2024): Chronic, stable condition Continue same medications and routine cardiology follow up DARRYL (obstructive sleep apnea) 09/20/2014 Overview (04/27/2024): DARRYL is stable Continue nightly CPAP use Chronic obstructive pulmonary disease 04/19/2014 Overview (04/27/2024): COPD is stable not requiring inhalers Continue with routine pulmonology follow up GERD (gastroesophageal reflux disease) 4 Overview (12/07/2024): Chronic, stable condition requiring medication Continue diet modifications Migraine headache 04/19/2014 Lumbar degenerative disc disease 04/19/2014 Overview (06/07/2025): Chronic low back pain Trying to stay active Weight management discussed CHF (congestive heart failure) 01/16/2014 Overview (04/27/2024): Chronic diastolic heart failure Euvolemic status Continue diuretics and same medications Follow up with Cardiology Paroxysmal atrial fibrillation 12/30/2011 Overview (04/27/2024): Paroxysmal atrial fibrillation currently in sinus rhythm Cardioversion late 2022 He is on amiodarone and Eliquis Continue with Cardiology Resolved Problems Problem Noted Date Diagnosed Date Resolved Date Perennial allergic rhinitis 11/16/2023 12/07/2024 Skin ulcer, limited to breakdown of skin 05/24/2023 04/27/2024 Stage 3b chronic kidney disease 02/11/2023 04/27/2024 Acute hypoxemic respiratory failure 12/02/2022 04/27/2024 Myoclonic jerking 11/28/2022 04/27/2024 ESRD (end stage renal disease) on dialysis 11/23/2022 04/27/2024 Hemodialysis patient 11/23/2022 025 Tachypnea 11/21/2022 04/27/2024 Severe sepsis with septic shock 11/21/2022 04/27/2024 Sinus bradycardia 11/21/2022 04/27/2024 Demand ischemia 11/21/2022 04/27/2024 Acute cystitis with hematuria 11/21/2022 04/27/2024 Acute cholecystitis 11/21/2022 04/27/20 24 Elevated brain natriuretic p eptide (BNP) level 11/19/2022 04/27/2024 High anion gap metabolic acidosis 11/19/2022 04/27/2024 Acute renal failure 11/19/2022 04/27/20 24 Pulmonary artery hypertension 06/22/2022 04/27/2024 Overview (04/27/2024): Moderate to Severe - Noted on cath May 2022 Chronic diastolic heart failure 08/25/2019 12/07/2024 Skin ulcer of left great toe , limited to breakdown of skin 05/31/2019 12/07/2024 Assessment & Plan (05/31/2019 10:44 AM CDT): Ulceration present since January left 1st toe, currently being managed by the [facility]. Plan: Continue dressing daily dressing changes utilizing silver wound gel. Further management as per wound clinic. High cholesterol 05/30/2019 04/27/2024 Hypertension 05/30/2019 04/27/2024 Assessment & Plan (05/31/2019 10:45 AM CDT): Stable blood pressure control with use medication. Plan: Further management as per primary Candidal intertrigo 06/07/2017 04/27/20 24 Encounter for monitoring sotalol therapy 11/15/2014 04/27/2024 Asthma 04/19/2014 04/27/2024 Hypokalemia 01/16/2014 04/27/2024 Left leg cellulitis 01/16/2014 04/27/20 24 Right knee sprain 01/16/2014 04/27/2024 Acute on chronic renal insufficiency 12/19/2013 04/27/2024 Cellulitis 12/19/2013 04/27/2024 Dehydration 12/19/2013 04/27/2024 Abdominal pain 11/10/2013 04/27/2024 Biliary colic 09/08/2013 04/27/2024 Dyspnea 05/19/2012 04/27/2024 Immunizations Immunization Administration Dates Next Due Influenza, Quadrivalent, Spl it, Preservative Free, Intramuscular 12/14/2016 Influenza, Split 12/19/2013 Influenza, Unspecified 12/07/2024(Deferr ed: Patient Refused),02/26/2024(Deferred: Patient Refused),12/19/2013 Pneumococcal Conjugate Pcv20 05/04/2024(Deferred : Patient Refused) Pneumococcal Polysaccharide PPV23 12/19/2013 Tdap 01/16/2014 Social History Tobacco Use Types Packs/Day Years Used Date Smoking Tobacco: Never Smokeless Tobacco: Never Tobacco Cessation:Counseling Given: [...] more points, staff should administer the PHQ-9) 0 06/07/2025 Personal Safety Answer Date Recorded Have you ever been in or are you currently in a harmful physical or emotional relationship or is someone making you feel afraid or unsafe? Denies 09/22/2024 Sex and Gender Information Value Date Recorded Sex Assigned at Not on file Legal Sex Male 12:50 AM COUNSELLING PSYCHOLOGIST Gender Identity Not on file Sexual Orientation Not on file Last Filed Vital Signs Vital Sign Reading Time Taken Comments Blood Pressure 134/70 06/07/2025 8:59 AM CDT Pulse 62 06/07/2025 8:59 AM CDT Temperature 36.2 C (97.2 F) 06/07/2025 8:59 AM CDT Respiratory Rate 16 06/07/2025 8:59 AM CDT Oxygen Saturation 97% 06/07/2025 8:59 AM CDT Inhaled Oxygen Concentration - - Weight 121.6 kg (268 lb) 06/07/2025 8:59 AM CDT Height 180.3 cm (5' 11) 06/07/2025 8:59 AM CDT Body Mass Index 37.38 06/07/2025 8:59 AM CDT Plan of Treatment Not on file Medical Devices Implanted Type Area Community Services Officer Device Identifier Shelf Expiration Date Model / Serial / Lot Lens Implant Bilateral: Eye Procedures Procedure Name Priority Date/Time Associated Diagnosis Comments POCT HEMOGLOBIN A1C Routine 12/07/2024 9 :37 AM COUNSELLING PSYCHOLOGIST Type 2 diabetes mellitus with diabetic polyneuropathy, with long-term current use of insulin (HCC) COLONOSCOPY 09/22/2024 12:25 PM CDT ALBUMIN CREATININE RATIO, URINE Routine 08/12/2023 DIABETIC EYE EXAM Routine 05/19/2023 COMPREHENSIVE METABOLIC PANEL Routine 05/14/2023 LIPID PANEL Routine 05/14/2023 from Last 3 Months or Most Recently Relevant to Health Maintenance Results * POCT hemoglobin A1c (12/07/2024 9:37 AM COUNSELLING PSYCHOLOGIST) Hemoglobin A1C, POC 7.7 4.0 - 5.6 % Blood 12/07/2024 9:37 AM COUNSELLING PSYCHOLOGIST Emilio Drake [place] DO POINT OF CARE TEST ORD ERABLES Final Result * Colonoscopy (09/22/2024 12:25 PM CDT) Anatomical Region Laterality Modality Other Narrative Procedure Note Trinh Galicia MD - 09/22/2024 12:25 PM CDT [facility] ENDOSCOPY Patient Name: Emilio Sultana Procedure Date: 09/22/2024 12:25PM Date of : 1960 Admit Type: Outpatient Age: 63 Gender: Male Attending MD: Trinh Galicia M.D. Room: [facility] ENDOSCOPY ROOM 05 Note Status: Finalized Procedure: Colonoscopy Indications: High risk colon cancer surveillance: Personalhistory of colonic polyps Referring MD: Providers: Trinh Galicia M.D. Medicines: See the Anesthesia note for documentation of the administered medications Complications: No immediate complications. Estimated Blood Loss: Estimated blood loss: none. Procedure: Pre-Anesthesia Assessment: - Prior to the procedure, a History and Physicalwas performed, and patient medications, allergies and sensitivities were reviewed. The patient'stolerance of previous anesthesia was reviewed. - The risks and benefits of the procedure and the sedation options and risks were discussed with the patient. All questions were answered and informed consent was obtained. The benefits, risks and alternatives of theprocedure and sedation were discussed and informed consentwas obtained. All questions were answered. Please referto the signed informed consent document in the medical record. The scope was passed under direct vision.The [id number] colonoscope was introduced through theanus and advanced to the cecum, identified byappendiceal orifice and ileocecal valve. The colonoscopy was performed without difficulty. The patient tolerated the procedure well. The quality of the bowel preparation was inadequate. The ileocecal valve, appendiceal orifice, and rectum werephotographed. Findings: The perianal and digital rectal examinations were normal. Pertinent negatives include normal sphincter tone. Multiple medium-mouthed diverticula were found in the left colon. The retroflexed view of the distal rectum and anal verge was normaland showed no anal or rectal abnormalities. Impression: - Preparation of the colon was inadequate. - Diverticulosis in the left colon. - The distal rectum and anal verge are normal on retroflexion view. - No specimens collected. Recommendation: - Resume previous diet. - Continue present medications. - Repeat colonoscopy in 5 years for surveillance. Trinh Galicia M.D. Trinh Galicia M.D. 09/22/2024 1:32:03 PM . Number of Addenda: 0 Note Initiated On: 09/22/2024 12:25 PM Recognized by the [place] for promoting quality in endoscopy Trinh Galicia MD ENDOSCOPY PROCEDURES Stephania l Result * Albumin Creatinine Ratio, Urine (08/12/2023) Pathologist [facility] SCRIBED Creatinine, Urine 59 0 - 300 EXTERNAL LAB SCRIBED Microalbumin <6.0 0 - 16.7 EXTERNAL LAB SCRIBED Microalb/Creat Ratio 0.12 0 - 0.20 EXTERNAL LAB Urine Result [facility] Provider MD LAB URINE ORDERABLES Stephania l Result EXTERNAL LAB * Diabetic Eye Exam (05/19/2023) Result [facility] Provider MD HEALTH MAINTENANCE Final Result * Lipid panel (05/14/2023) [facility] SCRIBED Cholesterol, Total 129 0 - 200 EXTERNAL LAB SCRIBED HDL 49 40 - 200 EXTERNAL LAB SCRIBED LDL 59 0 - 130 EXTERNAL LAB SCRIBED Triglycerides 113 0 - 150 EXTERNAL LAB Blood Result [facility] Provider MD LAB BLOOD ORDERABLES Stephania l Result EXTERNAL LAB * (ABNORMAL) Comprehensive metabolic panel (05/14/2023) Pathologist [facility] SCRIBED Sodium 139 137 - 145 mmol/L EXTERNAL LAB SCRIBED Potassium 3.5 3.4 - 5.0 mmol/L EXTERNAL LAB SCRIBED Chloride 102 98 - 107 mmol/L EXTERNAL LAB SCRIBED Carbon Dioxide 29 22 - 30 mmol/L EXTERNAL LAB SCRIBED Anion Gap 8 8 - 16 mmol/L EXTERNAL LAB SCRIBED Urea Nitrogen (BUN) 34(A) 9 - 20 mg/dl EXTERNAL LAB SCRIBED Creatinine 2.0(A) 0.7 - 1.3 mg/dl EXTERNAL LAB SCRIBED Glucose 148(A) 65 - 110 mg/dl EXTERNAL LAB SCRIBED Calcium 8.8 8.4 - 10.2 mg/dl EXTERNAL LAB SCRIBED Bilirubin 0.4 0.2 - 1.3 mg/dl EXTERNAL LAB SCRIBED Plasma Protein 7.0 6.3 - 8.2 g/dl EXTERNAL LAB SCRIBED Albumin 4.2 3.5 - 5.1 g/dl EXTERNAL LAB SCRIBED Alkaline Phosphatase 72 38 - 126 Units/L EXTERNAL LAB SCRIBED Alanine Transaminase (ALT) 16 6 - 50 Units/L EXTERNAL LAB SCRIBED Aspartate Transaminase (AST) 18 17 - 59 Units/L EXTERNAL LAB SCRIBED eGFR in 0 0 - 0 EXTERNAL LAB SCRIBED eGFR in NonAfrican [place]ian 34(A) 60 - 100 EXTERNAL LAB Blood us Historical Provider LAB BLOOD ORDERABLES Stephania sarwat Result EXTERNAL LAB from Last 3 Months or Most Recently Relevant to Health Maintenance Insurance [facility] MEDICARE MEDICARE [facility] Care Teams Box Sealing Machine Operator Relationship Specialty Start Date End Date Emilio Frey DO PCP - General Family Practice 05/25/19
--- OUTSIDE RECORDS SUMMARY | 2025-06-08 09:20 | XMS_ITS | Encounter Summary ---
Author Organization [facility] Address [address] [place] [address] Care Team Providers Care Battery Builder Name Role Phone Emilio Frey Drake [facility] Primary Care Provider Reason for Visit * Reason Onset Date Comments Loose tooth evaluation, toot h extraction 11/24/2022 Spoke W/ Rhina at Dr. Jacobs' s office Encounter Details Date Type Department Care Team (Late Contact Info) Description 11/24/2022 Telephone [facility] Admitting [id number] [place] [address] [place] [address] [facility] [address] [place] [address] Loose tooth evaluation, tooth extraction (Spoke W/ Rhina at Dr. Jacobs's office) Social History Tobacco Use Types Packs/Day Years Used Date Smoking Tobacco: Former Cigarettes Smokeless Tobacco: Former Alcohol Use Standard Drinks/Week Comments Yes 0 (1 standard drink = 0.6 oz pur e alcohol) rare Sex and Gender Information Value Date Recorded Sex Assigned at Not on file Legal Sex Male 2:39 AM CUSTOMER CARE CONSULTANT Gender Identity Not on file Sexual Orientation Not on file COVID-19 Exposure Response Date Recorded In the last 10 days, have yo u been in contact with someone who was confirmed or suspected to have Coronavirus/COVID-19? No / Unsure 11/19/2022 7:29 AM CUSTOMER CARE CONSULTANT documented as of this encounter Plan of Treatment Upcoming Encounters Date Type Department Care Team (Late st Contact Info) Description 06/22/2025 10:15 AM CDT Appointment [facility] Heart and Vascular Testing [facility] [address] [place] [address] [place] [address] [facility] [address] [place], [place] [id number] 10/16/2025 10:00 AM CUSTOMER CARE CONSULTANT Office Visit [facility] Heart and Vascular - [address] [facility] [address] [place] [phone] [place] [address] [facility] [address] [facility] [address] [place] [address] 05/21/2026 10:40 AM CDT Office Visit [facility] [address] [place] [phone] [place] [address] [place] [phone] 05/24/2026 10:00 AM CDT Office Visit [facility] Heart and Vascular - [address] [facility] [address] [place] [address] Vivian Dawkins FNP [address] [facility] [address] [place] [address] documented as of this encounter Visit Diagnoses Not on filedocumented in this encounter Additional Health Concerns Infection Onset Date Last Indicated Resolved Time R/O Respiratory 11/27/2022 11/27/2022 11/27/2022 6 :44 PM CUSTOMER CARE CONSULTANT documented as of this encounter Care Teams Battery Builder Relationship Specialty Start Date End Date Emilio Frey DO PCP - General Family Practice 10/05/18 documented as of this encounter
--- OUTSIDE RECORDS SUMMARY | 2025-06-08 09:20 | XMS_ITS | Encounter Summary ---
Author Organization [facility] Healthcare Address [address] [place] [id number] Care Team Providers Care Gas Charger Name Role Phone Emilio Frey DO Primary Care Provider Reason for Visit * Reason Comments Annual Exam Encounter Details Date Type Department Care Team (Latest Contact Info) Description 06/07/2025 9:30 AM CDT Office Visit [facility] Primary Care [address] [place] [address] [phone] Emilio Frey DO [address] [place] [id number] Routine physical examination (Primary Dx); Type 2 diabetes mellitus with diabetic polyneuropathy, with long-term current use of insulin (HCC); Stage 3b chronic kidney disease (HCC); Gastroesophageal reflux disease without esophagitis; Dyslipidemia; Atherosclerosis of [place] coronary artery of [place] heart without angina pectoris; Panlobular emphysema (HCC); [...] without obstruction and without gangrene; Scalp cyst Social History Tobacco Use Types Packs/Day Years [...] on file Legal Sex Male 12:50 AM [employer] Gender Identity Not on file Sexual Orientation Not on file documented as of this encounter Last Filed Vital Signs Vital Sign Reading [...] Mass Index 37.38 06/07/2025 8:59 AM CDT documented in this encounter Ordered Prescriptions Prescription Sig Dispense Quantity Refills Last Filled Start Date End Date tirzepatide (Mounjaro) 10 mg/0.5 mL pen injector injectionIndication s:Type 2 diabetes mellitus with diabetic polyneuropathy, with long-term current use of insulin (HCC) Inject 0.5 mL (10 mg total) under the skin once a week 2 mL 1 06/07/2025 documented in this encounter Progress Notes * Emilio Frey, DO - 06/07/2025 9:30 AM CDT Images from the original note were not included. Emilio Sultana is a 64 y.o. year old White Non- male here an for Annual Wellness Visit. Medicare Health Risk Assessment Basic Information In general, would you say your health is: Fair Do you have an advance directive, such as a living will or durable power of banking attorney?: (!) No Would you like information regarding Advanced Directive (Living Will) and/or Durable Power of Bathroom Tiling Professional?: No Do you have to strain or struggle to hear/understand conversations?: No Over the last 2 weeks, how often have you been bothered by any of the following problems? Little Interest or Pleasure in Doing Things: Not at all Feeling Down, Depressed, or Hopeless: Not at all PHQ-2 Total Score (If total score is 3 or more points, staff should administer the PHQ-9): 0 In the past year, patient experienced: One or more falls in the last year: No Do you feel unsteady when standing or walking?: No Do you worry about falling?: No Safety Do you have a working smoke detector in your home?: Yes Does your home have throw rugs, poor lighting, or a slippery bath tub/shower?: No Do you always fasten your seatbelt when you are in a vehicle?: Yes What is your typical mode of transportation: Car Physical Activity How many days a week do you usually exercise?: 1-3 days per week How intense is your typical exercise?: Light (like stretching or slow walking) Nutrition How would you rate your appetite?: Good How would you describe the condition of your mouth and teeth/dentures?: (!) Poor On a typical day, how many servings of fruits and vegetables do you eat?: 2 On a typical day, how many servings of high fiber/whole-grain foods do you eat?: 0 On a typical day, how many servings of high fat/fried foods do you eat?: 1 Have you experienced any of the following problems currently or recently? Eating: No Grooming: No Bathing: No Walking: No Using the toilet: No Memory problems: No Difficulty speaking: No Dressing: No Balance: No Pain: No Sexual Health: No Fatigue: No Depression: No Life Satisfaction: No Stress: No Anger: No Loneliness or Social Isolation: No Suicide: No Have you experienced any of the following problems currently or recently? Laundry and/or housekeeping: No Handling money: No Shopping: No Using the Phone: No Food preparation: No Transportation: No Taking and/or getting your own medications: No Do you use prescription drugs that are not prescribed for you?: No Based on my observation of the patient, review of Health Risk Assessment (HRA) and other records, this is my assessment and recommendation regarding fall risk, hearing impairment, home safety, ADLs, or any other issues identified in the HRA: no specific concerns Annual exam Chronic conditions reviewed Coronary artery disease reviewed Hypertension reviewed Dyslipidemia reviewed Diabetes reviewed Medications reviewed Medications are current per med list Doing okay Following with Cardiology Following with Pulmonology Following with Nephrology Still with knot on back of his head Umbilical hernia Problem List, Past Medical and Surgical History: Patient Active Problem List Diagnosis ??? Benign essential hypertension ??? Coronary atherosclerosis ??? CHF (congestive heart failure) (HCC) ??? Type 2 diabetes mellitus with diabetic polyneuropathy, with long-term current use of insulin (HCC) ??? Paroxysmal atrial fibrillation (HCC) ??? DARRYL (obstructive sleep apnea) ??? Lymphedema ??? Morbid obesity (HCC) ??? Dyslipidemia ??? Anemia in chronic kidney disease ??? Chronic heart failure with preserved ejection fraction (HCC) ??? Chronic obstructive pulmonary disease (HCC) ??? GERD (gastroesophageal reflux disease) ??? Pulmonary hypertension (HCC) ??? Stage 3b chronic kidney disease (HCC) ??? Hypertensive heart and kidney disease with chronic diastolic congestive heart failure and [id number] chronic kidney disease (HCC) ??? Vitamin D deficiency ??? Restrictive lung disease ??? Migraine headache ??? Lumbar degenerative disc disease ??? Hyponatremia ??? Hypochloremia ??? Hypoalbuminemia ??? Hyperphosphatemia ??? Diabetic nephropathy with proteinuria (HCC) ??? Depression with anxiety ??? Routine physical examination Past Medical History: Diagnosis Date ??? A-fib (HCC) ??? Asthma ??? Cataract ??? Chronic kidney disease ??? Colon polyp ??? COPD (chronic obstructive pulmonary disease) (HCC) ??? Diabetes (HCC) ??? Hypertension ??? Sleep apnea ??? Type 2 diabetes mellitus (HCC) Past Surgical History: Procedure Laterality Date ??? APPENDECTOMY 1972 ??? BACK SURGERY ??? BILATERAL KNEE ARTHROSCOPY Bilateral ??? CATARACT EXTRACTION ??? CATARACT EXTRACTION EXTRACAPSULAR W/ INTRAOCULAR LENS IMPLANTATION Bilateral ??? COLONOSCOPY ??? FOOT SURGERY ??? UPPER GASTROINTESTINAL ENDOSCOPY ??? VEIN LIGATION AND STRIPPING Bilateral 2014 Family History: Family History Problem Relation Age of Onset ??? Stomach cancer Mother ??? Colon cancer Mother ??? Coronary artery disease Mother ??? Diabetes Mother ??? Stomach cancer Father ??? Alzheimer's disease Father Social History: Social History Tobacco Use ??? Smoking status: Never ??? Smokeless tobacco: Never Substance and Sexual Activity ??? Drug use: Never ??? Sexual activity: Defer Alcohol Use: Not At Risk (09/18/2024) AUDIT-C ??? Frequency of Alcohol Consumption: Monthly or less ??? Average Number of Drinks: 1 or 2 ??? Frequency of Binge Drinking: Never Allergies: Allergies Allergen Reactions ??? Coconut Rash Flomax [Tamsulosin] Nausea & Vomiting and Nausea only Sucralfate Stomach upset and Nausea & Vomiting Medications: Current Outpatient Medications: ??? albuterol HFA (PROVENTIL HFA,VENTOLIN HFA,PROAIR HFA) 90 mcg/actuation inhaler, Inhale 2 puffs as needed, Disp: , Rfl: ??? amiodarone (PACERONE) 200 mg tablet, Take 1 tablet (200 mg total) by mouth daily (Patient taking differently: Take 0.5 tablets (100 mg total) by mouth daily), Disp: , Rfl: ??? apixaban (ELIQUIS) 5 mg tablet, Take 1 tablet (5 mg total) by mouth 2 (two) times a day, Disp: , Rfl: ??? atorvastatin (LIPITOR) 80 mg tablet, , Disp: , Rfl: ??? blood glucose diagnostic (glucose blood) strip, Use 4 times a day as needed, Disp: 200 each, Rfl: 5 ??? blood-glucose meter,continuous (Dexcom G7 Medical Administrative) misc, Dexcom G7 welder operator use daily to monitor blood sugar., Disp: 1 each, Rfl: 1 ??? dapagliflozin propanediol (FARXIGA) 10 mg tablet, 1 tablet (10 mg total) daily, Disp: , Rfl: ??? ergocalciferol, vitamin D2, 50 mcg (2,000 unit) tablet, Take by mouth once a week, Disp: , Rfl: ??? furosemide (LASIX) 80 mg tablet, Take 1 tablet (80 mg total) by mouth daily, Disp: , Rfl: ??? guaiFENesin ER (MUCINEX) 600 mg 12 hr tablet, Take 2 tablets (1,200 mg total) by mouth 2 (two) times a day, Disp: , Rfl: ??? HumaLOG 100 unit/mL pen for injection, INJECT 0-15 UNITS UNDER THE SKIN 3 TIMES DAILY WITH MEALS, Disp: 15 mL, Rfl: 5 ??? LANTUS 100 unit/mL (3 mL) pen for injection, Inject 25 Units under the skin daily, Disp: 15 mL,Rfl: 5 ??? oxyCODONE-acetaminophen (PERCOCET) 10-325 mg per tablet, 10-325 mg every 6 (six) hours, Disp: ,Rfl: ??? pen needle, diabetic (BD Johanna 2nd Gen Pen Needle) 32 gauge x 5/32 needle, USE TO INJECT INSULIN UP TO FOUR TIMES DAILY, Disp: 100 each, Rfl: 2 ??? potassium chloride ER 20 mEq CR tablet, Take 1 tablet (20 mEq total) by mouth Three times a week, Disp: , Rfl: ??? senna-docusate (PERICOLACE) 8.6-50 mg, Take 3 tablets by mouth daily as needed, Disp: , Rfl: ??? spironolactone (ALDACTONE) 25 mg tablet, Take 0.5 tablets (12.5 mg total) by mouth daily, Disp:, Rfl: ??? tadalafiL (CIALIS) 20 mg tablet, Take 1 tablet (20 mg total) by mouth 2 (two) times a day as needed for erectile dysfunction, Disp: , Rfl: ??? tirzepatide (Mounjaro) 5 mg/0.5 mL pen injector, INJECT 5 MG SUBCUTANEOUSLY EVERY 7 DAYS, Disp:2 mL, Rfl: 1 ??? tirzepatide (Mounjaro) 7.5 mg/0.5 mL pen injector injection, INJECT 7.5 MG SUBCUTANEOUSLY WEEKLY, Disp: 2 mL, Rfl: 1 ??? TiZANidine (ZANAFLEX) 4 mg capsule, Take 1 capsule (4 mg total) by mouth 2 (two) times a day, Disp: , Rfl: ??? topiramate (TOPAMAX) 200 mg tablet, Take 2 tablets (400 mg total) by mouth nightly, Disp: , Rfl: ??? tirzepatide (Mounjaro) 10 mg/0.5 mL pen injector injection, Inject 0.5 mL (10 mg total) under the skin once a week, Disp: 2 mL, Rfl: 1 Depression Screen: PHQ Screening PHQ-2 Total Score (If total score is 3 or more points, staff should administer the PHQ-9): 0 Vitals: Vitals BP 134/70 (BP Location: Left arm, Patient Position: Sitting) Pulse 62 Temp 36.2 ??C (97.2 ??F) (Temporal) Resp 16 Ht 180.3 cm (5' 11) Wt 121.6 kg (268 lb) SpO2 97% BMI 37.38 kg/m?? Body mass index is 37.38 kg/m??. Exam: Physical Exam Constitutional: General: He is not in acute distress. Appearance: Normal appearance. Cardiovascular: Rate and Rhythm: Normal rate and regular rhythm. Pulmonary: Effort: Pulmonary effort is normal. Breath sounds: Normal breath sounds. Abdominal: Hernia: A hernia (Small umbilical) is present. Musculoskeletal: Right lower leg: No edema. Left lower leg: No edema. Lymphadenopathy: Cervical: No cervical adenopathy. Skin: Comments: Cyst on back of scalp Neurological: General: No focal deficit present. Mental Status: He is alert and oriented to person, place, and time. Care Team Providers: Patient Care Team: Emilio Frey DO as PCP - General (Family Practice) Primary Pharmacy/DME suppliers: [id number] [place], [place] - [address] [facility] [address] [facility] [address] [facility] [place], [place] - [address] [facility] [address] [facility] [id number] Detection of Cognitive Impairment: The patient does not have cognitive impairment based on direct observation, discussion with patientor family, or review of medical records. Health Maintenance: Health Maintenance Topics with due status: Overdue Topic Date Due Prostate Cancer Screening-PSA Never done Hepatitis C Screening Never done Foot Exam Never done Hepatitis B Screening Never done Zoster Vaccine Never done Pneumococcal vaccine 65+ 12/19/2014 DTaP/Tdap/Td Vaccine 01/16/2024 Lipid Panel 05/14/2024 eGFR 05/14/2024 Albumin Creatinine Ratio, Urine 08/12/2024 Dilated Eye Exam 05/19/2025 Health Maintenance Topics with due status: Due On Topic Date Due Hemoglobin A1C 06/06/2025 Health Maintenance Topics with due status: Not Due Topic Last Completion Date Influenza Vaccine 12/14/2016 Colon Cancer Screening-Colonoscopy 09/22/2024 Fall Risk Assessment 06/07/2025 Depression Screening 06/07/2025 Well Visit 65+ 06/07/2025 Health Maintenance Topics with due status: Discontinued Topic Date Due Colon Cancer Screening-DNA Stool Discontinued Colon Cancer Screening-CT Colonography Discontinued Colon Cancer Screening-FIT Discontinued Colon Cancer Screening-Sigmoidoscopy Discontinued Counseling and Referral of Preventative Services: Opioid Use: Yes; Patient currently has an active prescription for opioid medication. I reviewed patient's use of this medication, risk for Opioid Use Disorder, the intensity of pain and review of current treatment plan, and potential benefit of other non-opioid pain therapies. Lifestyle Recommendations Increase Physical Activity, Reduce Weight, and Improve Diet Advanced Directive Durable Power of Bathroom Tiling Professional: Discussed Today: Living Will: Discussed Today: Assessment and Plan: Diagnoses and all orders for this visit: Routine physical examination (Primary) Type 2 diabetes mellitus with diabetic polyneuropathy, with long-term current use of insulin (HCC) - CBC without differential; Future - Comprehensive metabolic panel; Future - Hemoglobin A1c; Future - Lipid panel; Future - Albumin Creatinine Ratio, Urine; Future - tirzepatide (Mounjaro) 10 mg/0.5 mL pen injector injection; Inject 0.5 mL (10 mg total) under theskin once a week Stage 3b chronic kidney disease (HCC) Gastroesophageal reflux disease without esophagitis Dyslipidemia - Comprehensive metabolic panel; Future - Lipid panel; Future Atherosclerosis of [place] coronary artery of [place] heart without angina pectoris Panlobular emphysema (HCC) Chronic heart failure with preserved ejection fraction (HCC) Benign essential hypertension Hypertensive heart and kidney disease with chronic diastolic congestive heart failure and stage 3b chronic kidney disease (HCC) Degeneration of intervertebral disc of lumbar region with discogenic back pain DARRYL (obstructive sleep apnea) Paroxysmal atrial fibrillation (HCC) Pulmonary hypertension (HCC) Restrictive lung disease Vitamin D deficiency - Vitamin D 25 hydroxy; Future Diabetic nephropathy with proteinuria (HCC) Chronic diastolic congestive heart failure (HCC) Need for hepatitis C screening test - Hepatitis C antibody Blood; Future Need for hepatitis B screening test - Hepatitis B core antibody, total Blood; Future - Hepatitis B surface antibody (immune status) Blood; Future - Hepatitis B Surface Antigen Blood; Future Prostate cancer screening - PSA screen; Future Morbid obesity (HCC) Umbilical hernia without obstruction and without gangrene Scalp cyst Problem List Cardiac and Vasculature Pulmonary hypertension (HCC) (Chronic) Overview Moderate to severe pulmonary hypertension noted on catheterization June 17, 2022 Continue same medications and continue routine cardiology follow-up Benign essential hypertension Overview Chronic, stable condition Continue same medications and routine cardiology follow up Coronary atherosclerosis Overview Coronary artery disease without symptoms He is on a statin Continue with routine cardiology follow up CHF (congestive heart failure) (HCC) Overview Chronic diastolic heart failure Euvolemic status Continue diuretics and same medications Follow up with Cardiology Paroxysmal atrial fibrillation (HCC) Overview Paroxysmal atrial fibrillation currently in sinus rhythm Cardioversion late 2022 He is on amiodarone and Eliquis Continue with Cardiology Dyslipidemia Overview Chronic, stable condition on statin Continue Lipitor Relevant Orders Comprehensive metabolic panel Lipid panel Chronic heart failure with preserved ejection fraction (HCC) Overview Chronic heart failure is stable Euvolemic Continue same medications and routine follow up with Cardiology Hypertensive heart and kidney disease with chronic diastolic congestive heart failure and stage 3b chronic kidney disease (HCC) Overview All conditions are stable Euvolemic Following with cardiology and nephrology Continue same medications Endocrine and Metabolic Type 2 diabetes mellitus with diabetic polyneuropathy, with long-term current use of insulin (HCC) Overview Diabetes with neuropathy and CKD with prior foot ulcerations requiring insulin He was previously on dialysis but now is doing well without and continues to follow with Nephrology He is on a statin (Lipitor) A1c 8.3 today (March 2024) Relevant Medications tirzepatide (Mounjaro) 10 mg/0.5 mL pen injector injection Other Relevant Orders CBC without differential Comprehensive metabolic panel Hemoglobin A1c Lipid panel Albumin Creatinine Ratio, Urine Morbid obesity (HCC) Overview BMI 37 with DM, HTN Weight management would help medical conditions Vitamin D deficiency Overview Chronic, stable condition on daily replacement Continue same medications Relevant Orders Vitamin D 25 hydroxy Gastrointestinal and Abdominal GERD (gastroesophageal reflux disease) Overview Chronic, stable condition requiring medication Continue diet modifications Genitourinary and Reproductive Stage 3b chronic kidney disease (HCC) Overview CKD is stable Continue with Nephrology GFR 31 in August 2023 GFR 37 in December 2022 Diabetic nephropathy with proteinuria (HCC) Overview DM with CKD stable and following with Nephrology Neuro Lumbar degenerative disc disease Overview Chronic low back pain Trying to stay active Weight management discussed Pulmonary and Pneumonias Chronic obstructive pulmonary disease (HCC) Overview COPD is stable not requiring inhalers Continue with routine pulmonology follow up Restrictive lung disease Overview Obstructive and restrictive lung disease is overall stable and following with Pulmonology Sleep DARRYL (obstructive sleep apnea) Overview DARRYL is stable Continue nightly CPAP use Health Encounters Routine physical examination - Primary Overview August 18, 2022 February 26, 2024 June 07, 2025 He gets labs with Nephro every 3-4 months - I gave him an order to get routine labs with next draw (Unfortunately I don't have access to any of the labs from his consultants) Continue to monitor the knot on back of head Continue to monitor umbilical hernia Can see Surg at any time if he wants further eval on either above issues Increase Mounjaro to 10mg weekly Cont with consultants: Cardio - Dr. Deluca Pulhilda - Dr. Ruffin Nephro - Dr. Holcomb Patient here for annual Medicare wellness visit and for review of complete medical problem list. All the elements of the plan were completed as outlined by CMS. A copy of the prevention plan was given to the patient. I reviewed Medicare Wellness Questionnaire (other physicians involved in care, depression screen, advanced directives), cognitive/memory, and functional assessment. I reviewed and updated the complete problem list, medication list, family history, and immunization records with the patient. I provided preventive counseling and early detection interventions to the patient through health maintenance update and summary of today's office visit. Overall stable All chronic conditions reviewed and discussed All chronic conditions are stable and compensated Medications reviewed Continue same medications Comply with diet Comply with suggestions for healthy lifestyle Follow-up in 6 months or sooner if needed Previous labs reviewed Immunizations reviewed Colonoscopy:August 2024 - repeat 5 years - Dr. Galicia PSA:? Ophthalmology exam:he will make sure up to date No fall risk Patient is still active Good nutrition Non smoker No alcohol misuse No depression No incontinence Emilio Frey DO documented in this encounter Plan of Treatment Scheduled Orders Name Type Priority Associated Diagnoses Orde r Schedule CBC without differential Lab Routine Type 2 diabetes mellitus with diabetic polyneuropathy, with long-term current use of insulin (HCC) Expected: 06/07/2025, Expires: 06/07/2026 Comprehensive metabolic panel Lab Routine Type 2 diabetes mellitus with diabetic polyneuropathy, with long-term current use of insulin (HCC) Dyslipidemia Expected: 06/07/2025, Expires: 06/07/2026 Hemoglobin A1c Lab Routine Type 2 diabetes mellitus with diabetic polyneuropathy, with long-term current use of insulin (HCC) Expected: 06/07/2025, Expires: 06/07/2026 Hepatitis B core antibody, total Blood Microbiology Routine Need for hepatitis B screening test Expected: 06/10/2025, Expires: 06/07/2026 Hepatitis B surface antibody (immune status) Blood Microbiology Routine Need for hepatitis B screening test Expected: 06/10/2025, Expires: 06/07/2026 Hepatitis B Surface Antigen Blood Microbiology Routine Need for hepatitis B screening test Expected: 06/10/2025, Expires: 06/07/2026 Hepatitis C antibody Blood Microbiology Routine Need for hepatitis C screening test Expected: 06/07/2025, Expires: 06/07/2026 Lipid panel Lab Routine Type 2 diabetes mellitus with diabetic polyneuropathy, with long-term current use of insulin (HCC) Dyslipidemia Expected: 06/07/2025, Expires: 06/07/2026 PSA screen Lab Routine Prostate cancer screening Expected: 06/07/2025, Expires: 06/07/2026 Vitamin D 25 hydroxy Lab Routine Vitamin D deficiency Expected: 06/07/2025, Expires: 06/07/2026 Albumin Creatinine Ratio, Urine Lab Routine Type 2 diabetes mellitus with diabetic polyneuropathy, with long-term current use of insulin (HCC) Expected: 06/07/2025, Expires: 06/07/2026 documented as of this encounter Visit Diagnoses Diagnosis Routine physical examination- Primary Routine general medical examination at a health care facility Type 2 diabetes mellitus with diabetic polyneuropathy, with long-term current use of insulin (HCC) Stage 3b chronic kidney disease (HCC) Gastroesophageal reflux disease without esophagitis Esophageal reflux Dyslipidemia Other and unspecified hyperlipidemia Atherosclerosis of [place] coronary artery of [place] heart without angina pectoris Panlobular emphysema (HCC) Other emphysema Chronic heart failure with preserved ejection fraction (HCC) Benign essential hypertension Essential hypertension, benign Hypertensive heart and kidney disease with chronic diastolic congestive heart failure and stage 3b chronic kidney disease (HCC) Degeneration of intervertebral disc of lumbar region with discogenic back pain DARRYL (obstructive sleep apnea) Obstructive sleep apnea (adult) (pediatric) Paroxysmal atrial fibrillation (HCC) Atrial fibrillation Pulmonary hypertension (HCC) Other chronic pulmonary heart diseases Restrictive lung disease Other diseases of lung, not elsewhere classified Vitamin D deficiency Diabetic nephropathy with proteinuria (HCC) Chronic diastolic congestive heart failure (HCC) Need for hepatitis C screening test Special screening examination for other specified viral diseases Need for hepatitis B screening test Prostate cancer screening Special screening for malignant neoplasm of prostate Morbid obesity (HCC) Morbid obesity Umbilical hernia without obstruction and without gangrene Scalp cyst Sebaceous cyst documented in this encounter Care Teams Gas Charger Relationship Specialty Start Date End Date Emilio Frey DO PCP - General Family Practice 05/25/19 documented as of this encounter
--- OUTSIDE RECORDS SUMMARY | 2025-06-08 09:20 | XMS_ITS | Encounter Summary ---
Author Organization [facility] Address [address] [place] [address] Care Team Providers Care Paralegal Legal Secretary Name Role Phone Emilio Frey Primary Care Provider Encounter Details Date Type Department Care Team (Late st Contact Info) Description 08/18/2001 Outpatient [facility] [address] [place] [address] [address]. 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 Heart and Vascular - [address] [facility] [address] [address] [facility] [address] [place] [address] [place] [address] [facility] [address] [place] [address] 05/21/2026 10:40 AM CDT Office Visit [facility] Pulmonology - [facility] [address] [place] [phone] Ephraim Ruffin, [address] [place] [address] 05/24/2026 10:00 AM CDT Office Visit 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
--- OUTSIDE RECORDS SUMMARY | 2025-06-08 09:20 | XMS_ITS | Encounter Summary ---
Author Organization [facility] Address [address] [place] [address] Care Team Providers Care Sink Maker Name Role Phone Emilio Frey Primary Care Provider Encounter Details Date Type Department Care Team (Late st Contact Info) Description 06/16/2001 Outpatient [facility] [address] [place] [address] RD. 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 Gender Identity Not on file Sexual Orientation Not on file documented as of this encounter Plan of Treatment Upcoming Encounters Date Type Department Care Team (Late st Contact Info) Description 06/22/2025 10:15 AM CDT Appointment [facility] Heart and Vascular Testing [facility] [address] [place] [address] [place] [address] [facility] [address] [place] [address] 10/16/2025 10:00 AM STRATEGIC ACCOUNT EXECUTIVE Office Visit [facility] Heart and Vascular - [address] [facility] [address] [address] [facility] [address] [place] [address] [place] [address] [facility] [address] [place] [address] 05/21/2026 10:40 AM CDT Office Visit [facility] Pulmonology - [facility] [address] [facility] [address] [place] [phone] Ephraim Ruffin, [address] [place] [address] 05/24/2026 10:00 AM CDT Office Visit [facility] Heart and Vascular - [address] [facility] [address] [address] [facility] [address] [place] [address] Vivian Dawkins, WINDOW GLASS INSTALLER [address] [facility] [address] [place] [address] documented as of this encounter Visit Diagnoses Not on filedocumented in this encounter Additional Health Concerns Infection Onset Date Last Indicated Resolved Time 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
--- OUTSIDE RECORDS SUMMARY | 2025-06-08 09:20 | XMS_ITS | Patient Health Record ---
Author Organization [employer] [facility] Address [address] [place] [address] Care Team Providers Care Hardboard Grinder Name Role Phone Shante Emilio SUN Primary Care Provider Audi Riley Unavailable [phone] Allergies Allergen (clinical drug ingredient) Drug/Non Drug Allergy documented on EMR Reaction Allergy Type Onset Date Status sucralfate Carafate Unknown Drug Allergy Active tamsulosin Flomax Unknown Drug Allergy Active Coconut Oil Unknown Drug Allergy Activ e Reason For Referral Reason (B) bursa inj Diagnosis 1 Trochanteric bursiti s, unspecified hip (M70.60) Referred Organization [employer] [facility] Referred Provider Audi Silverio Referred Address [address],[place], [place],[address], Referred Provider Specialty Pain Medicin e Procedure 1 MAJOR JOINT INJ (DAVID ULDER, KNEE HIP) WITH U/S GUIDANCE () General Notes no auth needed per n marilou at um[facility]: ref [id number] Kathy 07/05/2024 09:19:20 AM > Referral Priority Routine Reason (B) L4 SNRB Diagnosis 1 Radiculopathy, lumba r region (M54.16) Referred Organization [employer] [facility] Referred Provider Audi Silverio Referred Address [address],[place], [place],[address],[place] Referred Provider Specialty Pain Medicin e Procedure 1 LUMBAR SNRI (08894) General Notes no auth needed per c all to [phone], call ref: [id number] Kathy 09/06/2024 10:44:42 AM > Referral Priority Routine Reason Finding of elevated blood pressure Diagnosis 1 Elevated blood-press ure reading, without diagnosis of hypertension (R03.0) Referral Organization [facility] Referring Provider First Name Audi Referring Provider Last Name Jean Claude Referring Provider Speciality Pain Medic ine Referred Provider Specialty Internal Med icine Referral Priority Routine Reason Finding of elevated blood pressure Diagnosis 1 Elevated blood-press ure reading, without diagnosis of hypertension (R03.0) Referral Organization [facility] Referring Provider First Name Audi Referring Provider Last Name Jean Claude Referring Provider Speciality Pain Medic ine Referred Provider Specialty Internal Med icine Referral Priority Routine Reason Finding of elevated blood pressure Diagnosis 1 Elevated blood-press ure reading, without diagnosis of hypertension (R03.0) Referral Organization [facility] Referring Provider First Name Audi Referring Provider Last Name Jean Claude Referring Provider Speciality Pain Medic ine Referred Provider Specialty Internal Med icine Referral Priority Routine Reason Finding of elevated blood pressure Diagnosis 1 Elevated blood-press ure reading, without diagnosis of hypertension (R03.0) Referral Organization [facility] Referring Provider First Name Audi Referring Provider Last Name Jean Claude Referring Provider Speciality Pain Medic ine Referred Provider Specialty Internal Med icine Referral Priority Routine Reason Finding of elevated blood pressure Diagnosis 1 Elevated blood-press ure reading, without diagnosis of hypertension (R03.0) Referral Organization [facility] Referring Provider First Name Audi Referring Provider Last Name Jean Claude Referring Provider Speciality Pain Medic ine Referred Provider Specialty Internal Med icine Referral Priority Routine Reason Finding of elevated blood pressure Diagnosis 1 Elevated blood-press ure reading, without diagnosis of hypertension (R03.0) Referral Organization [facility] Referring Provider First Name Audi Referring Provider Last Name Jean Claude Referring Provider Speciality Pain Medic ine Referred Provider Specialty Internal Med icine Referral Priority Routine Reason (B) C2/3 and C3/4 MB B #1 Diagnosis 1 Spondylosis without myelopathy or radiculopathy, cervical region (M47.812) Referred Organization [facility] Referred Provider Audi Silverio Referred Address [address],[place],[address],[place] Referred Provider Specialty Pain Medicin e Procedure 1 FACET CERV/THOR (884 90) Procedure 2 FACET CERV/THOR 2ND LEV (19223) General Notes no auth per call to [phone], call ref: [id number], Kayleen Carlos 11/09/2024 01:05:38 PM > Referral Priority Routine Reason Finding of elevated blood pressure Diagnosis 1 Elevated blood-press ure reading, without diagnosis of hypertension (R03.0) Referral Organization [facility] Referring Provider First Name Audi Referring Provider Last Name Jean Claude Referring Provider Speciality Pain Medic ine Referred Provider Specialty Internal Med icine Referral Priority Routine Reason (B) L4 SNRB Diagnosis 1 Radiculopathy, lumba r region (M54.16) Referred Organization [facility] Referred Provider Audi Silverio Referred Address [address],[place], [place],[address],[place] Referred Provider Specialty Pain Medicin e Procedure 1 LUMBAR SNRI (46820) General Notes no auth per call to [phone], call ref: [id number], Kayleen Carlos 02/08/2025 01:31:30 PM > Referral Priority Routine Reason (B) C2/3 and C3/4 MB B #2 Diagnosis 1 Spondylosis without myelopathy or radiculopathy, cervical region (M47.812) Referred Organization [facility] Referred Provider Audi Silverio Referred Address [address],[place], [place],[address],[place] Referred Provider Specialty Pain Medicin e Procedure 1 FACET CERV/THOR (644 90) Procedure 2 FACET CERV/THOR 2ND LEV (27361) General Notes no auth per umr port al, scanned in chart, Kayleen Carlos 04/12/2025 09:23:32 AM > Referral Priority Routine Reason Finding of elevated blood pressure, ref sent to PCP Diagnosis 1 Elevated blood-press ure reading, without diagnosis of hypertension (R03.0) Referral Organization [facility] Referring Provider First Name Audi Referring Provider Last Name Jean Claude Referring Provider Speciality Pain Medic ine Referred Provider Specialty Internal Med icine Referral Priority Routine Medications Medication SIG (Take, Route, Fr equency, Duration) Notes Start Date End Date Status nAkit Active Flomax Active Lipitor Active Potassium Active Farxiga Active Percocet 10-325 MG 1 tab po q 4-6 hr pr n pain; Duration: 30 days 05/10/2025 06/09/2025 Active Topamax 200 MG two pills Orally at bedtime; Duration: 30 days Active Zanaflex 4 MG 2 tablets at bedtime Orally; Duration: 30 days 08/05/2022 08/06/2025 Active MS Contin 60 MG 1 tablet Orally BID; Duration: 30 days Active Eliquis 5 MG as directed Orally Active Social History Tobacco Use: Social History Observation Description Date Details (start date - stop date) Never Smoker NA - NA Tobacco Use/Smoking Question Answer Notes Are you a nonsmoker Alcohol Screen (Audit-C) Question Answer Notes Did you have a drink containing alcohol in the p ast year? No Points 0 Interpretation Negative Tobacco use other than smoking: Question Answer Notes Are you an other tobacco user? No Problems Problem Type SNOMED Code ICD Code Onset Dates Problem Status W/U Status Risk Notes Problem Fear of medical treatment (806596278) Fear of injections and transfusions (F40.231) Active confirmed Problem Essential hypertension (35928399) Essential (primary) hypertension (I10) Active confirmed Problem Localized, primary osteoarthritis of the pelvic region and thigh (800909821) Bilateral primary osteoarthritis of hip (M16.0) Active confirmed Problem Localized, primary osteoarthritis of the pelvic region and thigh (715264165) Unilateral primary osteoarthritis, left hip (M16.12) Active confirmed Problem Localized, primary osteoarthritis (611258903) Bilateral primary osteoarthritis of knee (M17.0) Active confirmed Problem Localized, primary osteoarthritis (595792559) Unilateral primary osteoarthritis, left knee (M17.12) Active confirmed Problem Localized, primary osteoarthritis of the shoulder region (390675392) Primary osteoarthritis, right shoulder (M19.011) Active confirmed Problem Localized, primary osteoarthritis of the shoulder region (957739369) Primary osteoarthritis, left shoulder (M19.012) Active confirmed Problem Localized, primary osteoarthritis of the wrist (341422037) Primary osteoarthritis, 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) Active confirmed Problem Solitary sacroiliitis (080597625) Sacroiliitis, not elsewhere classified (M46.1) Active confirmed Problem Cervical spondylosis without myelopathy (363440648) Spondylosis without myelopathy or radiculopathy, cervical region (M47.812) Active confirmed Problem Degeneration of lumbar intervertebral disc (35085823) Other intervertebral disc degeneration, lumbar region (M51.36) Active confirmed Problem Degeneration of lumbosacral intervertebral disc (30261723) Other intervertebral disc degeneration, lumbosacral region (M51.37) Active confirmed Problem Cervical radiculopathy (81567610) Radiculopathy, cervical region (M54.12) Active confirmed Problem Lumbar radiculopathy (452682850) Radiculopathy, lumbar region (M54.16) Active confirmed Problem Chronic neck pain (1044473720403) Cervicalgia (M54.2) Active confirmed Problem Low back pain (926168444) Low back pain (M54.5) Active confirmed Problem Muscle pain (71159960) Other myositis, multiple sites (M60.89) Active confirmed Problem Myositis (61065633) Myositis, unspecified (M60.9) Active confirmed Problem Elevated blood pressure reading without diagnosis of hypertension (043925812) Elevated blood-pressure reading, without diagnosis of hypertension (R03.0) Active confirmed Problem Degeneration of cervical intervertebral disc (09475440) Other cervical disc degeneration at C5-C6 level (M50.322) Active confirmed Vital Signs Heart Rate 74 /min 05/10/2025 Temperature 98.2 degrees Fahrenheit 05/10/2025 Respiratory Rate 18 /min 05/10/2025 Blood pressure diastolic 64 mm Hg 05/10/2025 Height 72 in 05/10/2025 Blood pressure systolic 120 mm Hg 05/10/2025 Weight 260 lbs 05/10/2025 BMI 35.26 kg/m2 05/10/2025 Encounters Encounter Location Date Provider Diagnosis [facility] [address] [place] [address] [address] [place] [address] 07/05/2024 Audi Silverio Bilateral primary osteoarthritis of knee M17.0 and Primary osteoarthritis, left shoulder M19.012 [facility] [address] [place] [address] [address] [place] [address] 07/26/2024 Audi Silverio Sacroiliitis, not elsewhere classified M46.1 ; Primary osteoarthritis, right shoulder M19.011 ; Other intervertebral disc degeneration, lumbar region M51.36 and Fear of injections and transfusions F40.231 [facility] [address] [place] [address] [place] [address] 09/06/2024 Audi Silverio Radiculopathy, lumba r region M54.16 and Other intervertebral disc degeneration, lumbar region M51.36 [facility] [address] [place] [phone] 10/18/2024 Audi Silverio Radiculopathy, lumba r region M54.16 ; Elevated blood-pressure reading, without diagnosis of hypertension R03.0 and Bilateral primary osteoarthritis of knee M17.0 [facility] [address] [place] [address] 11/08/2024 Audi Silverio Sacroiliitis, not elsewhere classified M46.1 ; Other intervertebral disc degeneration, lumbar region M51.36 and Spondylosis without myelopathy or radiculopathy, cervical region M47.812 [facility] [address] [place] [address] 12/13/2024 Audi Silverio Spondylosis without myelopathy or radiculopathy, cervical region M47.812 [facility] [address] [place] [address] 02/07/2025 Audi Silverio Radiculopathy, lumba r region M54.16 and Other intervertebral disc degeneration, lumbar region M51.36 [facility] [address] [place] [address] [place] [phone] 03/08/2025 Auid Silverio Radiculopathy, lumba r region M54.16 [facility] [address] [place] [address] 04/12/2025 Audi Silverio Bilateral primary osteoarthritis of knee M17.0 and Spondylosis without myelopathy or radiculopathy, cervical region M47.812 [facility] [address] [place] [address] 05/10/2025 Audiaramis Silverio Spondylosis without myelopathy or radiculopathy, cervical region M47.812 [facility] [address] [facility] [address] [place] [address] 07/05/2024 Audi Silverio [facility] [address] [place] [address] [place] [address] 09/06/2024 Audi Silverio [facility] [address] [facility] [address] [place] [phone] 11/08/2024 Audi Silverio [facility] [address] [place] [address] 02/07/2025 Audi Silverio [facility] [address] [place] [address] [place] [phone] 04/12/2025 Audi Iglesiasalize Assessments Encounter Date Diagnosis (ICD Code) Assessment Notes Treatment Notes Treatment Clinical Notes Section Notes 07/05/2024 Bilateral primary osteoarthritis of knee (ICD-10 - M17.0) 1. Proceed with ultrasound-guided bilateral knee joint injections.2. Continue medication regimen.3. Return to clinic in 1 month. 07/26/2024 Sacroiliitis, not elsewhere classified (ICD-10 - M46.1) 1. Proceed with bilateral sacroiliac joint injections.2. Continue medication regimen.3. Return to clinic in 1 month for follow-up. 09/06/2024 Radiculopathy, lumbar region (ICD-10 - M54.16) 1. Schedule patient for bilateral L4 selective nerve root blocks. Will also perform bilateral knee joint injections at that time.2. Continue medication regimen. Patient does not need refills at this time.3. Return to clinic for above procedure. 10/18/2024 Radiculopathy, lumbar region (ICD-10 - M54.16) 1. Proceed with bilateral L4 selective nerve root blocks.2. Continue medication regimen. Patient is due for all meds at this time.3. Return to clinic in 1 month for medication management. 11/08/2024 Sacroiliitis, not elsewhere classified (ICD-10 - M46.1) For above procedure after insurance authorization and medication management. 1. Schedule patient for bilateral two-level cervical facet blocks at the C2-C3 and C3-C4 levels via medial branch nerve blocks.2. Continue medication regimen. Patient is due for his Percocet as needed at this time.3. Return 02/07/2025 Radiculopathy, lumbar region (ICD-10 - M54.16) 1. Schedule patient for bilateral L4 selective nerve root block.2. Continue medication regimen.3. Return to clinic in 1 month for above procedure. 03/08/2025 Radiculopathy, lumbar region (ICD-10 - M54.16) I will proceed today with a bilateral L4 transforaminal lumbar epidural steroid injection under fluoroscopic guidance. The risk of this procedure were discussed with the patient in which they verbalized understanding and wished to proceed. The patient will continue to be a part of an active comprehensive pain management program as tolerated, while and after the treatment plan is carried out. Continuation of these procedures are due to pain being severe enough to cause a significant degree of functional disability or vocational disability. . Patients primary care provider has been notified regarding continuation of procedures and prolonged repeat steroid use. 04/12/2025 Bilateral primary osteoarthritis of knee (ICD-10 - M17.0) 1. Proceed with ultrasound guided bilateral knee joint injections.2. Continue medication regimen.3. Return to clinic in 1 month. 12/13/2024 Spondylosis without myelopathy or radiculopathy, cervical region (ICD-10 - M47.812) 1. Proceed with bilateral two-level cervical facet joint blocks at the C2-C3 and C3-C4 levels.2. Continue medication regimen.3. Return to clinic in 1 month. 05/10/2025 Spondylosis without myelopathy or radiculopathy, cervical region (ICD-10 - M47.812) 1. Proceed bilateral two-level cervical facet joint injections at the C2-C3 and C3-C4 levels.2. Continue medication regimen.3. Return to clinic in 1 month. 02/07/2025 Other intervertebral disc degeneration, lumbar region (ICD-10 - M51.36) 04/12/2025 Spondylosis without myelopathy or radiculopathy, cervical region (ICD-10 - M47.812) 1. Proceed with bilateral multilevel cervical facet blocks at the C2-C3 and C3-C4 levels. Patient is having recurrence of his axial cervical spine pain associated headaches. He denies significant radicular symptoms. Comprehensive pain manage program is not adequate controlling. He is responded well to cervical facet joint blocks in the past giving him good relief and return to function. This was last performed in November providing him greater than 70% improvement lasting over 90 days. 09/06/2024 Other intervertebral disc degeneration, lumbar region (ICD-10 - M51.36) 11/08/2024 Other intervertebral disc degeneration, lumbar region (ICD-10 - M51.36) 10/18/2024 Elevated blood-pressure reading, without diagnosis of hypertension (ICD-10 - R03.0) 07/26/2024 Primary osteoarthritis, right shoulder (ICD-10 - M19.011) 1. Proceed with a right shoulder joint injection. 07/05/2024 Primary osteoarthritis, left shoulder (ICD-10 - M19.012) 1. Proceed with a left shoulder joint injection. 07/26/2024 Other intervertebral disc degeneration, lumbar region (ICD-10 - M51.36) 10/18/2024 Bilateral primary osteoarthritis of knee (ICD-10 - M17.0) 1. Proceed with bilateral knee joint injections. 11/08/2024 Spondylosis without myelopathy or radiculopathy, cervical region (ICD-10 - M47.812) 07/26/2024 Fear of injections and transfusions (ICD-10 - F40.231) 12/13/2024 Other The risk of thi s [...] of procedures and prolonged repeat steroid use. 02/07/2025 Other The risk of thi s procedure [...] of procedures and prolonged repeat steroid use. 04/12/2025 Other The risk of thi s procedure [...] of procedures and prolonged repeat steroid use. 05/10/2025 Other The risk of thi s procedure were discussed with the patient in which they verbalized understanding and wished to proceed. The patient will continue to be part of a comprehensive pain management program. Continuation of these procedures are due to the procedure providing at least 50% sustained improvement of pain and/or 50% objective improvement in function (using same scale as baseline) . Patients primary care provider has been notified regarding continuation of procedures and prolonged repeat steroid use. Plan Of Treatment Pending Test Test Name Order Date MRI : Shoulder, left 07/06/2017 X ray : Wrist, left 01/26/2018 X ray: Bilateral Knees 08/21/2020 Next Appt Details Provider Name:Audi barrios, 07/12/2025 08:00:00 AM, [address] [place] [address], [address], [phone], Provider Name:Audi barrios, 08/09/2025 08:00:00 AM, [facility], [address] [place] [address], [phone], Provider Name:Audi barrios, 09/06/2025 08:00:00 AM, [address] [place] [address], [address], [address], Provider Name:Audi barrios, 10/11/2025 08:00:00 AM, [facility], [address] [place] [address], [address], Provider Name:Audi Dangelo barrios, 11/07/2025 08:00:00 AM, [address] [facility], [facility] [address], [place], [address], Insurance Providers Payer Name Payer Address Payer Phone Subscriber Number Group Number Insured Name Patient Relationship to Insured Coverage Start Date Coverage End Date [employer] [address] [address] [place] [address] [phone] [id number] [phone] Graciela Sultana Spouse - patient is the spouse of the insured 3 MEDICARE SERVICES [address] [address] [place] [address] [phone] [id number] Emilio Sutlana Self - patient is the insured 4 Medical (General) History Medical History History ICD Code Cervicalgia Unspecified myalgia and myositis Primary localized osteoarthrosis, lower leg Degeneration of cervical intervertebral disc Brachial neuritis or radiculitis nos. Displacement of cervical intervertebral disc without myelopathy Primary localized osteoarthrosis, should er region Surgical History Surgery Date(Month/Year) left knee 07/09/2016 left shoulder 10/2017 Hospitalization History Reason Date(Month/Year) leg infection/kidneys 11/2022 cardio version/kidneys 11/19/22-12/07/22 Infection in left foot 01/2019 Kidney Infection 12/2017
--- OUTSIDE RECORDS SUMMARY | 2025-06-08 09:20 | XMS_ITS | Clinical Summary ---
Author Organization [employer] [id number] [facility] Address [address] [place] [address] Care Team Providers Care Footwear Stitcher Name Role Phone ShanteAmy Primary Care Provider Allergies Active Allergy Reactions Criticality Noted Date Comments Coconut Hives High 08/18/2021 Sucralfate Nausea and Vomiting Low Tamsulosin Other (See Comments) 07/22/2022 Tamsulosin Hcl Nausea and Vomiting Low Medications albuterol HFA 90 mcg inhaler Take 2 Puffs by inhalation every 6 hours as needed for Shortness of Breath. Active oxyCODONE-aceta minophen (PERCOCET) 10-325 mg Tablet Take 1 Tablet by mouth every 4 hours as needed for Pain, Severe. Active topiramate (TOPAMAX) 200 mg tablet Take 400 mg by mouth daily at bedtime. Active sennosides-docu sate sodium (SENNA-S) 8.6-50 mg tablet Take 1 Tablet by mouth daily. 023 Active insulin lispro (HumaLOG) 100 unit/mL pen syringe Inject 0-15 Units by subcutaneous injection 4 times daily with meals and at bedtime. 15 mL 2 023 Active tiZANidine (ZANAFLEX) 4 mg Tablet Take 1 Tablet (4 mg) by mouth nightly as needed for Spasm or Pain. 1 Tablet 023 Active Additional Information Patient taking differently: 8 mgOral NIGHTLY PRN, Spasm, Pain, Reported on 05/21/2025 potassium chloride (KLOR-CON) 20 mEq Extended Release tablet Take 20 mEq by mouth every Wednesday, Wednesday, and Wednesday. 023 Active dapagliflozin propanediol (Farxiga) 10 mg Tablet Take 10 mg by mouth daily. Active ergocalciferol (VITAMIN D2) 50,000 unit capsule Take 50,000 Units by mouth every 7 days. Active tirzepatide (Mounjaro) 5 mg/0.5 mL Pen Injector Inject 7.5 mg by subcutaneous injection every 7 days. Active amiodarone (CORDARONE) 200 mg tabletIndicatio ns:Paroxysmal atrial fibrillation (CMS/HCC) Take 0.5 Tablets (100 mg) by mouth daily. 45 Tablet 1 024 Active apixaban (Eliquis) 5 mg tablet Take 1 tablet by mouth twice daily 180 Tablet 025 Active spironolactone (ALDACTONE) 25 mg tablet Take 0.5 Tablets (12.5 mg) by mouth daily. 45 Tablet 1 025 Active tadalafil (ADCIRCA) 20 mg Tablet tablet TAKE 2 TABLETS BY MOUTH 1 TIME A DAY 180 Tablet 025 Active Blood-Glucose Meter,Continuou s (Dexcom G7 Digital Coordinator) Dexcom G7 service order dispatcher chief use daily to monitor blood sugar. 025 Active Insulin Fortson, Disposable, 32 gauge x 5/32 Needle USE TO INJECT INSULIN UP TO FOUR TIMES DAILY 025 Active insulin glargine (Lantus Solostar U-100 Insulin) 100 unit/mL pen syringe Inject 25 Units by subcutaneous injection daily. 025 Active furosemide (LASIX) 80 mg tablet Take 1 Tablet (80 mg) by mouth daily. 90 Tablet 3 025 Active atorvastatin (LIPITOR) 80 mg tablet Take 1 tablet by mouth once daily 90 Tablet 025 Active insulin glargine-yfgn 100 unit/mL pen syringe Inject 15 Units by subcutaneous injection daily with breakfast. 30 mL 2 023 2024 Discontinued furosemide (LASIX) 80 mg tablet Take 1 Tablet (80 mg) by mouth daily. 90 Tablet 3 024 2024 Discontinued(R eorder) atorvastatin (LIPITOR) 80 mg tablet Take 1 tablet by mouth once daily 90 Tablet 025 2024 Discontinued Active Problems Patient Care Coordination No te Formatting of this note migh t be different from the original. Dr Amy Frey [phone] Practice moved this is updated phone number [...] (05/29/2022): Added automatically from request for surgery [id number] Other hyperlipidemia 10/07/2020 Diastolic CHF, chronic 08/25/2019 Dyslipidemia 08/25/2019 T2DM (type 2 diabetes mellitus) 05/05/2019 Overview (05/05/2019): Overview: BS 196 this a.m. Coronary atherosclerosis 11/18/2017 HTN (hypertension) 03/20/2015 DARRYL (obstructive sleep apnea) 09/20/2014 Acute on chronic renal insufficiency 12/19/2013 Paroxysmal atrial fibrillation 12/30/2011 Encounters Date Type Department Care Team Description 06/04/2025 Refill [facility] Heart and Vascular - [address] [place] [address] Maurice Deluca MD 05/21/2025 10:00 AM CDT Office Visit [facility] [address] [place] [phone] Ephraim Ruffin DO DARRYL (obstructive sleep apnea) (Primary Dx); Pulmonary hypertension (CMS/HCC); Mild intermittent asthma without complication; Paroxysmal atrial fibrillation (CMS/HCC); Stage 3b chronic kidney disease (CMS/HCC); Chronic heart failure with preserved ejection fraction (CMS/HCC) 05/18/2025 1:15 PM CDT Office Visit [facility] Heart and Vascular - [address] [place] [address] Maurice Deluca MD Paroxysmal atrial fibrillation (CMS/HCC) (Primary Dx); Essential (primary) hypertension; Diastolic CHF, chronic (CMS/HCC); Other hyperlipidemia; Secondary pulmonary arterial hypertension (CMS/HCC); Chronic venous htn w inflammation of bilateral low extrm; Pulmonary artery hypertension (CMS/HCC) 05/11/2025 Orders Only [facility] Heart and Vascular - [address] [place] [address] Elmer Parisi MD Paroxysmal atrial fibrillation ([facility]/HCC) (Primary Dx); Encounter for long-term (current) use of medications 05/01/2025 External Device Data STL ABSTRACTION Provider, Abstract 04/10/2025 10:45 AM CDT Office Visit [facility] Heart and Vascular - [address] [place] [phone] Elmer Parisi MD Paroxysmal atrial fibrillation (CMS/HCC) (Primary Dx); Encounter for long-term (current) use of medications; longterm (current) use of anticoagulants; buttermaker current use of antiarrhythmic drug 04/09/2025 Refill [facility] Heart [facility] - [address] [address] [facility] [address] [place] [address] Maurice Deluca MD 04/09/2025 [facility]ill [facility] - [address] [place] [address] Maurice Deluca MD 04/09/2025 Refill [facility] Heart [facility] - [address] [place] [address] Mary Lou Dang NP 04/09/2025 Refill [facility] Heart [facility] - [address] [place] [address] Maurice Deluca MD 03/09/2025 Refill [facility] Heart [facility] - [address] [place] [address] Maurice Deluca MD from Last 3 Months Family History Medical History Relation Name Comments Cardiomyopathy Father Cardiomyopathy Mother Coronary Artery Disease Sister Relation Name Status Comments Father Mother Sister Social History Tobacco Use Types Packs/Day Years Used Date Smoking Tobacco: Former Cigarettes 0.3 1 1 978 - 1978 Passive Smoke Exposure: Never Smokeless Tobacco: Never Alcohol Use Standard [...] on file 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 Gender Identity Not on file Sexual Orientation Not on file Last Filed Vital Signs Vital Sign Reading Time Taken Comments Blood Pressure 128/72 05/21/2025 9:50 AM CDT Pulse 64 05/21/2025 9:50 AM CDT Temperature 36.6 C (97.9 F) 05/21/2025 9:50 AM CDT Respiratory Rate 16 05/21/2025 9:50 AM CDT Oxygen Saturation 96% 05/21/2025 9:50 AM CDT Inhaled Oxygen Concentration - - Weight 123.4 kg (272 lb) 05/21/2025 9:50 AM CDT Height 177.8 cm (5' 10) 05/21/2025 9:50 AM CDT Body Mass Index 39.03 05/21/2025 9:50 AM CDT Plan of Treatment Upcoming Encounters Date Type Department Care Team (Late st Contact Info) Description 06/22/2025 10:15 AM CDT Appointment [facility] Heart and Vascular Testing [facility] [address] [facility] [address] [place] [address] [place] [address] [facility] [address] [place], [place] [phone] 10/16/2025 10:00 AM ROLLER MILL OPERATOR Office Visit [facility] Heart and Vascular - [address] [facility] [address] [address] [facility] [address] [place] [address] [place] [address] [facility] [address] [place] [phone] 05/21/2026 10:40 AM CDT Office Visit [facility] Pulmonology - [facility] [address] [facility] [address] [place] [address] [place] [address] [facility] [address] [place] [address] 05/24/2026 10:00 AM CDT Office Visit [facility] Heart and Vascular - [address] [facility] [address] [place] [address] Vivian Dawkins, FENDER MECHANIC [address] [place] [address] Health Maintenance Due Date Last Done Comments DIABETES ANNUAL FOOT EXAM 1977 DIABETES ANNUAL RETINAL EXAM 1977 DIABETES MICROALBUMIN ANNUAL SCREEN 1977 FIT-DNA Q 3 years 2004 FIT/FOBT Q 1 year 2004 Flex Sig/CT Colonography Q 5 years 2004 ZOSTER VACCINE (1 of 2) 2009 PNEUMOCOCCAL VACCINE 50+ YEA RS (2 of 2 - PCV) 12/19/2014 12/19/2013 RSV VACCINE (60+ or ) (1 - Risk 60-74 years 1-dose series) 2019 LDL CHOLESTEROL ANNUAL 09/01/2020 09/01/2019 DTAP/TDAP/TD VACCINES (2 - T d or Tdap) 01/16/2024 01/16/2014 DIABETES HBA1C Q 6 MONTHS 06/06/20252024, 04/27/2024, 11/24/2022, Additional history exists INFLUENZA VACCINE (#1) 2025 COLORECTAL SCREENING 09/22/2034 09/22/2024, 09/22/2024, 11/03/2019, Additional history exists Colorectal Cancer Screening 09/22/2034 Abdominal Aortic Aneurysm (A AA) Screening Completed 11/27/2013 Procedures Procedure Name Priority Date/Time Associated Diagnosis Comments NC ECG ROUTINE ECG W/LEAST 12 LDS W/I&R Routine 04/10/2025 10:45 AM CDT Paroxysmal atrial fibrillation (CMS/HCC) Encounter for long-term (current) use of medications buttermaker current use of antiarrhythmic drug HEMOGLOBIN A1C Routine 11/24/2022 2:14 AM ROLLER MILL OPERATOR LIPID PANEL Routine 09/01/2019 Dyslipidemia Type 2 diabetes mellitus without complication, without long-term current use of insulin ([facility]) from Last 3 Months or Most Recently Relevant to Health Maintenance Results * NC ECG ROUTINE ECG W/LEAST 12 LDS W/I&R (04/10/2025 10:45 AM CDT) Narrative Aliza Montiel - 04/10/2025 10:45 AM CDT Elmer Parisi MD 04/10/2025 11:57 AM EKG Date/Time: 04/10/2025 10:45 AM Performed by: Elmer Parisi MD Authorized by: Elmer Parisi MD Comments: Sinus rhythm with first-degree AV block, 65 bpm. Procedure Note Elmer Parisi MD - 04/10/2025 10:45 AM CDT Cardiac Electrophysiology Office Progress Note Primary Care Physician Amy Frey DO Subjective: 64 y.o. male presents for follow up. Previously followed by . He has a history of COPD, morbid obesity, sleep apnea, hypertension,diabetes and atrial fibrillation. He was treated with sotalol forparoxsymal atrial fibrillation since 2013. His dose was decreased to 40 mgdue to fatigue but he had recurrent atrial fibrillation and the dose wasincreased back to 80 mg BID. He was cardioverted in January of 2018 andSeptember of 2020. He was found to be in atrial fibrillation at routineoffice visit with Dr. Deluca in early 2021. He underwent cardioversion04/22/22. Echocardiogram 05/21/22 revealed normal LVEF and he has beendiagnosed with moderate to severe pulmonary hypertension. He was back inatrial fibrillation at follow up in October. He was scheduled forcardioversion but was found to be in renal failure so he was admitted [facility] 11/19/22-12/07/22. Sotalol was stopped and he was started onamiodarone. He was readmitted to [facility] 12/09-12/16 withcellulitis. Atrial fibrillation persisted and he underwent cardioversion01/20/23. His kidney function has improved and he is no longer on dialysis.He was found to be in atrial fibrillation at office visit with in July. Amiodarone was increased and he underwentcardioversion 09/01/23. He did well following that. Echocardiogram May2024 showed normal LV systolic function, mild MR, mild LAE. Amiodaronedose was reduced to 100 mg daily in September 2024. Interval Hx 04/10/2025 Maintaining SR on low-dose amiodarone. Denies palpitations. Hasoccasional lightheadedness episodes, but no dewayne syncope. ECG today issinus rhythm with first-degree AV block that is unchanged from priors. Heis compliant with Eliquis denies bleeding issues. He started Mounjaro 6months ago and is lost 30 pounds. CARDIAC DATA REVIEW: EKG Date/Time: 04/10/2025 10:45 AM Performed by: Elmer Parisi MD Authorized by: Elmer Parisi MD Comments: Sinus rhythm withfirst-degree AV block, 65 bpm. Current Outpatient Medications Medication Instructions albuterol HFA 90 mcg inhaler 2 Puffs, EVERY 6 HOURS PRN amiodarone (CORDARONE) 100 mg, Oral, DAILY atorvastatin (LIPITOR) 80 mg, Oral, DAILY Blood Glucose Test Strip Use 4 times a day as needed dapagliflozin propanediol (FARXIGA) 10 mg, DAILY Eliquis 5 mg, Oral, TWO TIMES DAILY ergocalciferol (VITAMIN D2) 50,000 Units, EVERY 7 DAYS furosemide (LASIX) 80 mg, Oral, DAILY insulin glargine-yfgn 15 Units, subCUT, DAILY WITH BREAKFAST insulin lispro (HUMALOG,ADMELOG) 0-15 Units, subCUT, FOUR TIMES DAILYWITH MEALS AND AT BEDTIME oxyCODONE-acetaminophen (PERCOCET) 10-325 mg Tablet 1 Tablet, EVERY 4HOURS PRN potassium chloride (KLOR-CON) 20 mEq Extended Release tablet 20 mEq,WEDNESDAY,WEDNESDAY AND WEDNESDAY sennosides-docusate sodium (SENNA-S) 8.6-50 mg tablet 1 Tablet, Oral,DAILY spironolactone (ALDACTONE) 12.5 mg, Oral, DAILY tadalafil (ADCIRCA) 40 mg, Oral, DAILY tirzepatide (Mounjaro) 5 mg/0.5 mL Pen Injector Inject by subcutaneousinjection. tiZANidine (ZANAFLEX) 4 mg, Oral, NIGHTLY PRN topiramate (TOPAMAX) 400 mg, DAILY AT BEDTIME Review of Systems: A full was obtained. Pertinent positives and negatives are documented inthe HPI. The remainder is negative. Objective: Physical Exam: BP (!) 140/72 Pulse 65 Ht 5' 10 (1.778 m) Wt 120.2 kg (265 lb) BMI 38.02 kg/m General: alert, non distressed HEENT: NCAT, MMM Neck: supple, no JVD CV: Regular rate and rhythm, normal S1-S2, no prominent murmur Pulm: unlabored, CTAB Abdomen: Soft, NTTP Ext: WWP, trace +BLE edema Neuro: grossly non focal Psych: appropriate LABS: Scanned into media. Gets labs drawn at [facility] in [place]. 11/09/2024. TSH as LFTs are WNL. [id number] Moderate-High Risk 4 Total Score 1 Hypertension Hx 1 Heart Failure Hx 1 Diabetes Hx 1 Age Assessment/Plan: ICD-10-CM ICD-9-CM 1. Paroxysmal atrial fibrillation (CMS/HCC) I48.0 427.31 EKG 2. Encounter for long-term (current) use of medications Z79.899 V58.69EKG 3. longterm (current) use of anticoagulants Z79.01 V58.61 4. buttermaker current use of antiarrhythmic drug Z79.899 V58.69 EKG Doing well on very low-dose amiodarone. Continue amiodarone 100 mg daily.Recent TSH/LFTs are WNL. Discussed he needs labs every 6 months formonitoring while on amiodarone. Yearly eye exams. Continue Eliquis. No bleeding issues. RTC in 6 months. Plan discussed with patient; questions answered; patient agrees withcurrent plan. I would like to thank you for allowing me to participate in this patient'scare, if you have any questions regarding their visit today please do nothesitate to contact me at any time. Elmer Parisi MD Cardiac Filer Helper [facility] Heart and Vascular [address] [place] [address], [address] [place] [address] Elmer Parisi MD ECG ORDERABLES Final Result * (ABNORMAL) HEMOGLOBIN A1C (11/24/2022 2:14 AM ROLLER MILL OPERATOR) HEMOGLOBIN A1C 7.2(H) <=5.6 % 11/24/2022 3:34 [address] RO[address] M[address] [facility] Medical Simulation [facility] EST. AVG GLUCOSE, A1C 160 mg/dL 11/24/2022 3:34 AM ROLLER MILL [address] [facility] Medical Simulation [facility] Blood Venipuncture / Unknown 11/24/2022 2:14 AM ROLLER MILL OPERATOR 11/24/2022 3:02 AM ROLLER MILL OPERATOR Narrative [facility] - 11/24/2022 3:34 AM ROLLER MILL OPERATOR HGB A1C INTERPRETATION NORMAL: <5.7% PRE-DIABETES: 5.7 - 6.4% DIABETES: 6.5% OR GREATER Cm Tatum MD CHEMISTRY ORDERABLES Fin al Result [facility] CLIA# [id number] [place] [address] * LIPID PANEL (09/01/2019) Blood Maurice Deluca MD CHEMISTRY ORDERABLES Final Re sult [facility] from Last 3 Months or Most Recently Relevant to Health Maintenance Insurance MEDICARE PART A AND B [facility] CHOICE [id number] RX [employer] RX Member Subscriber Plan / Payer (Ef fective 2022-Present) Name:Amy Sultana Relation to Subscriber:Not on file Name:Amy Sultana Subscriber ID:Not on file Date of :1960 Payer ID:Not on file Type:RX Commercial Address: [address] Advance Directives For more information, please contact: [phone] * Full Code (Latest Code Status on File) Date Activated Date Inactivated Comments 11/19/2022 12:36 PM 12/07/2022 7:23 PM Care Teams Footwear Stitcher Relationship Specialty Start Date End Date Amy Frey DO PCP - General Family Practice 10/05/18
--- OUTSIDE RECORDS SUMMARY | 2025-06-08 09:20 | XMS_ITS | Encounter Summary ---
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
--- OUTSIDE RECORDS SUMMARY | 2025-06-08 09:20 | XMS_ITS | Encounter Summary ---
Author Organization [facility] Address [address] [place] [address] Care Team Providers Care Closing Machine Operator Name Role Phone Shante Emilio Juan DO Primary Care Provider Reason for Visit * Reason Onset Date Comments Pt. Diffused shaking at bedt aaliyah bobby Dr. Doesnt see sh 11/26/2022 Spoke W/ Charo at Dr. Angela sandra's exchange Encounter Details Date Type Department Care Team (Late st Contact Info) Description 11/26/2022 Telephone [facility] Admitting [address] [place] [address] [place] [address] [place] [address] Pt. Diffused shaking at bedunc healthaaliyah Dr. Doesnt see (Spoke W/ Charo at Dr. 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 No / Unsure 11/19/2022 7:29 AM SOYBEAN SPECIALTIES COOK documented as of this encounter Plan of Treatment Upcoming Encounters Date Type Department Care Team (Late st Contact Info) Description 06/22/2025 10:15 AM CDT Appointment [facility] Heart and Vascular [facility] [address] [facility] 300 [place] [address] [place] [address] [facility] 300 [place], [place] [phone] 10/16/2025 10:00 AM SOYBEAN SPECIALTIES COOK Office Visit [facility] Heart and Vascular - [address] [facility] [address] [address] [facility] 202 [place] [phone] Mary Lou Dang, RAISA [address] [facility] 202 [place] [phone] 05/21/2026 10:40 AM CDT Office Visit [facility] Pulmonology - [facility] [address] [facility] [address] [place] [phone] [place] [address] [facility] [address] [place] [phone] 05/24/2026 10:00 AM CDT Office Visit [facility] Heart and Vascular - [address] [facility] [address] [address] [facility] [address] [place] [address] Vivian Dawkins FNP [address] [facility] [address] [place] [phone] documented as of this encounter Visit Diagnoses Not on filedocumented in this encounter Additional Health Concerns Infection Onset Date Last Indicated Resolved Time R/O Respiratory 11/27/2022 11/27/2022 11/27/2022 6 :44 PM SOYBEAN SPECIALTIES COOK documented as of this encounter Care Teams Closing Machine Operator Relationship Specialty Start Date End Date Emilio Frey DO PCP - General Family Practice 10/05/18 documented as of this encounter
--- OUTSIDE RECORDS SUMMARY | 2025-06-08 09:20 | XMS_ITS | Clinical Summary ---
Author Organization [facility] Address [address] [place] [address] Care Team Providers Care Sleeper Cutter Name Role Phone Emilio Frey Primary Care Provider Allergies Active Allergy Reactions [...] 25 Active blood-glucose meter,continuou s (Dexcom G7 Machine Rough Rounder) miscIndications :Type 2 diabetes mellitus with diabetic polyneuropathy, with long-term current use of insulin ([facility]) Dexcom G7 mainspring winder use daily to monitor blood sugar. 1 each 1 01/23/20 25 Active pen needle, diabetic (BD Johanna 2nd Gen Pen Needle) 32 gauge x 5/32 needle USE TO INJECT INSULIN UP TO FOUR TIMES DAILY 100 each 2 02/13/20 25 Active tirzepatide (Mounjaro) 7.5 mg/0.5 mL pen injector injectionIndica tions:Type 2 diabetes mellitus with diabetic polyneuropathy, with long-term current use of insulin ([facility]) INJECT 7.5 MG SUBCUTANEOUSLY WEEKLY 2 mL [...] pulmonology follow up GERD (gastroesophageal reflux disease) Overview (12/07/2024): Chronic, stable condition requiring medication [...] 1st toe, currently being managed by the [facility]. Plan: Continue dressing daily dressing [...] Biliary colic 09/08/2013 04/27/2024 Dyspnea 05/19/2012 04/27/2024 Encounters Date Type Department Care Team Description 06/07/2025 9:30 AM CDT Office Visit [facility] [address] [place] [phone] Emilio Frey DO Routine physical examination (Primary Dx); Type 2 diabetes mellitus with diabetic polyneuropathy, with long-term current use of insulin (HCC); Stage 3b chronic kidney disease (HCC); Gastroesophageal reflux disease without esophagitis; Dyslipidemia; Atherosclerosis of [place] coronary artery of [place] heart without angina pectoris; Panlobular emphysema (HCC); [...] gangrene; Scalp cyst from Last 3 Months Immunizations Immunization Administration Dates Next Due Influenza, Quadrivalent, Spl it, Preservative Free, Intramuscular 12/14/2016 Influenza, Split 12/19/2013 Influenza, Unspecified 12/07/2024(Deferr ed: Patient Refused),02/26/2024(Deferred: Patient Refused),12/19/2013 Pneumococcal Conjugate Pcv20 05/04/2024(Deferred : Patient Refused) Pneumococcal Polysaccharide PPV23 12/19/2013 Tdap 01/16/2014 Surgical History Surgery Date Site/Laterality Comments APPENDECTOMY 11/29/1971 - 11/28/1972 BILATERAL KNEE ARTHROSCOPY Bilateral BACK SURGERY COLONOSCOPY CATARACT EXTRACTION FOOT SURGERY CATARACT EXTRACTION EXTRACAP SULAR W/ INTRAOCULAR LENS IMPLANTATION Bilateral VEIN LIGATION AND STRIPPING Bilateral 2015 UPPER GASTROINTESTINAL ENDOSCOPY Medical History Medical History Date Comments A-fib (HCC) Hypertension Sleep apnea Diabetes (HCC) Asthma Colon polyp Type 2 diabetes mellitus (HCC) Chronic kidney disease Cataract COPD (chronic obstructive pulmonary disease) (HC C) Family History Medical History Relation Name Comments Alzheimer's disease Father Stomach cancer Father Colon cancer Mother Coronary artery disease Mother Diabetes Mother Stomach cancer Mother Relation Name Status Comments Father Mother Social History Tobacco Use Types Packs/Day Years [...] on file Legal Sex Male 12:50 AM HAND SLITTER Gender Identity Not on file Sexual Orientation Not on file Obstetrics History Last Filed Vital Signs Vital Sign Reading [...] 06/07/2025 8:59 AM CDT Plan of Treatment Health Maintenance Due Date Last Done Comments Hepatitis C Screening 1960 Prostate Cancer Screening-PSA 1960 Foot Exam 1960 Hepatitis B Screening 1977 Zoster Vaccine (1 of 2) 2009 Pneumococcal vaccine 65+ (2 of 2 - PCV) 12/19/2014 12/19/2013 DTaP/Tdap/Td Vaccine (2 - Td or Tdap) 01/16/2024 01/16/2014 Lipid Panel 05/14/2024 05/14/2023 eGFR 05/14/2024 05/14/2023 Albumin Creatinine Ratio, Urine 08/12/2024 Dilated Eye Exam 05/19/2025 05/19/2023 Hemoglobin A1C 06/06/2025 12/07/2024, 05, 11/24/2022, Additional history exists Influenza Vaccine (#1) 2025 7, 12/19/2013, 12/19/2013 Depression Screening 06/07/2026 06/07/2025, 04/27/20 Fall Risk Assessment 06/07/2026 06/07/2025 Well Visit 65+ 06/07/2026 06/07/2025, 04/27/2024 Colon Cancer Screening-Colonoscopy 09/22/2034 09/22/2024, 11/03/2019 Colon Cancer Screening-CT Colonography Discontinued 09/22/2024, 11/03/2019 Colon Cancer Screening-DNA Stool Discontinued 09/22/20 24, 11/03/2019 Colon Cancer Screening-FIT Discontinued 09/22/2024, Colon Cancer Screening-Sigmoidoscopy Discontinued 09/22/2024, 11/03/2019 Medical Devices Implanted Type Area [employer] Delivery Driver Device Identifier Shelf Expiration Date Model / Serial / Lot Lens Implant Bilateral: Eye Procedures Procedure Name Priority Date/Time Associated Diagnosis Comments POCT HEMOGLOBIN A1C Routine 12/07/2024 9:37 AM HAND SLITTER Type 2 diabetes mellitus with diabetic polyneuropathy, with long-term current use of insulin (HCC) COLONOSCOPY 09/22/2024 12:25 PM CDT ALBUMIN CREATININE RATIO, URINE Routine 08/12/2023 DIABETIC EYE EXAM Routine 05/19/2023 COMPREHENSIVE METABOLIC PANEL Routine 05/14/2023 LIPID PANEL Routine 05/14/2023 from Last 3 Months or Most Recently Relevant to Health Maintenance Results * POCT hemoglobin A1c (12/07/2024 9:37 AM HAND SLITTER) Hemoglobin A1C, POC 7.7 4.0 - 5.6 % Blood 12/07/2024 9:37 AM HAND SLITTER Emilio Frey DO POINT OF CARE TEST ORD ERABLES Final Result * Colonoscopy (09/22/2024 12:25 PM CDT) Anatomical Region Laterality Modality Other Narrative Procedure Note Trinh Galicia MD - 09/22/2024 12:25 PM CDT [facility] GI ENDOSCOPY Patient Name: Emilio Sultana Procedure Date: 09/22/2024 12:25PM Date of : 1960 Admit Type: Outpatient Age: 63 Gender: Male Attending MD: Trinh Galicia M.D. Room: [facility] ENDOSCOPY ROOM 05 Note Status: Finalized Procedure: [...] The scope was passed under direct vision.The [id number] colonoscope was introduced through theanus and advanced [...] On: 09/22/2024 12:25 PM Recognized by the [employer] for promoting quality in endoscopy Trinh Galicia MD ENDOSCOPY PROCEDURES Stephania l Result * Albumin Creatinine Ratio, Urine (08/12/2023) Pathologist [facility] SCRIBED Creatinine, Urine 59 0 - 300 EXTERNAL LAB SCRIBED Microalbumin <6.0 0 - 16.7 EXTERNAL LAB SCRIBED Microalb/Creat Ratio 0.12 0 - 0.20 EXTERNAL LAB Urine Result [facility] Provider LAB URINE ORDERABLES Stephania l Result EXTERNAL LAB * Diabetic Eye Exam (05/19/2023) Result [facility] Provider HEALTH MAINTENANCE Final Result * Lipid panel (05/14/2023) Pathologist [facility] SCRIBED Cholesterol, Total 129 0 - 200 EXTERNAL LAB SCRIBED HDL 49 40 - 200 EXTERNAL LAB SCRIBED LDL 59 0 - 130 EXTERNAL LAB SCRIBED Triglycerides 113 0 - 150 EXTERNAL LAB Blood Result [facility] Provider LAB BLOOD ORDERABLES Stephania l Result EXTERNAL LAB * (ABNORMAL) Comprehensive metabolic panel (05/14/2023) Pathologist [facility] SCRIBED Sodium 139 137 - 145 mmol/L [...] 0 EXTERNAL LAB SCRIBED eGFR in NonAfrican Croatian 34(A) 60 - 100 EXTERNAL LAB Blood us Historical Provider LAB BLOOD ORDERABLES Stephania l Result EXTERNAL LAB from Last 3 Months or Most Recently Relevant to Health Maintenance Insurance [facility] MEDICARE MEDICARE [facility] Care Teams Sleeper Cutter Relationship Specialty Start Date End Date Emilio Frey DO PCP - General Family Practice 05/25/19
--- OUTSIDE RECORDS SUMMARY | 2025-06-08 09:20 | XMS_ITS | Encounter Summary ---
Author Organization [facility] Address [address] [place] [address] Care Team Providers Care Artist Consultant Name Role Phone Emilio Frey Primary Care Provider Encounter Details Date Type Department Care Team (Late st Contact Info) Description 09/29/2001 Outpatient [facility] [address] [place] [address] [address] [place], [place] [id number] Francia Russo MD NO ADDRESS ON FILE Social History Tobacco Use Types Packs/Day Years Used Date Smoking Tobacco: Never Assessed Sex and Gender Information Value Date Recorded Sex Assigned at Not on file Legal Sex Male 2:39 AM STAFF INTERNIST OFFICE BASED ONLY Gender Identity Not on file Sexual Orientation Not on file documented as of this encounter Plan of Treatment Upcoming Encounters Date Type Department Care Team (Late st Contact Info) Description 06/22/2025 10:15 AM CDT Appointment [facility] Heart and Vascular Testing [facility] [address] [place] [address] [place] [address] [facility] [address] [place] [address] 10/16/2025 10:00 AM STAFF INTERNIST OFFICE BASED ONLY Office Visit [facility] Heart [facility] Vascular - [address] [facility] [phone] [facility] [address] [place] [address] [place] [address] [facility] [address] [place] [address] 05/21/2026 10:40 AM CDT Office Visit [facility] Pulmonology - [facility] [address] [place] [phone] Ephraim Ruffin, [address] [place] [address] 05/24/2026 10:00 AM CDT Office Visit [facility] Heart [facility] Vascular - [address] [facility] [phone] [facility] [address] [place] [address] Vivian Dawkins, HAND TIRE TRIMMER [address] [facility] [address] [place] [address] documented as of this encounter Visit Diagnoses Not on filedocumented in this encounter Additional Health Concerns Infection Onset Date Last Indicated Resolved Time 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
[2025-06-08 09:57] LABS: Hematocrit 39.1 % (42.0-52.0); Hemoglobin 11.8 g/dL (14.0-18.0); Immature Granulocyte Percent A 0.2 % (0-0.5); Lymphocytes Absolute Auto 1.44 K/mm3 (0.9-3.2); Mean Corpuscular HGB Conc 30.2 g/dl (32-36); Mean Corpuscular Hemoglobin 26.6 pg (26-34); Mean Corpuscular Volume 88.1 fl (80-100); Nucleated Red Blood Cells Absolute Auto 0.000 K/mm3 (0.0-0.012); Nucleated Red Blood Cells Perc 0.0 % (0.0-0.2); Platelet Count Result 191 k/mm3 (150-375); Red Blood Count 4.44 M/mm3 (4.6-6.20); White Blood Count 5.5 K/mm3 (4.5-10.0)
[2025-06-08 10:04] LABS: Add Urine Microscopic? YES; Appearance Urine Clear (Clear); Glucose Urine UA 3+ mg/dL (Negative); Leukocyte Esterase Ur Trace LEU/UL (Negative); Nitrate Urine Negative (Negative); Non Pathogenic Casts 0-2; Specific Grav Ur 1.012 (1.001-1.035)
[2025-06-08 10:16] LABS: Total Protein Urine Random 11 mg/dL; Ur Ttl Prot Creatinine Ratio 0.67 mg/mg (0-0.20)
[2025-06-08 10:19] LABS: Alanine Aminotransferase 15 U/L (6-50); Albumin Level 4.3 g/dL (3.5-5.1); Alkaline Phosphatase 83 U/L (38-126); Anion Gap 10 mmol/L (4-12); Aspartate Amino Transferase 25 U/L (17-59); Bilirubin,Total 0.5 mg/dL (0.2-1.3); Blood Urea Nitrogen 42 mg/dL (9-20); Calcium 9.3 mg/dL (8.4-10.2); Carbon Dioxide 33 mmol/L (22-30); Chloride 95 mmol/L (98-107); Cholesterol 129 mg/dL (0-200); Estimated Glomerular Filt Rate 41; Glucose 158 mg/dL (65-110); HDL Direct 51 mg/dL; Potassium 4.0 mmol/L (3.4-5.0); Sodium 138 mmol/L (137-145); Total Protein 7.7 g/dL (6.3-8.2); Triglycerides 95 mg/dL (<150)
[2025-06-08 10:20] LABS: MALB Creatinine Ratio 65.0 mg/g (0-30)
[2025-06-08 10:30] LABS: Hemoglobin A1C 7.7 % (<5.7)
[2025-06-08 10:54] LABS: Prostate Specific Antigen 0.1 ng/mL (< OR = 4.0); Thyroid Stimulating Hormone 0.531 uIU/mL (0.465-4.680)
[2025-06-08 11:02] LABS: Free T4 Free Thyroxine 1.79 ng/dL (0.78-2.19)
[2025-06-08 11:34] LABS: Hepatitis B Surface Anti Res Negative
[2025-06-09 05:08] LABS: Hep B Core Ab, Total Negative (Negative)
== END 2025-06-08 09:09 | disposition home or self-care (01) ==
PROVIDERS: PCP Family Medicine; Referring Provider Hospitalist
DX: I48.0 Paroxysmal atrial fibrillation (principal); Z11.59 Encounter for screening for other viral diseases; Z12.5 Encounter for screening for malignant neoplasm of prostate; I12.9 Hypertensive chronic kidney disease with stage 1 through stage 4 chronic kidney disease, or unspecified chronic kidney disease; E11.42 Type 2 diabetes mellitus with diabetic polyneuropathy; N18.32 Chronic kidney disease, stage 3b; E78.5 Hyperlipidemia, unspecified; E55.9 Vitamin D deficiency, unspecified; Z79.4 Long term (current) use of insulin; Z79.01 Long term (current) use of anticoagulants; Z79.899 Other long term (current) drug therapy
CPT/HCPCS: 36415; 80053; 80061; 81001; 82043; 82306; 82570; 83036; 84100; 84153; 84156; 84439; 84443; 85025; 86704; 86706; 86803; 87350; G0103

== ENCOUNTER 2025-10-05 05:10 | Emergency (ER) | payer OTHER, MEDICARE, SELFPAY ==
--- OUTSIDE RECORDS SUMMARY | 2010-04-09 06:45 | XMS_ITS | Continuity of Care Document ---
Author Organization [facility] Address [address] [facility] [address] [place] [address] Phone Care Team Providers Care Scheme Technician Name Role Phone Patrick King Unavailable Unavailable Procedures Procedure Date Office/outpatient Visit, Est Office/outpatient Visit, New Advance Directives Directive Yes / No Effective Date File Name No Information Encounters Encounter Description Practice Location Reason(s) For Visit Diagnoses Date Provider Providers Copied on Encounter Office/outpat ient Visit, Est [facility], [address] [place] [address] [address], [place], [place], [address], tel:[phone] [facility] No Information March-1 2-201 0 Osvaldonasgaby Patrick. [facility] [address], [facility], [place]. tel:[phone] Office/outpat ient Visit, [facility], [address] [place] [address] [address], [place], [place], [address], tel:[phone] SEC [facility] No Information March-0 5-201 0 Krishnasamy Patrick. [address] [address], [place], [place], [facility], [place]. tel:[phone] Family History Family Member Type Diagnosis Age At Onset No Information Payers Payer name Insurance type Covered republican ID Authoriza tion(s) [place] [id number] Social History Type Description Quantity Date Captured Comments Sex Male Smoking Status No Information Chief Complaint And Reason For Visit No Information Reason For Referral Reason For Referral No Information History Of Present Illness Encounter Date Complaint History Of Prese nt Illness No Information Functional Status Date Functional Assessmen t No Information Instructions Date Instruction Additional Infor mation No Information Assessments Type Assessment Date No Information Patient Care Teams Name Effective Dates (start - stop) Status Members No Information
--- OUTSIDE RECORDS SUMMARY | 2010-04-09 06:45 | XMS_ITS | Continuity of Care Document ---
Author Organization [facility] Address [address] [facility] [address] [place] [address] Phone Care Team Providers Care Pediatric Dental Assistant Name Role Phone Patrick King Unavailable Unavailable Procedures Procedure Date Office/outpatient Visit, Est Office/outpatient Visit, New Advance Directives Directive Yes / No Effective Date File Name No Information Encounters Encounter Description Practice Location Reason(s) For Visit Diagnoses Date Provider Providers Copied on Encounter Office/outpat ient Visit, Est [facility], [address] [place] [address] [address], [place], [place], [address], tel:[phone] [facility] No Information March-1 2-201 0 Osvaldonasgaby Patrick. [facility] [address], [facility], [place]. tel:[phone] Office/outpat ient Visit, [facility], [address] [place] [address] [address], [place], [place], [address], tel:[phone] SEC [facility] No Information March-0 5-201 0 Krishnasamy Patrick. [address] [address], [place], [place], [facility], [place]. tel:[phone] Family History Family Member Type Diagnosis Age At Onset No Information Payers Payer name Insurance type Covered republican ID Authoriza tion(s) [place] [id number] Social History Type Description Quantity Date Captured [...]
--- OUTSIDE RECORDS SUMMARY | 2018-07-28 10:23 | XMS_ITS | Continuity of Care Document ---
Author Organization [facility] Address [address] [facility] [address] [place] [address] Phone Care Team Providers Care Life Science Research Assistant Name Role Phone Ranjan Rendon MD Unavailable Unavailable Allergies, Adverse Reactions, Alerts Substance Reaction Status Criticality sucralfate Active No Information Medications Medication Instructions Dosage Effective Dates (start - stop) Status Comments Medrol (King) 4 mg tablets in a dose pack Take as instructed on package - Active Bactroban Nasal 2 % ointment apply by topical route 2 times every day one-half of the ointment from the tube into each nostril in the morning and evening for 5 days - Active Hibiclens 4 % topical liquid use body wash for 5 days - Active MS Contin 60 mg tablet,extended release take 1 tablet by oral route every 8 hours 60 MG - Active Percocet 10 mg-325 mg tablet take 1 tablet by oral route every 6 hours as needed 1.00 tablet - Active Zanaflex 4 mg tablet take 2 tablet by oral route at bedtime - Active torsemide 20 mg tablet take 1 tablet by oral route every 2 days 20 MG - Active Lipitor 80 mg tablet take 1 tablet by oral route every day 80 MG - Active DUREZOL (unknown strength) instill 1 drop by ophthalmic route 4 times every day into affected eye(s) ;start 24hrs post op x 2 wks; then 2 times/day x 7 days; then taper Not Available - Active ILEVRO (unknown strength) instill 1 drop by ophthalmic route every day to the operated eye ; start 1 day before cataract surgery; use for 14 days after surgery Not Available - Active PRAVASTATIN SODIUM (unknown strength) Not Available - Active LISINOPRIL (unknown strength) Not Available - Active XARELTO (unknown strength) Not Available - Active TOPAMAX (unknown strength) Not Available - Active TIZANIDINE HCL (unknown strength) Not Available - Active SOTALOL (unknown strength) Not Available - Active GLIPIZIDE (unknown strength) Not Available - Active METFORMIN HCL (unknown strength) Not Available - Active Procedures Procedure Date RADEX WRST COMPL MINIMUM 3 VIEWS 2017 OFFICE/OUTPATIENT VISIT EST OFFICE/OUTPATIENT VISIT EST OFFICE/OUTPATIENT VISIT EST OFFICE/OUTPATIENT VISIT EST OFFICE/OUTPATIENT VISIT EST POSTOP FOLLOW-UP VISIT POSTOP FOLLOW-UP VISIT OFFICE/OUTPATIENT VISIT EST OFFICE/OUTPATIENT VISIT EST RADEX DAVID COMPL MINIMUM 2 VIEWS 017 OFFICE/OUTPATIENT VISIT EST OFFICE/OUTPATIENT VISIT EST POSTOP FOLLOW-UP VISIT POSTOP FOLLOW-UP VISIT POSTOP FOLLOW-UP VISIT RADEX KNE 3 VIEWS OFFICE/OUTPATIENT VISIT NEW Advance Directives Directive Yes / No Effective Date File Name No Information Encounters Encounter Description Practice Location Reason(s) For Visit Diagnoses Date Provider Providers Copied on Encounter [facility], [address], [address], [place] tel:[phone] [facility] No Information 8 Julieta Woodruff. [address] [place], [place], [address] . tel: [phone] OFFICE/OUTPA TIENT VISIT EST [facility], [address], [address], [place] tel:[phone] [facility] Left wrist painRSD (reflex sympathetic dystrophy) 8 Julieta Woodruff. [address] [facility], [place], [place], [address] . tel: [phone] Referring Provider: Puma Reynolds, [address], [place], [address]. tel:[phone] OFFICE/OUTPA TIENT VISIT EST [facility], [address], [place], [address], [place] tel:[phone] [facility] Left wrist painBody mass index (BMI) 40.0-44.9, adult Aug-0 201 8 Mao Lyndon. [address], [place], [place], [address] . tel: [phone] OFFICE/OUTPA TIENT VISIT EST [facility], [address], [place], [address], [place] tel:[phone] [facility] Status post rotator cuff repairLeft wrist pain 8 Daylin Lyndon. [address], [place], [place], [address] . tel: [phone] OFFICE/OUTPA TIENT VISIT EST [facility], [address], [place], [address], [place] tel:[phone] [facility] Status post rotator cuff repair 8 Mao Lyndon. [address], [place], [place], [address] . tel: [phone] OFFICE/OUTPA TIENT VISIT EST [facility], [address], [place], [address], [place] tel:[phone] [facility] Status post rotator cuff repairPain in left shoulder 8 Mao Lyndon. [address], [place], [place], [address] . tel: [phone] [facility], [address], [place], [address], [place] tel:[phone] [facility] Body mass index (BMI) 40.0-44.9, adultStatus post rotator cuff repair 8 Rodolfo Bartholomew. [address], [place], [place], [address] . tel: [phone] [facility], [address], [place], [address], [place] tel:[phone] [facility] Status post rotator cuff repairAdhesive capsulitis of left shoulder 8 Daylin Haney. [address], [place], [place], [address] . tel: [phone] [facility], [address] [facility], [place], [address], [place] tel:[phone] [facility] No Information 7 Rodolfo Bartholomew. [address] [facility] [address], [place], [place], [address] . tel: [phone] [facility], [address] [facility] [address], [place], [address], [place] tel:[phone] [facility] Complete tear of left rotator cuff 7 Rodolfo Bartholomew. [address] [facility] [address], [place], [place], [address] . tel: [phone] OFFICE/OUTPA TIENT VISIT EST [facility], [address] [facility] [address], [place], [address], [place] tel:[phone] [facility] Complete tear of left rotator cuff 7 Rodolfo Bartholomew. [address] [facility] [address], [place], [place], [address] . tel: [phone] Referring Provider: Emilio Tan, [address] [place] [address] [address], [address]. tel:[phone] OFFICE/OUTPA TIENT VISIT EST [facility], [address] [facility] [facility], [place], [address], [place] tel:[phone] [facility] Adhesive capsulitis of left shoulder 7 Ian Reynolds. [address] [facility] [address], [place], [place], [address] . tel: [phone] OFFICE/OUTPA TIENT VISIT EST [facility], [address] [address] [facility], [place], [address], [place] tel:[phone] [facility] Pain in left shoulderComplete tear of left rotator cuffAdhesive capsulitis of left shoulderBody mass index (BMI) 40.0-44.9, adultEssential (primary) hypertension 7 L'Hommedi merary [place]. [address] , [place], [place], [address] . tel: [phone] OFFICE/OUTPA TIENT VISIT EST [facility], [address] [address], [place], [address], [place] tel:[phone] [facility] Degenerative tear of posterior horn of lateral meniscus of left knee 6 Bagwe Jose E. [address] , [place], [place], [address] . tel: [phone] [facility], [address] [facility] [address], [address], [place] tel:[phone] [facility] Degenerative tear of posterior horn of lateral meniscus of left knee 6 Bagwe Jose E. [address] , [place], [place], [address] . tel: [phone] [facility], [address] [address], [place], [address], [place] tel:[phone] [facility] left knee arthroscopy 6 Bagwe Jose E. [address] , [place], [place], [address] . tel: [phone] [facility], [address], [address], [place] tel:[phone] [facility] Degenerative tear of posterior horn of lateral meniscus of left knee 6 Bagwe Jose E. [address] , [place], [place], [address] . tel: [phone] [facility], [address], [address], [place] tel:[phone] [facility] S/P left knee arthroscopy 6 Christoph Dorantes. [address], [place], [place], [address] . tel: [phone] OFFICE/OUTPA TIENT VISIT NEW [facility], [address], [place], [address], [place] tel:[phone] [facility] Pain in left kneePrimary osteoarthritis of left knee 6 Christoph Dorantes. [address], [place], [place], [address] . tel: [phone] Referring Provider: Emilio Tan, [address] [place] [address] [address], [place], [address]. tel:[phone] Family History Family Member Type Diagnosis Age At Onset Father Problem (finding) Heart disease Mother Problem (finding) diabetes mellitus type 2 Mother Problem (finding) Heart disease Payers Payer name Insurance type Covered libertarian ID Authoriza tion(s) No Information Social History Type Description Quantity Date Captured Comments Alcohol Use Details Unknown Caffeine Use Details Unknown Tobacco Use Status Smoking Status No Information Sex Male Chief Complaint And Reason For Visit No Information Reason For Referral Reason For Referral No Information Plan Of Treatment Date Type Action Status Goal Dietary management education , guidance, and counseling completed Goal Dietary management education , guidance, and counseling completed Referral Ordered: RADEX WRST COMPL MINIMUM 3 VIEWS LT ordered Referral Ordered: MRI ANY JT UXTR C-MATRL LT wrist Appointment date/timeframe: 07/13/2018 ordered Referral Ordered: RADEX DAVID COMPL MINIMUM 2 VIEWS LT ordered Referral Ordered: RADEX KNE 3 VIEWS LT ordered History Of Present Illness Encounter Date Complaint History Of Prese nt Illness No Information Functional Status Date Functional Assessmen t No Information Instructions Date Instruction Additional Infor mation Dietary management e ducation, guidance, and counseling Related to Body mass index (BMI) 40.0-44.9, adult Inform physician of any changes in symptoms or pain. Related to Status post rotator cuff repair Dietary management e ducation, guidance, and counseling Related to Body mass index (BMI) 40.0-44.9, adult Weight bearing status as directe d. Related to Complete tear of left rotator cuff Discussed treatment options Rela gabe to Complete tear of left rotator cuff Discussed treatment options Rela gabe to Adhesive capsulitis of left shoulder Giving encouragement to exercise Related to Body mass index (BMI) 40.0-44.9, adult Giving encouragement to exercise Related to Essential (primary) hypertension Discussed treatment options Rela gabe to Adhesive capsulitis of left shoulder Call for increase in pain Relate d to Adhesive capsulitis of left shoulder f/u Related to Degen erative tear of posterior horn of lateral meniscus of left knee cont. PT Related to S/P l eft knee arthroscopy PT Related to S/P l eft knee arthroscopy Take medication/NSAID as directe d. Related to Primary osteoarthritis of left knee Assessments Type Assessment Date No Information Patient Care Teams Name Effective Dates (start - stop) Status Members No Information
--- OUTSIDE RECORDS SUMMARY | 2018-07-28 10:23 | XMS_ITS | Continuity of Care Document ---
Author Organization [facility] Address [address] [facility] [address] [place] [address] Phone Care Team Providers Care Custom Car Builder Name Role Phone Ranjan Rendon MD Unavailable [...] Providers Copied on Encounter [facility], [address], [address], [place] tel:[phone] [facility] No Information 8 Julieta Woodruff. [address] [place], [place], [address] . tel: [phone] OFFICE/OUTPA TIENT VISIT EST [facility], [address], [address], [place] tel:[phone] [facility] Left wrist painRSD (reflex sympathetic dystrophy) 8 Julieta Woodruff. [address] [facility], [place], [place], [address] . tel: [phone] Referring Provider: Puma Reynolds, [address], [place], [address]. tel:[phone] OFFICE/OUTPA TIENT VISIT EST [facility], [address], [place], [address], [place] tel:[phone] [facility] Left wrist painBody mass index (BMI) 40.0-44.9, adult Aug-0 201 8 Mao Lyndon. [address], [place], [place], [address] . tel: [phone] OFFICE/OUTPA TIENT VISIT EST [facility], [address], [place], [address], [place] tel:[phone] [facility] Status post rotator cuff repairLeft wrist pain 8 Daylin Lyndon. [address], [place], [place], [address] . tel: [phone] OFFICE/OUTPA TIENT VISIT EST [facility], [address], [place], [address], [place] tel:[phone] [facility] Status post rotator cuff repair 8 Mao Lyndon. [address], [place], [place], [address] . tel: [phone] OFFICE/OUTPA TIENT VISIT EST [facility], [address], [place], [address], [place] tel:[phone] [facility] Status post rotator cuff repairPain in left shoulder 8 Mao Lyndon. [address], [place], [place], [address] . tel: [phone] [facility], [address], [place], [address], [place] tel:[phone] [facility] Body mass index (BMI) 40.0-44.9, adultStatus post rotator cuff repair 8 Rodolfo Bartholomew. [address], [place], [place], [address] . tel: [phone] [facility], [address], [place], [address], [place] tel:[phone] [facility] Status post rotator cuff repairAdhesive capsulitis of left shoulder 8 Daylin Haney. [address], [place], [place], [address] . tel: [phone] [facility], [address] [facility], [place], [address], [place] tel:[phone] [facility] No Information 7 Rodolfo Bartholomew. [address] [address] [facility], [place], [place], [address] . tel: [phone] [facility], [address] [facility] [address], [place], [address], [place] tel:[phone] [facility] Complete tear of left rotator cuff 7 Rodolfo Bartholomew. [address] [facility], [place], [place], [address] . tel: [phone] OFFICE/OUTPA TIENT VISIT EST [facility], [address] [facility] [address], [place], [address], [place] tel:[phone] [facility] Complete tear of left rotator cuff 7 Rodolfo Bartholomew. [address] [facility], [place], [place], [address] . tel: [phone] Referring Provider: Emilio Tan, [address] [place] [address] [address], [address]. tel:[phone] OFFICE/OUTPA TIENT VISIT EST [facility], [address] [facility], [place], [address], [place] tel:[phone] [facility] Adhesive capsulitis of left shoulder 7 Ian Reynolds. [address] [facility], [place], [place], [address] . tel: [phone] OFFICE/OUTPA TIENT VISIT EST [facility], [address] [address] [facility], [place], [address], [place] tel:[phone] [facility] Pain in left shoulderComplete tear of left rotator cuffAdhesive capsulitis of left shoulderBody mass index (BMI) 40.0-44.9, adultEssential (primary) hypertension 7 L'Hommedi merary [place]. [address] , [place], [place], [address] . tel: [phone] OFFICE/OUTPA TIENT VISIT EST [facility], [address] [address], [place], [address], [place] tel:[phone] [facility] Degenerative tear of posterior horn of lateral meniscus of left knee 6 Bagwe Jose E. [address] , [place], [place], [address] . tel: [phone] [facility], [address] [facility] [address], [address], [place] tel:[phone] [facility] Degenerative tear of posterior horn of lateral meniscus of left knee 6 Bagwe Jose E. [address] , [place], [place], [address] . tel: [phone] [facility], [address] [address], [place], [address], [place] tel:[phone] [facility] 6 Bagwe Jose E. [address] , [place], [place], [address] . tel: [phone] [facility], [address], [address], [place] tel:[phone] [facility] Degenerative tear of posterior horn of lateral meniscus of left knee 6 Bagwe Jose E. [address] , [place], [place], [address] . tel: [phone] [facility], [address], [address], [place] tel:[phone] [facility] S/P left knee arthroscopy 6 Christoph Dorantes. [address], [place], [place], [address] . tel: [phone] OFFICE/OUTPA TIENT VISIT NEW [facility], [address], [place], [address], [place] tel:[phone] [facility] Pain in left kneePrimary osteoarthritis of left knee 6 Christoph Dorantes. [address], [place], [place], [address] . tel: [phone] Referring Provider: Emilio Tan, [address] [place] [address] [address], [address]. tel:[phone] Family History Family Member Type Diagnosis Age At Onset Father Problem (finding) Heart disease Mother Problem (finding) diabetes mellitus type 2 Mother Problem (finding) Heart disease Payers Payer name Insurance type Covered constitution party ID Authoriza tion(s) No Information Social History [...] to Body mass index (BMI) 40.0-44.9, adult Dietary management e ducation, guidance, and counseling Related to Body mass index (BMI) 40.0-44.9, adult Inform physician of any changes in symptoms or pain. Related to Status post rotator cuff repair Weight bearing status as directe d. Related to Complete tear of left rotator cuff Discussed treatment options Rela gabe to Complete tear of left rotator cuff Discussed treatment options Rela gabe to Adhesive capsulitis of left shoulder Call for increase in pain Relate d to Adhesive capsulitis of left shoulder Discussed treatment options Rela gabe to Adhesive capsulitis of left shoulder Giving encouragement to exercise Related to Essential (primary) hypertension Giving encouragement to exercise Related to Body mass index (BMI) 40.0-44.9, adult f/u Related to Degen erative tear of [...]
--- OUTSIDE RECORDS SUMMARY | 2025-03-14 02:00 | XMS_ITS ---
Author Organization [facility] Address [address] [facility] [address] [place] [address] Care Team Providers Care Senior Oracle Soa Developer Name Role Phone Emilio Frey DO Primary Care Provider Audi Riley Unavailable [phone] REASON FOR VISIT Back Encounters Encounter Location Date Provider Diagnosis [facility] [address] [facility] [address] [place] [address] 03/14/2025 Audi Silverio Plan Of Treatment Next Appt Details Provider Name:Audi Mendieta erg, 11/15/2025 08:30:00 AM, [address] [facility], [address], [place], [address], Progress Notes * Emilio SULTANA EDOB:[birth year] (64 yo M)Acc No.[id number]*DOS:03/14/2025 Patient: Emilio ZURITA * Provider: Shailesh Silverio MD :1960 A ge:64 Y S ex:Male Date:03/14/2025 Address:[address] [place], [place] [address] Pcp:Emilio Frey DO Subjective: * Chief Complaints: * 1 . Back. * Medical History: Objective: * Vitals: Assessment: Plan: * Treatment: * * Electronic signature of León Silverio MD on 10/05/2025 at 05:13 AM SALES MARKET LEADER Sign off status: Pending * Provider: Shailesh Silverio MD Date: 0 03/14/2025 Generated for Jose Fi sarah/Gianna/eTransmitting on: 1 12/05/2024 05:13 AM SALES MARKET LEADER
--- OUTSIDE RECORDS SUMMARY | 2025-06-07 08:00 | XMS_ITS ---
Author Organization [facility] Address [address] [place] [address] Care Team Providers Care Change Control Manager Name Role Phone Emilio Frey DO Primary Care Provider Audi Riley Unavailable [phone] REASON FOR VISIT Back Encounters Encounter Location Date Provider Diagnosis [facility] [address] [facility] [address] [place] [address] 06/07/2025 Audi Silverio Plan Of Treatment Next Appt Details Provider Name:Audi Mendieta erg, 11/15/2025 08:30:00 AM, [address] [facility], [address], [place], [address], Progress Notes * Emilio SULTANA EDOB:[birth year] (64 yo M)Acc No.[id number]*DOS:06/07/2025 Patient: Emilio ZURITA * Provider: Shailesh Silverio MD :1960 A ge:64 Y S ex:Male Date:06/07/2025 Address:[address] [place], [place] [address] Pcp:Emilio Frey DO Subjective: * Chief Complaints: * 1 . Back. * Medical History: Objective: * Vitals: Assessment: Plan: * Treatment: * * Electronic signature of León Silverio MD on 10/05/2025 at 05:15 AM ELEVATOR SUPERVISOR Sign off status: Pending * Provider: Shailesh Silverio MD Date: 0 06/07/2025 Generated for Jose Fi sarah/Gianna/eTransmitting on: 12/05/2024 05:15 AM ELEVATOR SUPERVISOR
--- OUTSIDE RECORDS SUMMARY | 2025-10-04 02:15 | XMS_ITS ---
Author Organization [facility] Address [address] [place] [address] Care Team Providers Care Commercial Leasing Agent Name Role Phone Emilio Frey DO Primary Care Provider Audi Riley Unavailable [phone] Allergies Allergen (clinical drug ingredient) Drug/Non Drug Allergy documented on EMR Reaction Allergy Type Onset Date Status sucralfate Carafate Unknown Drug Allergy Active tamsulosin Flomax Unknown Drug Allergy Active Coconut Oil Unknown Drug Allergy Activ e Reason For Referral Reason Finding of elevated blood pressure, ref sent to PCP Diagnosis 1 Elevated blood-press ure reading, without diagnosis of hypertension (R03.0) Referral Organization [facility] Referring Provider First Name Audi Referring Provider Last Name Jean Claude Referring Provider Speciality Pain Medic ine Referral Priority Routine REASON FOR VISIT neck pain Medications Medication SIG (Take, Route, Frequency, Duration) Notes Start Date End Date Status tiZANidine HCl 4 MG Oral; Duration: 30 Days Active Amiodarone HCl 200 MG Oral; Duration: 30 Days Active Farxiga 10 MG Oral; Duration: 30 Days Active Mounjaro 10 MG/0.5ML Subcutaneous; Durat ion: 28 Days Active Spironolactone 25 MG Oral; Duration: 90 Days Active Eliquis 5 MG as directed Orally Active Percocet 10-325 MG 1 tab po q 4-6 hr pr n pain; Duration: 30 days 10/04/2025 11/03/2025 Active Tadalafil (PAH) 20 MG Oral; Duration: 30 Days Active Topamax 200 MG two pills Orally at bedtime; Duration: 30 days Active MS Contin 60 MG 1 tablet Orally BID; Duration: 30 days Active Vitamin D (Ergocalciferol) 1.25 MG (17931 UT) TAKE 1 CAPSULE BY MOUTH ONCE A WEEK Oral; Duration: 35 Days Active Atorvastatin Calcium 80 MG TAKE 1 TABLET BY MOUTH ONCE DAILY Oral; Duration: 90 Days Active Potassium Chloride ER 20 MEQ Oral; Duration: 35 Days Acti ve Zanaflex 4 MG 2 tablets at bedtime Orally; Duration: 30 days 08/05/2022 03/05/2026 Active oxyCODONE-Acetaminophen 10-325 MG Oral; Duration: 30 Days Acti ve Social History Tobacco Use: Social History Observation Description Date Details (start date - stop date) Never Smoker NA - NA Tobacco use other than smoking: Question Answer Notes Are you an other tobacco user? No Tobacco Control (Standard) Question Answer Notes Tobacco use: Nonsmoker AUDIT-C (Standard) Question Answer Notes Did you have a drink containing alcohol in the p ast year? No Points 0 Interpretation Negative Vital Signs Temperature 97.2 degrees Fahrenheit 10/04/20 25 Blood pressure systolic 139 mm Hg 10/04/20 25 Blood pressure diastolic 64 mm Hg 025 Heart Rate 68 /min 10/04/2025 Respiratory Rate 16 /min 10/04/2025 Height 72 in 10/04/2025 Weight 260 lbs 10/04/2025 BMI 35.26 kg/m2 10/04/2025 Encounters Encounter Location Date Provider Diagnosis [facility] [address] [place] [address] 10/04/2025 Audi Silverio Radiculopathy, cervical region M54.12 ; Other cervical disc degeneration at C5-C6 level M50.322 and Bilateral primary osteoarthritis of knee M17.0 Assessments Encounter Date Diagnosis (ICD Code) Assessment Notes Treatment Notes Treatment Clinical Notes Section Notes 10/04/2025 Radiculopathy, cervical region (ICD-10 - M54.12) 10/04/2025 Other cervical disc degeneration at C5-C6 level (ICD-10 - M50.322) Patient reports 90 % of pain relief post procedure. 10/04/2025 Bilateral primary osteoarthritis of knee (ICD-10 - M17.0) 1. Return to clinic in 1 month for hyaluronic acid injection series to bilateral knees. He has undergone this in the distant past with good relief of the symptoms. 10/04/2025 Other I will proceed today with a C5-C6 translaminar cervical epidural steroid injection under fluoroscopic guidance. The risk of this procedure were discussed with the patient in which they verbalized understanding and wished to proceed. The patient will continue to be a part of an active comprehensive pain management program as tolerated, while and after the treatment plan is carried out. Plan Of Treatment Medication Medication Name Sig Start Date Stop Date Notes Percocet 10-325 MG 1 tab po q 4-6 hr pr n pain; Duration: 30 days 10/04/2025 11/03/2025 Treatment Notes Assessment Notes Other cervical disc degenera tion at C5-C6 level Patient reports 90 % of pain relief post procedure. Bilateral primary osteoarthritis of knee 1. Return to clinic in 1 month for hyaluronic acid injection series to bilateral knees. He has undergone this in the distant past with good relief of the symptoms. Other I will proceed today with a C5-C6 translaminar cervical epidural steroid injection under fluoroscopic guidance. The risk of this procedure were discussed with the patient in which they verbalized understanding and wished to proceed. The patient will continue to be a part of an active comprehensive pain management program as tolerated, while and after the treatment plan is carried out. Referrals Referral Date Details 10/04/2025 10/04/2025, Finding of elevated blood pressure, ref sent to PCP Next Appt Details Provider Name:Audi barrios, 11/15/2025 08:30:00 AM, [address], [address], [place], [address], Procedure Notes * Category Sub-Category Detail Notes Cervical Translaminar Epidural Steroid Injection Cervical C5-C6 Translaminar Epidural Steroid Injection The patient was identified in the holding area and the operative permit was explained and signed. I have discussed with the patient the risks, benefits, side effects and complications of a fluoroscopically guided translaminar cervical epidural steroid injection. I have answered the patient's questions regarding the procedure and have given the patient the opportunity to refuse the procedure. I also have discussed alternative methods of treatment. The patient stated an understanding of the procedure and wished to proceed with a fluoroscopically guided translaminar cervical epidural steroid injection. The patient was taken to the fluoroscopic suite and placed in a prone position. Noninvasive blood pressure, pulse oximetry, [...] for any medications given to the patient. A sterile Betadine preparation and then a sterile drape were applied to the cervical region of the neck. Using fluoroscopic guidance, a 27 gauge needle was used to place 3 cc of 1% Lidocaine in the skin and subcutaneous tissues overlying the interspace. A 3.5, 18 gauge Tuohy needle was advanced into the epidural space at the C5-C6 interspace under fluoroscopic guidance using a [id number] technique with preservative free normal saline. There was no cerebrospinal fluid or blood aspirated from the needle and no paresthesia was obtained. Then 1 cc of Omnipaque (240 mg/cc) was injected and epidural spread was confirmed with AP and lateral fluoroscopic images. There were no signs or symptoms of intrathecal or intravascular injection. A preservative free mixture of 0.5 cc of Normal Saline and 1 cc of dexamethasone (10 mg/cc) was injected. The needle was removed, intact. The patient tolerated the procedure well and there were no complications. The patient was taken to the recovery area. The patient remained in stable condition with no apparent complications. Post procedure instructions were given to the patient and a follow up appointment was confirmed. The patient was also discharged with information on how to reach the clinic or cosmetic surgeon physician at any time for questions or complaints. Conscious Sedation Statement Moderate Sedation Services We discussed the risks [...] Emilio SULTANA EDOB:[birth year] (64 yo M)Acc No.[id number]*DOS:10/04/2025 Progress Note Patient: Emilio ZURITA * Provider: Shailesh Silverio MD :1960 A ge:64 Y S ex:Male Date:10/04/2025 Address:[address] [place], [place] [id number] Pcp:Emilio Frey DO Subjective: * Chief Complaints: * N cesar pain * HPI: * Pain Evaluation: The patient returns to the clinic today to proceed with the cervical epidural steroid injection for patients moderate to severe pain that was discussed at their last appointment. They have been suffering from this pain for greater than 6 weeks and stated that the pain is severe enough to impact their quality of life and function. For more extensive details of the patients history, please see the previous history and physical taken on 09/06/2025 . * Medical History: * Surgical History: l eft knee 07/09/2016left shoulder 10/2017 * Hospitalization/Major Diagno stic Procedure: K idney Infection 12/2017Infection in left foot 01/2019cardio version/kidneys 11/19/22-12/07/22leg infection/kidneys 11/2022 * Family History: F ather: . M other: . C hildren: alive. * Social History: T obacco Use: T obacco use other than smoking A re you an other tobacco user? N o Tobacco Control (Standard) T obacco use: N onsmoker D rug/Alcohol: A TAMMY-C (Standard) D id you have a drink containing alcohol in the past year? N o P oints 0 I nterpretation N egative D rugs/Alcohol: D rugs H ave you used drugs other than those for medical reasons in the past 12 months? N o Caffeine I ntake: 3 -4 cups per day * Medications: T akingEliquis 5 MG Tablet as directed Orally MS Contin 60 MG Tablet Extended Release 1 tablet Orally BID Topamax 200 MG Tablet two pills Orally at bedtime Tadalafil (PAH) 20 MG Tablet Oral Spironolactone 25 MG Tablet Oral Mounjaro 10 MG/0.5ML Solution Auto-injector Subcutaneous Farxiga 10 MG Tablet Oral Amiodarone HCl 200 MG Tablet Oral tiZANidine HCl 4 MG Tablet Oral Potassium Chloride ER 20 MEQ Tablet Extended Release Oral Atorvastatin Calcium 80 MG Tablet TAKE 1 TABLET BY MOUTH ONCE DAILY Oral Vitamin D (Ergocalciferol) 1.25 MG (86004 UT) Capsule TAKE 1 CAPSULE BY MOUTH ONCE A WEEK Oral oxyCODONE-Acetaminophen 10-325 MG Tablet Oral Percocet 10-325 MG tablet 1 tab po q 4-6 hr prn pain , stop date 10/06/2025Zanaflex 4 MG Tablet 2 tablets at bedtime Orally , stop date 03/05/2026Medication List reviewed and reconciled with the patientTaking Eliquis 5 MG Tablet as directed Orally Taking MS Contin 60 MG Tablet Extended Release 1 tablet Orally BID Taking Topamax 200 MG Tablet two pills Orally at bedtime Taking Tadalafil (PAH) 20 MG Tablet Oral Taking Spironolactone 25 MG Tablet Oral Taking Mounjaro 10 MG/0.5ML Solution Auto-injector Subcutaneous Taking Farxiga 10 MG Tablet Oral Taking Amiodarone HCl 200 MG Tablet Oral Taking tiZANidine HCl 4 MG Tablet Oral Taking Potassium Chloride ER 20 MEQ Tablet Extended Release Oral Taking Atorvastatin Calcium 80 MG Tablet TAKE 1 TABLET BY MOUTH ONCE DAILY Oral Taking Vitamin D (Ergocalciferol) 1.25 MG (06646 UT) Capsule TAKE 1 CAPSULE BY MOUTH ONCE A WEEK Oral Taking oxyCODONE-Acetaminophen 10-325 MG Tablet Oral Taking Percocet 10-325 MG tablet 1 tab po q 4-6 hr prn pain , stop date 10/06/2025Taking Zanaflex 4 MG Tablet 2 tablets at bedtime Orally , stop date 03/05/2026Medication List reviewed and reconciled with the patient * Allergies: C sofia Dan[Allergies Verified] Objective: * Vitals: H t: 72 in, Wt:260lbs, Pain scale:81-10, BP:139/64mm Hg, Temp:97.2F, HR:68/min, RR:16/min, BMI:35.26Index. * Examination: G eneral Examination: G eneral: The patient appears well-groomed and nourished. There [...] are no focal motor or sensory deficits. Positive Spurling sign bilaterally. Assessment: * Assessment: 1. R adiculopathy, cervical region - M54.12 (Primary) 2 . O ther cervical disc degeneration at C5-C6 level - M50.322 3 . B ilateral primary osteoarthritis of knee - M17.0 Plan: * Treatment: 2. O ther cervical disc degeneration at C5-C6 level Notes: Patient reports 90 % of pain relief post procedure. 3. B ilateral primary osteoarthritis of knee Notes: 1. Return to clinic in 1 month for hyaluronic acid injection series to bilateral knees. He has undergone this in the distant past with good relief of the symptoms. 4. O thers Notes: I will proceed today with a C5-C6 translaminar cervical epidural steroid injection under fluoroscopic guidance. The risk of this procedure were discussed with the patient in which they verbalized understanding and wished to proceed. The patient will continue to be a part of an active comprehensive pain management program as tolerated, while and after the treatment plan is carried out. Referral To: Reason:Finding of elevated blood pressure, ref sent to PCP * Procedures: C ervical Translaminar Epidural Steroid Injection: Cervical C5-C6 Translaminar Epidural Steroid Injection T he patient was identified in the holding area and the operative permit was explained and signed. I have discussed with the patient the risks, benefits, side effects and complications of a fluoroscopically guided translaminar cervical epidural steroid injection. I have answered the patient's questions regarding the procedure and have given the patient the opportunity to refuse the procedure. I also have discussed alternative methods of treatment. The patient stated an understanding of the procedure and wished to proceed with a fluoroscopically guided translaminar cervical epidural steroid injection. The patient was taken to the fluoroscopic suite and placed in a prone position. Noninvasive blood pressure, pulse oximetry, [...] for any medications given to the patient. A sterile Betadine preparation and then a sterile drape were applied to the cervical region of the neck. Using fluoroscopic guidance, a 27 gauge needle was used to place 3 cc of 1% Lidocaine in the skin and subcutaneous tissues overlying the interspace. A 3.5, 18 gauge Tuohy needle was advanced into the epidural space at the C5-C6 interspace under fluoroscopic guidance using a [id number] technique with preservative free normal saline. There was no cerebrospinal fluid or blood aspirated from the needle and no paresthesia was obtained. Then 1 cc of Omnipaque (240 mg/cc) was injected and epidural spread was confirmed with AP and lateral fluoroscopic images. There were no signs or symptoms of intrathecal or intravascular injection. A preservative free mixture of 0.5 cc of Normal Saline and 1 cc of dexamethasone (10 mg/cc) was injected. The needle was removed, intact. The patient tolerated the procedure well and there were no complications. The patient was taken to the recovery area. The patient remained in stable condition with no apparent complications. Post procedure instructions were given to the patient and a follow up appointment was confirmed. The patient was also discharged with information on how to reach the clinic or cosmetic surgeon physician at any time for questions or complaints.. C onscious Sedation Statement: Moderate Sedation Services W e discussed the risks / benefits and technical [...] the nurse documentation. . * Procedure Codes: A 4550 TRAY FEESUPPLY [id number] OMNIPAQUE 240 CHGED [facility] [id number] DEXAMETHASONE SODIUM PHOSPHATE (DECADRON) [id number] EPIDURAL CERV/THOR W/IMAGING GUIDANCE * Preventive Medicine: Screenings: F ALL RISK SCREENING Fall Risk Assessment: T wo or more falls with injury in the past year Plan of Care: D ocumented Type of fall plan of care: B alance, strength and gait training or instruction provided * * SEAL ASSEMBLER Sign off status: Completed true * Provider: Shailesh Silverio MD Date: 12/04/2024 Generated for Jack smith/Gianna/eTransmitting on: 1 12/05/2024 05:13 AM OIL SEAL ASSEMBLER History and Physical Notes * HPI (History of Present Illness) Category Sub-Category Detail Notes Category Not es * Pain Evaluation The patien t returns to the clinic today to proceed with the cervical epidural steroid injection for patients moderate to severe pain that was discussed at their last appointment. They have been suffering from this pain for greater than 6 weeks and stated that the pain is severe enough to impact their quality of life and function. For more extensive details of the patients history, please see the previous history and physical taken on 09/06/2025 . Examination Category Sub-Category Detail Notes Category Not [...] are no focal motor or sensory deficits. Positive Spurling sign bilaterally Consultation Request Notes Referral Date Referring Provider Referred Provider Not es 10/04/2025 Audi Silverio , Finding of elevated blood pressure, ref sent to PCP
--- OUTSIDE RECORDS SUMMARY | 2025-10-05 05:13 | XMS_ITS | Encounter Summary ---
Author Organization [facility] Address [address] [place] [address] Care Team Providers Care Research Executive Name Role Phone Emilio Frey DO Primary Care Provider Encounter Details Date Type Department Care Team (Late st Contact Info) Description 06/16/2001 Outpatient [facility] [address] [place] [address] 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 Gender Identity Not on file Sexual Orientation Not on file documented as of this encounter Plan of Treatment Upcoming Encounters Date Type Department Care Team (Late st Contact Info) Description 10/16/2025 10:00 AM SIDE STITCHING MACHINE OPERATOR Office Visit [facility] Electrophysiology - [address] [address] [facility] [address] [place] [address] [place] [address] [facility] [address] [place] [address] 05/21/2026 10:40 AM CDT Office Visit [facility] Pulmonology - [facility] [address] [place] [address] [place] [address] [place] [address] 05/24/2026 10:00 AM CDT Office Visit [facility] - [address] [place] [address] Juancho Vivian Mancilla, MANAGER INDUSTRIAL [address] [place] [address] documented as of this encounter Visit Diagnoses Not on filedocumented in this encounter Additional Health Concerns Infection Onset Date Last Indicated Resolved Time MRSA 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
--- OUTSIDE RECORDS SUMMARY | 2025-10-05 05:13 | XMS_ITS | Clinical Summary ---
Author Organization [facility] [id number] Address [address] [place] [address] Care Team Providers Care Electrical Assemblies Supervisor Name Role Phone Amy Frey DO Primary Care Provider Allergies Active Allergy Reactions [...] 1 Tablet by mouth daily. 3 Active insulin lispro (HumaLOG) 100 unit/mL pen [...] 7 days. Active amiodarone (CORDARONE) 200 mg tabletIndication s:Paroxysmal atrial fibrillation (CMS/HCC) Take 0.5 Tablets (100 mg) by mouth daily. 45 Tablet 1 4 Active spironolactone (ALDACTONE) 25 mg tablet Take 0.5 Tablets (12.5 mg) by mouth daily. 45 Tablet 1 5 Active Blood-Glucose Meter,Continuous (Dexcom G7 Machine Stemmer) Dexcom G7 patient coordinator use daily to monitor blood sugar. 5 Active Insulin Parrott, Disposable, 32 gauge x 5/32 Needle USE TO INJECT INSULIN UP TO FOUR TIMES DAILY 5 Active insulin glargine (Lantus Solostar U-100 Insulin) 100 unit/mL pen syringe Inject 25 Units by subcutaneous injection daily. 5 Active furosemide (LASIX) 80 mg tablet Take 1 Tablet (80 mg) by mouth daily. 90 Tablet 3 5 Active tadalafil (ADCIRCA) 20 mg Tablet tablet TAKE 2 TABLETS BY MOUTH 1 TIME A DAY 180 Tablet 1 5 Active apixaban (Eliquis) 5 mg tablet Take 1 tablet by mouth twice daily 180 Tablet 1 5 Active atorvastatin (LIPITOR) 80 mg tablet Take 1 tablet by mouth once daily 90 Tablet 1 5 Active Active Problems Patient Care Coordination No te Formatting of this note migh t be different from the original. Dr Amy Frey [phone] Practice moved this is updated phone number [...] (05/29/2022): Added automatically from request for surgery [id number] Other hyperlipidemia 10/07/2020 Diastolic CHF, chronic 08/25/2019 Dyslipidemia 08/25/2019 T2DM (type 2 diabetes mellitus) 05/05/2019 Overview (05/05/2019): Overview: BS 196 this a.m. Coronary atherosclerosis 11/18/2017 HTN (hypertension) 03/20/2015 DARRYL (obstructive sleep apnea) 09/20/2014 Acute on chronic renal insufficiency 12/19/2013 Paroxysmal atrial fibrillation 12/30/2011 Encounters Date Type Department Care Team Description 08/29/2025 Refill [facility] and Vascular - [address] [facility] [address] [place] [address] Maurice Deluca MD 07/17/2025 External Device Data STL ABSTRACTION Provider, Abstract from Last 3 Months Family History Medical History Relation Name Comments Cardiomyopathy Father Cardiomyopathy Mother Coronary Artery Disease Sister Relation Name Status Comments Father Mother Sister Social History Tobacco Use Types Packs/Day Years Used Date Smoking Tobacco: Former Cigarettes 0.3 1 1 978 - 2371 Passive Smoke Exposure: Never Smokeless Tobacco: Never [...] on file 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 Gender Identity Not on file [...] st Contact Info) Description 10/16/2025 10:00 AM KISS MACHINE OPERATOR Office Visit [facility] Electrophysiology - [address] [facility] 300 [address] [facility] 300 [place] [address] [place] [address] [facility] 300 [place] [address] 05/21/2026 10:40 AM CDT Office Visit [facility] Pulmonology - [facility] [address] [place] [address] [place] [address] [facility] [address] [place] [address] 05/24/2026 10:00 AM CDT Office Visit [facility] Heart [facility]ascular - [address] [facility] [address] [address] [facility] 300 [place] [address] Vivian Dawkins, [facility] [address] [facility] [address] [place] [address] Health Maintenance Due Date Last Done Comments DIABETES ANNUAL FOOT EXAM 1977 DIABETES ANNUAL RETINAL EXAM 1977 DIABETES MICROALBUMIN ANNUAL SCREEN 1977 FIT-DNA Q 3 years 2004 FIT/FOBT Q 1 year 2004 Flex Sig/CT Colonography Q 5 years 2004 RSV VACCINE (60+ or ) (1 - Risk 50-74 years 1-dose series) 2009 ZOSTER VACCINE (1 of 2) 2009 PNEUMOCOCCAL VACCINE 50+ YEA RS (2 of 2 - PCV) 12/19/2014 12/19/2013 LDL CHOLESTEROL ANNUAL 09/01/2020 09/01/2019 DTAP/TDAP/TD VACCINES (2 - T d or Tdap) 01/16/2024 01/16/2014 DIABETES HBA1C Q 6 MONTHS 06/06/20252024, 04/27/2024, 11/24/2022, Additional history exists INFLUENZA VACCINE (#1) 2025 COLORECTAL SCREENING 09/22/2034 09/22/2024, 09/22/2024, 11/03/2019, Additional history exists Colorectal Cancer Screening 09/22/2034 Abdominal Aortic Aneurysm (A AA) Screening Completed 11/27/2013 Procedures Procedure Name Priority Date/Time Associated Diagnosis Comments HEMOGLOBIN A1C Routine 11/24/2022 2:14 AM KISS MACHINE OPERATOR LIPID PANEL Routine 09/01/2019 Dyslipidemia Type 2 diabetes mellitus without complication, without long-term current use of insulin ([facility]) from Last 3 Months or Most Recently Relevant to Health Maintenance Results * (ABNORMAL) HEMOGLOBIN A1C (11/24/2022 2:14 AM KISS MACHINE OPERATOR) HEMOGLOBIN A1C 7.2(H) <=5.6 % 11/24/2022 3:34 AM KISS MACHINE OPERATOR [facility] EST. AVG GLUCOSE, A1C 160 mg/dL 11/24/2022 3:34 AM KISS MACHINE OPERATOR [facility] Blood Venipuncture / Unknown 11/24/2022 2:14 AM KISS MACHINE OPERATOR 11/24/2022 3:02 AM KISS MACHINE OPERATOR Narrative [facility] [employer] [facility] - 11/24/2022 3:34 AM KISS MACHINE OPERATOR HGB A1C INTERPRETATION NORMAL: <5.7% PRE-DIABETES: 5.7 - 6.4% DIABETES: 6.5% OR GREATER Cm Tatum MD CHEMISTRY ORDERABLES Fin al Result [facility] CLIA# [id number] [address] [place] [address] * LIPID PANEL (09/01/2019) Blood us Maurice Deluca MD CHEMISTRY ORDERABLES Final Re sult NON [facility] from Last 3 Months or Most Recently Relevant to Health Maintenance Insurance MEDICARE PART A AND B [facility] CHOICE [id number] RX [employer] RX Member Subscriber Plan / Payer (Ef fective 2022-Present) Name:RdAmy Relation to Subscriber:Not on file Name:Rd Amy Carly Subscriber ID:Not on file Date of :1960 Payer ID:Not on file Type:RX Commercial Address: [place], [place] Advance Directives For more information, please contact: [phone] * Full Code (Latest Code Status on File) Date Activated Date Inactivated Comments 11/19/2022 12:36 PM 12/07/2022 7:23 PM Care Teams Electrical Assemblies Supervisor Relationship Specialty Start Date End Date Amy Frey DO PCP - General Family Practice 10/05/18
--- OUTSIDE RECORDS SUMMARY | 2025-10-05 05:13 | XMS_ITS | Encounter Summary ---
Author Organization [facility] Address [address] [place] [address] Care Team Providers Care Cylinder Head Assembler Name Role Phone Emilio Frey DO Primary Care Provider Encounter Details Date Type Department Care Team (Late st Contact Info) Description 03/18/2001 Outpatient [facility] [address] [place] [address] [place] [address] Francia Russo MD NO ADDRESS ON FILE Social History Tobacco Use Types Packs/Day Years Used Date Smoking Tobacco: Never Assessed Sex and Gender Information Value Date Recorded Sex Assigned at Not on file Legal Sex Male 2:39 AM MICROSOFT OFFICE INSTRUCTOR Gender Identity Not on file Sexual Orientation Not on file documented as of this encounter Plan of Treatment Upcoming Encounters Date Type Department Care Team (Late st Contact Info) Description 10/16/2025 10:00 AM MICROSOFT OFFICE INSTRUCTOR [facility] - [address] [facility] 300 [address] [facility] 300 [place] [address] [place] [address] [facility] 300 [place] [address] 05/21/2026 10:40 AM CDT [facility] - [facility] [address] [place] [address] [place] [address] [place] [address] 05/24/2026 10:00 AM CDT [facility] - [address] [facility] [address] [place] [address] Juancho Vivian Mancilla, MELTER CLERK [address] [facility] [address] [place] [address] documented as of this encounter Visit Diagnoses Not on filedocumented in this encounter Additional Health Concerns Infection Onset Date Last Indicated Resolved Time 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
--- OUTSIDE RECORDS SUMMARY | 2025-10-05 05:13 | XMS_ITS | Encounter Summary ---
Author Organization [facility] Address [address] [place] [address] Care Team Providers Care Broaching Machine Operator Name Role Phone Emilio Frey DO Primary Care Provider Encounter Details Date Type Department Care Team (Late st Contact Info) Description 03/30/2001 Outpatient [facility] [address] [place] [address] [place] [address] Francia Russo MD NO ADDRESS ON FILE Social History Tobacco Use Types Packs/Day Years Used Date Smoking Tobacco: Never Assessed Sex and Gender Information Value Date Recorded Sex Assigned at Not on file Legal Sex Male 2:39 AM STATION CAPTAIN Gender Identity Not on file Sexual Orientation Not on file documented as of this encounter Plan of Treatment Upcoming Encounters Date Type Department Care Team (Late st Contact Info) Description 10/16/2025 10:00 AM STATION CAPTAIN Office Visit [facility] Heart and Vascular Electrophysiology - [address] [facility] 300 [address] [facility] 300 [place] [address] [place] [address] [facility] 300 [place] [address] 05/21/2026 10:40 AM CDT Office Visit [facility] Pulmonology - [facility] [address] [place] [address] [place] [address] [place] [address] 05/24/2026 10:00 AM CDT Office Visit [facility] Heart and Vascular - [address] [facility] [address] 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
--- OUTSIDE RECORDS SUMMARY | 2025-10-05 05:14 | XMS_ITS | Encounter Summary ---
Author Organization [facility] Address [address] [place] [address] Care Team Providers Care Goggles Assembler Name Role Phone EatonEmilio salgado DO Primary Care Provider Reason for Visit * Reason Onset Date Comments Acute Hypoxic failure 12/01/2022 Spoke w/ R reid at Dr. Ruffin's Ex Encounter Details Date Type Department Care Team (Late Contact Info) Description 12/01/2022 Telephone [facility] Admitting [address] [place] [address] [place] [address] [facility] 3 [place] [address] Acute Hypoxic failure (Spoke w/ Simran at Dr. Ruffin's Ex) Social History Tobacco Use Types Packs/Day Years Used Date Smoking Tobacco: Former Cigarettes Smokeless Tobacco: Former Alcohol Use Standard Drinks/Week Comments Yes 0 (1 standard drink = 0.6 oz pur e alcohol) rare Sex and Gender Information Value Date Recorded Sex Assigned at Not on file Legal Sex Male 2:39 AM LABORER BROODER FARM Gender Identity Not on file Sexual Orientation Not on file COVID-19 Exposure Response Date Recorded In the last 10 days, have yo u been in contact with someone who was confirmed or suspected to have Coronavirus/COVID-19? No / Unsure 11/19/2022 7:29 AM LABORER BROODER FARM documented as of this encounter Plan of Treatment Upcoming Encounters Date Type Department Care Team (Late Contact Info) Description 10/16/2025 10:00 AM LABORER BROODER FARM Office Visit [facility] Vascular Electrophysiology - [address] [facility] [address] [facility] [address] [place] [address] Mary Lou Dang, SHOER [address] [facility] 300 [place] [address] 05/21/2026 10:40 AM CDT Office Visit [facility] Pulmonology - [place] [address] [place] [address] [place] [address] [place] [address] 05/24/2026 10:00 AM CDT Office Visit [facility] - [address] [facility] 300 [address] [facility] 300 [place] [address] Vivian Dawkins, JUANY [address] [facility] [address] [place] [address] documented as of this encounter Visit Diagnoses Not on filedocumented in this encounter Care Teams Goggles Assembler Relationship Specialty Start Date End Date Emilio Frey DO PCP - General Family Practice 10/05/18 documented as of this encounter
--- OUTSIDE RECORDS SUMMARY | 2025-10-05 05:14 | XMS_ITS | Encounter Summary ---
Author Organization [facility] Address [address] [place] [address] Phone Care Team Providers Care Stucco Laborer Name Role Phone Unavailable Primary Care Provider Unavailabl e Reason for Visit * Reason Comments Med Change Request Encounter Details Date Type Department Care Team (Late st Contact Info) Description 12/30/2023 Refill [facility] [address] [facility] 120 [place], [place] [id number] Soren Holcomb MD [address] [id number] Social History Tobacco Use Types Packs/Day Years [...] Team (Late st Contact Info) Description 10/16/2025 4:20 PM UPHOLSTERY TECHNICIAN Office Visit [facility] [address] [facility] 1 [place] [address] Soren Holcomb MD [address] [address] documented as of this encounter Visit Diagnoses Not on filedocumented in this encounter
--- OUTSIDE RECORDS SUMMARY | 2025-10-05 05:14 | XMS_ITS | Encounter Summary ---
Author Organization [facility] Address [address] [place] [address] Care Team Providers Care Ice Cream Van Vendor Name Role Phone Emilio Frey DO Primary Care Provider Encounter Details Date Type Department Care Team (Late st Contact Info) Description 08/18/2001 Outpatient [facility] [address] [place] [address] [place] [address] Francia Russo MD NO ADDRESS ON FILE Social History Tobacco Use Types Packs/Day Years Used Date Smoking Tobacco: Never Assessed Sex and Gender Information Value Date Recorded Sex Assigned at Not on file Legal Sex Male 2:39 AM FIBER DESIGN ENGINEER Gender Identity Not on file Sexual Orientation Not on file documented as of this encounter Plan of Treatment Upcoming Encounters Date Type Department Care Team (Late st Contact Info) Description 10/16/2025 10:00 AM FIBER DESIGN ENGINEER Office Visit [facility] Heart and Vascular Electrophysiology - [address] [facility] 300 [address] [facility] 300 [place] [address] [place] [address] [facility] 300 [place] [address] 05/21/2026 10:40 AM CDT Office Visit [facility] Pulmonology - [facility] [address] [place] [address] [place] [address] [place] [address] 05/24/2026 10:00 AM CDT Office Visit [facility] Heart and Vascular - [address] [facility] [address] [address] [facility] [address] [place] [address] Juancho Vivian Mancilla, LAWN CARE WORKER [address] [facility] [address] [place] [address] documented as of this encounter Visit Diagnoses Not on filedocumented in this encounter Additional Health Concerns Infection Onset Date Last Indicated Resolved Time 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
--- OUTSIDE RECORDS SUMMARY | 2025-10-05 05:14 | XMS_ITS | Clinical Summary ---
Author Organization [facility] Address [address] [place] [address] Phone Care Team Providers Care Assistant Account Manager Name Role Phone Unavailable Primary Care Provider [...] 100 UNIT/ML injection Inject under the skin in the morning and at noon and in the evening. Inject with meals. Active albuterol HFA (PROVENTIL HFA) 108 (90 Base) MCG/ACT inhaler Inhale 2 puffs every 4 (four) hours if needed for wheezing Active spironolactone (ALDACTONE) 12.5 MG tablet 12.5 mg 1 (one) time each day Active oxyCODONE-acet aminophen (PERCOCET) 10-325 MG per tablet Take 1 tablet by mouth every 4 (four) hours if needed for moderate pain Active tadalafil (CIALIS) 20 MG tablet Take 40 mg by mouth 1 (one) time each day Active tiZANidine (ZANAFLEX) 4 MG capsule Take 8 mg by mouth at bed time Active Tirzepatide (Mounjaro) 5 MG/0.5ML solution pen-injector Inject 10 mg under the skin per week Active amiodarone (PACERONE) 100 MG tablet Take 100 mg by mouth 1 (one) time each day Active Farxiga 10 MG tablet TAKE 1 TABLET BY MOUTH ONCE DAILY USE FARXIGA 30 tablet Active potassium chloride (K-TAB) 20 MEQ CR tablet TAKE 1 TABLET BY MOUTH THREE TIMES A WEEK 15 tablet Active ergocalciferol (VITAMIN D2) 1.25 MG (02834 UT) capsule Take 1 capsule by mouth once a week 5 capsule Active ergocalciferol (VITAMIN D2) 1.25 MG (29621 UT) capsule Take 1 capsule by mouth once a week 5 capsule 3 5 025 Discontinued potassium chloride (K-TAB) 20 MEQ CR tablet TAKE 1 TABLET BY MOUTH THREE TIMES A WEEK 15 tablet 1 5 025 Discontinued Active Problems Problem Noted [...] Encounters Date Type Department Care Team Description 09/21/2025 Refill [facility] [address], [address] [place] [address] Soren Holcomb MD 07/12/2025 Refill [facility] [address], [address] [place], [place] [phone] Soren Holcomb MD from Last 3 Months [...] Sign Reading Time Taken Comments Blood Pressure 125/66 06/19/2025 3:47 PM CDT Pulse 68 06/19/2025 3:47 PM CDT Temperature - - Respiratory Rate - - Oxygen Saturation 97% 08/12/2023 3:28 PM CDT Inhaled Oxygen Concentration - - Weight 121 kg (267 lb) 06/19/2025 3:47 PM CDT Height 180.3 cm (5' 11) 06/19/2025 3:47 PM CDT Body Mass Index 37.24 06/19/2025 3:47 PM CDT Plan of Treatment Upcoming Encounters Date Type Department Care Team ([facility] Contact Info) Description 10/16/2025 4:20 PM GRADUATE NURSE Office Visit [facility] [address] [facility] 1 [place], [place] [id number] Soren Holcomb MD [address] [phone] Health Maintenance Due Date Last Done Comments Diabetic Foot Exam 1969 Ophthalmology Exam 1969 Pneumococcal PPSV23/PCV13 65 + Years / High and Highest Risk (1 of 5 - PCV) 1978 Influenza Vaccine (#1) 2025 7, 12/14/2016, 12/19/2013, Additional history exists Insurance MEDICARE PM INTERFACED INSURANCE PM INTERFACED INSURANCE
--- OUTSIDE RECORDS SUMMARY | 2025-10-05 05:14 | XMS_ITS | Encounter Summary ---
Author Organization [facility] Address [address] [place] [address] Care Team Providers Care Grinder Set Up Operator Thread Name Role Phone Emilio Frey DO Primary Care Provider Encounter Details Date Type Department Care Team (Late st Contact Info) Description 09/29/2001 Outpatient [facility] [address] [place] [address] [place] [address] Francia Russo MD NO ADDRESS ON FILE Social History Tobacco Use Types Packs/Day Years Used Date Smoking Tobacco: Never Assessed Sex and Gender Information Value Date Recorded Sex Assigned at Not on file Legal Sex Male 2:39 AM ON SITE SERVICES SPECIALIST Gender Identity Not on file Sexual Orientation Not on file documented as of this encounter Plan of Treatment Upcoming Encounters Date Type Department Care Team (Late st Contact Info) Description 10/16/2025 10:00 AM ON SITE SERVICES SPECIALIST Office Visit [facility] Heart [facility] Vascular Electrophysiology - [address] [facility] 300 [address] [facility] 300 [place] [address] [place] [address] [facility] 300 [place] [address] 05/21/2026 10:40 AM CDT Office Visit [facility] Pul[facility]ology [facility] [address] [facility] [address] [place] [address] [place] [address] [place] [address] 05/24/2026 10:00 AM CDT Office Visit [facility] Heart and Vascular - [address] [facility] [address] [place] [address] Juancho Vivian Mancilla, DAIRY PROCESSING EQUIPMENT OPERATOR [address] [facility] [address] [place] [address] documented as of this encounter Visit Diagnoses Not on filedocumented in this encounter Additional Health Concerns Infection Onset Date Last Indicated Resolved Time 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
--- OUTSIDE RECORDS SUMMARY | 2025-10-05 05:14 | XMS_ITS | Encounter Summary ---
Author Organization [facility] Address [address] [place] [address] Care Team Providers Care Ben Day Artist Name Role Phone Emilio Frey DO Primary Care Provider Encounter Details Date Type Department Care Team (Late st Contact Info) Description 08/31/2001 Outpatient [facility] [address] [place] [address] [place] [address] Francia Russo MD NO ADDRESS ON FILE Social History Tobacco Use Types Packs/Day Years Used Date Smoking Tobacco: Never Assessed Sex and Gender Information Value Date Recorded Sex Assigned at Not on file Legal Sex Male 2:39 AM DIAMOND GRINDER Gender Identity Not on file Sexual Orientation Not on file documented as of this encounter Plan of Treatment Upcoming Encounters Date Type Department Care Team (Late st Contact Info) Description 10/16/2025 10:00 AM DIAMOND GRINDER Office Visit [facility] Heart and Vascular Electrophysiology - [address] [facility] [address] [address] [facility] 300 [place] [address] [place] [address] [facility] 300 [place] [address] 05/21/2026 10:40 AM CDT Office Visit [facility] Pulmonology - [facility] [address] [place] [address] [place] [address] [place] [address] 05/24/2026 10:00 AM CDT Office Visit [facility] Heart and Vascular - [address] [facility] [address] [place] [address] Juancho Vivian Mancilla, DELIVERY ENGINEER [address] [place] [address] documented as of this encounter Visit Diagnoses Not on filedocumented in this encounter Additional Health Concerns Infection Onset Date Last Indicated Resolved Time 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
--- OUTSIDE RECORDS SUMMARY | 2025-10-05 05:14 | XMS_ITS | Encounter Summary ---
Author Organization [facility] Address [address] [place] [address] Care Team Providers Care Behavioral School Counselors Name Role Phone Emilio Frey DO Primary [...] on file Legal Sex Male 2:39 AM BENCH GRINDER Gender Identity Not on file Sexual Orientation Not on file documented as of this encounter Plan of Treatment Upcoming Encounters Date Type Department Care Team (Late st Contact Info) Description 10/16/2025 10:00 AM BENCH GRINDER Office Visit [facility] Heart and Vascular Electrophysiology - [address] [facility] 300 [address] [facility] 300 [place] [address] Mary Lou Dang, RAISA [address] [facility] [address] [place] [address] 05/21/2026 10:40 AM CDT Office Visit [facility] Pulmonology - [facility] [address] [facility] [address] [place] [address] [place] [address] [facility] [address] [place] [address] 05/24/2026 10:00 AM CDT Office Visit [facility] Heart and Vascular - [address] [facility] [address] [address] [facility] [address] [place] [address] Vivian Dawkins FNP [address] [facility] [address] [place] [address] documented as of this encounter Visit Diagnoses Diagnosis Chest pain, unspecified- Primary documented in this encounter Additional Health Concerns Infection Onset Date Last Indicated Resolved Time 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
--- OUTSIDE RECORDS SUMMARY | 2025-10-05 05:14 | XMS_ITS | Patient Health Record ---
Author Organization [facility] Address [address] [place] [id number] Care Team Providers Care Supervisor Capacitor Processing Name Role Phone Emilio Frey Unavailable Unavailable MICHELLE STALLINGS Unavailable [phone] Allergies No Known Allergies Reason For Referral No Information Encounters Encounter Location Date Provider Diagnosis [facility] [address] [place] [id number] 10/23/2024 MICHELLEMAXIMINO STALLINGS Onychomycosis B35.1 ; 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 ; Atherosclerosis of [place] arteries of extremities with intermittent claudication, bilateral legs I70.213 ; Type 2 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 E11.49 and Pain in right foot M79.671 [facility] [address] [place] [id number] 11/13/2024 MICHELLEMAXIMINO STALLINGS Onychomycosis B35.1 ; 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 ; Atherosclerosis of [place] arteries of extremities with intermittent claudication, bilateral legs I70.213 ; Type 2 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 E11.49 and Pain in right foot M79.671 [facility] [address] [place] [id number] 11/27/2024 MICHELLEMAXIMINO STALLINGS Onychomycosis B35.1 ; 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 ; Atherosclerosis of [place] arteries of extremities with intermittent claudication, bilateral legs I70.213 ; Type 2 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 E11.49 and Pain in right foot M79.671 [facility] [address] [place], [place] [id number] 11/14/2024 MICHELLE STALLINGS Assessments Encounter Date Diagnosis (ICD Code) Assessment Notes Treatment Notes Treatment Clinical Notes Section Notes 10/23/2024 Onychomycosis (ICD-10 - B35.1) 11/13/2024 Onychomycosis [...] and recommended that he wear the boot. 10/23/2024 Non-pressure chronic ulcer of other part of right foot limited to breakdown of skin (ICD-10 - L97.511) Reeducated the pt on the need to keep pressure off of the wound Dispense: A cam walker was fitted and dispensed. The patient was instructed in its use. 10/23/2024 Atherosclerosis of [place] arteries of extremities with intermittent claudication, bilateral legs (ICD-10 - I70.213) 11/13/2024 Atherosclerosis of [place] arteries of extremities with intermittent claudication, bilateral legs (ICD-10 - I70.213) 11/27/2024 Atherosclerosis of [place] arteries of extremities with intermittent claudication, bilateral legs (ICD-10 - I70.213) 11/27/2024 Type 2 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 (ICD-10 - E11.49) 11/13/2024 Type 2 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 (ICD-10 - E11.49) 10/23/2024 Type 2 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 (ICD-10 - E11.49) 10/23/2024 Pain in right foot (ICD-10 - M79.671) 11/13/2024 Pain in right foot (ICD-10 - M79.671) 11/27/2024 Pain in right foot (ICD-10 - M79.671) 10/23/2024 Other The ulcer was debrided down [...] Insured Coverage Start Date Coverage End Date [facility] [address] [address] [place], [place] [id number] Emilio Sultana Self - patient is the insured Medicare Part B [place] [address] [place] [address] [id number] Emilio Sultana Self - patient is the insured Medical (General) History Medical History History ICD Code Asthma/Bronchitis Leg/Feet cramps Respiratory disease Arthritis Sleep apnea Back Trouble Diabetic high blood pressure restless leg syndrome Surgical History Surgery Date(Month/Year) Back in 1983 appendectomy in 1971 knee 2001 Left shoulder in 2016 several foot surgeries
--- OUTSIDE RECORDS SUMMARY | 2025-10-05 05:15 | XMS_ITS | Encounter Summary ---
Author Organization [facility] Address [address] [place] [address] Care Team Providers Care Production Generalist Name Role Phone [place] FallsEmilio DO Primary Care Provider Reason for Visit * Reason Onset Date Comments Loose tooth evaluation, toot h extraction 11/24/2022 Spoke W/ Rhina at Dr. Jacobs' s office Encounter Details Date Type Department Care Team (Late Contact Info) Description 11/24/2022 Telephone [facility] Admitting [address] [place] [address] [place] [address] [place] [address] Loose tooth evaluation, tooth extraction [...] on file Legal Sex Male 2:39 AM CARTRIDGE ASSEMBLING MACHINE ADJUSTER Gender Identity Not on file Sexual Orientation Not on file COVID-19 Exposure Response Date Recorded In the last 10 days, have yo u been in contact with someone who was confirmed or suspected to have Coronavirus/COVID-19? No / Unsure 11/19/2022 7:29 AM CARTRIDGE ASSEMBLING MACHINE ADJUSTER documented as of this encounter Plan of Treatment Upcoming Encounters Date Type Department Care Team (Late Contact Info) Description 10/16/2025 10:00 AM CARTRIDGE ASSEMBLING MACHINE ADJUSTER Office Visit [facility] Heart and Vascular Electrophysiology - [address] [facility] [address] [address] [facility] [address] [place] [address] Mary Lou Dang, GAS BLENDER [address] [facility] [address] [place] [address] 05/21/2026 10:40 AM CDT Office Visit [facility] [address] [place] [address] [place] [address] [place] [address] 05/24/2026 10:00 AM CDT Office Visit [facility] Heart and Vascular - [address] [facility] [address] [address] [facility] 300 [place] [address] Vivian Dawkins, JUANY [address] [facility] [address] [place] [address] documented as of this encounter Visit Diagnoses Not on filedocumented in this encounter Additional Health Concerns Infection Onset Date Last Indicated Resolved Time R/O Respiratory 11/27/2022 11/27/2022 11/27/2022 6 :44 PM CARTRIDGE ASSEMBLING MACHINE ADJUSTER documented as of this encounter Care Teams Production Generalist Relationship Specialty Start Date End Date Emilio Frey DO PCP - General Family Practice 10/05/18 documented as of this encounter
--- OUTSIDE RECORDS SUMMARY | 2025-10-05 05:15 | XMS_ITS | Encounter Summary ---
Author Organization [facility] Address [address] [place] [address] Care Team Providers Care Recreation Therapist Name Role Phone Emilio Frey DO Primary Care Provider Reason for Visit * Reason Onset Date Comments Pt. Diffused shaking at bedt kanuaaliyah Dr. Doesnt see 11/26/2022 Spoke W/ Charo at Dr. Angela sandra's exchange Encounter Details Date Type Department Care Team (Late st Contact Info) Description 11/26/2022 Telephone [facility] Admitting [address] [facility] [place] [address] [place] [address] [place] [address] [facility]. [facility] Does[facility] see (Spoke W/ Charo at Dr. 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 No / Unsure 11/19/2022 7:29 AM CEILING INSULATION BLOWER documented as of this encounter Plan of Treatment Upcoming Encounters Date Type Department Care Team (Late st Contact Info) Description 10/16/2025 10:00 AM CEILING INSULATION BLOWER Office Visit [facility] Heart and Vascular Electrophysiology - [address] [facility] [address] [address] [facility] [address] [place] [address] Mary Lou Dang, RAISA [address] [facility] 300 [place] [address] 05/21/2026 10:40 AM CDT Office Visit [facility] Pulmonology - [place] [address] [place] [address] Ephraim Ruffin, [address] [place] [address] 05/24/2026 10:00 AM CDT Office Visit [facility] Heart and Vascular - [address] [facility] 300 [address] [facility] 300 [place] [address] Vivian Dawkins, JUANY [address] [facility] 300 [place] [address] documented as of this encounter Visit Diagnoses Not on filedocumented in this encounter Additional Health Concerns Infection Onset Date Last Indicated Resolved Time R/O Respiratory 11/27/2022 11/27/2022 11/27/2022 6 :44 PM CEILING INSULATION BLOWER documented as of this encounter Care Teams Recreation Therapist Relationship Specialty Start Date End Date Emilio Frey DO PCP - General Family Practice 10/05/18 documented as of this encounter
--- OUTSIDE RECORDS SUMMARY | 2025-10-05 05:15 | XMS_ITS | Encounter Summary ---
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
--- OUTSIDE RECORDS SUMMARY | 2025-10-05 05:15 | XMS_ITS | Encounter Summary ---
Author Organization [facility] Address [address] [place] [address] Care Team Providers Care In Flight Refueling System Repairer Name Role Phone Emilio Frey DO Primary Care Provider Reason for Visit * Reason Onset Date Comments Irregular Heart Beat 11/19/2022 Spoke w/Nathaly n at office Encounter Details Date Type Department Care Team ([facility] Contact Info) Description 11/19/2022 Telephone [facility] [address] [place] [address] [place] Ed[place] [id number] [place] [address] Irregular Heart Beat (Spoke w/Angeline at office) Social History Tobacco Use Types Packs/Day Years Used Date Smoking Tobacco: Former Cigarettes Smokeless Tobacco: Former Alcohol Use Standard Drinks/Week Comments Yes 0 (1 standard drink = 0.6 oz pur e alcohol) rare Sex and Gender Information Value Date Recorded Sex Assigned at Not on file 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 No / Unsure 11/19/2022 7:29 AM NETWORK OPERATIONS TECHNICIAN documented as of this encounter Plan of Treatment Upcoming Encounters Date Type Department Care Team ([facility] Contact Info) Description 10/16/2025 10:00 AM NETWORK OPERATIONS TECHNICIAN Office Visit [facility] Heart and Vascular Electrophysiology - [address] [facility] 300 [address] [facility] [address] [place] [address] Mary Lou Dang, RAISA [address] [facility] 300 [place] [address] 05/21/2026 10:40 AM CDT Office Visit [facility] Pulmonology - [facility] [address] [place] [address] Ephraim Ruffin, [address] [place] [address] 05/24/2026 10:00 AM CDT Office Visit [facility] Heart and Vascular - [address] [facility] 300 [address] [facility] 300 [place] [address] Vivian Dawkins, JUANY [address] [facility] 300 [place] [address] documented as of this encounter Visit Diagnoses Not on filedocumented in this encounter Additional Health Concerns Infection Onset Date Last Indicated Resolved Time R/O Respiratory 11/27/2022 11/27/2022 11/27/2022 6 :44 PM NETWORK OPERATIONS TECHNICIAN documented as of this encounter Care Teams In Flight Refueling System Repairer Relationship Specialty Start Date End Date Emilio Frey DO PCP - General Family Practice 10/05/18 documented as of this encounter
--- OUTSIDE RECORDS SUMMARY | 2025-10-05 05:15 | XMS_ITS | Encounter Summary ---
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
--- OUTSIDE RECORDS SUMMARY | 2025-10-05 05:15 | XMS_ITS | Patient Health Record ---
Author Organization [facility] Address [address] [place] [address] Care Team Providers Care Etl Lead Name Role Phone ShanteEmilio ellis DO Primary Care Provider Audi Riley Unavailable [phone] Allergies Allergen (clinical drug ingredient) Drug/Non Drug Allergy documented on EMR Reaction Allergy Type Onset Date Status sucralfate Carafate Unknown Drug Allergy Active tamsulosin Flomax Unknown Drug Allergy Active Coconut Oil Unknown Drug Allergy Activ e Reason For Referral Reason Finding of elevated blood pressure Diagnosis 1 Elevated blood-press ure reading, without diagnosis of hypertension (R03.0) Referral Organization [facility] Referring Provider First Name Audi Referring Provider Last Name Jean Claude Referring Provider Speciality Pain Medic ine Referred Provider Specialty Internal Med icine Referral Priority Routine Reason Finding of elevated blood pressure Diagnosis 1 Elevated blood-press ure reading, without diagnosis of hypertension (R03.0) Referral Organization [facility] Wave - Private Location App [facility] Referring Provider First Name Audi Referring Provider Last Name Jean Claude Referring Provider Speciality Pain Medic ine Referred Provider Specialty Internal Med icine Referral Priority Routine Reason Finding of elevated blood pressure Diagnosis 1 Elevated blood-press ure reading, without diagnosis of hypertension (R03.0) [facility] Wave - Private Location App [facility] Referring Provider First Name Audi Referring Provider Last Name Jean Claude Referring Provider Speciality Pain Medic ine Referred Provider Specialty Internal Med icine Referral Priority Routine Reason Finding of elevated blood pressure Diagnosis 1 Elevated blood-press ure reading, without diagnosis of hypertension (R03.0) Referral Organization [facility] [employer] Referring Provider First Name Audi Referring Provider Last Name Jean Claude Referring Provider Speciality Pain Medic ine Referred Provider Specialty Internal Med icine Referral Priority Routine Reason Finding of elevated blood pressure Diagnosis 1 Elevated blood-press ure reading, without diagnosis of hypertension (R03.0) Referral Organization [facility] Referring Provider First Name Audi Referring Provider Last Name Jean Claude Referring Provider Speciality Pain Medic ine Referred Provider Specialty Internal Med icine Referral Priority Routine Reason Finding of elevated blood pressure Diagnosis 1 Elevated blood-press ure reading, without diagnosis of hypertension (R03.0) Referral Organization [facility] Referring Provider First Name Audi Referring Provider Last Name Jean Claude Referring Provider Speciality Pain Medic ine Referred Provider Specialty Internal Med icine Referral Priority Routine Reason (B) C2/3 and C3/4 MB B #1 Diagnosis 1 Spondylosis without myelopathy or radiculopathy, cervical region (M47.812) Referred Organization [facility] Referred Provider Audi Silverio Referred Address [address],[place], [place],[address],[place] Referred Provider Specialty Pain Medicin e Procedure 1 FACET CERV/THOR (644 90) Procedure 2 FACET CERV/THOR 2ND LEV (24350) General Notes no auth per call to [phone], call ref: [id number] Kathy 11/09/2024 01:05:38 PM > Referral Priority Routine Reason Finding of elevated blood pressure Diagnosis 1 Elevated blood-press ure reading, without diagnosis of hypertension (R03.0) Referral Organization [facility] Referring Provider First Name Audi Referring Provider Last Name Jean Claude Referring Provider Speciality Pain Medic ine Referred Provider Specialty Internal Med icine Referral Priority Routine Reason (B) L4 SNRB Diagnosis 1 Radiculopathy, lumba r region (M54.16) Referred Organization [facility] Referred Provider Audi Silverio Referred Address [address],[place], [place],[address],[place] Referred Provider Specialty Pain Medicin e Procedure 1 LUMBAR SNRI (99782) General Notes no auth per call to [phone], call ref: [id number] Kathy 02/08/2025 01:31:30 PM > Referral Priority Routine Reason (B) C2/3 and C3/4 MB B #2 Diagnosis 1 Spondylosis without myelopathy or radiculopathy, cervical region (M47.812) Referred Organization [facility] Referred Provider Audi Silverio Referred Address [address],[place], [place],[address],[place] Referred Provider Specialty Pain Medicin e Procedure 1 FACET CERV/THOR (644 90) Procedure 2 FACET CERV/THOR 2ND LEV (04815) General Notes no auth per umr port al, scanned in chart, Kayleen Carlos 04/12/2025 09:23:32 AM > Referral Priority Routine Reason Finding of elevated blood pressure, ref sent to PCP Diagnosis 1 Elevated blood-press ure reading, without diagnosis of hypertension (R03.0) Referral Organization [facility] Referring Provider First Name Audi Referring Provider Last Name Jean Claude Referring Provider Speciality Pain Medic ine Referred Provider Specialty Internal Med icine Referral Priority Routine Reason Bennie L4 TF SARAH Diagnosis 1 Radiculopathy, lumba r region (M54.16) Referred Organization [facility] Referred Provider Audi Silverio Referred Address [address],[place], [place],[address],[place] Referred Provider Specialty Pain Medicin e Procedure 1 LUMBAR SNRI (28900) General Notes No auth needed pr [facility] R portal- Decision ID# [id number], Angeline Parker 07/12/2025 03:54:59 PM > Referral Priority Routine Reason Finding of elevated blood pressure, ref sent to PCP Diagnosis 1 Elevated blood-press ure reading, without diagnosis of hypertension (R03.0) Referral Organization [facility] Referring Provider First Name Audi Referring Provider Last Name Jean Claude Referring Provider Speciality Pain Medic ine Referral Priority Routine Reason C5-C6 Translaminar E SI Diagnosis 1 Radiculopathy, cervi laurie region (M54.12) Referred Organization [facility] Referred Provider Audi Silverio Referred Address [address],[place], [place],[address],[place] Referred Provider Specialty Pain Medicin e Procedure 1 OMNIPAQUE [address] CHGED [facility] M[facility] 03-05-08 (Q9966) Procedure 2 DEXAMETHASONE SODIUM PHOSPHATE (DECADRON) 4ML (J1100) Procedure 3 EPIDURAL CERV/THOR W /IMAGING GUIDANCE (69183) General Notes No auth needed per U MR portal. Scanned in chart. Decision ID: [id number] Erin 09/06/2025 03:52:08 PM > Referral Priority Routine Reason Finding of elevated blood pressure, ref sent to PCP Diagnosis 1 Elevated blood-press ure reading, without diagnosis of hypertension (R03.0) Referral Organization [facility] Referring Provider First Name Audi Referring Provider Last Name [facility] Referring Provider Speciality Pain Medic ine Referral Priority Routine Reason Finding of elevated blood pressure, ref sent to PCP Diagnosis 1 Elevated blood-press ure reading, without diagnosis of hypertension (R03.0) Referral Organization [facility] Referring Provider First Name Audi Referring Provider Last Name [facility] Referring Provider Speciality Pain Medic ine Referral Priority Routine Medications Medication SIG (Take, Route, Frequency, Duration) Notes Start Date End Date Status Eliquis 5 MG as directed Orally Active Atorvastatin Calcium 80 MG TAKE 1 TABLET BY MOUTH ONCE DAILY Oral; Duration: 90 Days Active Potassium Chloride ER 20 MEQ Oral; Duration: 35 Days Acti ve Vitamin D (Ergocalciferol) 1.25 MG (27651 UT) TAKE 1 CAPSULE BY MOUTH ONCE A WEEK Oral; Duration: 35 Days Active tiZANidine HCl 4 MG Oral; Duration: 30 Days Active Amiodarone HCl 200 MG Oral; Duration: 30 Days Active Farxiga 10 MG Oral; Duration: 30 Days Active Mounjaro 10 MG/0.5ML Subcutaneous; Durat ion: 28 Days Active Percocet 10-325 MG 1 tab po q 4-6 hr pr n pain; Duration: 30 days 10/04/2025 11/03/2025 Active Spironolactone 25 MG Oral; Duration: 90 Days Active Zanaflex 4 MG 2 tablets at bedtime Orally; Duration: 30 days 08/05/2022 03/05/2026 Active Tadalafil (PAH) 20 MG Oral; Duration: 30 Days Active Topamax 200 MG two pills Orally at bedtime; Duration: 30 days Active MS Contin 60 MG 1 tablet Orally BID; Duration: 30 days Active oxyCODONE-Acetaminophen 10-325 MG Oral; Duration: 30 [...] ast year? No Points 0 Interpretation Negative Problems Problem Type SNOMED Code ICD Code Onset Dates Problem Status W/U Status Risk Notes Problem Fear of medical treatment (946295545) Fear of injections and transfusions (F40.231) Active confirmed Problem Essential hypertension (28893659) Essential (primary) hypertension (I10) Active confirmed Problem Localized, primary osteoarthritis of the pelvic region and thigh (980916955) Bilateral primary osteoarthritis of hip (M16.0) Active confirmed Problem Localized, primary osteoarthritis of the pelvic region and thigh (907931450) Unilateral primary osteoarthritis, left hip (M16.12) Active confirmed Problem Localized, primary osteoarthritis (861107455) Bilateral primary osteoarthritis of knee (M17.0) Active confirmed Problem Localized, primary osteoarthritis (091669509) Unilateral primary osteoarthritis, left knee (M17.12) Active confirmed Problem Localized, primary osteoarthritis of the shoulder region () Primary osteoarthritis, right shoulder (M19.011) Active confirmed Problem Localized, primary osteoarthritis of the shoulder region (477394384) Primary osteoarthritis, left shoulder (M19.012) Active confirmed Problem Localized, primary osteoarthritis of the wrist (383447684) Primary osteoarthritis, 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) Active confirmed Problem Solitary sacroiliitis (275094588) Sacroiliitis, not elsewhere classified (M46.1) Active confirmed Problem Cervical spondylosis without myelopathy (381068298) Spondylosis without myelopathy or radiculopathy, cervical region (M47.812) Active confirmed Problem Degeneration of lumbar intervertebral disc (85619022) Other intervertebral disc degeneration, lumbar region (M51.36) Active confirmed Problem Degeneration of lumbosacral intervertebral disc (67710270) Other intervertebral disc degeneration, lumbosacral region (M51.37) Active confirmed Problem Cervical radiculopathy (15655988) Radiculopathy, cervical region (M54.12) Active confirmed Problem Lumbar radiculopathy (012830736) Radiculopathy, lumbar region (M54.16) Active confirmed Problem Chronic neck pain (9519355914679) Cervicalgia (M54.2) Active confirmed Problem Low back pain (104917925) Low back pain (M54.5) Active confirmed Problem Muscle pain (69783431) Other myositis, multiple sites (M60.89) Active confirmed Problem Myositis (82391262) Myositis, unspecified (M60.9) Active confirmed Problem Elevated blood pressure reading without diagnosis of hypertension (965503886) Elevated blood-pressure reading, without diagnosis of hypertension (R03.0) Active confirmed Problem Degeneration of cervical intervertebral disc (81229772) Other cervical disc degeneration at C5-C6 level (M50.322) Active confirmed Vital Signs Heart Rate 68 /min 10/04/2025 Temperature 97.2 degrees Fahrenheit 10/04/2025 Respiratory Rate 16 /min 10/04/2025 Blood pressure diastolic 64 mm Hg 10/04/2025 Height 72 in 10/04/2025 Blood pressure systolic 139 mm Hg 10/04/2025 Weight 260 lbs 10/04/2025 BMI 35.26 kg/m2 10/04/2025 Encounters Encounter Location Date Provider Diagnosis [facility] [address] [address] 10/18/2024 Audi Silverio Radiculopathy, lumba r region M54.16 ; Elevated blood-pressure reading, without diagnosis of hypertension R03.0 and Bilateral primary osteoarthritis of knee M17.0 [facility] [address] [address] 11/08/2024 Audi Silverio Sacroiliitis, not elsewhere classified M46.1 ; Other intervertebral disc degeneration, lumbar region M51.36 and Spondylosis without myelopathy or radiculopathy, cervical region M47.812 [facility] [address] [address] 12/13/2024 Audi Silverio Spondylosis without myelopathy or radiculopathy, cervical region M47.812 [facility] [address] [address] 02/07/2025 Audi Silverio Radiculopathy, lumba r region M54.16 and Other intervertebral disc degeneration, lumbar region M51.36 [facility] [address] [place] [address] [place] [phone] 03/08/2025 Audi Silverio Radiculopathy, lumba r region M54.16 [facility] [address] [place] [address] [place] [address] 04/12/2025 Audi Silverio Bilateral primary osteoarthritis of knee M17.0 and Spondylosis without myelopathy or radiculopathy, cervical region M47.812 [facility] [address] [place] [address] [place] [address] 05/10/2025 Audi Silverio Spondylosis without myelopathy or radiculopathy, cervical region M47.812 [facility] [address] [place] [address] 07/12/2025 Audi Silverio Radiculopathy, lumba r region M54.16 and Other intervertebral disc degeneration, lumbosacral region M51.37 [facility] [address] [place] [address] [place] [phone] 08/09/2025 Audi Silverio Radiculopathy, lumba r region M54.16 and Other intervertebral disc degeneration, lumbar region M51.36 [facility] [address] [place] [address] [place] [phone] 09/06/2025 Audi Silverio Bilateral primary osteoarthritis of knee M17.0 ; Radiculopathy, cervical region M54.12 and Other cervical disc degeneration at C5-C6 level M50.322 [facility] [address] [place] [address] [place] [phone] 10/04/2025 Audi Silverio Radiculopathy, cervical region M54.12 ; Other cervical disc degeneration at C5-C6 level M50.322 and Bilateral primary osteoarthritis of knee M17.0 [facility] [address] [place] [address] [address] [place] [address] 10/04/2025 Audi Silverio [facility] [address] [facility] [address] [place] [address] 11/08/2024 Audi Silverio [facility] [address] [place] [address] 02/07/2025 Audi Silverio [facility] [address] [facility] [address] [place] [phone] 04/12/2025 Audi Silverio [facility] [address] [place] [address] [place] [phone] 07/12/2025 Audi Silverio [facility] [address] [place] [phone] 09/06/2025 Audi Silverio Assessments Encounter Date Diagnosis (ICD Code) Assessment Notes Treatment Notes Treatment Clinical Notes Section Notes 10/18/2024 Radiculopathy, lumbar region (ICD-10 - M54.16) [...] regimen.3. Return to clinic in 1 month. 08/09/2025 Radiculopathy, lumbar region (ICD-10 - M54.16) 1. Proceed with bilateral L4 selective nerve root block.2. Continue medication regimen.3. Return to clinic in 1 month. 09/06/2025 Bilateral primary osteoarthritis of knee (ICD-10 - M17.0) 1. Proceed with ultrasound-guided bilateral knee joint injections.2. Continue medication regimen.3. Return to clinic in 1 month. 07/12/2025 Radiculopathy, lumbar region (ICD-10 - M54.16) 1. Schedule patient for bilateral L4 selective nerve root block.2. Continue medication regimen.3. Return for above procedure after insurance authorization. 10/04/2025 Radiculopathy, cervical region (ICD-10 - M54.12) 10/04/2025 Other cervical disc degeneration at C5-C6 level (ICD-10 - M50.322) Patient reports 90 % of pain relief post procedure. 08/09/2025 Other intervertebral disc degeneration, lumbar region (ICD-10 - M51.36) 09/06/2025 Radiculopathy, cervical region (ICD-10 - M54.12) 07/12/2025 Other intervertebral disc degeneration, lumbosacral region (ICD-10 - M51.37) 02/07/2025 Other intervertebral disc degeneration, lumbar region [...] than 70% improvement lasting over 90 days. 11/08/2024 Other intervertebral disc degeneration, lumbar region (ICD-10 - M51.36) 10/18/2024 Elevated blood-pressure reading, without diagnosis of hypertension (ICD-10 - R03.0) 10/18/2024 Bilateral primary osteoarthritis of knee (ICD-10 - M17.0) 1. Proceed with bilateral knee joint injections. 11/08/2024 Spondylosis without myelopathy or radiculopathy, cervical region (ICD-10 - M47.812) 09/06/2025 Other cervical disc degeneration at C5-C6 level (ICD-10 - M50.322) 1. Schedule patient for C5-C6 translaminar cervical epidural steroid injection.2. Return for above procedure after insurance authorization. 10/04/2025 Bilateral primary osteoarthritis of knee (ICD-10 - M17.0) 1. Return to clinic in 1 month for hyaluronic acid injection series to bilateral knees. He has undergone this in the distant past with good relief of the symptoms. 12/13/2024 Other The risk of thi s [...] of procedures and prolonged repeat steroid use. 07/12/2025 Other The risk of thi s procedure [...] of procedures and prolonged repeat steroid use. 08/09/2025 Other I will proceed today with a L4 transforaminal lumbar epidural steroid injection under fluoroscopic guidance. The risk of this procedure were discussed with the patient in which they verbalized understanding and wished to proceed. The patient will continue to be a part of an active comprehensive pain management program as tolerated, while and after the treatment plan is carried out. 09/06/2025 Other The risk of thi s procedure [...] of procedures and prolonged repeat steroid use. 10/04/2025 Other I will proceed today with [...] plan is carried out. Plan Of Treatment Pending Test Test Name Order Date MRI : Shoulder, left 07/06/2017 X ray : Wrist, left 01/26/2018 X ray: Bilateral Knees 08/21/2020 Next Appt Details Provider Name:Audi Mendieta [facility], 11/15/2025 08:30:00 AM, [address] [facility], [facility] [address], [place], [address], Insurance Providers Payer Name Payer Address Payer Phone Subscriber Number Group Number Insured Name Patient Relationship to Insured Coverage Start Date Coverage End Date [facility] [address] [address] [place] [address] [id number] [phone] Graciela Sultana Spouse - patient is the spouse of the insured 3 [employer] [address] [address] [place] [address] [id number] Emilio Sultana Self - patient is the insured 4 [...]
--- OUTSIDE RECORDS SUMMARY | 2025-10-05 05:15 | XMS_ITS | Clinical Summary ---
Author Organization [facility] at the [facility] Office Center Address [address] [place] [address] Care Team Providers Care Geometry Teacher Name Role Phone Emilio Frey Primary Care Provider Allergies Active Allergy Reactions Criticality Noted Date Comments Coconut Rash Medium 05/29/2019 Tamsulosin Nausea & Vomiting,Nausea only Medium 2017 Sucralfate Stomach upset,Nausea & Vomiting Low 07/0 11/2018 Medications oxyCODONE-acet aminophen (PERCOCET) 10-325 mg per tablet 10-325 mg every 6 (six) hours Active topiramate (TOPAMAX) 200 mg tablet Take 2 tablets (400 mg total) by mouth nightly Active atorvastatin (LIPITOR) 80 mg tablet 019 Active albuterol HFA (PROVENTIL HFA,VENTOLIN HFA,PROAIR HFA) 90 mcg/actuation inhaler Inhale 2 puffs as needed Active HumaLOG 100 unit/mL pen for injectionIndic ations:Type 2 diabetes mellitus with diabetic chronic kidney disease (HCC) INJECT 0-15 UNITS UNDER THE SKIN 3 TIMES DAILY WITH MEALS 15 mL 5 024 Active senna-docusate (PERICOLACE) 8.6-50 mg Take 3 [...] by mouth Three times a week Active ergocalciferol , vitamin D2, 50 mcg (2,000 unit) tablet [...] a day as needed 200 each 5 024 Active LANTUS 100 unit/mL (3 mL) pen for injectionIndic ations:Type 2 diabetes mellitus with diabetic chronic kidney disease (HCC) Inject 25 Units under the skin daily 15 mL 5 025 Active blood-glucose meter,continuo us (Dexcom G7 Semiconductor Technician) miscIndication s:Type 2 diabetes mellitus with diabetic polyneuropathy , with long-term current use of insulin ([facility]) Dexcom G7 human resources office assistant use daily to monitor blood sugar. 1 each 1 025 Active pen needle, diabetic (BD Johanna 2nd Gen Pen Needle) 32 gauge x 5/32 needle USE TO INJECT INSULIN UP TO FOUR TIMES DAILY 100 each 2 025 Active tirzepatide (Mounjaro) 12.5 mg/0.5 mL pen injector injection Inject 0.5 mL (12.5 mg total) under the skin once a week 2 mL 025 Active tirzepatide (Mounjaro) 5 mg/0.5 mL pen injector INJECT 5 MG SUBCUTANEOUSLY EVERY 7 DAYS 2 mL 1 024 2024 Discontinued tirzepatide (Mounjaro) 7.5 mg/0.5 mL pen injector injectionIndic ations:Type 2 diabetes mellitus with diabetic polyneuropathy , with long-term current use of insulin (HCC) INJECT 7.5 MG SUBCUTANEOUSLY WEEKLY 2 mL 1 025 2024 Discontinued tirzepatide (Mounjaro) 10 mg/0.5 mL pen injector injectionIndic ations:Type 2 diabetes mellitus with diabetic polyneuropathy , with long-term current use of insulin (HCC) INJECT 0.5 ML (10 MG TOTAL) UNDER THE SKIN ONCE A WEEK 2 mL 1 025 2024 Discontinued(T herapy completed) Active Problems Problem Noted Date Diagnosed Date [...] 1st toe, currently being managed by the [facility]. 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 Gender Identity Not on file Sexual Orientation [...] Health Maintenance Due Date Last Done Comments Foot Exam 1960 Zoster Vaccine (1 of 2) 2009 Pneumococcal vaccine 65+ (2 of 2 - PCV) 12/19/2014 12/19/2013 DTaP/Tdap/Td Vaccine (2 - Td or Tdap) 01/16/2024 01/16/2014 eGFR 05/14/2024 05/14/2023 Dilated Eye Exam 05/19/2025 05/19/2023 Influenza Vaccine (#1) 2025 7, 12/19/2013, 12/19/2013 Hemoglobin A1C 12/09/2025 06/08/2025, 0107/2025, 04/27/2024, Additional history exists Depression Screening 06/07/2026 06/07/2025, 04/27/20 24 Fall Risk Assessment 06/07/2026 06/07/2025 Well Visit 65+ 06/07/2026 06/07/2025, 04/27/2024 Albumin Creatinine Ratio, Urine 06/08/2026 5, 08/12/2023 Lipid Panel 06/08/2026 06/08/2025, 05/14/2023 Prostate Cancer Screening-PSA 06/08/2027 06/08/2025 Colon Cancer Screening-Colonoscopy 09/22/2034 09/22/2024, 11/03/2019 Colon Cancer Screening-CT Colonography Discontinued 09/22/2024, 11/03/2019 Colon Cancer Screening-DNA Stool Discontinued 09/22/20, 11/03/2019 Colon Cancer Screening-FIT Discontinued 09/22/2024, Colon Cancer Screening-Sigmoidoscopy Discontinued 09/22/2024, 11/03/2019 Hepatitis B Screening Discontinued Hepatitis C Screening Discontinued Medical Devices Implanted Type Area Extrusion Engineer Device Identifier Shelf Expiration Date Model / Serial / Lot Lens Implant Bilateral: Eye Procedures Procedure Name Priority Date/Time Associated Diagnosis Comments HEMOGLOBIN A1C Routine 06/08/2025 LIPID PANEL Routine 06/08/2025 ALBUMIN CREATININE RATIO, URINE Routine 06/08/2025 PSA SCREEN Routine 06/08/2025 COLONOSCOPY 09/22/2024 12:25 PM CDT DIABETIC EYE EXAM Routine 05/19/2023 COMPREHENSIVE METABOLIC PANEL Routine 05/14/2023 from Last 3 Months or Most Recently Relevant to Health Maintenance Results * PSA screen (06/08/2025) SCRIBED PSA, Serum 0.1 0 - 4 EXTERNAL LAB Blood us Historical Provider LAB BLOOD ORDERABLES Stephania l Result EXTERNAL LAB * Albumin Creatinine Ratio, Urine (06/08/2025) SCRIBED Creatinine, Urine 16.3 NONE mg/dL EXTERNAL LAB SCRIBED Microalbumin 10.6 NONE mg/L EXTERNAL LAB SCRIBED Microalb/Creat Ratio 65.0 1 - 29 mg/g EXTERNAL LAB Urine [facility] Provider LAB URINE ORDERABLES Stephania l Result Performing Organization Address City/[facility]/ZIP Co de Phone Number EXTERNAL LAB * (ABNORMAL) Hemoglobin A1c (06/08/2025) SCRIBED Hemoglobin A1c 7.7(A) 4.0 - 5.6 % EXTERNAL LAB Blood [facility] Provider LAB BLOOD ORDERABLES Stephania l Result Performing Organization Address City/[facility] Co de Phone Number EXTERNAL LAB * Lipid panel (06/08/2025) SCRIBED Cholesterol, Total 129 30 - 199 mg/dL EXTERNAL LAB SCRIBED Triglycerides 95 <=149 mg/dL EXTERNAL LAB SCRIBED HDL 51 >=40 mg/dL EXTERNAL LAB SCRIBED LDL 46 <=129 mg/dL EXTERNAL LAB Scribed Non-HDL Cholesterol 0 NONE mg/dL EXTERNAL LAB SCRIBED Total Cholesterol/HDL Ratio 0 NONE EXTERNAL LAB Blood [facility] Provider LAB BLOOD ORDERABLES Stephania l Result Performing Organization Address [facility] Co de Phone Number EXTERNAL LAB * Colonoscopy (09/22/2024 12:25 PM CDT) Anatomical Region Laterality Modality Other Narrative Procedure Note Trinh Galicia MD - 09/22/2024 12:25 PM CDT [facility] GI ENDOSCOPY Patient Name: Emilio Sultana Procedure Date: 09/22/2024 12:25PM Date of : 1960 Admit Type: Outpatient Age: 63 Gender: Male Attending MD: Trinh Galicia M.D. Room: [facility] ENDOSCOPY ROOM 05 Note Status: Finalized Procedure: [...] The scope was passed under direct vision.The [id number] colonoscope was introduced through theanus and advanced [...] On: 09/22/2024 12:25 PM Recognized by the [employer] for promoting quality in endoscopy Trinh Galicia MD ENDOSCOPY PROCEDURES Stephania l Result * Diabetic Eye Exam (05/19/2023) Historical Provider HEALTH MAINTENANCE Final Result * (ABNORMAL) Comprehensive metabolic panel (05/14/2023) SCRIBED Sodium 139 137 - 145 mmol/L [...] - 59 Units/L EXTERNAL LAB SCRIBED eGFR 0 0 - 0 EXTERNAL LAB SCRIBED eGFR 34(A) 60 - 100 EXTERNAL LAB Blood us Historical Provider LAB BLOOD ORDERABLES Stephania fam Result EXTERNAL LAB from Last 3 Months or Most Recently Relevant to Health Maintenance Insurance [facility] MEDICARE MEDICARE [facility] Care Teams Geometry Teacher Relationship Specialty Start Date End Date Emilio Frey DO PCP - General Family Practice 05/25/19
[2025-10-05 05:17] VITALS: BP 193/82; PULSE 101; RESP 20; TEMP 36.6; O2SAT 100
--- NOTE | 2025-10-05 05:51 | ED.GENADULT ---
HPI - General Adult General Chief complaint: Back Pain/Injury Stated complaint: back pain Time Seen by Provider: 10/05/25 05:25 History of Present Illness HPI narrative: 64-year-old male with chronic pain presenting with exacerbation of chronic pain. Patient said he got a hydrocortisone shot yesterday due to neck pain. Today he has pain in his neck back hips knees and legs. He is on daily Percocet and took his home medication with no relief. He denies any trauma or inciting events. Patient is requesting IV narcotics including morphine. He is requesting strong medication to knock out the pain. Related Data Home Medications ?Medication ?Instructions ?Recorded ?Confirmed ?Last Taken ?Type atorvastatin 80 mg tablet 80 mg PO DAILY 09/22/19 12/09/22 Unknown History lisinopril 10 mg tablet 10 mg PO DAILY 09/22/19 12/09/22 Unknown History Held on 12/15/22. Instructions: restart when instructed tizanidine 4 mg capsule (Zanaflex) 4 mg PO HS 09/22/19 12/09/22 Unknown History topiramate 200 mg tablet (Topamax) 400 mg PO HS 09/22/19 12/09/22 Unknown History albuterol sulfate 90 mcg/actuation 2 puff inhalation Q4H PRN 09/28/19 12/09/22 Unknown History aerosol inhaler (ProAir HFA) Shortness Of Breath oxycodone-acetaminophen 10 mg-325 1 tablet PO Q4H PRN Pain 09/28/19 12/09/22 Unknown History mg tablet amiodarone 200 mg tablet 200 mg PO BID 12/09/22 12/09/22 Unknown History apixaban 5 mg tablet 5 mg PO BID 12/09/22 12/09/22 Unknown History furosemide 80 mg tablet 80 mg PO DAILY 12/09/22 12/09/22 Unknown History guaifenesin 600 mg tablet,extended 600 mg PO BID 12/09/22 12/09/22 Unknown History release insulin glargine 100 unit/mL 15 unit subcut QAM 12/09/22 12/09/22 Unknown History subcutaneous solution insulin lispro 100 unit/mL See Rx Instructions .Route .COMPLEX 12/09/22 12/09/22 Unknown History subcutaneous cartridge spironolactone 25 mg tablet 12.5 mg PO DAILY 12/09/22 12/09/22 Unknown History tadalafil 20 mg tablet 40 mg PO DAILY 12/09/22 12/09/22 Unknown History Held on 12/15/22. Instructions: restart when instructed Allergies Allergy/AdvReac Type Severity Reaction Status Date / Time coconut Allergy Mild Rash Verified 12/09/22 17:17 tamsulosin AdvReac Intermediate NAUSEA, Verified 12/09/22 17:17 DIARRHEA sucralfate AdvReac Mild NAUSEA Verified 12/09/22 17:17 [facility] Past Medical History Medical History (Updated 10/05/25 @ 05:54 by Damaso Rodriguez MD) History of MRSA infection Insulin dependent type 2 diabetes mellitus End-stage renal disease on hemodialysis Chronic anticoagulation Atrial fibrillation Chronic narcotic use Chronic pain syndrome Osteoarthritis of multiple joints DARRYL (obstructive sleep apnea) Intolerant to CPAP COPD (chronic obstructive pulmonary disease) Chronic heart failure with preserved ejection fraction (HFpEF) Hypertension, essential Hyperlipidemia Diabetic ulcer of foot associated with diabetes mellitus due to underlying condition, with necrosis of bone Diabetic foot ulcer with osteomyelitis Surgical History Surgical History History of arthroplasty of right knee History of partial colectomy Hx of appendectomy Family History Family History Father Pancreas cancer Alzheimer disease Hypertension, essential Mother Diabetes mellitus COPD (chronic obstructive pulmonary disease) Hypertension Sibling Acute myocardial infarction COPD (chronic obstructive pulmonary disease) Other Cerebrovascular accident Family history of cardiovascular disease Social History Social History (Updated 12/09/22 @ 22:22 by Josefina Santana PA-C) Social History: Surrogate medical decision maker: Graciela Sultana, spouse. Code status: Full code. Additional smoking assessment comments: Smoked as a teenager for couple of years. Alcohol intake: never Substance use: never Substance use type: does not use Lack of Transportation: No Lack of Food: Never True Current Housing: I Have Housing Concerned About Future Housing: No Difficulty Paying Gas/Electric Bills: No Difficulty Paying for Meds: YES Currently Unemployed: No Education: High School Diploma/GED Difficulty w/ Childcare or Family Care: No Additional living arrangements comments: Lives with and cat in [place]. They have 3 grown children. Additional occupation/education comments: Disabled. Spiritual care concerns: No Exam Narrative: APPEARANCE: Patient is calling out from his room saying that he needs pain medication Head: atraumatic. EYES: EOMI, NOSE: Atraumatic NECK: Trachea midline RESPIRATORY: No increased rate of breathing clear to auscultation CARDIOVASCULAR: RRR, ABDOMINAL: Non-distended soft nontender no guarding rebound MUSCULOSKELETAl: No obvious deformities NEURO: Alert. Moving for 4 extremities SKIN:: Warm, dry. Normal color PSYCHIATRIC: Normal affect Course Vital Signs Vital signs: Vital Signs Temperature 98 F 10/05/25 05:17 Pulse Rate 101 H 10/05/25 05:17 Respiratory Rate 20 10/05/25 05:17 Blood Pressure 193/82 H 10/05/25 05:17 Pulse Oximetry 100 10/05/25 05:17 Oxygen Delivery Room Air 10/05/25 05:17 Temperature 98 F 10/05/25 05:17 Pulse Rate 101 H 10/05/25 05:17 Respiratory Rate 20 10/05/25 05:17 Blood Pressure 193/82 H 10/05/25 05:17 Pulse Oximetry 100 10/05/25 05:17 Oxygen Delivery Room Air 10/05/25 05:17 Medical Decision Making [facility] Narrative Medical decision making narrative: -Course: 64-year-old male with chronic pain presenting with exacerbation of chronic pain. He is requesting IV narcotics which I am not comfortable giving him. Especially given his large amount of home opiates that he is prescribed on a monthly basis. He last filled those approximately 28 days ago and I suspect he may have run out prompting his visit to the ED. He was given Toradol Tylenol and 10 mg of oxycodone. Patient will be discharged to follow-up with his pain specialist. -DDX includes but is not limited to: Exacerbation of chronic pain, drug-seeking Vital Signs Vital Signs: Vital Signs Temperature 98 F 10/05/25 05:17 Pulse Rate 101 H 10/05/25 05:17 Respiratory Rate 20 10/05/25 05:17 Blood Pressure 193/82 H 10/05/25 05:17 Pulse Oximetry 100 10/05/25 05:17 Oxygen Delivery Room Air 10/05/25 05:17 Temperature 98 F 10/05/25 05:17 Pulse Rate 101 H 10/05/25 05:17 Respiratory Rate 20 10/05/25 05:17 Blood Pressure 193/82 H 10/05/25 05:17 Pulse Oximetry 100 10/05/25 05:17 Oxygen Delivery Room Air 10/05/25 05:17 Discharge Plan Discharge Clinical Impression: Chronic pain Patient Disposition: Home Condition: Stable Instructions: Antibiotic Form, Chronic Pain (ED) Additional Instructions: Please take your home medications for pain control. Please follow-up with your pain specialist for further management. ED if develops severe pain or any new symptoms. Patient Language: Macedonian Prescriptions: No Action oxycodone-acetaminophen 10-325 mg Tablet 1 tablet PO Q4H PRN (Reason: Pain) Rx Instructions: NEEDED FOR BACK/NECK PAIN albuterol sulfate [ProAir HFA] 90 mcg/actuation Hfa Aerosol Inhaler 2 puff INHALATION Q4H PRN (Reason: Shortness Of Breath) amiodarone 200 mg Tablet 200 mg PO BID insulin glargine 100 unit/mL Solution 15 unit SUBCUT QAM guaifenesin 600 mg Tablet Extended Release 600 mg PO BID spironolactone 25 mg Tablet 12.5 mg PO DAILY furosemide 80 mg Tablet 80 mg PO DAILY apixaban 5 mg Tablet 5 mg PO BID insulin lispro 100 unit/mL Cartridge See Rx Instructions .ROUTE .COMPLEX Rx Instructions: 0-15 units ac hs tadalafil 20 mg Tablet 40 mg PO DAILY doxycycline hyclate 100 mg Tablet 100 mg PO Q12HR Qty: 7 0RF atorvastatin 80 mg Tablet 80 mg PO DAILY lisinopril 10 mg Tablet 10 mg PO DAILY topiramate [Topamax] 200 mg Tablet 400 mg PO HS tizanidine [Zanaflex] 4 mg Capsule 4 mg PO HS Follow-up/Referrals: Shante,Emilio Edwards DO [Primary Care Provider, Unknown]
[2025-10-05] MEDS: ACETAMINOPHEN 500 MG TABLET 1000 MG PO (06:06)
[2025-10-05] MEDS: oxyCODONE HCL (*CRX) 5 MG TAB IR 10 MG PO (06:06)
--- OUTSIDE RECORDS SUMMARY | 2025-10-05 06:14 | XMS_ITS | Encounter Summary ---
Author Organization [facility] Address [address] [place] [address] Care Team Providers Care Hold Worker Name Role Phone Emilio Frey DO Primary Care Provider Encounter Details Date Type Department Care Team (Late st Contact Info) Description 08/31/2001 Outpatient [facility] [address] [place] [address] 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 Gender Identity Not on file Sexual Orientation Not on file documented as of this encounter Plan of Treatment Upcoming Encounters Date Type Department Care Team (Late st Contact Info) Description 10/16/2025 10:00 AM POWER PLANT SUPERINTENDENT Office Visit [facility] Heart and Vascular Electrophysiology - [address] [facility] [address] [address] [facility] [address] [place] [address] [place] [address] [facility] [address] [place] [address] 05/21/2026 10:40 AM CDT Office Visit [facility] Pulmonology - [facility] [address] [place] [address] [place] [address] [place] [address] 05/24/2026 10:00 AM CDT Office Visit [facility] Heart and Vascular - [address] [facility] [address] [place] [address] Juancho Vivian Mancilla, JOB SITE SUPERVISOR [address] [facility] [address] [place] [address] documented as of this encounter Visit Diagnoses Not on filedocumented in this encounter Additional Health Concerns Infection Onset Date Last Indicated Resolved Time MRSA Comment:10/2017 nares Lt great toe 12/2013, nares 10/2014, 06/201601/21/2014 01/21/2014 02/29/20 12:00 AM CDT R/O Respiratory 11/27/2022 11/27/2022 11/27/2022 6 :44 PM POWER PLANT SUPERINTENDENT documented as of this encounter Care Teams Hold Worker Relationship Specialty Start Date End Date Emilio Frey DO PCP - General Family Practice 10/05/18 documented as of this encounter
--- OUTSIDE RECORDS SUMMARY | 2025-10-05 06:14 | XMS_ITS | Encounter Summary ---
Author Organization [facility] Address [address] [place] [address] Care Team Providers Care Rivet Maker Name Role Phone Emilio Frey DO Primary Care Provider Encounter Details Date Type Department Care Team (Late st Contact Info) Description 06/16/2001 Outpatient [facility] [address] [place] [address] 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 Gender Identity Not on file Sexual Orientation Not on file documented as of this encounter Plan of Treatment Upcoming Encounters Date Type Department Care Team (Late st Contact Info) Description 10/16/2025 10:00 AM AUTO TRANSPORT DRIVER Office Visit [facility] Heart and Vascular Electrophysiology - [address] [facility] [address] [address] [facility] [address] [place] [address] [place] [address] [facility] [address] [facility] [address] [place] [address] 05/21/2026 10:40 AM CDT Office Visit [facility] - [facility] [address] [place] [address] [place] [address] [place] [address] 05/24/2026 10:00 AM CDT Office Visit [facility] Heart and Vascular - [address] [facility] [address] [facility] [place] [address] Juancho Vivian Mancilla, TEACHER OF THE DEAF [address] [facility] [address] [place] [address] documented as of this encounter Visit Diagnoses Not on filedocumented in this encounter Additional Health Concerns Infection Onset Date Last Indicated Resolved Time MRSA Comment:10/2017 nares Lt great toe 12/2013, nares 10/2014, 06/201601/21/2014 01/21/2014 02/29/20 12:00 AM CDT R/O Respiratory 11/27/2022 11/27/2022 11/27/2022 6 :44 PM AUTO TRANSPORT DRIVER documented as of this encounter Care Teams Rivet Maker Relationship Specialty Start Date End Date Emilio Frey DO PCP - General Family Practice 10/05/18 documented as of this encounter
--- OUTSIDE RECORDS SUMMARY | 2025-10-05 06:14 | XMS_ITS | Encounter Summary ---
Author Organization [facility] Address [address] [place] [address] Care Team Providers Care Simulation Technician Name Role Phone Emilio Frey DO Primary Care Provider Encounter Details Date Type Department Care Team (Late st Contact Info) Description 03/30/2001 Outpatient [facility] [address] [place] [address] [place] [address] Francia Russo MD NO ADDRESS ON FILE Social History Tobacco Use Types Packs/Day Years Used Date Smoking Tobacco: Never Assessed Sex and Gender Information Value Date Recorded Sex Assigned at Not on file Legal Sex Male 2:39 AM CEO Gender Identity Not on file Sexual Orientation Not on file documented as of this encounter Plan of Treatment Upcoming Encounters Date Type Department Care Team (Late st Contact Info) Description 10/16/2025 10:00 AM CEO Office Visit [facility] Heart and Vascular Electrophysiology - [address] [facility] [address] [address] [facility] [address] [place] [address] [place] [address] [facility] [address] [place] [address] 05/21/2026 10:40 AM CDT Office Visit [facility] Pulmonology - [facility] [address] [place] [address] [place] [address] [place] [address] 05/24/2026 10:00 AM CDT Office Visit [facility] Heart and Vascular - [address] [facility] [address] [place] [address] Juancho Vivian Mancilla, MOTORMAN/WOMAN [address] [facility] [address] [place] [address] documented as of this encounter Visit Diagnoses Not on filedocumented in this encounter Additional Health Concerns Infection Onset Date Last Indicated Resolved Time MRSA Comment:10/2017 nares Lt great toe 12/2013, nares 10/2014, 06/201601/21/2014 01/21/2014 02/29/20 12:00 AM CDT R/O Respiratory 11/27/2022 11/27/2022 11/27/2022 6 :44 PM CEO documented as of this encounter Care Teams Simulation Technician Relationship Specialty Start Date End Date Emilio Frey DO PCP - General Family Practice 10/05/18 documented as of this encounter
--- OUTSIDE RECORDS SUMMARY | 2025-10-05 06:14 | XMS_ITS | Clinical Summary ---
Author Organization [facility] [address] Address [address] [place] [address] Care Team Providers Care Direct Marketing Specialist Name Role Phone Amy Frey DO Primary [...] 1 5 Active Blood-Glucose Meter,Continuous (Dexcom G7 Health Professor) Dexcom G7 risk control director use daily to monitor blood sugar. 5 Active Insulin Harrison, Disposable, 32 gauge x 5/32 Needle USE [...] different from the original. Dr Amy Frey [phone] Practice moved this is updated phone number [...] (05/29/2022): Added automatically from request for surgery [id number] Other hyperlipidemia 10/07/2020 Diastolic CHF, chronic 08/25/2019 Dyslipidemia 08/25/2019 T2DM (type 2 diabetes mellitus) 05/05/2019 Overview (05/05/2019): Overview: BS 196 this a.m. Coronary atherosclerosis 11/18/2017 HTN (hypertension) 03/20/2015 DARRYL (obstructive sleep apnea) 09/20/2014 Acute on chronic renal insufficiency 12/19/2013 Paroxysmal atrial fibrillation 12/30/2011 Encounters Date Type Department Care Team Description 08/29/2025 Refill [facility]3] Heart and Vascular - [address] [facility] [address] [place] [address] Maurice Deluca MD 07/17/2025 External Device Data STL ABSTRACTION Provider, Abstract from Last 3 Months Family History Medical History Relation Name Comments Cardiomyopathy Father Cardiomyopathy Mother Coronary Artery Disease Sister Relation Name Status Comments Father Mother Sister Social History Tobacco Use Types Packs/Day Years Used Date Smoking Tobacco: Former Cigarettes 0.3 1 1 978 - 4067 Passive Smoke Exposure: Never Smokeless Tobacco: Never [...] on file Legal Sex Male 2:39 AM STRIP MILL OPERATOR Gender Identity Not on file [...] st Contact Info) Description 10/16/2025 10:00 AM STRIP MILL OPERATOR Office Visit [facility]3] Heart and Vascular Electrophysiology - [address] [facility] 300 [address] [facility] [address] [place] [address] [place] [address] [facility] 300 [place] [address] 05/21/2026 10:40 AM CDT Office Visit [facility]3] Pulmonology - [facility] [address] [facility] [place] [address] [place] [address] [facility] [address] [place] [address] 05/24/2026 10:00 AM CDT Office Visit [facility] ([facility]3] Heart and Vascular - [address] [facility] [address] [address] [facility] [address] [place] [address] Vivian Dawkins, [facility] [address] [facility] [address] [place] [address] Health Maintenance Due Date Last [...] Comments HEMOGLOBIN A1C Routine 11/24/2022 2:14 AM STRIP MILL OPERATOR LIPID PANEL Routine 09/01/2019 Dyslipidemia Type 2 diabetes mellitus without complication, without long-term current use of insulin ([facility]) from Last 3 Months or Most Recently Relevant to Health Maintenance Results * (ABNORMAL) HEMOGLOBIN A1C (11/24/2022 2:14 AM STRIP MILL OPERATOR) HEMOGLOBIN A1C 7.2(H) <=5.6 % 11/24/2022 3:34 AM STRIP MILL OPERATOR [facility] LABORATORY [facility] EST. AVG GLUCOSE, A1C 160 mg/dL 11/24/2022 3:34 AM STRIP MILL OPERATOR [facility] [[email or web address]] Blood Venipuncture / Unknown 11/24/2022 2:14 AM STRIP MILL OPERATOR 11/24/2022 3:02 AM STRIP MILL OPERATOR Narrative [facility] Gaming [employer] [facility] - 11/24/2022 3:34 AM STRIP MILL OPERATOR HGB A1C INTERPRETATION NORMAL: <5.7% PRE-DIABETES: 5.7 - 6.4% DIABETES: 6.5% OR GREATER Cm Tatum MD CHEMISTRY ORDERABLES Fin al Result [facility] [[email or web address]] CLIA# [id number] [address] [place] [address] * LIPID PANEL (09/01/2019) Blood us Maurice Deluca MD CHEMISTRY ORDERABLES Final Re sult NON [facility] LAB from Last 3 Months or Most Recently Relevant to Health Maintenance Insurance MEDICARE PART A AND B [facility] CHOICE [id number] RX [employer] RX Member Subscriber Plan / Payer (Ef fective 2022-Present) Name:RdAmy Relation to Subscriber:Not on file Name:Rd Amy Carly Subscriber ID:Not on file Date of :1960 Payer ID:Not on file Type:RX Commercial Address: [place], [place] Advance Directives For more information, please contact: [phone] * Full Code (Latest Code Status on File) Date Activated Date Inactivated Comments 11/19/2022 12:36 PM 12/07/2022 7:23 PM Care Teams Direct Marketing Specialist Relationship Specialty Start Date End Date Amy Frey DO PCP - General Family Practice 10/05/18
--- OUTSIDE RECORDS SUMMARY | 2025-10-05 06:14 | XMS_ITS | Encounter Summary ---
Author Organization [facility] Address [address] [place] [address] Care Team Providers Care Software Test Engineer Name Role Phone Emilio Frey DO Primary Care Provider Encounter Details Date Type Department Care Team (Late st Contact Info) Description 03/18/2001 [facility] [address] [place] [address] [place] [address] Francia Russo MD NO ADDRESS ON FILE Social History Tobacco Use Types Packs/Day Years Used Date Smoking Tobacco: Never Assessed Sex and Gender Information Value Date Recorded Sex Assigned at Not on file Legal Sex Male 2:39 AM BRINE TANK OPERATOR Gender Identity Not on file Sexual Orientation Not on file documented as of this encounter Plan of Treatment Upcoming Encounters Date Type Department Care Team (Late st Contact Info) Description 10/16/2025 10:00 AM BRINE TANK OPERATOR Office Visit [facility] Heart and Vascular Electrophysiology - [address] [facility] 300 [address] [facility] 300 [place] [address] [place] [address] [facility] 300 [place] [address] 05/21/2026 10:40 AM CDT Office Visit [facility] Pulmonology - [facility] [address] [place] [address] [place] [address] [place] [address] 05/24/2026 10:00 AM CDT Office Visit [facility] Heart and Vascular - [address] [facility] [address] [facility] [address] [place] [address] Juancho Vivian Mancilla, RADIO TIME SALESPERSON [address] [facility] [address] [place] [address] documented as of this encounter Visit Diagnoses Not on filedocumented in this encounter Additional Health Concerns Infection Onset Date Last Indicated Resolved Time MRSA Comment:10/2017 nares Lt great toe 12/2013, nares 10/2014, 06/201601/21/2014 01/21/2014 02/29/20 12:00 AM CDT R/O Respiratory 11/27/2022 11/27/2022 11/27/2022 6 :44 PM BRINE TANK OPERATOR documented as of this encounter Care Teams Software Test Engineer Relationship Specialty Start Date End Date Emilio Frey DO PCP - General Family Practice 10/05/18 documented as of this encounter
--- OUTSIDE RECORDS SUMMARY | 2025-10-05 06:14 | XMS_ITS | Encounter Summary ---
Author Organization [facility] Address [address] [place] [address] Care Team Providers Care Securities Dealer Name Role Phone Emilio Frey DO Primary Care Provider Encounter Details Date Type Department Care Team (Late st Contact Info) Description 08/18/2001 Outpatient [facility] [address] [place] [address] [place] [address] Francia Russo MD NO ADDRESS ON FILE Social History Tobacco Use Types Packs/Day Years Used Date Smoking Tobacco: Never Assessed Sex and Gender Information Value Date Recorded Sex Assigned at Not on file Legal Sex Male 2:39 AM MICROPHONE OPERATOR Gender Identity Not on file Sexual Orientation Not on file documented as of this encounter Plan of Treatment Upcoming Encounters Date Type Department Care Team (Late st Contact Info) Description 10/16/2025 10:00 AM MICROPHONE OPERATOR [facility]iology - [address] [facility] 300 [address] [facility] 300 [place] [address] [place] [address] [facility] 300 [place] [address] 05/21/2026 10:40 AM CDT [facility] Pulmonology - [facility] [address] [place] [address] [place] [address] [place] [address] 05/24/2026 10:00 AM CDT [facility] Visit [facility] Heart and Vascular - [address] [facility] [address] [place] [address] Juancho Vivian Mancilla, STOCKROOM ATTENDANT [address] [facility] [address] [place] [address] documented as of this encounter Visit Diagnoses Not on filedocumented in this encounter Additional Health Concerns Infection Onset Date Last Indicated Resolved Time MRSA Comment:10/2017 nares Lt great toe 12/2013, nares 10/2014, 06/201601/21/2014 01/21/2014 02/29/20 12:00 AM CDT R/O Respiratory 11/27/2022 11/27/2022 11/27/2022 6 :44 PM MICROPHONE OPERATOR documented as of this encounter Care Teams Securities Dealer Relationship Specialty Start Date End Date Emilio Frey DO PCP - General Family Practice 10/05/18 documented as of this encounter
--- OUTSIDE RECORDS SUMMARY | 2025-10-05 06:14 | XMS_ITS | Encounter Summary ---
Author Organization [facility] Address [address] [place] [address] Care Team Providers Care Pipe Smoker Machine Operator Name Role Phone Emilio Frey DO Primary Care Provider Encounter Details Date Type Department Care Team (Late st Contact Info) Description 09/29/2001 Outpatient [facility] [address] [place] [address] [place] [address] Francia Russo MD NO ADDRESS ON FILE Social History Tobacco Use Types Packs/Day Years Used Date Smoking Tobacco: Never Assessed Sex and Gender Information Value Date Recorded Sex Assigned at Not on file Legal Sex Male 2:39 AM SHOT LIGHTER Gender Identity Not on file Sexual Orientation Not on file documented as of this encounter Plan of Treatment Upcoming Encounters Date Type Department Care Team (Late st Contact Info) Description 10/16/2025 10:00 AM SHOT LIGHTER Office Visit [facility] Heart and Vascular Electrophysiology - [address] [facility] 300 [address] [facility] 300 [place] [address] [place] [address] [facility] 300 [place] [address] 05/21/2026 10:40 AM CDT Office Visit [facility] Pulmonology - [facility] [address] [place] [address] [place] [address] [place] [address] 05/24/2026 10:00 AM CDT Office Visit [facility] Heart and Vascular - [address] [facility] [address] [place] [address] Juancho Vivian Mancilla, EXTRUSION MACHINE OPERATOR [address] [facility] [facility] [address] [place] [address] documented as of this encounter Visit Diagnoses Not on filedocumented in this encounter Additional Health Concerns Infection Onset Date Last Indicated Resolved Time MRSA Comment:10/2017 nares Lt great toe 12/2013, nares 10/2014, 06/201601/21/2014 01/21/2014 02/29/20 12:00 AM CDT R/O Respiratory 11/27/2022 11/27/2022 11/27/2022 6 :44 PM SHOT LIGHTER documented as of this encounter Care Teams Pipe Smoker Machine Operator Relationship Specialty Start Date End Date Emilio Frey DO PCP - General Family Practice 10/05/18 documented as of this encounter
--- OUTSIDE RECORDS SUMMARY | 2025-10-05 06:14 | XMS_ITS | Encounter Summary ---
Author Organization [facility] Address [address] [place] [address] Phone Care Team Providers Care Auto Finance Sales Rep Name Role Phone Unavailable Primary Care Provider Unavailabl e Reason for Visit * Reason Comments Med Change Request Encounter Details Date Type Department Care Team (Late st Contact Info) Description 12/30/2023 Refill [facility] [address] [facility] 120 [place], [place] [phone] Soren Holcomb MD [address] [phone] Social History Tobacco Use Types Packs/Day Years [...] st Contact Info) Description 10/16/2025 4:20 PM WILDLIFE ECOLOGIST Office Visit [facility] [address] [facility] 1 [place] [address] Soren Holcomb MD [address] [address] documented as of this encounter Visit Diagnoses Not on filedocumented in this encounter
--- OUTSIDE RECORDS SUMMARY | 2025-10-05 06:14 | XMS_ITS | Clinical Summary ---
Author Organization [facility] Address [address] [place] [address] Care Team Providers Care Payroll Tax Specialist Name Role Phone Milady Edmond MD Unavailable Soren Holcomb MD Unavailable Vivian Dawkins SYNCHRONIZER- Unavailable [phone] Emilio Frey DO Primary Care Provider Audi Silverio MD Unavailable [phone] Milady Edmond MD Unavailable Allergies Active Allergy [...] ulcer, without long-term current use of insulin ([facility]) 1 strip by Other route 2 (two) times daily. 100 strip 03/11/20 20 Active tiZANidine 4 MG tablet TAKE 2 TABLETS BY MOUTH EVERY DAY AT BEDTIME 05/18/20 21 Active albuterol sulfate HFA 108 (90 Base) MCG/ACT inhalerIndicati ons:Mild persistent asthma without complication ([facility]) Inhale 2 puffs into the lungs every [...] ulcer, without long-term current use of insulin ([facility]) Use to check blood sugars 4x daily 400 strip 5 12/28/19 Active Continuous Glucose Monitor Sup KitIndications: Type 2 diabetes mellitus with diabetic neuropathy, with long-term current use of insulin ([facility]) 1 Device by Does not apply route daily. 1 kit 02/12/20 Active Continuous Blood Gluc Cash Van Salesperson (FREESTYLE RADHA 2 READER) DeviceIndicatio ns:Type 2 diabetes mellitus with chronic kidney disease on chronic dialysis, with long-term current use of insulin ([facility] HHS/HCC) 1 Units by Does not apply route every 14 (fourteen) days. 6 each 02/17/20 23 Active Continuous Blood Gluc Sensor (FREESTYLE RADHA 2 SENSOR) MiscIndications :Type 2 diabetes mellitus with chronic kidney disease on chronic dialysis, with long-term current use of insulin ([facility]) 1 Units by Does not apply route [...] dialysis, with long-term current use of insulin ([facility]) Inject 20 Units into the skin daily. 5 pen 5 05/03/20 Active Additional Information Patient taking differently: 23 UnitsSubcutaneous Daily, Reported on 08/13/2023 HUMALOG KWIKPEN 100 UNIT/ML injection (PEN)Indication s:Type 2 diabetes mellitus with chronic kidney disease on chronic dialysis, with long-term current use of insulin ([facility]) INJECT 0-15 UNITS UNDER THE SKIN 3 [...] neuropathy, with long-term current use of insulin ([facility]) USE ONE PEN NEEDLE FOUR TIMES DAILY 400 each 1 09/24/20 Active Active Problems Problem Noted Date Diagnosed Date Cellulitis, unspecified cellulitis site 05/24/20 Skin ulcer, limited to breakdown of skin 023 Stage 5 chronic kidney disease on chronic dialys is 12/21/2022 Type 2 diabetes mellitus wit h stage 4 chronic kidney disease, with long-term current use of insulin 12/21/2022 Pulmonary artery hypertension 06/22/2022 Overview (06/22/2022): Moderate to Severe - Noted on May 2022 Chronic diastolic heart failure 08/25/2019 Dyslipidemia 08/25/2019 Lymphedema 05/31/2019 Overview (04/12/2020): [...] as-needed basis. Skin ulcer of left great toe, limited to breakdo wn of skin 05/31/2019 Overview (04/12/2020): Last Assessment & Plan: Ulceration present since January left toe, currently being managed by the [facility]. Plan: Continue dressing daily dressing changes utilizing silver wound gel. Further management as per wound clinic. Type 2 diabetes mellitus wit h foot ulcer, without long-term current use of insulin 03/29/2019 Hypertensive CHF 03/03/2018 Coronary atherosclerosis 11/18/2017 Candidal intertrigo 06/07/2017 Benign essential hypertension 03/20/2015 Morbid obesity 12/07/2014 Asthma 04/19/2014 Chronic atrial fibrillation 04/19/2014 Chronic obstructive pulmonary disease 04/19/2014 Lumbar degenerative disc disease 04/19/2014 Diabetes mellitus with neuropathy 04/19/2014 Overview (03/28/2019): Description: PN due to DM GERD (gastroesophageal reflux disease) 4 Migraine headache 04/19/2014 Right knee sprain 01/16/2014 Left leg cellulitis 01/16/2014 Hypokalemia 01/16/2014 Acute on chronic renal insufficiency 12/19/2013 Abdominal pain 11/10/2013 Biliary colic 09/08/2013 Dyspnea 05/19/2012 Resolved Problems Problem Noted Date Diagnosed Date Resolved Date Prostate cancer screening 05/26/2021 Encounter for preventive health examination 03/30/2014 08/09/2020 Immunizations Immunization Administration Dates Next Due Influenza (Generic) 12/14/2016,12/19/2013 [...] CDT Respiratory Rate 16 11/03/2019 12:05 PM SOLAR CREW MEMBER Oxygen Saturation 99% 11/03/2019 12:05 PM SOLAR CREW MEMBER Inhaled Oxygen Concentration - - Weight 133.4 kg (294 lb) 08/13/2023 11:26 AM CDT Height 180.3 cm (5' 11) 08/21/2022 8:43 AM CDT pt stated ht Body Mass Index 41 08/21/2022 8:43 AM CDT Plan of Treatment Health Maintenance Due Date Last Done Comments ASCVD LDL 1960 Lipid Panel 1960 Hepatitis C 1977 Zoster Vaccines (1 of 2) 2009 Pneumococcal Vaccine: 50+ Years (2 of 2 - PCV) 12/19/2014 12/19/2013 RSV Immunization or 60+ Years (1 - Risk 60-74 years 1-dose series) 2019 Hemoglobin A1C 05/25/2023 11/24/2022 DTaP, Tdap and Td Vaccines ( 2 - Td or Tdap) 01/16/2024 01/16/2014 Diabetes: Retinopathy Eye Exam 05/19/2025 05/19/2023 COVID-19 Vaccine (1 - 2024-2 6 season) 2025 Influenza Adult (#1) 2025 12/14/2016, 12/19/2013 Colorectal Cancer Screening Colonoscopy (10 Years) 11/03/2029 11/03/2019, 11/03/2019, Hepatitis A Vaccines Aged Out No long er eligible based on patient's age to complete this topic Meningococcal B Vaccine Aged Out No l [...] Routine 05/19/2023 COLONOSCOPY Routine 11/03/2019 10:06 AM SOLAR CREW MEMBER from Last 3 Months or Most Recently Relevant to Health Maintenance Results * DIABETIC RETINOPATHY EXAM (NEGATIVE)(SCAN) (05/19/2023) us Emilio Frey DO SCANNING Final Resul t Performing Organization Address [facility] de Phone Number [facility] * Colonoscopy ( SOLAR CREW MEMBER) Narrative [facility] TO EPIC CONVERSION - SOLAR CREW MEMBER Documented hx of procedure Procedure Note , Generic Conversion, - 10/02/2018 Documented hx of procedure us Generic Conversion Md W[facility] GI PROCEDURE ORDERABLES Final Result Performing Organization Address [facility] de Phone Number [facility] TO EPIC CONVERSION from Last 3 Months or Most Recently Relevant to Health Maintenance Insurance [facility] MEDICARE [facility] MEDICARE Care Teams Payroll Tax Specialist Relationship Specialty [place] [address] [facility] [address] [place] [address] PCP - General FAMILY PRACTICE 04/29/23 Milady Edmond MD CARDIOVASCULAR DISEASE 11/30/22 Soren Holcomb MD HOSPITALIST 04/13/23 Vivian Dawkins, SYNCHRONIZER- [address] [place] [address] NURSE PRACTITIONER 04/19/23 [place] [address] [facility] [address] [place] [address] ANESTHESIOLOGY 04/30/23 Milady Edmond MD CARDIOVASCULAR DISEASE 06/11/23
--- OUTSIDE RECORDS SUMMARY | 2025-10-05 06:14 | XMS_ITS | Encounter Summary ---
Author Organization [facility] Address [address] [place] [address] Care Team Providers Care Group Activities Aide Name Role Phone Emilio Frey DO Primary [...] 10/16/2025 10:00 AM SHOT LIGHTER Office Visit [facility] Electrophysiology - [address] [facility] 300 [address] [facility] 300 [place] [address] Mary Lou Dang, RAISA [address] [facility] 300 [place] [address] 05/21/2026 10:40 AM CDT Office Visit [facility] Pulmonology - [facility] [address] [facility] 280 [place] [address] [place] [address] [facility] 280 [place] [address] 05/24/2026 10:00 AM CDT Office Visit [facility] Heart and Vascular - [address] [facility] [address] [address] [facility] [address] [place] [address] Vivian Dawkins FNP [address] [facility] [address] [place] [address] documented as of this encounter Visit Diagnoses Diagnosis Chest pain, unspecified- Primary documented in this encounter Additional Health Concerns Infection Onset Date Last Indicated Resolved Time MRSA Comment:10/2017 nares Lt great toe 12/2013, nares 10/2014, 06/201601/21/2014 01/21/2014 02/29/20 12:00 AM CDT R/O Respiratory 11/27/2022 11/27/2022 11/27/2022 6 :44 PM SHOT LIGHTER documented as of this encounter Care Teams Group Activities Aide Relationship Specialty Start Date End Date Emilio Frey DO PCP - General Family Practice 10/05/18 documented as of this encounter
--- OUTSIDE RECORDS SUMMARY | 2025-10-05 06:15 | XMS_ITS | Clinical Summary ---
Author Organization [facility] Address [address] [place] [address] Phone Care Team Providers Care Operations Administrator Name Role Phone Unavailable Primary Care Provider [...] tablet Active ergocalciferol (VITAMIN D2) 1.25 MG (12751 UT) capsule Take 1 capsule by mouth once a week 5 capsule Active ergocalciferol (VITAMIN D2) 1.25 MG (75299 UT) capsule Take 1 capsule by mouth [...] Type Department Care Team Description 09/21/2025 Refill [facility] [address] [place] [address] Soren Holcomb MD 07/12/2025 Refill [facility] [address], [address] [place], [place] [phone] Soren Holcomb MD from Last 3 Months [...] Upcoming Encounters Date Type Department Care Team ([facility] Contact Info) Description 10/16/2025 4:20 PM STAND UP FORKLIFT OPERATOR Office Visit [facility] 5[address] [facility] 1 [place], [place] [phone] Soren Holcomb MD [address] [id number] Health Maintenance Due Date Last Done Comments Diabetic Foot Exam 1969 Ophthalmology Exam 1969 Pneumococcal PPSV23/PCV13 65 + Years / High and Highest Risk (1 of 5 - PCV) 1978 Influenza Vaccine (#1) 2025 7, 12/14/2016, 12/19/2013, Additional history exists Insurance MEDICARE PM INTERFACED INSURANCE PM INTERFACED INSURANCE
--- OUTSIDE RECORDS SUMMARY | 2025-10-05 06:15 | XMS_ITS | Encounter Summary ---
Author Organization [facility] Address [address] [place] [address] Care Team Providers Care [employer] Principal Name Role Phone ElmatonEmilio salgado DO Primary Care Provider Reason for Visit * Reason Onset Date Comments Acute Hypoxic failure 12/01/2022 Spoke w/ R reid at Dr. Ruffin's Ex Encounter Details Date Type Department Care Team (Late Contact Info) Description 12/01/2022 [facility]phone [facility] Admitting [address] [place] [address] [place] [address] [facility] [address] [place] [address] Acute Hypoxic failure (Spoke w/ Simran at Dr. Ruffin's Ex) Social History Tobacco Use Types Packs/Day Years Used Date Smoking Tobacco: Former Cigarettes Smokeless Tobacco: Former Alcohol Use Standard Drinks/Week Comments Yes 0 (1 standard drink = 0.6 oz pur e alcohol) rare Sex and Gender Information Value Date Recorded Sex Assigned at Not on file Legal Sex Male 2:39 AM FLEET MAINTENANCE FOREMAN Gender Identity Not on file Sexual Orientation Not on file COVID-19 Exposure Response Date Recorded In the last 10 days, have yo u been in contact with someone who was confirmed or suspected to have Coronavirus/COVID-19? No / Unsure 11/19/2022 7:29 AM FLEET MAINTENANCE FOREMAN documented as of this encounter Plan of Treatment Upcoming Encounters Date Type Department Care Team (Late Contact Info) Description 10/16/2025 10:00 AM FLEET MAINTENANCE FOREMAN Office Visit [facility] Heart and Vascular Electrophysiology - [address] [facility] [address] [address] [place] [address] Mary Lou Dang, ROLLING MACHINE OPERATOR [address] [facility] [address] [place] [address] 05/21/2026 10:40 AM CDT Office Visit [facility] Pulmonology - [place] [address] [place] [phone] [place] [address] [place] [address] 05/24/2026 10:00 AM CDT Office Visit [facility] Heart and Vascular - [address] [facility] [address] [address] [facility] [address] [place] [address] Vivian Dawkins, JUANY [address] [facility] [address] [place] [address] documented as of this encounter Visit Diagnoses Not on filedocumented in this encounter Care Teams [employer] Principal Relationship Specialty Start Date End Date Emilio Frey DO PCP - General Family Practice 10/05/18 documented as of this encounter
--- OUTSIDE RECORDS SUMMARY | 2025-10-05 06:15 | XMS_ITS | Encounter Summary ---
Author Organization [facility] Address [address] [place] [address] Care Team Providers Care Client Coordinator Name Role Phone MuseEmilio DO Primary Care Provider Reason for Visit * Reason Onset Date Comments Loose tooth evaluation, toot h extraction 11/24/2022 Spoke W/ Rhina at Dr. Jacobs' s office Encounter Details Date Type Department Care Team (Late Contact Info) Description 11/24/2022 Telephone [facility] Admitting [address] [place] [address] [place] [address] [place] [address] Loose tooth evaluation, tooth extraction [...] on file Legal Sex Male 2:39 AM BARREL LAPPER Gender Identity Not on file Sexual Orientation Not on file COVID-19 Exposure Response Date Recorded In the last 10 days, have yo u been in contact with someone who was confirmed or suspected to have Coronavirus/COVID-19? No / Unsure 11/19/2022 7:29 AM BARREL LAPPER documented as of this encounter Plan of Treatment Upcoming Encounters Date Type Department Care Team (Late Contact Info) Description 10/16/2025 10:00 AM BARREL LAPPER Office Visit [facility] Heart and Vascular Electrophysiology - [address] [facility] [address] [facility] [address] [address] [place] [address] Mary Lou Dang, FIRE HOSE CURER [address] [facility] [address] [place] [address] 05/21/2026 10:40 AM CDT Office [facility] [address] [place] [phone] [place] [address] [place] [phone] 05/24/2026 10:00 AM CDT Office Visit [facility] Heart and Vascular - [address] [facility] [address] [address] [facility] [address] [place] [address] Vivian Dawkins, JUANY [address] [facility] [address] [place] [address] documented as of this encounter Visit Diagnoses Not on filedocumented in this encounter Additional Health Concerns Infection Onset Date Last Indicated Resolved Time R/O Respiratory 11/27/2022 11/27/2022 11/27/2022 6 :44 PM BARREL LAPPER documented as of this encounter Care Teams Client Coordinator Relationship Specialty Start Date End Date Emilio Frey DO PCP - General Family Practice 10/05/18 documented as of this encounter
--- OUTSIDE RECORDS SUMMARY | 2025-10-05 06:16 | XMS_ITS | Encounter Summary ---
Author Organization [facility] Address [address] [place] [address] Care Team Providers Care Business Owner/Engineer Name Role Phone Emilio Frey DO Primary Care Provider Reason for Visit * Reason Onset Date Comments Irregular Heart Beat 11/19/2022 Spoke w/Nathaly n at office Encounter Details Date Type Department Care Team ([facility] Contact Info) Description 11/19/2022 Telephone [facility] [address] [place] [address] [place] [id number] [place] [address] Irregular Heart Beat (Spoke w/Angeline at office) Social History Tobacco Use Types Packs/Day Years Used Date Smoking Tobacco: Former Cigarettes Smokeless Tobacco: Former Alcohol Use Standard Drinks/Week Comments Yes 0 (1 standard drink = 0.6 oz pur e alcohol) rare Sex and Gender Information Value Date Recorded Sex Assigned at Not on file Legal Sex Male 2:39 AM VALVE FITTER Gender Identity Not on file Sexual Orientation Not on file COVID-19 Exposure Response Date Recorded In the last 10 days, have yo u been in contact with someone who was confirmed or suspected to have Coronavirus/COVID-19? No / Unsure 11/19/2022 7:29 AM VALVE FITTER documented as of this encounter Plan of Treatment Upcoming Encounters Date Type Department Care Team ([facility] Contact Info) Description 10/16/2025 10:00 AM VALVE FITTER Office Visit [facility] Heart and Vascular Electrophysiology - [address] [facility] [address] [address] [facility] [address] [place] [address] Mary Lou Dang, RAISA [address] [facility] [address] [place] [address] 05/21/2026 10:40 AM CDT Office Visit [facility] Pulmonology - [facility] [address] [place] [phone] Ephraim Ruffin, [address] [place] [address] 05/24/2026 10:00 AM CDT Office Visit [facility] Heart and Vascular - [address] [facility] [address] [address] [facility] [address] [place] [address] Vivian Dawkins, JUANY [address] [facility] [address] [place] [address] documented as of this encounter Visit Diagnoses Not on filedocumented in this encounter Additional Health Concerns Infection Onset Date Last Indicated Resolved Time R/O Respiratory 11/27/2022 11/27/2022 11/27/2022 6 :44 PM VALVE FITTER documented as of this encounter Care Teams Business Owner/Engineer Relationship Specialty Start Date End Date Emilio Frey DO PCP - General Family Practice 10/05/18 documented as of this encounter
--- OUTSIDE RECORDS SUMMARY | 2025-10-05 06:16 | XMS_ITS | Clinical Summary ---
Author Organization [facility] Address [address] [place] [address] Care Team Providers Care Charge Authorizer Name Role Phone Emilio Frey Primary Care [...] 025 Active blood-glucose meter,continuo us (Dexcom G7 Addiction Nurse) miscIndication s:Type 2 diabetes mellitus with diabetic polyneuropathy , with long-term current use of insulin ([facility]) Dexcom G7 life science teacher use daily to monitor blood sugar. 1 [...] 1st toe, currently being managed by the [facility]. Plan: Continue dressing daily dressing changes utilizing [...] on file Legal Sex Male 12:50 AM MOLECULAR PATHOLOGIST Gender Identity Not on file Sexual Orientation [...] Screening Discontinued Medical Devices Implanted Type [employer] Assistant Principal Device Identifier Shelf Expiration Date Model / [...] 1 - 29 mg/g EXTERNAL LAB Urine [facility] Provider LAB URINE ORDERABLES Stephania l Result Performing Organization Address City/[facility]/ZIP Co de Phone Number EXTERNAL LAB * (ABNORMAL) Hemoglobin A1c (06/08/2025) SCRIBED Hemoglobin A1c 7.7(A) 4.0 - 5.6 % EXTERNAL LAB Blood [facility] Provider LAB BLOOD ORDERABLES Stephania l Result Performing Organization Address City/[facility] Co de Phone Number EXTERNAL LAB * Lipid panel (06/08/2025) SCRIBED Cholesterol, Total 129 30 - 199 mg/dL EXTERNAL LAB SCRIBED Triglycerides 95 <=149 mg/dL EXTERNAL LAB SCRIBED HDL 51 >=40 mg/dL EXTERNAL LAB SCRIBED LDL 46 <=129 mg/dL EXTERNAL LAB Scribed Non-HDL Cholesterol 0 NONE mg/dL EXTERNAL LAB SCRIBED Total Cholesterol/HDL Ratio 0 NONE EXTERNAL LAB Blood [facility] Provider LAB BLOOD ORDERABLES Stephania l Result Performing Organization Address [facility] Co de Phone Number EXTERNAL LAB * Colonoscopy (09/22/2024 12:25 PM CDT) Anatomical Region Laterality Modality Other Narrative Procedure Note Trinh Galicia MD - 09/22/2024 12:25 PM CDT [facility] GI ENDOSCOPY Patient Name: Emilio Sultana Procedure Date: 09/22/2024 12:25PM Date of : 1960 Admit Type: Outpatient Age: 63 Gender: Male Attending MD: Trinh Galicia M.D. Room: [facility] ENDOSCOPY ROOM 05 Note Status: Finalized [...] The scope was passed under direct vision.The [id number] colonoscope was introduced through theanus and advanced [...] On: 09/22/2024 12:25 PM Recognized by the [place] for promoting quality [...] Most Recently Relevant to Health Maintenance Insurance [facility] Address: [address] [address] [facility]PPO Address: [address] [address] [place] [address] MEDICARE MEDICARE [facility] Address: [address] [address] [place] [address] Care Teams Charge Authorizer Relationship Specialty Start Date End Date Emilio Frey DO PCP - General Family Practice 05/25/19
--- OUTSIDE RECORDS SUMMARY | 2025-10-05 06:16 | XMS_ITS | Encounter Summary ---
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
--- OUTSIDE RECORDS SUMMARY | 2025-10-05 06:16 | XMS_ITS | Encounter Summary ---
Author Organization [facility] Address [address] [place] [address] Care Team Providers Care Strategic Planning Analyst Name Role Phone Emilio Frey DO Primary Care Provider Reason for Visit * Reason Onset Date Comments Pt. Diffused shaking at bedt kanuaaliyah Dr. Doesnt see 11/26/2022 Spoke W/ Charo at Dr. Angela sandra's exchange Encounter Details Date Type Department Care Team (Late st Contact Info) Description 11/26/2022 Telephone [facility] Admitting [address] [facility] [address] [place] [address] [place] [address] [facility] Doesnt see (Spoke W/ Charo at Dr. Stubbs exchange) Social History Tobacco Use Types Packs/Day Years Used Date Smoking Tobacco: Former Cigarettes Smokeless Tobacco: Former Alcohol Use Standard Drinks/Week Comments Yes 0 (1 standard drink = 0.6 oz pur e alcohol) rare Sex and Gender Information Value Date Recorded Sex Assigned at Not on file Legal Sex Male 2:39 AM PASTRY FINISHER Gender Identity Not on file Sexual Orientation Not on file COVID-19 Exposure Response Date Recorded In the last 10 days, have yo u been in contact with someone who was confirmed or suspected to have Coronavirus/COVID-19? No / Unsure 11/19/2022 7:29 AM PASTRY FINISHER documented as of this encounter Plan of Treatment Upcoming Encounters Date Type Department Care Team (Late st Contact Info) Description 10/16/2025 10:00 AM PASTRY FINISHER Office Visit [facility] Heart and Vascular Electrophysiology - [address] [facility] [address] [address] [facility] [address] [place] [address] Mary Lou Dang, RAISA [address] [facility] [address] [place] [address] 05/21/2026 10:40 AM CDT Office Visit [facility] Pulmonology - [place] [address] [place] [address] Ephraim Ruffin, [address] [place] [address] 05/24/2026 10:00 AM CDT Office Visit [facility] Heart and Vascular - [address] [facility] [address] [facility] [address] [place] [address] Vivian Dawkins, JUANY [address] [facility] [address] [place] [address] documented as of this encounter Visit Diagnoses Not on filedocumented in this encounter Additional Health Concerns Infection Onset Date Last Indicated Resolved Time R/O Respiratory 11/27/2022 11/27/2022 11/27/2022 6 :44 PM PASTRY FINISHER documented as of this encounter Care Teams Strategic Planning Analyst Relationship Specialty Start Date End Date Emilio Frey DO PCP - General Family Practice 10/05/18 documented as of this encounter
--- OUTSIDE RECORDS SUMMARY | 2025-10-05 06:17 | XMS_ITS | Encounter Summary ---
Author Organization [facility] Address [address] [place] [address] Care Team Providers Care Medical Receptionist Medical Assistant Name Role Phone Emilio Frey DO Primary Care Provider Encounter Details Date Type Department Care Team (Late st Contact Info) Description 12/21/2024 Telephone [facility] Primary Care [address] [address] Emilio Frey DO [facility] [address] [address] Social History Tobacco Use Types [...] on file Legal Sex Male 12:50 AM DIGITAL RECRUITER Gender Identity Not on file Sexual Orientation Not on file documented as of this encounter Plan of Treatment Not on file documented as of this encounter Visit Diagnoses Not on filedocumented in this encounter Care Teams Medical Receptionist Medical Assistant Relationship Specialty Start Date End Date Emilio Frey DO PCP - General Family Practice 05/25/19 documented as of this encounter
[2025-10-05 06:32] VITALS: BP 179/73; PULSE 96; RESP 19; O2SAT 98
--- NOTE | 2025-10-05 06:33 | PC.NURSE ---
Pt started vomiting while this RN was trying discharge pt. Pt states this is due to pt being in pain. Rn gave pt an emesis bag and notified MD. MD at bedside states he will prescribe pt zofran for home. Pt verbalizes he is okay with going home with nausea meds. No new orders placed by MD here at this time. Pt wheeled to his car with no difficulties.
== END 2025-10-05 06:35 | disposition home or self-care (01) ==
LOC: ANHED 06:11
PROVIDERS: Emergency Provider Emergency Medicine; PCP Family Medicine
DX: G89.4 Chronic pain syndrome (principal); E11.22 Type 2 diabetes mellitus with diabetic chronic kidney disease; I13.2 Hypertensive heart and chronic kidney disease with heart failure and with stage 5 chronic kidney disease, or end stage renal disease; N18.6 End stage renal disease; Z99.2 Dependence on renal dialysis; I48.91 Unspecified atrial fibrillation; J44.9 Chronic obstructive pulmonary disease, unspecified; E78.5 Hyperlipidemia, unspecified; G47.33 Obstructive sleep apnea (adult) (pediatric); M19.90 Unspecified osteoarthritis, unspecified site; Z96.651 Presence of right artificial knee joint; Z86.14 Personal history of Methicillin resistant Staphylococcus aureus infection; Z87.891 Personal history of nicotine dependence; Z90.49 Acquired absence of other specified parts of digestive tract; Z79.4 Long term (current) use of insulin; Z79.899 Other long term (current) drug therapy; Z79.01 Long term (current) use of anticoagulants
CPT/HCPCS: 99283; A9270

== ENCOUNTER 2025-10-05 08:08 | Emergency (ER) | payer OTHER, MEDICARE, SELFPAY ==
--- NOTE | ~2025-10-05 | CT_ITS ---
EXAM/PROCEDURE: CT chest abdomen pelvis w con HISTORY: ams, coffee emesis, lower abd pain, sob COMPARISON: None available. TECHNIQUE: Contrast-enhanced CT of the chest abdomen and pelvis performed. FINDINGS: In the CHEST, scattered fibrotic and old granulomatous changes in the lung jarvis which are otherwise clear. Central and large airways are patent. Heart and great vessels normal size. Mildly patulous mid esophagus noted but no obvious perforation or pneumomediastinum. The distal esophageal wall appears slightly thickened as well. Bones appear intact with diffuse degenerative changes. In the ABDOMEN AND PELVIS, the bowel gas pattern is nonobstructive with no free air or free fluid or pneumatosis. No hydroureteronephrosis, AAA or grossly inflamed appendix. Mild to moderate diffuse diverticular disease present throughout the large intestine with no gross acute diverticulitis. Moderate amount of stool extends to the cecal region. No bulky lymphadenopathy or masses. Extensive splenic granuloma. The gallbladder is borderline distended but no radiopaque gallstones or gross biliary ductal dilatation seen. Pancreas is largely fatty involuted with no acute abnormality seen. Liver and adrenal glands unremarkable. Urinary bladder unremarkable for technique. Surgical changes right inguinal region. Diffuse degenerative changes in the bones. IMPRESSION: 1. Mild thickened appearance of the esophageal wall which is also slightly patulous. Esophagitis may have a similar appearance. 2. Borderline distended gallbladder. 3. Several chronic findings as above. Reviewed, dictated and finalized at location A. GER IMMUNOLOGY IMPRESSION: 1. Mild thickened appearance of the esophageal wall which is also slightly patu lous. Esophagitis may have a similar appearance. 2. Borderline distended gallbladder. 3. Several chronic findings as above.
--- NOTE | ~2025-10-05 | CT_ITS ---
EXAM/PROCEDURE: CTA brain carotid HISTORY: ams, neck injection yesterday, neck pain COMPARISON: May 13, [address] TECHNIQUE: CT angiography of the head and neck performed. Contrast: IV contrast administered. FINDINGS: Three-vessel left-sided arch noted with both common carotid arteries patent. Approximately 50-60% calcified plaque disease/stenosis at the bifurcations/proximal ICAs bilaterally. The remainder of the cervical ICAs and the vertebral arteries are patent. Both vertebral arteries are patent and codominant. Within the intracranial circulation, hypoplastic A1 branch of the right ANDREW. The anterior and middle cerebral arteries are otherwise unremarkable and patent. The basilar artery and posterior cerebral arteries are patent. No discrete aneurysm, dural sinus thrombosis, AVM or abnormal enhancing lesions or masses. No gross acute intracranial process identified. Diffuse degenerative changes throughout the bones. No acute process seen in the upper chest. IMPRESSION: 1. No critical stenosis or occlusion seen. 2. Moderately extensive plaque burden in the proximal cervical ICAs bilaterally. Correlation with duplex carotid ultrasound may help better characterize hemodynamic significance of these lesions. Reviewed, dictated and finalized at location A. ER BAGGER IMPRESSION: 1. No critical stenosis or occlusion seen. 2. Moderately extensive plaque burden in the proximal cervical ICAs bilaterally . Correlation with duplex carotid ultrasound may help better characterize hemod ynamic significance of these lesions.
[2025-10-05 08:18] VITALS: BP 152/77; PULSE 92; RESP 18; TEMP 36.7; O2SAT 99
--- NOTE | 2025-10-05 08:24 | ECG_ITS ---
Test Date: 2025-10-05 08:45:29 Measurements Intervals [place] Rate: 81 P: 47 SD: 269 QRS: -7 QRSD: 109 T: 45 QT: 391 QTc: 454 Interpretive Statements SINUS RHYTHM WITH FIRST DEGREE AV BLOCK No previous ECG available for comparison Electronically Signed On 10-05-2025 10:04:59 BIN WORKER by Jc Yen D.O
[2025-10-05 08:33] VITALS: O2SAT 95
--- NOTE | 2025-10-05 08:33 | PC.NURSE ---
02 sats down to 85% on room air while sleeping. Saturation goes back into the 90's when awake.
[2025-10-05 08:43] LABS: Hematocrit 38.9 % (42.0-52.0); Hemoglobin 12.0 g/dL (14.0-18.0); Immature Granulocyte Percent A 0.5 % (0-0.5); Lymphocytes Absolute Auto 0.63 K/mm3 (0.9-3.2); Mean Corpuscular HGB Conc 30.8 g/dl (32-36); Mean Corpuscular Hemoglobin 25.8 pg (26-34); Mean Corpuscular Volume 83.7 fl (80-100); Nucleated Red Blood Cells Absolute Auto 0.000 K/mm3 (0.0-0.012); Nucleated Red Blood Cells Perc 0.0 % (0.0-0.2); Platelet Count Result 252 k/mm3 (150-375); Red Blood Count 4.65 M/mm3 (4.6-6.20); White Blood Count 13.0 K/mm3 (4.5-10.0)
[2025-10-05 08:50] LABS: Add Urine Microscopic? YES; Appearance Urine Clear (Clear); Glucose Urine UA 3+ mg/dL (Negative); Leukocyte Esterase Ur Negative LEU/UL (Negative); Nitrate Urine Negative (Negative); Non Pathogenic Casts 0-2; Specific Grav Ur 1.023 (1.001-1.035)
[2025-10-05 08:54] LABS: INR 1.1; Prothrombin Time 14.2 Seconds (11.1-14.7)
[2025-10-05 08:55] LABS: Partial Thromboplastin Time 28.9 Seconds (22.3-36.8)
[2025-10-05 09:00] VITALS: BP 159/69; PULSE 76; RESP 21; O2SAT 100
[2025-10-05 09:06] LABS: Alanine Aminotransferase 19 U/L (6-50); Albumin Level 4.5 g/dL (3.5-5.1); Alkaline Phosphatase 100 U/L (38-126); Anion Gap 13 mmol/L (4-12); Aspartate Amino Transferase 25 U/L (17-59); Bilirubin,Total 1.2 mg/dL (0.2-1.3); Blood Urea Nitrogen 31 mg/dL (9-20); Calcium 9.4 mg/dL (8.4-10.2); Carbon Dioxide 22 mmol/L (22-30); Chloride 100 mmol/L (98-107); Estimated CRCL calculation 64 ml/min; Estimated Glomerular Filt Rate 52; Glucose 290 mg/dL (65-110); Potassium 3.6 mmol/L (3.4-5.0); Sodium 135 mmol/L (137-145); Total Protein 7.9 g/dL (6.3-8.2)
[2025-10-05 09:26] LABS: Cannabinoid Screen Urine Negative (Negative)
--- NOTE | 2025-10-05 09:33 | ED.AMS ---
HPI - Altered Mental Status General Chief Complaint: Altered Mental Status <AMBER Moreno Last Filed: 10/05/25 14:06> Stated Complaint: AMS <AMBER Moreno Last Filed: 10/05/25 14:06> Time Seen by Provider: 10/05/25 09:03 <AMBER Moreno Last Filed: 10/05/25 14:06> Source: patient, family and old records reviewed <AMBER Moreno Last Filed: 10/05/25 14:06> Mode of arrival: EMS <AMBER Moreno Last Filed: 10/05/25 14:06> Limitations: altered mental status <AMBER Moreno Last Filed: 10/05/25 14:06> History of Present Illness HPI narrative: Patient is a 64 y/o male, with PMH of pAFIB on eliquis, HTN, HLD, CHF, CKD, COPD, DM, chronic pain, who presents to the ED via EMS with report of neck pain, AMS. Patient sees pain management for chronic neck and back pain. Is prescribed oxycodone/acetaminophen 10/325 for home. Per med rec, had 180 filled yesterday. Patient was reportedly had hydrocortisone shot in his neck yesterday and has been in increased pain since then. He was seen in the ED here this morning and reportedly demanding pain medication. The ED provider did not feel it was appropriate to give pain medication and patient was ultimately discharged. Patient was then reportedly found altered wandering in the hospital parking lot trying to get into people's cars. EMS brought the patient back to the ED. Patient is somewhat confused, A&OX2. S.O. at bedside reports he is not typically confused. Patient frequently coughing and spitting up dark brown emesis. C/o lower abd pain. Denies numbness or weakness of extremities. <AMBER Moreno Last Filed: 10/05/25 14:06> Related Data Home Medications: Home Medications ?Medication ?Instructions ?Recorded ?Confirmed ?Last Taken ?Type atorvastatin 80 mg tablet 80 mg PO DAILY 09/22/19 12/09/22 Unknown History lisinopril 10 mg tablet 10 mg PO DAILY 09/22/19 12/09/22 Unknown History Held on 12/15/22. Instructions: restart when instructed tizanidine 4 mg capsule (Zanaflex) 4 mg PO HS 09/22/19 12/09/22 Unknown History topiramate 200 mg tablet (Topamax) 400 mg PO HS 09/22/19 12/09/22 Unknown History albuterol sulfate 90 mcg/actuation 2 puff inhalation Q4H PRN 09/28/19 12/09/22 Unknown History aerosol inhaler (ProAir HFA) Shortness Of Breath oxycodone-acetaminophen 10 mg-325 1 tablet PO Q4H PRN Pain 09/28/19 12/09/22 Unknown History mg tablet amiodarone 200 mg tablet 200 mg PO BID 12/09/22 12/09/22 Unknown History apixaban 5 mg tablet 5 mg PO BID 12/09/22 12/09/22 Unknown History furosemide 80 mg tablet 80 mg PO DAILY 12/09/22 12/09/22 Unknown History guaifenesin 600 mg tablet,extended 600 mg PO BID 12/09/22 12/09/22 Unknown History release insulin glargine 100 unit/mL 15 unit subcut QAM 12/09/22 12/09/22 Unknown History subcutaneous solution insulin lispro 100 unit/mL See Rx Instructions .Route .COMPLEX 12/09/22 12/09/22 Unknown History subcutaneous cartridge spironolactone 25 mg tablet 12.5 mg PO DAILY 12/09/22 12/09/22 Unknown History tadalafil 20 mg tablet 40 mg PO DAILY 12/09/22 12/09/22 Unknown History Held on 12/15/22. Instructions: restart when instructed <Zo Prieto PA-C - Last Filed: 10/05/25 14:06> Allergies/Adverse Reactions: Allergies Allergy/AdvReac Type Severity Reaction Status Date / Time coconut Allergy Mild Rash Verified 10/05/25 08:25 tamsulosin AdvReac Intermediate NAUSEA, Verified 10/05/25 08:25 DIARRHEA sucralfate AdvReac Mild NAUSEA Verified 10/05/25 08:25 <Zo Prieto PA-C - Last Filed: 10/05/25 14:06> Review of Systems Review of Systems: All systems reviewed & are unremarkable except as noted in HPI. <Zo Prieto PA-C - Last Filed: 10/05/25 14:06> ROS unobtainable: Yes unobtainable due to mental status <Zo Prieto PA-C - Last Filed: 10/05/25 14:06> [facility] Past Medical History Medical History: Medical History History of MRSA infection Insulin dependent type 2 diabetes mellitus End-stage renal disease on hemodialysis Chronic anticoagulation Atrial fibrillation Chronic narcotic use Chronic pain syndrome Osteoarthritis of multiple joints DARRYL (obstructive sleep apnea) Intolerant to CPAP COPD (chronic obstructive pulmonary disease) Chronic heart failure with preserved ejection fraction (HFpEF) Hypertension, essential Hyperlipidemia Diabetic ulcer of foot associated with diabetes mellitus due to underlying condition, with necrosis of bone Diabetic foot ulcer with osteomyelitis <Zo Prieto PA-C - Last Filed: 10/05/25 14:06> Surgical History Surgical History: Surgical History History of arthroplasty of right knee History of partial colectomy Hx of appendectomy <Zo Prieto PA-C - Last Filed: 10/05/25 14:06> Family History Family History: Family History Father Pancreas cancer Alzheimer disease Hypertension, essential Mother Diabetes mellitus COPD (chronic obstructive pulmonary disease) Hypertension Sibling Acute myocardial infarction COPD (chronic obstructive pulmonary disease) Other Cerebrovascular accident Family history of cardiovascular disease <Zo Prieto PA-C - Last Filed: 10/05/25 14:06> Social History Social History: Social History Social History: Surrogate medical decision maker: Graciela Sultana, spouse. Code status: Full code. Additional smoking assessment comments: Smoked as a teenager for couple of years. Alcohol intake: never Substance use: never Substance use type: does not use Lack of Transportation: No Lack of Food: Never True Current Housing: I Have Housing Concerned About Future Housing: No Difficulty Paying Gas/Electric Bills: No Difficulty Paying for Meds: YES Currently Unemployed: No Education: High School Diploma/GED Difficulty w/ Childcare or Family Care: No Additional living arrangements comments: Lives with and cat in [place]. They have 3 grown children. Additional occupation/education comments: Disabled. Spiritual care concerns: No <Zo Prieto PA-C - Last Filed: 10/05/25 14:06> Exam Narrative: GENERAL: Chronically ill appearing, somewhat disheveled, obese with BMI of 39.4, in mild acute distress. HEAD: Normocephalic, atraumatic. ENT: MMs very dry, dark brown crusted material to lips EYES: Pupils somewhat small but reactive, EOMI, conjunctivae clear bilaterally. No nystagmus. NECK: Supple. No meningeal signs. Diffuse tenderness to palpation throughout cervical region. No palpable deformities or step offs. Sensation intact. RESPIRATORY: Airway patent, respirations nonlabored. Clear to auscultation bilaterally, no rales, rhonchi, wheezing. CARDIOVASCULAR: Regular rate and rhythm without murmurs, rubs, or gallops. Peripheral pulses 2+ and equal bilaterally. ABDOMINAL: Soft, mild TTP in LLQ, lower abd, nondistended. Normoactive BS. MUSCULOSKELETAL: Moves all extremities. No gross deformities. Venous stasis changes to BLE SKIN: Warm, dry, normal color. No rashes. NEURO: A&O X2, had difficulty with year, but able to accurately report eventually, difficulty with month. Knows his name and he is in a hospital. Confusion with certain questioning. Speech somewhat garbled, but mms very dry. Follows commands. CN II-XII intact. Sensation grossly intact. No ataxic movements. Strength 5/5 in upper and lower extremities bilaterally. No pronator drift. Equal development lead strength bilaterally. PSYCHIATRIC: Appropriate mood and affect. Normal interaction. <Zo Prieto PA-C - Last Filed: 10/05/25 14:06> Course [employer]/PA Physician Supervision Notably, I had peripherally heard about this patient as they were being discharged around the time of the start of my AM shift although I did not personally see them. [place] radio call notifying us they were bringing patient from parking lot, seemingly never left after discharge. Is displaying altered mentation per PA. Findings as reported below to me. Aware of complex situation and concerns and that, given pain management doctor affiliated with [facility], would be an ED to ED transfer there. I was available for consultation while patient was in the department but did not personally examine them and was not directly invovled in their care. <Rizwana Fletcher MD - Last Filed: 10/07/25 16:40> Vital Signs Vital signs: Vital Signs Temperature 98.0 F 10/05/25 08:18 Pulse Rate 92 10/05/25 08:18 Respiratory Rate 18 10/05/25 08:18 Blood Pressure 152/77 H 10/05/25 08:18 Pulse Oximetry 99 10/05/25 08:18 Oxygen Delivery Room Air 10/05/25 08:18 Temperature 98.0 F 10/05/25 08:18 Pulse Rate 73 10/05/25 12:01 Respiratory Rate 20 10/05/25 11:43 Blood Pressure 142/75 H 10/05/25 11:43 Pulse Oximetry 95 10/05/25 12:01 Oxygen Delivery Nasal Cannula 10/05/25 08:33 Oxygen Flow Rate 2 10/05/25 08:33 <Zo Prieto PA-C - Last Filed: 10/05/25 14:06> Vital Signs Temperature 98.0 F 10/05/25 08:18 Pulse Rate 92 10/05/25 08:18 Respiratory Rate 18 10/05/25 08:18 Blood Pressure 152/77 H 10/05/25 08:18 Pulse Oximetry 99 10/05/25 08:18 Oxygen Delivery Room Air 10/05/25 08:18 Temperature 98.0 F 10/05/25 08:18 Pulse Rate 73 10/05/25 12:01 Respiratory Rate 20 10/05/25 11:43 Blood Pressure 142/75 H 10/05/25 11:43 Pulse Oximetry 95 10/05/25 12:01 Oxygen Delivery Nasal Cannula 10/05/25 08:33 Oxygen Flow Rate 2 10/05/25 08:33 <Rizwana Fletcher MD - Last Filed: 10/07/25 16:40> MDM - Altered Mental Status MDM Narrative Medical decision making narrative: Patient presented to ED with altered mental status. Reportedly had hydrocortisone injection into his neck yesterday with pain management, seen in the ED early this morning with increased pain. Patient A&O x2 upon my evaluation. Confused on how he ended up in the ER, confused with year/month. reports he is not typically confused. Patient does not seem to have any focal neurologic deficits involving his extremities. No weakness or sensory changes. Vital signs are fairly stable upon arrival. Patient actively coughing/gagging up brown sputum/emesis. ABG without significant CO2 retention or other abnormalities CBC with white blood cell count of 13.0. H&H is stable. Consistent with previous records. Platelets within normal range. CMP with slight anion gap of 13. BUN 31. Creatinine 1.37. This is also consistent with previous records. Blood glucose 290. Normal LFTs and lipase. Lactic acid 2.3 UA with trace ketones. Patient given fluids. No significant signs of infection. UDS is positive for opioids, which patient is prescribed. Ethanol negative Patient presentation concerning for possible GI bleed with coffee-ground emesis. He is on Eliquis due to history of AFib. H&H is stable at this time. No active vomiting or bleeding. CT of chest/abdomen/pelvis with thickened appearance of esophageal wall. Possibly esophagitis. Patient given Protonix for possible GIB. CTA brain/carotids showing moderate plaque burden kathryn ICAs, no critical stenosis or occlusion seen. However was notified by radiologist: Tiny focus of gas in the left lateral ventricle. Per clinical history patient had a recent pain injection in the neck suggesting possible intrathecal injection. Discussed these lab and imaging findings with patient and . Patient's injection was performed by Dr. Silverio. Associated with [facility]. Will discuss for transfer given acute AMS, abnormal CTA findings Discussed case with [facility] transfer center, recommended ED-ED transfer, accepted by Dr. Derek Larose, EDP. Patient and family updated on plan. In agreement with plan and need for transfer. <Zo Prieto PA-C - Last Filed: 10/05/25 14:06> Medical Records Attestation: I reviewed the patient's medical records. <Zo Prieto PA-C - Last Filed: 10/05/25 14:06> Lab Data Attestation: I reviewed the patient's lab results. <Zo Prieto PA-C - Last Filed: 10/05/25 14:06> Result diagrams: 10/05/25 08:29 10/05/25 08:29 <Zo Prieto PA-C - Last Filed: 10/05/25 14:06> Labs: Lab Results 10/05/25 10/05/25 10/05/25 Range/Units 08:18 08:29 10:01 WBC 13.0 H (4.5-10.0) K/mm3 RBC 4.65 (4.6-6.20) M/mm3 Hgb 12.0 L (14.0-18.0) g/dL Hct 38.9 L (42.0-52.0) % MCV 83.7 (80-100) fl MCH 25.8 L (26-34) pg MCHC 30.8 L (32-36) g/dl RDW 15.8 H (11.5-14.5) % Plt Count 252 (150-375) k/mm3 MPV 9.4 (7.4-10.4) fl Immature Gran % (Auto) 0.5 (0-0.5) % Neut % (Auto) 84.8 H (45.5-73.1) % Lymph % (Auto) 4.8 L (18.3-44.2) % Wilkin % (Auto) 9.8 H (2.6-8.5) % Eos % (Auto) 0.0 (0-4.4) % Baso % (Auto) 0.1 L (0.2-1.2) % Lymph # (Auto) 0.63 L (0.9-3.2) K/mm3 Wilkin # (Auto) 1.3 H (0.1-0.6) K/mm3 Eos # (Auto) 0.0 (0-0.3) K/mm3 Baso # (Auto) 0.0 (0.0-0.1) K/mm3 Abs Immat Gran (auto) 0.06 H (0.00-0.031) K/mm3 Absolute Neuts (auto) 11.0 H (1.3-6.7) K/mm3 Absolute Nucleated RBC 0.000 (0.0-0.012) K/mm3 Nucleated RBC % 0.0 (0.0-0.2) % PT 14.2 (11.1-14.7) Seconds INR 1.1 APTT 28.9 (22.3-36.8) Seconds Methemoglobin 0.2 (0-1.5) %THb Sodium 135 L (137-145) mmol/L Potassium 3.6 (3.4-5.0) mmol/L Chloride 100 (98-107) mmol/L Carbon Dioxide 22 (22-30) mmol/L Anion Gap 13 H (4-12) mmol/L BUN 31 H D (9-20) mg/dL Creatinine 1.37 H (0.7-1.3) mg/dL Estim Creat Clear Calc 64 ml/min Estimated GFR 52 L (59 - ) Glucose 290 H (65-110) mg/dL POC Capillary Glucose 313 H (65-105) mg/dl Lactic Acid (0.7-2.0) mmol/L Calcium 9.4 (8.4-10.2) mg/dL Magnesium 1.8 (1.6-2.3) mg/dL Total Bilirubin 1.2 (0.2-1.3) mg/dL AST 25 (17-59) U/L ALT 19 (6-50) U/L Alkaline Phosphatase 100 (38-126) U/L Total Protein 7.9 (6.3-8.2) g/dL Albumin 4.5 (3.5-5.1) g/dL Lipase 23 (23-300) U/L Urine Color Yellow (Yellow) Urine Appearance Clear (Clear) Urine pH 7.0 (5.0-9.0) Ur Specific [place] 1.023 (1.001-1.035) Urine Protein 2+ H (Negative) mg/dL Urine Glucose (UA) 3+ H (Negative) mg/dL Urine Ketones Trace H (Negative) mg/dL Ur Blood (Man) Trace (Negative) Urine Nitrate Negative (Negative) Urine Bilirubin Negative (Negative) Urine Urobilinogen 0.2 (<2.0) mg/dL Leukocyte Esterase Rfl Negative (Negative) HONG/UL Urine RBC 0-2 (0-2) /hpf Urine WBC 6-10 H (0-3) /hpf Ur Squamous Epith Cells None seen (Few) /hpf Urine Bacteria Rare /hpf Urine Casts 0-2 Urine Opiates Screen Positive A (Negative) Urine Methadone Screen Negative (Negative) Ur Barbiturates Screen Negative (Negative) Ur Phencyclidine Scrn Negative (Negative) Ur Amphetamine Screen Negative (Negative) U Benzodiazepines Scrn Negative (Negative) Urine Cocaine Screen Negative (Negative) U Cannabinoids Screen Negative (Negative) Ethyl Alcohol < 10 (<10) mg/dL Blood Type Antibody Screen 10/05/25 Range/Units 10:57 WBC (4.5-10.0) K/mm3 RBC (4.6-6.20) M/mm3 Hgb (14.0-18.0) g/dL Hct (42.0-52.0) % MCV (80-100) fl MCH (26-34) pg MCHC (32-36) g/dl RDW (11.5-14.5) % Plt Count (150-375) k/mm3 MPV (7.4-10.4) fl Immature Gran % (Auto) (0-0.5) % Neut % (Auto) (45.5-73.1) % Lymph % (Auto) (18.3-44.2) % Wilkin % (Auto) (2.6-8.5) % Eos % (Auto) (0-4.4) % Baso % (Auto) (0.2-1.2) % Lymph # (Auto) (0.9-3.2) K/mm3 Wilkin # (Auto) (0.1-0.6) K/mm3 Eos # (Auto) (0-0.3) K/mm3 Baso # (Auto) (0.0-0.1) K/mm3 Abs Immat Gran (auto) (0.00-0.031) K/mm3 Absolute Neuts (auto) (1.3-6.7) K/mm3 Absolute Nucleated RBC (0.0-0.012) K/mm3 Nucleated RBC % (0.0-0.2) % PT (11.1-14.7) Seconds INR APTT (22.3-36.8) Seconds Methemoglobin (0-1.5) %THb Sodium (137-145) mmol/L Potassium (3.4-5.0) mmol/L Chloride (98-107) mmol/L Carbon Dioxide (22-30) mmol/L Anion Gap (4-12) mmol/L BUN (9-20) mg/dL Creatinine (0.7-1.3) mg/dL Estim Creat Clear Calc ml/min Estimated GFR (59 - ) Glucose (65-110) mg/dL POC Capillary Glucose (65-105) mg/dl Lactic Acid 2.3 H (0.7-2.0) mmol/L Calcium (8.4-10.2) mg/dL Magnesium (1.6-2.3) mg/dL Total Bilirubin (0.2-1.3) mg/dL AST (17-59) U/L ALT (6-50) U/L Alkaline Phosphatase (38-126) U/L Total Protein (6.3-8.2) g/dL Albumin (3.5-5.1) g/dL Lipase (23-300) U/L Urine Color (Yellow) Urine Appearance (Clear) Urine pH (5.0-9.0) Ur Specific [place] (1.001-1.035) Urine Protein (Negative) mg/dL Urine Glucose (UA) (Negative) mg/dL Urine Ketones (Negative) mg/dL Ur Blood (Man) (Negative) Urine Nitrate (Negative) Urine Bilirubin (Negative) Urine Urobilinogen (<2.0) mg/dL Leukocyte Esterase Rfl (Negative) HONG/UL Urine RBC (0-2) /hpf Urine WBC (0-3) /hpf Ur Squamous Epith Cells (Few) /hpf Urine Bacteria /hpf Urine Casts Urine Opiates Screen (Negative) Urine Methadone Screen (Negative) Ur Barbiturates Screen (Negative) Ur Phencyclidine Scrn (Negative) Ur Amphetamine Screen (Negative) U Benzodiazepines Scrn (Negative) Urine Cocaine Screen (Negative) U Cannabinoids Screen (Negative) Ethyl Alcohol (<10) mg/dL Blood Type O Positive Antibody Screen Negative <Zo Prieto PA-C - Last Filed: 10/05/25 14:06> Lab Results 10/05/25 10/05/25 10/05/25 Range/Units 08:18 08:29 10:01 WBC 13.0 H (4.5-10.0) K/mm3 RBC 4.65 (4.6-6.20) M/mm3 Hgb 12.0 L (14.0-18.0) g/dL Hct 38.9 L (42.0-52.0) % MCV 83.7 (80-100) fl MCH 25.8 L (26-34) pg MCHC 30.8 L (32-36) g/dl RDW 15.8 H (11.5-14.5) % Plt Count 252 (150-375) k/mm3 MPV 9.4 (7.4-10.4) fl Immature Gran % (Auto) 0.5 (0-0.5) % Neut % (Auto) 84.8 H (45.5-73.1) % Lymph % (Auto) 4.8 L (18.3-44.2) % Wilkin % (Auto) 9.8 H (2.6-8.5) % Eos % (Auto) 0.0 (0-4.4) % Baso % (Auto) 0.1 L (0.2-1.2) % Lymph # (Auto) 0.63 L (0.9-3.2) K/mm3 Wilkin # (Auto) 1.3 H (0.1-0.6) K/mm3 Eos # (Auto) 0.0 (0-0.3) K/mm3 Baso # (Auto) 0.0 (0.0-0.1) K/mm3 Abs Immat Gran (auto) 0.06 H (0.00-0.031) K/mm3 Absolute Neuts (auto) 11.0 H (1.3-6.7) K/mm3 Absolute Nucleated RBC 0.000 (0.0-0.012) K/mm3 Nucleated RBC % 0.0 (0.0-0.2) % PT 14.2 (11.1-14.7) Seconds INR 1.1 APTT 28.9 (22.3-36.8) Seconds Methemoglobin 0.2 (0-1.5) %THb Sodium 135 L (137-145) mmol/L Potassium 3.6 (3.4-5.0) mmol/L Chloride 100 (98-107) mmol/L Carbon Dioxide 22 (22-30) mmol/L Anion Gap 13 H (4-12) mmol/L BUN 31 H D (9-20) mg/dL Creatinine 1.37 H (0.7-1.3) mg/dL Estim Creat Clear Calc 64 ml/min Estimated GFR 52 L (59 - ) Glucose 290 H (65-110) mg/dL POC Capillary Glucose 313 H (65-105) mg/dl Lactic Acid (0.7-2.0) mmol/L Calcium 9.4 (8.4-10.2) mg/dL Magnesium 1.8 (1.6-2.3) mg/dL Total Bilirubin 1.2 (0.2-1.3) mg/dL AST 25 (17-59) U/L ALT 19 (6-50) U/L Alkaline Phosphatase 100 (38-126) U/L Total Protein 7.9 (6.3-8.2) g/dL Albumin 4.5 (3.5-5.1) g/dL Lipase 23 (23-300) U/L Urine Color Yellow (Yellow) Urine Appearance Clear (Clear) Urine pH 7.0 (5.0-9.0) Ur Specific [place] 1.023 (1.001-1.035) Urine Protein 2+ H (Negative) mg/dL Urine Glucose (UA) 3+ H (Negative) mg/dL Urine Ketones Trace H (Negative) mg/dL Ur Blood (Man) Trace (Negative) Urine Nitrate Negative (Negative) Urine Bilirubin Negative (Negative) Urine Urobilinogen 0.2 (<2.0) mg/dL Leukocyte Esterase Rfl Negative (Negative) HONG/UL Urine RBC 0-2 (0-2) /hpf Urine WBC 6-10 H (0-3) /hpf Ur Squamous Epith Cells None seen (Few) /hpf Urine Bacteria Rare /hpf Urine Casts 0-2 Urine Opiates Screen Positive A (Negative) Urine Methadone Screen Negative (Negative) Ur Barbiturates Screen Negative (Negative) Ur Phencyclidine Scrn Negative (Negative) Ur Amphetamine Screen Negative (Negative) U Benzodiazepines Scrn Negative (Negative) Urine Cocaine Screen Negative (Negative) U Cannabinoids Screen Negative (Negative) Ethyl Alcohol < 10 (<10) mg/dL Blood Type Antibody Screen 10/05/25 Range/Units 10:57 WBC (4.5-10.0) K/mm3 RBC (4.6-6.20) M/mm3 Hgb (14.0-18.0) g/dL Hct (42.0-52.0) % MCV (80-100) fl MCH (26-34) pg MCHC (32-36) g/dl RDW (11.5-14.5) % Plt Count (150-375) k/mm3 MPV (7.4-10.4) fl Immature Gran % (Auto) (0-0.5) % Neut % (Auto) (45.5-73.1) % Lymph % (Auto) (18.3-44.2) % Wilkin % (Auto) (2.6-8.5) % Eos % (Auto) (0-4.4) % Baso % (Auto) (0.2-1.2) % Lymph # (Auto) (0.9-3.2) K/mm3 Wilkin # (Auto) (0.1-0.6) K/mm3 Eos # (Auto) (0-0.3) K/mm3 Baso # (Auto) (0.0-0.1) K/mm3 Abs Immat Gran (auto) (0.00-0.031) K/mm3 Absolute Neuts (auto) (1.3-6.7) K/mm3 Absolute Nucleated RBC (0.0-0.012) K/mm3 Nucleated RBC % (0.0-0.2) % PT (11.1-14.7) Seconds INR APTT (22.3-36.8) Seconds Methemoglobin (0-1.5) %THb Sodium (137-145) mmol/L Potassium (3.4-5.0) mmol/L Chloride (98-107) mmol/L Carbon Dioxide (22-30) mmol/L Anion Gap (4-12) mmol/L BUN (9-20) mg/dL Creatinine (0.7-1.3) mg/dL Estim Creat Clear Calc ml/min Estimated GFR (59 - ) Glucose (65-110) mg/dL POC Capillary Glucose (65-105) mg/dl Lactic Acid 2.3 H (0.7-2.0) mmol/L Calcium (8.4-10.2) mg/dL Magnesium (1.6-2.3) mg/dL Total Bilirubin (0.2-1.3) mg/dL AST (17-59) U/L ALT (6-50) U/L Alkaline Phosphatase (38-126) U/L Total Protein (6.3-8.2) g/dL Albumin (3.5-5.1) g/dL Lipase (23-300) U/L Urine Color (Yellow) Urine Appearance (Clear) Urine pH (5.0-9.0) Ur Specific [place] (1.001-1.035) Urine Protein (Negative) mg/dL Urine Glucose (UA) (Negative) mg/dL Urine Ketones (Negative) mg/dL Ur Blood (Man) (Negative) Urine Nitrate (Negative) Urine Bilirubin (Negative) Urine Urobilinogen (<2.0) mg/dL Leukocyte Esterase Rfl (Negative) HONG/UL Urine RBC (0-2) /hpf Urine WBC (0-3) /hpf Ur Squamous Epith Cells (Few) /hpf Urine Bacteria /hpf Urine Casts Urine Opiates Screen (Negative) Urine Methadone Screen (Negative) Ur Barbiturates Screen (Negative) Ur Phencyclidine Scrn (Negative) Ur Amphetamine Screen (Negative) U Benzodiazepines Scrn (Negative) Urine Cocaine Screen (Negative) U Cannabinoids Screen (Negative) Ethyl Alcohol (<10) mg/dL Blood Type O Positive Antibody Screen Negative <Rizwana Fletcher MD - Last Filed: 10/07/25 16:40> ABG Data ABG results: 10/05/25 10:01 Puncture Site Left radial ABG pH 7.463 H ABG pCO2 35.4 ABG pO2 72.0 L ABG PO2/FiO2 Ratio 2.57 ABG HCO3 24.8 ABG O2 Saturation 95.4 ABG O2 Content 15.7 L ABG Base Excess 1.3 A-a Gradient 85.9 Oxyhemoglobin 93.7 Carboxyhemoglobin 0.8 Reduced Hemoglobin 5.3 H Total Hemoglobin 11.9 L O2 Delivery Device Nasal cannula O2 Liters/Min 2.0 FiO2 28 <Zo Prieto PA-C - Last Filed: 10/05/25 14:06> 10/05/25 10:01 Puncture Site Left radial ABG pH 7.463 H ABG pCO2 35.4 ABG pO2 72.0 L ABG PO2/FiO2 Ratio 2.57 ABG HCO3 24.8 ABG O2 Saturation 95.4 ABG O2 Content 15.7 L ABG Base Excess 1.3 A-a Gradient 85.9 Oxyhemoglobin 93.7 Carboxyhemoglobin 0.8 Reduced Hemoglobin 5.3 H Total Hemoglobin 11.9 L O2 Delivery Device Nasal cannula O2 Liters/Min 2.0 FiO2 28 <Rizawna Fletcher MD - Last Filed: 10/07/25 16:40> Attestation: I personally reviewed and interpreted this ABG as follows: <Zo Prieto PA-C - Last Filed: 10/05/25 14:06> Imaging Data Attestation: I personally reviewed and interpreted this imaging study as follows: <Zo Prieto PA-C - Last Filed: 10/05/25 14:06> Radiologist's impression: ITS Impressions Head/Neck CTA 10/05/25 09:57 IMPRESSION: 1. No critical stenosis or occlusion seen. 2. Moderately extensive plaque burden in the proximal cervical ICAs bilaterally. Correlation with duplex carotid ultrasound may help better characterize hemodynamic significance of these lesions. ADDENDUM: 10/05/25 1036 ADDENDUM: There is a tiny focus of gas in the left lateral ventricle. Per clinical history patient had a recent pain injection in the neck suggesting possible intrathecal injection. Dr. Clark discussed these findings with Dr. Prieto at 10:25 AM. Chest/Abdomen/Pelvis CT 10/05/25 10:02 IMPRESSION: 1. Mild thickened appearance of the esophageal wall which is also slightly patulous. Esophagitis may have a similar appearance. 2. Borderline distended gallbladder. 3. Several chronic findings as above. ADDENDUM: 10/05/25 1030 ADDENDUM: There is a tiny focus of gas in the left lateral ventricle. Per clinical history patient had a recent pain injection in the neck suggesting possible intrathecal injection. Dr. Clark discussed these findings with Dr. Prieto at 10:25 AM. ADDENDUM: 10/05/25 1035 ADDENDUM: The addendum which applies to the CT of the head was inadvertently appended to the current report for the CT chest abdomen pelvis. <Zo Prieto PA-C - Last Filed: 10/05/25 14:06> ECG Data EKG #1: Attestation: I personally reviewed and interpreted this ECG as follows: <AMBER Moreno Last Filed: 10/05/25 14:06> ECG completion date: 10/05/25 <AMBER Moreno Last Filed: 10/05/25 14:06> ECG completion time: 08:45 <AMBER Moreno Last Filed: 10/05/25 14:06> EKG Interpretation: normal rate (81), sinus rhythm (First-degree AV block) and non-specific ST changes <AMBER Moreno Last Filed: 10/05/25 14:06> Discharge Plan Discharge Clinical Impression: Pneumocephalus, Chronic anticoagulation, Coffee ground emesis, Chronic neck and back pain, Altered mental status, Esophagitis <AMBER Moreno Last Filed: 10/05/25 14:06> Patient Disposition: Acute Care Hospital <AMBER Moreno Last Filed: 10/05/25 14:06> Condition: Serious <AMBER Moreno Last Filed: 10/05/25 14:06> Patient Language: Kinyarwanda <AMBER Moreno Last Filed: 10/05/25 14:06> Prescriptions: No Action oxycodone-acetaminophen 10-325 mg Tablet 1 tablet PO Q4H PRN (Reason: Pain) Rx Instructions: NEEDED FOR BACK/NECK PAIN albuterol sulfate [ProAir HFA] 90 mcg/actuation Hfa Aerosol Inhaler 2 puff INHALATION Q4H PRN (Reason: Shortness Of Breath) amiodarone 200 mg Tablet 200 mg PO BID insulin glargine 100 unit/mL Solution 15 unit SUBCUT QAM guaifenesin 600 mg Tablet Extended Release 600 mg PO BID spironolactone 25 mg Tablet 12.5 mg PO DAILY furosemide 80 mg Tablet 80 mg PO DAILY apixaban 5 mg Tablet 5 mg PO BID insulin lispro 100 unit/mL Cartridge See Rx Instructions .ROUTE .COMPLEX Rx Instructions: 0-15 units ac hs tadalafil 20 mg Tablet 40 mg PO DAILY doxycycline hyclate 100 mg Tablet 100 mg PO Q12HR Qty: 7 0RF atorvastatin 80 mg Tablet 80 mg PO DAILY lisinopril 10 mg Tablet 10 mg PO DAILY topiramate [Topamax] 200 mg Tablet 400 mg PO HS tizanidine [Zanaflex] 4 mg Capsule 4 mg PO HS ondansetron 4 mg tablet,disintegrating 4 mg PO Q8H PRN (Reason: nausea and vomiting) Qty: 30 0RF <Zo Prieto PA-C - Last Filed: 10/05/25 14:06> Follow-up/Referrals: Shante,Emilio Edwards DO [Primary Care Provider, Unknown] <Zo Prieto PA-C - Last Filed: 10/05/25 14:06>
--- NOTE | 2025-10-05 09:41 | PCRCNOTE ---
Pt. is not available to have the ABG drawn; Pt. is out of the room.
--- OUTSIDE RECORDS SUMMARY | 2025-10-05 09:45 | XMS_ITS | Encounter Summary ---
Author Organization [facility] Address [address] [place] [address] Care Team Providers Care Preformer Impregnated Fabrics Name Role Phone Emilio Frey DO Primary Care Provider Encounter Details Date Type Department Care Team (Late st Contact Info) Description 06/16/2001 Outpatient [facility] [address] [place] [address] [place] [address] Francia Russo MD NO ADDRESS ON FILE Social History Tobacco Use Types Packs/Day Years Used Date Smoking Tobacco: Never Assessed Sex and Gender Information Value Date Recorded Sex Assigned at Not on file Legal Sex Male 2:39 AM PRODUCT DEVELOPMENT CONSULTANT Gender Identity Not on file Sexual Orientation Not on file documented as of this encounter Plan of Treatment Upcoming Encounters Date Type Department Care Team (Late st Contact Info) Description 10/16/2025 10:00 AM PRODUCT DEVELOPMENT CONSULTANT Office Visit [facility] Heart and Vascular Electrophysiology - [address] [facility] [address] [facility] [address] [place] [address] [place] [address] [facility] [address] [place] [address] 05/21/2026 10:40 AM CDT Office Visit [facility] Pulmonology - [facility] [address] [place] [address] [place] [address] [place] [address] 05/24/2026 10:00 AM CDT Office Visit [facility] Heart and Vascular - [address] [facility] [address] [place] [address] Juancho Vivian Mancilla, [facility] [address] [facility] [address] [place] [address] documented as of this encounter Visit Diagnoses Not on filedocumented in this encounter Additional Health Concerns Infection Onset Date Last Indicated Resolved Time 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
--- OUTSIDE RECORDS SUMMARY | 2025-10-05 09:45 | XMS_ITS | Encounter Summary ---
Author Organization [facility] Address [address] [place] [address] Care Team Providers Care Medical Practice Administrator Name Role Phone Emilio Frey DO Primary Care Provider Encounter Details Date Type Department Care Team (Late st Contact Info) Description 08/18/2001 Outpatient [facility] [address] [place] [address] [place] [address] Francia Russo MD NO ADDRESS ON FILE Social History Tobacco Use Types Packs/Day Years Used Date Smoking Tobacco: Never Assessed Sex and Gender Information Value Date Recorded Sex Assigned at Not on file Legal Sex Male 2:39 AM SPEECH AND LANGUAGE SPECIALIST Gender Identity Not on file Sexual Orientation Not on file documented as of this encounter Plan of Treatment Upcoming Encounters Date Type Department Care Team (Late st Contact Info) Description 10/16/2025 10:00 AM SPEECH AND LANGUAGE SPECIALIST Office Visit [facility] Heart and Vascular Electrophysiology - [address] [facility] [address] [facility] 300 [place] [address] [place] [address] [facility] 300 [place] [address] 05/21/2026 10:40 AM CDT Office Visit [facility] Pulmonology - [facility] [address] [place] [address] [place] [address] [place] [address] 05/24/2026 10:00 AM CDT Office Visit [facility] Heart and Vascular - [address] [facility] 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
--- OUTSIDE RECORDS SUMMARY | 2025-10-05 09:45 | XMS_ITS | Encounter Summary ---
Author Organization [facility] Address [address] [place] [address] Care Team Providers Care Hose Operator Name Role Phone Emilio Frey DO Primary Care Provider Encounter Details Date Type Department Care Team (Late st Contact Info) Description 03/18/2001 Outpatient [facility] [address] [place] [address] [place] [address] Francia Russo MD NO ADDRESS ON FILE Social History Tobacco Use Types Packs/Day Years Used Date Smoking Tobacco: Never Assessed Sex and Gender Information Value Date Recorded Sex Assigned at Not on file Legal Sex Male 2:39 AM HEARING AID REPAIR TECHNICIAN Gender Identity Not on file Sexual Orientation Not on file documented as of this encounter Plan of Treatment Upcoming Encounters Date Type Department Care Team (Late st Contact Info) Description 10/16/2025 10:00 AM HEARING AID REPAIR TECHNICIAN Office Visit [facility] Heart and Vascular Electrophysiology - [address] [facility] 300 [address] [facility] 300 [place] [address] [place] [address] [facility] 300 [place] [address] 05/21/2026 10:40 AM CDT Office Visit [facility] Pulmonology - [facility] [address] [place] [address] [place] [address] [place] [address] 05/24/2026 10:00 AM CDT Office Visit [facility] Heart and Vascular - [address] [facility] [address] [place] [address] Juancho Vivian Mancilla, OIL FIELD CASER [address] [facility] [address] [place] [address] documented as of this encounter Visit Diagnoses Not on filedocumented in this encounter Additional Health Concerns Infection Onset Date Last Indicated Resolved Time MRSA Comment:10/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
--- OUTSIDE RECORDS SUMMARY | 2025-10-05 09:45 | XMS_ITS | Encounter Summary ---
Author Organization [facility] Address [address] [place] [address] Care Team Providers Care Junior Network Administrator Name Role Phone Emilio Frey DO Primary Care Provider Encounter Details Date Type Department Care Team (Late st Contact Info) Description 09/29/2001 Outpatient [facility] [address] [place] [address] [place] [address] Francia Russo MD NO ADDRESS ON FILE Social History Tobacco Use Types Packs/Day Years Used Date Smoking Tobacco: Never Assessed Sex and Gender Information Value Date Recorded Sex Assigned at Not on file Legal Sex Male 2:39 AM PERINATAL INSTRUCTOR Gender Identity Not on file Sexual Orientation Not on file documented as of this encounter Plan of Treatment Upcoming Encounters Date Type Department Care Team (Late st Contact Info) Description 10/16/2025 10:00 AM PERINATAL INSTRUCTOR Office Visit [facility] Heart and Vascular Electrophysiology - [address] [facility] 300 [address] [facility] 300 [place] [address] [place] [address] [facility] 300 [place] [address] 05/21/2026 10:40 AM CDT Office Visit [facility] Pulmonology - [facility] [address] [place] [address] [place] [address] [place] [address] 05/24/2026 10:00 AM CDT Office Visit [facility] Heart and Vascular - [address] [facility] [address] [place] [address] Juancho Vivian Mancilla, DIRECTOR OF RESIDENTIAL SERVICES [address] [facility] [address] [place] [address] documented as of this encounter Visit Diagnoses Not on filedocumented in this encounter Additional Health Concerns Infection Onset Date Last Indicated Resolved Time MRSA Comment:10/2017 nares Lt great toe 12/2013, nares 10/2014, 06/201601/21/2014 01/21/2014 02/29/20 12:00 AM CDT R/O Respiratory 11/27/2022 11/27/2022 11/27/2022 6 :44 PM PERINATAL INSTRUCTOR documented as of this encounter Care Teams Junior Network Administrator Relationship Specialty Start Date End Date Emilio Frey DO PCP - General Family Practice 10/05/18 documented as of this encounter
--- OUTSIDE RECORDS SUMMARY | 2025-10-05 09:45 | XMS_ITS | Clinical Summary ---
Author Organization [facility] [address] Address [address] [place] [address] Care Team Providers Care Raw Cheese Worker Name Role Phone Amy Frey DO Primary [...] 1 5 Active Blood-Glucose Meter,Continuous (Dexcom G7 Tree Doctor) Dexcom G7 antenna machine operator use daily to monitor blood sugar. 5 Active Insulin Bonaparte, Disposable, 32 gauge x 5/32 Needle USE [...] different from the original. Dr Amy Frey [phone] Practice moved this is updated phone number [...] (05/29/2022): Added automatically from request for surgery [id number] Other hyperlipidemia 10/07/2020 Diastolic CHF, chronic 08/25/2019 Dyslipidemia 08/25/2019 T2DM (type 2 diabetes mellitus) 05/05/2019 Overview (05/05/2019): Overview: BS 196 this a.m. Coronary atherosclerosis 11/18/2017 HTN (hypertension) 03/20/2015 DARRYL (obstructive sleep apnea) 09/20/2014 Acute on chronic renal insufficiency 12/19/2013 Paroxysmal atrial fibrillation 12/30/2011 Encounters Date Type Department Care Team Description 08/29/2025 Refill [facility] Heart and Vascular - [address] [facility] [address] [place] [address] Maurice Deluca MD 07/17/2025 External Device Data STL ABSTRACTION Provider, Abstract from Last 3 Months Family History Medical History Relation Name Comments Cardiomyopathy Father Cardiomyopathy Mother Coronary Artery Disease Sister Relation Name Status Comments Father Mother Sister Social History Tobacco Use Types Packs/Day Years Used Date Smoking Tobacco: Former Cigarettes 0.3 1 1 978 - 1286 Passive Smoke Exposure: Never Smokeless Tobacco: Never [...] on file Legal Sex Male 2:39 AM BAKER CHEF Gender Identity Not on file Sexual Orientation [...] st Contact Info) Description 10/16/2025 10:00 AM BAKER CHEF Office Visit [facility] Electrophysiology - [address] [facility] 300 [address] [facility] [address] [place] [address] [place] [address] [facility] 300 [place] [address] 05/21/2026 10:40 AM CDT Office Visit [facility] Pulmonology - [facility] [address] [place] [address] [place] [address] [facility] [address] [place] [address] 05/24/2026 10:00 AM CDT Office Visit [facility] Heart and Vascular - [address] [facility] [address] [address] [facility] 300 [place] [address] Vivian Dawkins, [facility] [address] [facility] [address] [place] [address] Health Maintenance Due Date Last Done Comments DIABETES ANNUAL FOOT EXAM 1977 DIABETES ANNUAL RETINAL EXAM 1977 DIABETES MICROALBUMIN ANNUAL SCREEN 1977 Traditional Medicare (ACO) A nnual Wellness Visit 1978 FIT-DNA Q 3 years 2004 FIT/FOBT Q 1 year 2004 Flex Sig/CT Colonography Q 5 years 2004 RSV VACCINE (60+ or ) (1 - Risk 50-74 years 1-dose series) 2009 ZOSTER VACCINE (1 of 2) 2009 PNEUMOCOCCAL VACCINE 50+ YEA RS (2 of 2 - PCV) 12/19/2014 12/19/2013 LDL CHOLESTEROL ANNUAL 09/01/2020 09/01/2019 DTAP/TDAP/TD VACCINES (2 - T d or Tdap) 01/16/2024 01/16/2014 Preventative Visit- Commercial 11/29/2024 0 08/21/2022, 05/26/2021, 04/12/2020, Additional history exists DIABETES HBA1C Q 6 MONTHS 06/06/20252024, 04/27/2024, 11/24/2022, Additional history exists INFLUENZA VACCINE (#1) 2025 COLORECTAL SCREENING 09/22/2034 09/22/2024, 09/22/2024, 11/03/2019, Additional history exists Colorectal Cancer Screening 09/22/2034 Abdominal Aortic Aneurysm (A AA) Screening Completed 11/27/2013 Procedures Procedure Name Priority Date/Time Associated Diagnosis Comments HEMOGLOBIN A1C Routine 11/24/2022 2:14 AM BAKER CHEF LIPID PANEL Routine 09/01/2019 Dyslipidemia Type 2 diabetes mellitus without complication, without long-term current use of insulin ([facility]) from Last 3 Months or Most Recently Relevant to Health Maintenance Results * (ABNORMAL) HEMOGLOBIN A1C (11/24/2022 2:14 AM BAKER CHEF) HEMOGLOBIN A1C 7.2(H) <=5.6 % 11/24/2022 3:34 AM BAKER CHEF [facility] EST. AVG GLUCOSE, A1C 160 mg/dL 11/24/2022 3:34 AM BAKER CHEF [facility] [employer] [facility] Blood Venipuncture / Unknown 11/24/2022 2:14 AM BAKER CHEF 11/24/2022 3:02 AM BAKER CHEF Narrative [facility] [employer] [facility] - 11/24/2022 3:34 AM BAKER CHEF HGB A1C INTERPRETATION NORMAL: <5.7% PRE-DIABETES: 5.7 - 6.4% DIABETES: 6.5% OR GREATER Cm Tatum MD CHEMISTRY ORDERABLES Fin al Result [id number] [address] [place] [address] * LIPID PANEL (09/01/2019) Blood us Maurice Deluca MD CHEMISTRY ORDERABLES Final Re sult [facility] from Last 3 Months or Most Recently Relevant to Health Maintenance Insurance MEDICARE PART A AND B [facility] CHOICE [id number] RX [employer] RX Member Subscriber Plan / Payer (Ef fective 2022-Present) Name:Amy Sultana Carly Relation to Subscriber:Not on file Name:Amy Sultana Subscriber ID:Not on file Date of :1960 Payer ID:Not on file Type:RX Commercial Address: [address] Advance Directives For more information, please contact: [phone] * Full Code (Latest Code Status on File) Date Activated Date Inactivated Comments 11/19/2022 12:36 PM 12/07/2022 7:23 PM Care Teams Raw Cheese Worker Relationship Specialty Start Date End Date Amy Frey DO PCP - General Family Practice 10/05/18
--- OUTSIDE RECORDS SUMMARY | 2025-10-05 09:45 | XMS_ITS | Encounter Summary ---
Author Organization [facility] Address [address] [place] [address] Care Team Providers Care Wire Frame Lampshade Maker Name Role Phone Emilio Frey DO [...] on file Legal Sex Male 2:39 AM SCHOOL CAFETERIA COOK HEAD Gender Identity Not on file Sexual Orientation Not on file documented as of this encounter Plan of Treatment Upcoming Encounters Date Type Department Care Team (Late st Contact Info) Description 10/16/2025 10:00 AM SCHOOL CAFETERIA COOK HEAD Office Visit [facility] Heart and Vascular Electrophysiology - [address] [facility] 300 [address] [facility] 300 [place] [address] Mary Lou Dang, RAISA [address] [facility] 300 [place] [address] 05/21/2026 10:40 AM CDT Office Visit [facility] Pulmonology - [facility] [address] [facility] 280 [place] [address] [place] [address] [facility] 280 [place] [address] 05/24/2026 10:00 AM CDT Office Visit [facility] Heart and Vascular - [address] [facility] 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
--- OUTSIDE RECORDS SUMMARY | 2025-10-05 09:45 | XMS_ITS | Encounter Summary ---
Author Organization [facility] Address [address] [place] [address] Care Team Providers Care Soaping Machine Back Tender Name Role Phone NapierEmilio salgado DO Primary Care Provider Reason for Visit * Reason Onset Date Comments Acute Hypoxic failure 12/01/2022 Spoke w/ R reid at Dr. Ruffin's Ex Encounter Details Date Type Department Care Team (Late Contact Info) Description 12/01/2022 Telephone [facility] Admitting [address] [place] [address] [place] [address] [facility] 3 [place] [address] Acute Hypoxic failure (Spoke w/ Simran at Dr. Ruffin's Ex) Social History Tobacco Use Types Packs/Day Years Used Date Smoking Tobacco: Former Cigarettes Smokeless Tobacco: Former Alcohol Use Standard Drinks/Week Comments Yes 0 (1 standard drink = 0.6 oz pur e alcohol) rare Sex and Gender Information Value Date Recorded Sex Assigned at Not on file Legal Sex Male 2:39 AM MARINE FIRE FIGHTER Gender Identity Not on file Sexual Orientation Not on file COVID-19 Exposure Response Date Recorded In the last 10 days, have yo u been in contact with someone who was confirmed or suspected to have Coronavirus/COVID-19? No / Unsure 11/19/2022 7:29 AM MARINE FIRE FIGHTER documented as of this encounter Plan of Treatment Upcoming Encounters Date Type Department Care Team (Late Contact Info) Description 10/16/2025 10:00 AM MARINE FIRE FIGHTER Office Visit [facility] Heart and Vascular Electrophysiology - [address] [facility] [address] [facility] [address] [place] [address] Mary Lou Dang, PICU NURSE [address] [facility] [address] [place] [address] 05/21/2026 10:40 AM CDT Office Visit [facility] Pulmonology - [place] [address] [place] [address] [place] [address] [place] [address] 05/24/2026 10:00 AM CDT Office Visit [facility] Heart and Vascular - [address] [facility] 300 [address] [facility] 300 [place] [address] Vivian Dawkins, JUANY [address] [facility] [address] [place] [address] documented as of this encounter Visit Diagnoses Not on filedocumented in this encounter Care Teams Soaping Machine Back Tender Relationship Specialty Start Date End Date Emilio Frey DO PCP - General Family Practice 10/05/18 documented as of this encounter
--- OUTSIDE RECORDS SUMMARY | 2025-10-05 09:45 | XMS_ITS | Clinical Summary ---
Author Organization [facility] Address [address] [place] [address] Care Team Providers Care Frame Gate Mortiser Operator Name Role Phone Milady Edmond MD Unavailable Soren Holcomb MD Unavailable Vivian Dawkins ETHYL BLENDER- Unavailable Emilio Frey DO Primary Care Provider Audi Silverio MD Unavailable Milady Edmond MD Unavailable [...] ulcer, without long-term current use of insulin ([facility]/HCC HHS/[facility]) 1 strip by Other route 2 (two) times daily. 100 strip 03/11/20 20 Active tiZANidine 4 MG tablet TAKE 2 TABLETS BY MOUTH EVERY DAY AT BEDTIME 05/18/20 21 Active albuterol sulfate HFA 108 (90 Base) MCG/ACT inhalerIndicati ons:Mild persistent asthma without complication ([facility]) Inhale 2 puffs into the lungs [...] ulcer, without long-term current use of insulin ([facility] HHS/[facility]) Use to check blood sugars 4x daily 400 strip 5 12/28/19 Active Continuous Glucose Monitor Sup KitIndications: Type 2 diabetes mellitus with diabetic neuropathy, with long-term current use of insulin ([facility] H[facility]/HCC) 1 Device by Does not apply route daily. 1 kit 02/12/20 Active Continuous Blood Gluc Channel Sales Director (FREESTYLE RADHA 2 READER) DeviceIndicatio ns:Type 2 diabetes mellitus with chronic kidney disease on chronic dialysis, with long-term current use of insulin ([facility] HHS/HCC) 1 Units by Does not apply route every 14 (fourteen) days. 6 each 02/17/20 23 Active Continuous Blood Gluc Sensor (FREESTYLE RADHA 2 SENSOR) MiscIndications :Type 2 diabetes mellitus with chronic kidney disease on chronic dialysis, with long-term current use of insulin ([facility]CC HHS/HCC) 1 Units by Does not apply [...] dialysis, with long-term current use of insulin ([facility]) Inject 20 Units into the skin daily. 5 pen 5 05/03/20 Active Additional Information Patient taking differently: 23 UnitsSubcutaneous Daily, Reported on 08/13/2023 HUMALOG KWIKPEN 100 UNIT/ML injection (PEN)Indication s:Type 2 diabetes mellitus with chronic kidney disease on chronic dialysis, with long-term current use of insulin ([facility]) INJECT 0-15 UNITS UNDER THE SKIN [...] neuropathy, with long-term current use of insulin ([facility]) USE ONE PEN NEEDLE FOUR TIMES [...] left toe, currently being managed by the [facility]. Plan: Continue dressing daily dressing changes utilizing [...] CDT Respiratory Rate 16 11/03/2019 12:05 PM STYRENE DEHYDRATION REACTOR OPERATOR Oxygen Saturation 99% 11/03/2019 12:05 PM STYRENE DEHYDRATION REACTOR OPERATOR Inhaled Oxygen Concentration - - Weight 133.4 [...] Routine 05/19/2023 COLONOSCOPY Routine 11/03/2019 10:06 AM STYRENE DEHYDRATION REACTOR OPERATOR from Last 3 Months or Most Recently Relevant to Health Maintenance Results * DIABETIC RETINOPATHY EXAM (NEGATIVE)(SCAN) (05/19/2023) us Emilio Frey DO SCANNING Final Resul t Performing Organization Address [facility] de Phone Number [facility] ONBASE * Colonoscopy ( STYRENE DEHYDRATION REACTOR OPERATOR) Narrative [employer] TO EPIC CONVERSION - STYRENE DEHYDRATION REACTOR OPERATOR Documented hx of procedure Procedure Note , Generic Conversion, - 10/02/2018 Documented hx of procedure us Generic Conversion Md [facility] PROCEDURE ORDERABLES Final Result Performing Organization Address [facility] de Phone Number [employer] TO EPIC CONVERSION from Last 3 Months or Most Recently Relevant to Health Maintenance Insurance [employer] [place] [address] MEDICARE [employer] MEDICARE Care Teams Frame Gate Mortiser Operator Relationship Specialty [place] [address] [facility] [address] [place] [address] PCP - General FAMILY PRACTICE 04/29/23 Milady Edmond MD CARDIOVASCULAR DISEASE 11/30/22 Soren Holcomb MD HOSPITALIST 04/13/23 Vivian Dawkins, ETHYL BLENDER- [address] [place] [address] NURSE PRACTITIONER 04/19/23 [place] [address] [facility] [address] [place] [address] ANESTHESIOLOGY 04/30/23 Milady Edmond MD CARDIOVASCULAR DISEASE 06/11/23
--- OUTSIDE RECORDS SUMMARY | 2025-10-05 09:45 | XMS_ITS | Clinical Summary ---
Author Organization [facility] Address [address] [place] [address] Phone Care Team Providers Care Solar Installation Technician Name Role Phone Unavailable Primary Care [...] tablet Active ergocalciferol (VITAMIN D2) 1.25 MG (88257 UT) capsule Take 1 capsule by mouth once a week 5 capsule Active ergocalciferol (VITAMIN D2) 1.25 MG (24068 UT) capsule Take 1 capsule by mouth [...] Type Department Care Team Description 09/21/2025 Refill [facility] [address] [place] [address] Soren Holcomb MD 07/12/2025 Refill [facility] [address], [address] [place], [place] [phone] Soren Holcomb MD from Last 3 Months [...] Upcoming Encounters Date Type Department Care Team ([facility] Contact Info) Description 10/16/2025 4:20 PM CAMPUS RECRUITING COORDINATOR Office Visit [facility] [address] [facility] [place], [place] [phone] Soren Holcomb MD [address] [phone] Health Maintenance Due Date Last Done Comments Diabetic Foot Exam 1969 Ophthalmology Exam 1969 Pneumococcal PPSV23/PCV13 65 + Years / High and Highest Risk (1 of 5 - PCV) 1978 Influenza Vaccine (#1) 2025 7, 12/14/2016, 12/19/2013, Additional [place] [address] MEDICARE PM INTERFACED INSURANCE PM INTERFACED INSURANCE
--- OUTSIDE RECORDS SUMMARY | 2025-10-05 09:45 | XMS_ITS | Encounter Summary ---
Author Organization [facility] Address [address] [place] [address] Care Team Providers Care Aircraft General Repair Mechanic Name Role Phone Emilio Frey DO Primary Care Provider Encounter Details Date Type Department Care Team (Late st Contact Info) Description 03/30/2001 Outpatient [facility] [address] [place] [address] [place] [address] Francia Russo MD NO ADDRESS ON FILE Social History Tobacco Use Types Packs/Day Years Used Date Smoking Tobacco: Never Assessed Sex and Gender Information Value Date Recorded Sex Assigned at Not on file Legal Sex Male 2:39 AM DIRECTOR OF AGRICULTURE Gender Identity Not on file Sexual Orientation Not on file documented as of this encounter Plan of Treatment Upcoming Encounters Date Type Department Care Team (Late st Contact Info) Description 10/16/2025 10:00 AM DIRECTOR OF AGRICULTURE Office Visit [facility] Heart and Vascular Electrophysiology - [address] [facility] 300 [address] [facility] [address] [place] [address] [place] [address] [facility] [address] [place] [address] 05/21/2026 10:40 AM CDT Office Visit [facility] Pulmonology - [facility] [address] [facility] [address] [place] [address] [place] [address] [place] [address] 05/24/2026 10:00 AM CDT Office Visit [facility] Heart and Vascular - [address] [facility] [address] [address] [place] [address] Juancho Vivian Mancilla, VETERINARY LABORATORY TECHNICIAN [address] [facility] [address] [place] [address] documented as of this encounter Visit Diagnoses Not on filedocumented in this encounter Additional Health Concerns Infection Onset Date Last Indicated Resolved Time 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
--- OUTSIDE RECORDS SUMMARY | 2025-10-05 09:45 | XMS_ITS | Encounter Summary ---
Author Organization [facility] Address [address] [place] [address] Care Team Providers Care Upholsterer Limousine And Hearse Name Role Phone Emilio Frey DO Primary Care Provider Reason for Visit * Reason Onset Date Comments Irregular Heart Beat 11/19/2022 Spoke w/Nathaly n at office Encounter Details Date Type Department Care Team ([facility] Contact Info) Description 11/19/2022 Telephone [facility] Emergency [address] [place] [address] [place] [id number] [place] [address] Irregular Heart Beat (Spoke w/Angeline at office) Social History Tobacco Use Types Packs/Day Years Used Date Smoking Tobacco: Former Cigarettes Smokeless Tobacco: Former Alcohol Use Standard Drinks/Week Comments Yes 0 (1 standard drink = 0.6 oz pur e alcohol) rare Sex and Gender Information Value Date Recorded Sex Assigned at Not on file Legal Sex Male 2:39 AM FULL SERVICE SUPERVISOR Gender Identity Not on file Sexual Orientation Not on file COVID-19 Exposure Response Date Recorded In the last 10 days, have yo u been in contact with someone who was confirmed or suspected to have Coronavirus/COVID-19? No / Unsure 11/19/2022 7:29 AM FULL SERVICE SUPERVISOR documented as of this encounter Plan of Treatment Upcoming Encounters Date Type Department Care Team ([facility] Contact Info) Description 10/16/2025 10:00 AM FULL SERVICE SUPERVISOR Office Visit [facility] Heart and Vascular Electrophysiology - [address] [facility] 300 [address] [facility] [address] [place] [address] Mary Lou Dang, RAISA [address] [facility] 300 [place] [address] 05/21/2026 10:40 AM CDT Office Visit [facility] Pulmonology - [facility] [address] [facility] [facility] [place] [phone] Ephraim Ruffin, [address] [place] [address] 05/24/2026 10:00 AM CDT Office Visit [facility] Heart and Vascular - [address] [facility] 300 [address] [facility] [address] [place] [address] Vivian Dawkins, JUANY [address] [facility] [address] [place] [address] documented as of this encounter Visit Diagnoses Not on filedocumented in this encounter Additional Health Concerns Infection Onset Date Last Indicated Resolved Time R/O Respiratory 11/27/2022 11/27/2022 11/27/2022 6 :44 PM FULL SERVICE SUPERVISOR documented as of this encounter Care Teams Upholsterer Limousine And Hearse Relationship Specialty Start Date End Date Emilio Frey DO PCP - General Family Practice 10/05/18 documented as of this encounter
--- OUTSIDE RECORDS SUMMARY | 2025-10-05 09:45 | XMS_ITS | Encounter Summary ---
Author Organization [facility] Address [address] [place] [address] Care Team Providers Care Vacuum Cleaner Operator Name Role Phone KrebsEmilio DO Primary Care Provider Reason for Visit * Reason Onset Date Comments Loose tooth evaluation, toot h extraction 11/24/2022 Spoke W/ Rhina at Dr. Jacobs' s office Encounter Details Date Type Department Care Team (Late Contact Info) Description 11/24/2022 Telephone [facility] Admitting [address] [place] [address] [place] [address] [place] [address] Loose tooth evaluation, tooth extraction [...] on file Legal Sex Male 2:39 AM WASTEWATER PROJECT MANAGER Gender Identity Not on file Sexual Orientation Not on file COVID-19 Exposure Response Date Recorded In the last 10 days, have yo u been in contact with someone who was confirmed or suspected to have Coronavirus/COVID-19? No / Unsure 11/19/2022 7:29 AM WASTEWATER PROJECT MANAGER documented as of this encounter Plan of Treatment Upcoming Encounters Date Type Department Care Team (Late Contact Info) Description 10/16/2025 10:00 AM WASTEWATER PROJECT MANAGER [facility] Heart and Vascular Electrophysiology - [address] [facility] [address] [address] [facility] [address] [place] [address] Mary Lou Dang, DIVE SUPERINTENDENT [address] [facility] [address] [place] [address] 05/21/2026 10:40 AM CDT [facility] [address] [place] [address] [place] [address] [place] [address] 05/24/2026 10:00 AM CDT Office Visit [facility] Heart and Vascular - [address] [facility] [address] [address] [facility] [address] [place] [address] Vivian Dawkins, JUANY [address] [facility] [address] [place] [address] documented as of this encounter Visit Diagnoses Not on filedocumented in this encounter Additional Health Concerns Infection Onset Date Last Indicated Resolved Time R/O Respiratory 11/27/2022 11/27/2022 11/27/2022 6 :44 PM WASTEWATER PROJECT MANAGER documented as of this encounter Care Teams Vacuum Cleaner Operator Relationship Specialty Start Date End Date Emilio Frey DO PCP - General Family Practice 10/05/18 documented as of this encounter
--- OUTSIDE RECORDS SUMMARY | 2025-10-05 09:45 | XMS_ITS | Encounter Summary ---
Author Organization [facility] Address [address] [place] [address] Care Team Providers Care Ceo & Board Director Name Role Phone Emilio Frey DO Primary Care Provider Reason for Visit * Reason Onset Date Comments Pt. Diffused shaking at bedt kanuaaliyah Dr. Doesnt see 11/26/2022 Spoke W/ Charo at Dr. Angela sandra's exchange Encounter Details Date Type Department Care Team (Late st Contact Info) Description 11/26/2022 Telephone [facility] Admitting [address] [facility] [place] [address] [place] [address] [place] [address] [facility] Does[facility] see (Spoke W/ Charo at Dr. Stubbs exchange) Social History Tobacco Use Types Packs/Day Years Used Date Smoking Tobacco: Former Cigarettes Smokeless Tobacco: Former Alcohol Use Standard Drinks/Week Comments Yes 0 (1 standard drink = 0.6 oz pur e alcohol) rare Sex and Gender Information Value Date Recorded Sex Assigned at Not on file Legal Sex Male 2:39 AM VEHICLE DYNAMICS ENGINEER Gender Identity Not on file Sexual Orientation Not on file COVID-19 Exposure Response Date Recorded In the last 10 days, have yo u been in contact with someone who was confirmed or suspected to have Coronavirus/COVID-19? No / Unsure 11/19/2022 7:29 AM VEHICLE DYNAMICS ENGINEER documented as of this encounter Plan of Treatment Upcoming Encounters Date Type Department Care Team (Late st Contact Info) Description 10/16/2025 10:00 AM VEHICLE DYNAMICS ENGINEER Office Visit [facility] Heart and Vascular Electrophysiology - [address] [facility] [address] [address] [facility] [address] [place] [address] Mary Lou Dang, RAISA [address] [facility] [address] [place] [address] 05/21/2026 10:40 AM CDT Office Visit [facility] Pulmonology - [place] [address] [place] [address] Ephraim Ruffin, [address] [place] [address] 05/24/2026 10:00 AM CDT Office Visit [facility] Heart and Vascular - [address] [facility] 300 [address] [facility] 300 [place] [address] Vivian Dawkins, JUANY [address] [facility] 300 [place] [address] documented as of this encounter Visit Diagnoses Not on filedocumented in this encounter Additional Health Concerns Infection Onset Date Last Indicated Resolved Time R/O Respiratory 11/27/2022 11/27/2022 11/27/2022 6 :44 PM VEHICLE DYNAMICS ENGINEER documented as of this encounter Care Teams Ceo & Board Director Relationship Specialty Start Date End Date Emilio Frey DO PCP - General Family Practice 10/05/18 documented as of this encounter
--- OUTSIDE RECORDS SUMMARY | 2025-10-05 09:45 | XMS_ITS | Encounter Summary ---
Author Organization [facility] Address [address] [place] [address] Care Team Providers Care Diorama Model Maker Name Role Phone Emilio Frey DO Primary Care Provider Encounter Details Date Type Department Care Team (Late st Contact Info) Description 11/09/2024 Orders Only [facility] Health Information Management [address] [place] [phone] Emilio Frey DO [facility] [address] [address] Social History Tobacco Use Types [...] on file Legal Sex Male 12:50 AM STUDENT SUCCESS COACH Gender Identity Not on file Sexual Orientation [...] on filedocumented in this encounter Care Teams Diorama Model Maker Relationship Specialty Start Date End Date Emilio Frey DO PCP - General Family Practice 05/25/19 documented as of this encounter
--- OUTSIDE RECORDS SUMMARY | 2025-10-05 09:45 | XMS_ITS | Clinical Summary ---
Author Organization [facility] Address [address] [place] [address] Care Team Providers Care Anesthesia Tech Name Role Phone Emilio Frey Primary [...] 025 Active blood-glucose meter,continuo us (Dexcom G7 Slubber Runner) miscIndication s:Type 2 diabetes mellitus with diabetic polyneuropathy , with long-term current use of insulin ([facility]) Dexcom G7 products mechanical design engineer use daily to monitor blood sugar. 1 [...] 1st toe, currently being managed by the [facility]. Plan: Continue dressing daily [...] on file Legal Sex Male 12:50 AM PORCELAIN ENAMEL SPRAYER Gender Identity Not on file Sexual Orientation [...] Screening Discontinued Medical Devices Implanted Type Area Commercial Account Officer Device Identifier Shelf Expiration Date Model [...] 1 - 29 mg/g EXTERNAL LAB Urine [facility] Provider LAB URINE ORDERABLES Stephania l Result Performing Organization Address City/[facility]/ZIP Co de Phone Number EXTERNAL LAB * (ABNORMAL) Hemoglobin A1c (06/08/2025) SCRIBED Hemoglobin A1c 7.7(A) 4.0 - 5.6 % EXTERNAL LAB Blood [facility] Provider LAB BLOOD ORDERABLES Stephania l Result Performing Organization Address City/[facility] Co de Phone Number EXTERNAL LAB * Lipid panel (06/08/2025) SCRIBED Cholesterol, Total 129 30 - 199 mg/dL EXTERNAL LAB SCRIBED Triglycerides 95 <=149 mg/dL EXTERNAL LAB SCRIBED HDL 51 >=40 mg/dL EXTERNAL LAB SCRIBED LDL 46 <=129 mg/dL EXTERNAL LAB Scribed Non-HDL Cholesterol 0 NONE mg/dL EXTERNAL LAB SCRIBED Total Cholesterol/HDL Ratio 0 NONE EXTERNAL LAB Blood [facility] Provider LAB BLOOD ORDERABLES Stephania l Result Performing Organization Address [facility] Co de Phone Number EXTERNAL LAB * Colonoscopy (09/22/2024 12:25 PM CDT) Anatomical Region Laterality Modality Other Narrative Procedure Note Trinh Galicia MD - 09/22/2024 12:25 PM CDT [facility] Patient Name: Emilio Sultana Procedure Date: 09/22/2024 12:25PM Date of : 1960 Admit Type: Outpatient Age: 63 Gender: Male Attending MD: Trinh Galicia M.D. Room: [facility] ENDOSCOPY ROOM 05 Note Status: [...] The scope was passed under direct vision.The CF-[id number] colonoscope was introduced through theanus and advanced [...] On: 09/22/2024 12:25 PM Recognized by the [employer]intestinal End[employer] for promoting quality [...] Most Recently Relevant to Health Maintenance Insurance [facility] MEDICARE MEDICARE [facility] Care Teams Anesthesia Tech Relationship Specialty Start Date End Date Emilio Frey DO PCP - General Family Practice 05/25/19
--- OUTSIDE RECORDS SUMMARY | 2025-10-05 09:45 | XMS_ITS | Encounter Summary ---
Author Organization [facility] Address [address] [place] [address] Care Team Providers Care Roll Weigher Name Role Phone Emilio Frey DO Primary Care Provider Encounter Details Date Type Department Care Team (Late st Contact Info) Description 12/21/2024 Telephone [facility] Primary Care [address] [address] Emilio Frey DO [facility] [address] [address] Social History Tobacco Use Types [...] on file Legal Sex Male 12:50 AM MATHEMATICIAN RESEARCH Gender Identity Not on file Sexual Orientation Not on file documented as of this encounter Plan of Treatment Not on file documented as of this encounter Visit Diagnoses Not on filedocumented in this encounter Care Teams Roll Weigher Relationship Specialty Start Date End Date Emilio Frey DO PCP - General Family Practice 05/25/19 documented as of this encounter
--- OUTSIDE RECORDS SUMMARY | 2025-10-05 09:45 | XMS_ITS | Encounter Summary ---
Author Organization [facility] Address [address] [place] [address] Phone Care Team Providers Care Table Setter Name Role Phone Unavailable Primary Care Provider Unavailabl e Reason for Visit * Reason Comments Med Change Request Encounter Details Date Type Department Care Team (Late st Contact Info) Description 12/30/2023 Refill [facility] [address] [address] [facility] [address] [place], [place] [phone] Soren Holcomb MD [address] [phone] Social History Tobacco Use Types Packs/Day Years [...] st Contact Info) Description 10/16/2025 4:20 PM RAG INSPECTOR Office Visit [facility] [address] [facility] 1 [place] [address] Soren Holcomb MD [address] [address] documented as of this encounter Visit Diagnoses Not on filedocumented in this encounter
--- OUTSIDE RECORDS SUMMARY | 2025-10-05 09:45 | XMS_ITS | Encounter Summary ---
Author Organization [facility] Address [address] [place] [address] Care Team Providers Care Audio Director Name Role Phone Emilio Frey DO Primary Care Provider Encounter Details Date Type Department Care Team (Late st Contact Info) Description 08/31/2001 Outpatient [facility] [address] [place] [address] [place] [address] Francia Russo MD NO ADDRESS ON FILE Social History Tobacco Use Types Packs/Day Years Used Date Smoking Tobacco: Never Assessed Sex and Gender Information Value Date Recorded Sex Assigned at Not on file Legal Sex Male 2:39 AM [employer] Gender Identity Not on file Sexual Orientation Not on file documented as of this encounter Plan of Treatment Upcoming Encounters Date Type Department Care Team (Late st Contact Info) Description 10/16/2025 10:00 AM [employer] E[employer]MENT [employer] Office Visit [facility] Heart and Vascular Electrophysiology - [id number] [facility] [address] [address] [facility] [address] [place] [address] [place] [address] [facility] [address] [place] [address] 05/21/2026 10:40 AM CDT Office Visit [facility] Pulmonology - [facility] [address] [place] [address] [place] [address] [place] [address] 05/24/2026 10:00 AM CDT Office Visit [facility] Heart and Vascular - [address] [facility] [address] [id number] [facility] [address] [place] [address] Juancho Vivian Mancilla, [employer] FI[employer] MECH[employer]IC [address] [place] [address] documented as of this encounter Visit Diagnoses Not on filedocumented in this encounter Additional Health Concerns Infection Onset Date Last Indicated Resolved Time 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
[2025-10-05 09:51] VITALS: BP 154/66; PULSE 78; RESP 22; O2SAT 100
[2025-10-05] MEDS: SODIUM CHLORIDE 0.9% IV 500 ML 999 ML IV CONT (09:57)
[2025-10-05] MEDS: PANTOPRAZOLE SODIUM IV 40 MG VIAL IV PUSH (09:58)
[2025-10-05 10:05] LABS: Alveolar/Arterial O2 Gradient 85.9 mmHg; Carboxyhemoglobin 0.8 % THb (0-2.0); Fractional Inspired Oxygen 28 %; HCO3 ABG 24.8 mEq/l (22.0-26.0); Methemoglobin ABG 0.2 %THb (0-1.5); Oxygen Content ABG 15.7 %vol (16.0-22.0); Oxygen Saturation ABG 95.4 % (95.0-100.0); PCO2 ABG 35.4 mmHg (35.0-45.0); PO2 ABG 72.0 mmHg (80.0-100.0); PO2 FiO2 Ratio Arterial Blood 2.57 %; Reduced Hemoglobin 5.3 %THb (0-5.0)
[2025-10-05 10:08] LABS: Liters per Minute 2.0 LPM; Modified Allen's Test Pass; Site Drawn LEFT RADIAL
[2025-10-05 10:41] LABS: Lipase 23 U/L (23-300); Magnesium 1.8 mg/dL (1.6-2.3)
[2025-10-05 11:43] VITALS: BP 142/75; PULSE 78; RESP 20; O2SAT 100
[2025-10-05 12:01] VITALS: PULSE 73; O2SAT 95
[2025-10-05] MEDS: oxyCODONE/ACETAMINOPHEN (*CRX) 10-325 MG TABLET 1 TAB PO (12:04)
[2025-10-05] MEDS: ONDANSETRON INJ 4 MG/2 ML VIAL IV PUSH (13:02)
--- NOTE | 2025-10-05 13:04 | PC.NURSE ---
Report to transport team
== END 2025-10-05 12:25 | disposition short-term general hospital (02) ==
PROVIDERS: Student in an Organized Health Care Education/Training Program; Emergency Provider Physician Assistant; PCP Family Medicine
DX: R41.82 Altered mental status, unspecified (principal); G93.89 Other specified disorders of brain; K20.90 Esophagitis, unspecified without bleeding; R11.10 Vomiting, unspecified; M54.9 Dorsalgia, unspecified; M54.2 Cervicalgia; G89.29 Other chronic pain; I48.91 Unspecified atrial fibrillation; E11.22 Type 2 diabetes mellitus with diabetic chronic kidney disease; I13.2 Hypertensive heart and chronic kidney disease with heart failure and with stage 5 chronic kidney disease, or end stage renal disease; I50.32 Chronic diastolic (congestive) heart failure; N18.6 End stage renal disease; Z99.2 Dependence on renal dialysis; E78.5 Hyperlipidemia, unspecified; J44.9 Chronic obstructive pulmonary disease, unspecified; M19.90 Unspecified osteoarthritis, unspecified site; G47.33 Obstructive sleep apnea (adult) (pediatric); Z96.651 Presence of right artificial knee joint; Z87.891 Personal history of nicotine dependence; Z90.49 Acquired absence of other specified parts of digestive tract; Z79.4 Long term (current) use of insulin; Z79.899 Other long term (current) drug therapy; Z79.01 Long term (current) use of anticoagulants; I44.0 Atrioventricular block, first degree
CPT/HCPCS: 36415; 36600; 70496; 70498; 71260; 74177; 80053; 80307; 81001; 82077; 82375; 82805; 82948; 83050; 83605; 83690; 83735; 85018; 85025; 85610; 85730; 86850; 86900; 86901; 87077; 87086; 87147; 87186; 93005; 96361; 96374; 96375; 99285; A9270; J2405; J2470; J7040; Q9967

== ENCOUNTER 2025-11-02 08:31 | Outpatient (CLI) | payer OTHER, MEDICARE, SELFPAY ==
[2025-11-02 09:18] LABS: Hematocrit 42.2 % (42.0-52.0); Hemoglobin 12.9 g/dL (14.0-18.0); Immature Granulocyte Percent A 0.3 % (0-0.5); Lymphocytes Absolute Auto 1.42 K/mm3 (0.9-3.2); Mean Corpuscular HGB Conc 30.6 g/dl (32-36); Mean Corpuscular Hemoglobin 26.4 pg (26-34); Mean Corpuscular Volume 86.3 fl (80-100); Nucleated Red Blood Cells Absolute Auto 0.000 K/mm3 (0.0-0.012); Nucleated Red Blood Cells Perc 0.0 % (0.0-0.2); Platelet Count Result 212 k/mm3 (150-375); Red Blood Count 4.89 M/mm3 (4.6-6.20); White Blood Count 6.1 K/mm3 (4.5-10.0)
[2025-11-02 09:41] LABS: Alanine Aminotransferase 10 U/L (6-50); Albumin Level 4.4 g/dL (3.5-5.1); Alkaline Phosphatase 91 U/L (38-126); Anion Gap 9 mmol/L (4-12); Aspartate Amino Transferase 22 U/L (17-59); Bilirubin,Total 1.2 mg/dL (0.2-1.3); Blood Urea Nitrogen 32 mg/dL (9-20); Calcium 9.3 mg/dL (8.4-10.2); Carbon Dioxide 32 mmol/L (22-30); Chloride 97 mmol/L (98-107); Estimated Glomerular Filt Rate 37; Glucose 126 mg/dL (65-110); Potassium 3.7 mmol/L (3.4-5.0); Sodium 138 mmol/L (137-145); Total Protein 7.9 g/dL (6.3-8.2)
[2025-11-02 09:57] LABS: Free T4 Free Thyroxine 2.09 ng/dL (0.78-2.19)
[2025-11-02 10:13] LABS: Thyroid Stimulating Hormone 0.635 uIU/mL (0.465-4.680)
== END 2025-11-02 08:32 | disposition home or self-care (01) ==
PROVIDERS: PCP Family Medicine
DX: I48.0 Paroxysmal atrial fibrillation (principal); Z79.899 Other long term (current) drug therapy
CPT/HCPCS: 36415; 80053; 84439; 84443; 85025